=== PATIENT | female | born 1945 | race Caucasian/White ===

== ENCOUNTER → 2016-07-24 | Outpatient (CLI) | payer BC ==
[~2016-07-24] MED LIST: AMBR1TAB PO; AMIO200T4 PO; APIX1TAB3 PO; ASCA500 PO; ASPEC81 PO; B-CO1TAB29 PO; CALC600T9 PO; CETI10TA84 PO; CHOL1000 PO; DIPH-437 PO; GABA-113 PO; IRONCAP18 PEG; MULT-506 PO; OXGN; POTA20TA16 PO; PRLSR20 PO; SILDINJ PO; SIMV20TA2 PO; TORS20TA2 PO; TPRSR/25 PO; VALA500T60 PO; WARF2TAB PO
--- NOTE | 2016-07-24 12:23 | DIAGNOSTIC IMAGING REPORT ---
CT SCAN OF THE CHEST WITHOUT IV CONTRAST CLINICAL HISTORY: Pulmonary nodule and pleural effusion. COMPARISON STUDY: Chest CT scans dated 06/02/2016 and 07/27/2010. TECHNIQUE: Unenhanced CT scan of the chest was performed from the thoracic inlet to the upper abdomen. Images are reviewed in the axial, sagittal, and coronal planes. IV contrast was not administered as per the referring clinician. CT DOSE: 694.66 mGy.cm FINDINGS: Thyroid: Imaged portions of the thyroid gland are normal in size and attenuation. Thoracic aorta: There is atherosclerotic calcification of the thoracic aorta, which is normal in caliber and demonstrates standard 3-vessel arch anatomy. Heart: The heart is normal in size and configuration, and without pericardial effusion. The coronary arteries are densely calcified. The main pulmonary arteries are enlarged suggesting pulmonary artery hypertension. Lungs and pleural spaces: Emphysema and biapical scarring are noted. There are postoperative changes from right upper lobe resection. There is complete atelectasis of the right middle lobe. There is a small right pleural effusion. This has decreased in size from 06/02/2016. Loculated fluid is again noted at the right apex. No airspace consolidation is identified typical for pneumonia. A 2 mm left lower lobe nodule is seen on image #139. This is unchanged from 2011 and of doubtful significance. No new or concerning pulmonary nodules identified. Mediastinum: There is no mediastinal lymphadenopathy. Clare: Normal assessment IV contrast. Axillae: There is no axillary lymphadenopathy. Upper abdomen: The gallbladder is not identified and presumed surgically absent. Imaged portions of the kidneys demonstrate cortical atrophy. There is advanced atherosclerotic calcification of the visualized abdominal aorta. Diverticular disease is noted in the partially imaged colon. Skeletal structures: The skeletal structures are osteopenic. There is a compression deformity of T9 with evidence of previous vertebroplasty. A mild compression for is also noted in the body of T5. Degenerative change is noted throughout the thoracic spine. No lytic or blastic bony lesions are seen. There are healed right-sided rib fractures. IMPRESSION: 1. There is a small residual right pleural effusion. This has decreased in size from 06/02/2016. 2. Again seen are postoperative changes from right upper lobe resection with loculated fluid at the right apex. 3. There is complete atelectasis of the right middle lobe. 4. Emphysema. There is no airspace consolidation identified typical for pneumonia. 5. Additional changes as above. Electronically signed by: Trav Willard M.D. 07/24/2016 12:21 PM
== END | disposition home or self-care (01) ==
LOC: C.CTS 11:48
PROVIDERS: ATTEND Surgery
DX: I26.99 Other pulmonary embolism without acute cor pulmonale (principal); J43.9 Emphysema, unspecified

== ENCOUNTER → 2016-10-25 | Outpatient (CLI) | payer BC ==
[2016-10-25 14:38] LABS: BASO % 0.7 %; BASO ABS # 0.03 K/uL (0-0.2); COMPLETE YES; EOS % 6.1 %; HEMATOCRIT 33.9 % (37-47); IG% 0.2 %; LYMPH % 26.3 %; LYMPH ABS # 1.21 K/uL (1.2-3.4); MEAN CORPUSCULAR HEMOGLOBIN 31.4 pg (25-34); MEAN CORPUSCULAR HGB CONC 32.7 g/dl (32-36); MEAN PLATELET VOLUME 9.6 fL (7.4-10.4); MONO % 11.5 %; NEUT % 55.2 %; PLATELET COUNT 251 K/uL (130-400); RED BLOOD COUNT 3.53 M/uL (4.2-5.4)
--- NOTE | 2016-10-25 14:45 | DIAGNOSTIC IMAGING REPORT ---
CHEST 2 VIEWS ROUTINE CLINICAL HISTORY: Adenocarcinoma the lung COMPARISON STUDY: 07/12/2016 FINDINGS: There is elevation/tenting of the right hemidiaphragm. There is blunting of the right lateral costophrenic angle. Postsurgical changes are present within the right hemithorax. There is persistent right hilar prominence, likely postsurgical. There is a small right pleural effusion. There are postsurgical changes are prior vertebroplasty. There is underlying pulmonary emphysema. The left lung is clear.[ IMPRESSION: Postsurgical changes on the right with persistent volume loss, prominent right hilum, tenting of the right hemidiaphragm, and a small right pleural effusion. No acute findings are visualized. Electronically signed by: Alex Reyna M.D. 10/25/2016 2:44 PM Dictated Date/Time: 10/25/2016 2:42 PM
[2016-10-25 15:05] LABS: ALT/SGPT 21 U/L (12-78); BLOOD UREA NITROGEN 26 mg/dl (7-18); BUN/CREATININE RATIO 25.8 (10-20); CALCIUM 9.2 mg/dl (8.5-10.1); CARBON DIOXIDE 30 mmol/L (21-32); CHLORIDE 105 mmol/L (98-107); GLUCOSE 95 mg/dl (70-99); POTASSIUM 4.1 mmol/L (3.5-5.1); SODIUM 143 mmol/L (136-145)
[2016-10-25 15:08] LABS: ALB/GLOB RATIO 0.8 (0.9-2); ALKALINE PHOSPHATASE 91 U/L (45-117); AST/SGOT 19 U/L (15-37)
== END | disposition home or self-care (01) ==
LOC: C.RAD 14:04
PROVIDERS: ATTEND Internal Medicine Hematology & Oncology
DX: C34.11 Malignant neoplasm of upper lobe, right bronchus or lung (principal); J90 Pleural effusion, not elsewhere classified

== ENCOUNTER → 2016-11-17 | Outpatient (CLI) | payer BC ==
[2016-11-17 12:14] LABS: HEMATOCRIT 34.4 % (37-47); MEAN CORPUSCULAR HEMOGLOBIN 30.3 pg (25-34); MEAN CORPUSCULAR HGB CONC 32.6 g/dl (32-36); MEAN PLATELET VOLUME 9.5 fL (7.4-10.4); PLATELET COUNT 250 K/uL (130-400); WHITE BLOOD COUNT 3.61 K/uL (4.8-10.8)
--- NOTE | 2016-11-17 12:15 | DIAGNOSTIC IMAGING REPORT ---
CT OF THE CHEST WITHOUT IV CONTRAST CLINICAL HISTORY: LUNG CA SHORTNESS OF BREATH COMPARISON STUDY: 17 CT DOSE: 595.46 mGycm TECHNIQUE: CT of the thorax was performed from the thoracic inlet to the lung bases. Images are reviewed in the axial, sagittal, and coronal planes. IV contrast was not administered for this examination. FINDINGS: Thyroid: Imaged portions of the thyroid gland are normal in appearance. Thoracic aorta: The thoracic aorta is normal in course and caliber, noting standard 3 vessel arch anatomy. Heart: There are coronary artery calcifications present. Lungs and pleural spaces: There are postsurgical changes of a right upper lobectomy. There is right middle lobe atelectasis, improved when compared the prior study. There is a persistent small right pleural effusion. There is a small amount of loculated fluid the right apex similar to the prior study. There is right apical reticulation, unchanged the prior study. There is a stable 2 mm left lower lobe pulmonary nodule. There is a stable 2 mm right lower lobe pulmonary nodule. No new or enlarging pulmonary masses are visualized. Mediastinum: There is no mediastinal lymphadenopathy. Clare: There is no evidence of pathologic hilar adenopathy given the limitations of a noncontrast study Axilla: Clear. Upper abdomen: Partially visualized upper abdominal viscera is within normal limits. Skeletal structures: There is evidence of a T9 compression deformity status post vertebroplasty. There is stable minor superior endplate T5 compression deformity. IMPRESSION: 1. Postsurgical changes of a right upper lobectomy 2. Stable small right pleural effusion 3. Right middle lobe atelectasis with improving aeration when compared the prior study 4. No new or enlarging pulmonary nodules Electronically signed by: Alex Reyna M.D. 11/17/2016 12:14 PM Dictated Date/Time: 11/17/2016 12:06 PM
[2016-11-17 12:44] LABS: BLOOD UREA NITROGEN 18 mg/dl (7-18); BUN/CREATININE RATIO 19.7 (10-20); CARBON DIOXIDE 28 mmol/L (21-32); CHLORIDE 107 mmol/L (98-107); CREATININE 0.89 mg/dl (0.60-1.20); GLUCOSE 90 mg/dl (70-99); SODIUM 141 mmol/L (136-145)
[2016-11-17 12:52] LABS: TOTAL IRON BINDING CAPACITY 431 mcg/dl (250-450)
[2016-11-17 12:54] LABS: CALCIUM 10.3 mg/dl (8.5-10.1)
== END ==
LOC: C.CTS 11:38
PROVIDERS: ATTEND Surgery
DX: C34.92 Malignant neoplasm of unspecified part of left bronchus or lung (principal); I27.2 Other secondary pulmonary hypertension; E78.5 Hyperlipidemia, unspecified; I48.91 Unspecified atrial fibrillation; Z79.01 Long term (current) use of anticoagulants; I26.99 Other pulmonary embolism without acute cor pulmonale; D46.9 Myelodysplastic syndrome, unspecified

== ENCOUNTER → 2016-12-13 | Outpatient (CLI) | payer BC | END | disposition home or self-care (01) | LOC: C.RC 09:24 | PROVIDERS: ATTEND Specialist | DX: I27.2 Other secondary pulmonary hypertension (principal) ==

== ENCOUNTER → 2016-12-15 | Day surgery (SDC) | payer BC ==
[~2016-12-15] VITALS: Ht 160 cm; Wt 73.0 kg
[~2016-12-15] MED LIST changes: -AMIO200T4 PO; -B-CO1TAB29 PO; +FENTANYL CITRATE INJ 50 MCG/1 ML 2 ML VIAL ONE; +MIDAZOLAM HCL 1 MG/ML 2ML VIAL ONE; -WARF2TAB PO
[2016-12-15 08:29] VITALS: Ht 160 cm; Wt 73.0 kg
[2016-12-15 08:30] VITALS: BP 121/62; PULSE 85; TEMP 36.6; O2SAT 95
--- NOTE | 2016-12-15 10:35 | History & Physical Bridge Note ---
H&P Re-Evaluation Bridge Note: I have examined the patient, reviewed the History & Physical and in the interval since the performance of the History & Physical I have noted the following changes of clinical significance: No changes noted
--- NOTE | 2016-12-15 10:36 | Procedure Note ---
Pre-Mod Sedation Assessment General Date of Moderate Sedation: December 15, 2016. Vital Signs: Vital Signs Past 12 Hours Date Time Temp Pulse Resp B/P Pulse Ox O2 Delivery O2 Flow Rate FiO2 12/15/16 10:30 66 16 111/54 98 Room Air 12/15/16 10:27 65 16 132/76 98 Room Air 12/15/16 08:30 36.6 85 16 121/62 95 Room Air Review Cardiovascular: regular rate, rhythm, no edema Abdomen: normal bowel sounds, non tender Lungs: chest non-tender, lungs clear Airway Class: II Pre-Sedation Airway Assessment Oral Cavity: Dentures Able to Visualize Vocal Cords: No Short Thick Neck: No Hx of Sleep Apnea: Yes Smoking Status: Former Smoker Mallampati Classification: Class II ASA Classification: Class III Procedure Planning Contraindications-for Mod Sed: None Yes Notes The planned sedation has been discussed with the patient and consent obtained. I have identified the patient, determined the appropriateness of sedation and have assessed the patient immediately prior to the procedure. All medicine(s) and interventions are by my order.
--- NOTE | 2016-12-15 10:37 | Procedure Note ---
Post-Mod Sedation Assessment General Date of Moderate Sedation December 15, 2016. Vital Signs: Vital Signs Past 12 Hours Date Time Temp Pulse Resp B/P Pulse Ox O2 Delivery O2 Flow Rate FiO2 12/15/16 10:30 66 16 111/54 98 Room Air 12/15/16 10:27 65 16 132/76 98 Room Air 12/15/16 08:30 36.6 85 16 121/62 95 Room Air Review - Discharge Criteria Vital Signs Stable: Yes Alert/Oriented/Conversant: Yes Returned to Baseline Mental St: Yes Nausea Absent/Minimal: Yes Pain/Discomfort/Absent/Minimal: Yes Normal/Baseline Respirations: Yes Active Bleeding?: No Pt Received D/C Instructions: Yes Prescriptions Given: None Specific Proced. D/C Criteria Distal Pulses Present (Cardiac: Yes Groin site assessed-Card Cath: N/A Voided Prior To Discharge: N/A Discharged Patients Adult Escort/Transportation: Yes
--- NOTE | 2016-12-15 11:02 | [facility] Post Operative Brief Note ---
Preliminary Procedure Note Procedure Date December 15, 2016. Pre-Procedure Diagnosis Cardiothoracic Symptom AUC Score 7 Post-Procedure Diagnosis Normal Intracardiac Pressures, Cardiothoracic Finding Procedure(s) Performed Right Heart Cath Staff Accountant Dr. Zelaya Public Health Administrator(s) Slava Estimated Blood Loss 5 Medication(s) Fentanyl, Versed, Lidocaine 1% Preliminary Findings Right Heart Catheterization: RA 6 RV 55/9 PA 56/21/36 PCW 11 Pulse Ox Sat 90 Pa Sat 54 Thermo CO/CI 3.9/2.2 Kalina CO/CI 4.0/2.3 TPG 25; PVR 6 Wood Summary: 1. Normal left sided and borderline right-sided filling pressures 2. Mild to moderate pulmonary hypertension 3. Preserved cardiac output Recommendations: Findings to be discussed with patient's CHF/pulmonary hypertension specialist, Dr. Meyers. Recommendations Medical therapy and/or Counseling Specimens None Fluids (cc crystalloids) 12 Drains none Anesthesia moderate Procedural Complication(s) None Disposition Line Maintenance Technician Holding/Recovery
[2016-12-15 11:55] LABS: ISTAT ARTERIAL BLOOD GAS HCO3 27 meq/L (19-24); ISTAT ARTERIAL BLOOD GAS PCO2 43 mmHg (35-46); ISTAT ARTERIAL BLOOD GAS PO2 < 32 mmHg (80-95); ISTAT ARTERIAL BLOOD GAS pH 7.41 (7.35-7.45); ISTAT CARBON DIOXIDE 28 mEq/l (24-31)
--- NOTE | 2016-12-15 12:18 | Discharge Instructions ---
Discharge Instructions Procedure Procedure Date: December 15, 2016. Reason for Visit: Dyspnea On Exertion To Do. Discharge Discharge Date: December 15, 2016. Discharge Diagnosis: Pulmonary Hypertension Last Recorded Wt (Kilograms): 73 Anesthesia Post Anesthesia Instructions: If you have had IV Sedation: * Do not drive today. * Resume driving when surgeon permits. * Do not make important decisions or sign legal documents today. * Call surgeon for: 1. Temperature elevations greater than 101 degrees F. 2. Uncontrollable pain. 3. Excessive bleeding. 4. Persistent nausea and vomiting. 5. Medication intolerance (nausea, vomiting or rash). * For nausea and vomiting use only clear liquids such as: tea, soda, bouillon until nausea subsides, then gradually increase diet as tolerated. * If you have any concerns or questions, call your surgeon's office. If physician is unavailable and it is an emergency, call 911 or go to the nearest emergency room. Instructions Activity Recommendations: limitations as noted below Recommended Home Diet: resume previous diet Allergies: Coded Allergies: Ciprofloxacin (Unverified Allergy, Mild, RASH, 06/02/16) Cephalexin (Unverified Allergy, Unknown, UNKNOWN, 06/02/16) Doxycycline (Unverified Allergy, Unknown, RASH, 06/02/16) Eggs or Egg-derived Products (Unverified Allergy, Unknown, HIVES, 06/02/16 ) Influenza Vaccine Live (Verified Allergy, Unknown, ALLERGIES TO EGGS, 06/07) Nitrates, Organic (Verified Allergy, Unknown, UNABLE TO HAVE R/T PULMONARY HTN, 06/02/16) Penicillins (Unverified Allergy, Unknown, RASH, 06/02/16) Tetanus Toxoid (Unverified Allergy, Unknown, TETANUS-DIPTHERIA TOXOID-RASH , 06/02/16) Codeine (Verified Adverse Reaction, Unknown, GI SYMPTOMS, 06/02/16) NAUSEA/VOMITING Hydrocodone (Unverified Adverse Reaction, Unknown, N/V, 12/15/16) Uncoded Allergies: ANTI-HISTAMINES (Allergy, Unknown, UNABLE TO HAVE R/T PULMONARY HTN, 10/27/14 ) COLD MEDICATIONS (Allergy, Unknown, UNABLE TO HAVE R/T PULMONARY HTN, ) Follow Up Additional Instructions: ACTIVITY RECOMMENDATIONS: It is common to feel weak and fatigue for a few days. * Do not drive or operate any motorized equipment for the next 2 days. * Limit stair usage (2 or 3 trips a day only) for the next 2 days. * Do not lift anything heavier than 10 pounds for the next three days. * Do not engage in vigorous exercise or any sports for the next five days. * You may shower the day after your procedure, but do not immerse the area for three days. Cleanse the site gently with soap and water. SPECIAL CARE INSTRUCTIONS: * You may replace the pressure dressing or band-aid the morning after the procedure. * After your procedure, it is normal to have a small bruise or small lump at the site. Examine your site daily for any change in the bruise or lump, redness, swelling, drainage or numbness. Notify your doctor if any change. BLEEDING: * If there is a small amount of bleeding at the site, lie down and apply firm pressure with a clean cloth for ten minutes. When the bleeding stops, lie quietly keeping the procedure limb straight for six hours. Notify your doctor as soon as possible. * If the bleeding does not stop after ten minutes or if there is a large amount of bleeding or spurting, call 911 immediately. Continue to lie down and hold firm pressure until help arrives. SKIN IRRITATION: * You may experience some redness and/or swelling in the area where radiation was administered. If any skin irritation occurs, please contact your family physician. FOLLOW UP VISIT: Keep any scheduled doctor appointments. Follow-up with: Dr. Michelle for further pulmonary evaluation Yudelka Juarez Recommendations: Call your doctor if: * Temperature above 101 degrees * Pain not relieved by pain medicine ordered * There is increased drainage or redness from any incision * You have any unanswered questions or concerns. Your Doctors Instructions noted above were prepared by provider Farhan Zelaya. Patient Signature Section: Patient Instructions Signature Page Angela Parish Patient (or Guardian) Signature/Date: I have read and understand the instructions given to me by my caregivers. Caregiver/RN/Doctor Signature/Date: The above-named patient and/or guardian has received patient instructions on this date. + Original Patient Signature Page (only) stays with chart. Please make copy for patient.
[2016-12-15 12:55] VITALS: BP 112/68; PULSE 78; O2SAT 97
--- NOTE | 2016-12-21 13:51 | CARDIAC CATH REPORT ---
DATE OF PROCEDURE: 12/15/2016. INDICATION FOR STUDY: Pulmonary hypertension. PROCEDURE PERFORMED: Right heart catheterization. PROCEDURE: A 18 gauge IV was placed in the right antecubital vein prior to procedure. The patient was taken to the cardiac catheterization lab where she was prepped in normal standard fashion. IV was exchanged for a 6 German slender sheath. A 5 [place] was guided to the heart under fluoroscopy and thermo cardiac outputs were obtained. FINDINGS: RA 6. RV 55/9. PA 55/21 with mean of 36. Post capillary wedge pressure 11. Arterial pulse ox 90%, PA sat 54%. Thermo cardiac output/cardiac index was 2.9/2.2. Cardiac output was 4.0, index 2.3, calculated transpulmonary gradient was 25 and calculated pulmonary vascular resistance was 6 Wood units. SUMMARY: 1. Normal left sided and borderline right sided filling pressures. 2. Mild to moderate pulmonary hypertension. 3. Preserved cardiac output. RECOMMENDATIONS: Findings of right heart catheterization were discussed with the patient's pulmonary hypertension specialist, Dr. Meyers. It was his recommendation that the patient's Sildenafil dose be increased from 25 mg to 40 mg t.i.d. This was discussed with the patient and changes were made. MTDD
== END | disposition home or self-care (01) ==
LOC: C.CATH 08:13
PROVIDERS: ATTEND Internal Medicine Interventional Cardiology
DX: I27.2 Other secondary pulmonary hypertension (principal); E78.5 Hyperlipidemia, unspecified; I25.10 Atherosclerotic heart disease of native coronary artery without angina pectoris; I48.0 Paroxysmal atrial fibrillation; I48.92 Unspecified atrial flutter; M47.812 Spondylosis without myelopathy or radiculopathy, cervical region; G47.30 Sleep apnea, unspecified; M54.12 Radiculopathy, cervical region; J44.9 Chronic obstructive pulmonary disease, unspecified; K21.9 Gastro-esophageal reflux disease without esophagitis; Z86.711 Personal history of pulmonary embolism; Z79.01 Long term (current) use of anticoagulants; Z85.118 Personal history of other malignant neoplasm of bronchus and lung; Z82.49 Family history of ischemic heart disease and other diseases of the circulatory system; Z87.891 Personal history of nicotine dependence; Z79.82 Long term (current) use of aspirin; Z79.899 Other long term (current) drug therapy

== ENCOUNTER → 2017-01-30 | Outpatient (CLI) | payer BC ==
[~2017-01-30] MED LIST changes: -FENTANYL CITRATE INJ 50 MCG/1 ML 2 ML VIAL ONE; -MIDAZOLAM HCL 1 MG/ML 2ML VIAL ONE
--- NOTE | 2017-01-30 11:31 | DIAGNOSTIC IMAGING REPORT ---
CHEST 2 VIEWS ROUTINE CLINICAL HISTORY: LUNG ADENOCARCINOMA C34.11 lung carcinoma COMPARISON STUDY: 10/25/2016 FINDINGS: Stable postoperative changes right hemithorax and right hilar region. Chronic persistent prominence of the hilar regions bilaterally. Chronic elevation right hemidiaphragm. Lungs otherwise are considered clear. There are no new or interval findings. There is minimal low thoracic vertebral plasty. IMPRESSION: Stable chest. Stable postoperative changes right hemithorax. No new or acute process. Electronically signed by: Alessandro Urbina M.D. 01/30/2017 11:30 AM Dictated Date/Time: 01/30/2017 11:29 AM
[2017-01-30 12:20] LABS: BASO % 1.8 %; BASO ABS # 0.05 K/uL (0-0.2); COMPLETE YES; EOS % 4.2 %; HEMATOCRIT 32.6 % (37-47); LYMPH % 36.6 %; LYMPH ABS # 1.04 K/uL (1.2-3.4); MEAN CELL VOLUME 84.7 fL (80-100); MEAN CORPUSCULAR HEMOGLOBIN 26.5 pg (25-34); MEAN CORPUSCULAR HGB CONC 31.3 g/dl (32-36); MEAN PLATELET VOLUME 9.8 fL (7.4-10.4); MONO % 9.2 %; NEUT % 48.2 %; PLATELET COUNT 271 K/uL (130-400); RED BLOOD COUNT 3.85 M/uL (4.2-5.4); WHITE BLOOD COUNT 2.84 K/uL (4.8-10.8)
[2017-01-30 12:40] LABS: ALT/SGPT 23 U/L (12-78); BLOOD UREA NITROGEN 18 mg/dl (7-18); BUN/CREATININE RATIO 16.5 (10-20); CALCIUM 9.4 mg/dl (8.5-10.1); CARBON DIOXIDE 29 mmol/L (21-32); CHLORIDE 104 mmol/L (98-107); GLUCOSE 87 mg/dl (70-99); POTASSIUM 4.4 mmol/L (3.5-5.1); SODIUM 138 mmol/L (136-145)
[2017-01-30 12:43] LABS: ALB/GLOB RATIO 0.9 (0.9-2); ALKALINE PHOSPHATASE 83 U/L (45-117); AST/SGOT 19 U/L (15-37)
[2017-01-30 13:22] LABS: CHOLESTEROL/HDL RATIO 4.2; THYROID STIMULATING HORMONE 2.12 uIu/ml (0.300-4.500)
== END | disposition home or self-care (01) ==
LOC: C.RAD 10:28
PROVIDERS: ATTEND Internal Medicine Hematology & Oncology
DX: C34.11 Malignant neoplasm of upper lobe, right bronchus or lung (principal); E78.5 Hyperlipidemia, unspecified; I48.91 Unspecified atrial fibrillation; D64.9 Anemia, unspecified; Z79.01 Long term (current) use of anticoagulants; M85.80 Other specified disorders of bone density and structure, unspecified site; Z12.31 Encounter for screening mammogram for malignant neoplasm of breast

== ENCOUNTER → 2017-01-30 | Outpatient (CLI) | payer BC ==
--- NOTE | 2017-01-31 07:38 | MAMMOGRAPHY REPORT ---
BILATERAL DIGITAL SCREENING MAMMOGRAM WITH CAD: 01/30/2017 CLINICAL HISTORY: Routine screening. TECHNIQUE: Bilateral CC and MLO views were obtained. A left XCCL view was also performed. Current debra osuna was also evaluated with a Computer Aided Detection (CAD) system. COMPARISON: Comparison is made to exams dated: 11/23/2015 mammogram, 11/05/2014 mammogram, 11/04/2013 ma mmogram, 11/01/2012 mammogram, 11/01/2011 mammogram, and 10/18/2010 mammogram - [facility] nter. BREAST COMPOSITION: The tissue of both breasts is almost entirely fatty. FINDINGS: There is stable faint asymmetry in the lateral right breast. No suspicious mass, core microarchitect ural distortion or cluster of microcalcifications is seen. IMPRESSION: ACR BI-RADS CATEGORY 1: NEGATIVE There is no mammographic evidence of malignancy. A 1 year screening mammogram is recommended. The pa tient will receive written notification of the results. Approximately 10% of breast cancers are not detected with mammography. A negative mammographic report should not delay biopsy if a clinically suggestive mass is present. Sheeba Tapia M.D. ay/:01/30/2017 15:36:39 Sander Setter: Lulu SIMPSON(Tom)(M), [facility] letter sent: Normal 1/2 BI-RADS Code: ACR BI-RADS Category 1: Negative
== END | disposition home or self-care (01) ==
LOC: C.MAMM 09:37
PROVIDERS: ATTEND Obstetrics & Gynecology
DX: Z12.31 Encounter for screening mammogram for malignant neoplasm of breast (principal)

== ENCOUNTER → 2017-04-25 | Outpatient (CLI) | payer BC ==
--- NOTE | 2017-04-25 13:25 | DIAGNOSTIC IMAGING REPORT ---
CHEST 2 VIEWS ROUTINE CLINICAL HISTORY: 71 years-old Female presenting with LUNG CA. TECHNIQUE: PA and lateral views of the chest were obtained. COMPARISON: 01/30/2017. FINDINGS: Surgical clips project over the right hilum with multiple suture margins noted in the right lung centrally. Cardiac silhouette normal in size. Persistent elevation of the right hemidiaphragm. Prominence of the sergio unchanged. No new focal infiltrate. No large effusion or pneumothorax. Scoliotic curvature and degenerative change of the spine. Mid thoracic vertebroplasty noted. Upper abdomen normal. IMPRESSION: 1. Stable postsurgical changes of the right hemithorax. Electronically signed by: Wilmer Pritchard M.D. 04/25/2017 1:23 PM Dictated Date/Time: 04/25/2017 1:22 PM
[2017-04-25 14:17] LABS: FERRITIN 5.7 ng/ml (8.0-388.0)
== END | disposition home or self-care (01) ==
LOC: C.RAD 12:20
PROVIDERS: ATTEND Internal Medicine Hematology & Oncology
DX: C34.11 Malignant neoplasm of upper lobe, right bronchus or lung (principal); Z98.890 Other specified postprocedural states

== ENCOUNTER → 2017-05-15 | Outpatient (CLI) | payer BC ==
--- NOTE | 2017-05-15 10:46 | DIAGNOSTIC IMAGING REPORT ---
(CHEST) THORAX WITHOUT CT DOSE: 621.35 mGycm CLINICAL HISTORY: 71 years-old Female with LUNG CA. Six-month follow-up study in a patient with adenocarcinoma . History of prior right upper lobectomy. TECHNIQUE: Multiaxial CT images of the chest were performed without contrast. A dose lowering technique was utilized adhering to the principles of ALARA. COMPARISON: Chest radiographs 04/25/2017, chest CT 11/17/2016, 06/02/2016, 12/27/2015. FINDINGS: No dominant thyroid nodule identified. Evaluation for adenopathy is limited without use of IV contrast. Within the limitations of the study, no pathologic-appearing adenopathy of the chest identified. The heart is normal in size with three-vessel distribution coronary arterial disease. Moderate atherosclerotic plaquing of the thoracic aorta. Main pulmonary artery is mildly dilated at 3.0 cm, suggesting background pulmonary arterial hypertension. 6 x 5 mm groundglass nodule of the left upper lobe is seen on image 42 of series 4, indeterminate. In retrospect, this appears unchanged dating back to at least 05/05/2011 suggesting benign etiology. Mild subpleural bleb formation is seen within the upper lung zones. There are a few nonspecific ill-defined groundglass opacities of the left upper lobe may reflect atelectasis and/or air trapping. Ill-defined 10 x 9 mm opacity abutting the pleural surface with central air bronchograms seen within the right lower lobe which appears slightly more conspicuous than comparison study 11/17/2016 seen on image 43 of series 4.. Postsurgical changes of prior right upper lobectomy. Chronic consolidation and volume loss of the right middle lobe appears stable from comparison. 7 x 7 mm solid pulmonary nodule within the right lower lobe on image 114 of series 4 appears new from comparison. No additional new or suspicious pulmonary nodules or masses identified. Areas of pleural-parenchymal scarring are present within the lung apices, right and left. Central airways are patent. Unchanged small right pleural effusion. Partially imaged cholelithiasis. Patient obesity noted. No suspicious lytic or blastic bony lesions identified. Remote compression deformity with vertebroplasty changes noted at T9. Bones are mildly demineralized. IMPRESSION: 1. Postoperative changes compatible with prior right upper lobectomy. Chronic consolidative opacities and volume loss of the right middle lobe with small right pleural effusion are unchanged. 2. Interval development of a solid pulmonary nodule within the right lower lobe as above measuring 7 x 7 mm which is suspicious for possible metastatic disease. Additionally, there is an ill-defined 10 mm opacity within the right lower lobe near the apex as above which appears more conspicuous than prior study. Both of these findings warrant close attention at follow-up. 3. No pathologic adenopathy or evidence of bony metastasis. 4. Partially imaged cholelithiasis. Electronically signed by: Jaime Steele M.D. 05/15/2017 10:44 AM Dictated Date/Time: 05/15/2017 10:33 AM
== END | disposition home or self-care (01) ==
LOC: C.CTS 10:10
PROVIDERS: ATTEND Surgery
DX: C34.92 Malignant neoplasm of unspecified part of left bronchus or lung (principal); J44.9 Chronic obstructive pulmonary disease, unspecified; Z86.711 Personal history of pulmonary embolism; K80.20 Calculus of gallbladder without cholecystitis without obstruction; R93.8 Abnormal findings on diagnostic imaging of other specified body structures

== ENCOUNTER → 2017-07-18 | Outpatient (CLI) | payer BC ==
[~2017-07-18] MED LIST changes: +ACET-1256 PO; +AMIO200T4 PO; +BENZ1CAP90 PO; -CETI10TA84 PO; +CRD200 PO; -IRONCAP18 PEG; +METO25TA3 PO; +MOME100A INH; +POTA-639 PO; +POTA10CA28 PO; -POTA20TA16 PO; +SERT50TA PO; +SILD1TAB25 PO; +TORS10TA14 PO
[2017-07-18 10:59] LABS: ALBUMIN 3.7 gm/dl (3.4-5.0); ALT/SGPT 28 U/L (12-78); BLOOD UREA NITROGEN 23 mg/dl (7-18); CALCIUM 9.3 mg/dl (8.5-10.1); CARBON DIOXIDE 30 mmol/L (21-32); CREATININE 1.01 mg/dl (0.60-1.20); GLUCOSE 98 mg/dl (70-99); POTASSIUM 3.9 mmol/L (3.5-5.1); SODIUM 138 mmol/L (136-145)
[2017-07-18 11:02] LABS: ALKALINE PHOSPHATASE 93 U/L (45-117); AST/SGOT 21 U/L (15-37); TOTAL PROTEIN 8.1 gm/dl (6.4-8.2)
[2017-07-18 11:12] LABS: BASO % 1.1 %; BASO ABS # 0.04 K/uL (0-0.2); EOS % 6.4 %; EOS ABS # 0.24 K/uL (0-0.5); HEMATOCRIT 38.9 % (37-47); HEMOGLOBIN 13.6 g/dL (12.0-16.0); IG# 0.01 K/uL (0.00-0.02); LYMPH % 28.1 %; LYMPH ABS # 1.06 K/uL (1.2-3.4); MEAN CELL VOLUME 90.9 fL (80-100); MEAN CORPUSCULAR HEMOGLOBIN 31.8 pg (25-34); MEAN PLATELET VOLUME 9.8 fL (7.4-10.4); MONO % 13.5 %; MONO ABS # 0.51 K/uL (0.11-0.59); NEUT % 50.6 %; NEUT ABS # 1.91 K/uL (1.4-6.5); PLATELET COUNT 231 K/uL (130-400); RED CELL DISTRIBUTION WIDTH CV 22.3 % (11.5-14.5); RED CELL DISTRIBUTION WIDTH SD 68.9 fL (36.4-46.3); WHITE BLOOD COUNT 3.77 K/uL (4.8-10.8)
== END | disposition home or self-care (01) ==
LOC: C.LABBC 08:17
PROVIDERS: ATTEND Nurse Practitioner Family
DX: D64.9 Anemia, unspecified (principal); I48.0 Paroxysmal atrial fibrillation

== ENCOUNTER → 2017-07-30 | Outpatient (CLI) | payer BC ==
[~2017-07-30] MED LIST changes: -AMIO200T4 PO; -BENZ1CAP90 PO; -CRD200 PO; -DIPH-437 PO; -METO25TA3 PO; -POTA-639 PO; -POTA10CA28 PO; +POTA20TA16 PO; -SILD1TAB25 PO; -TORS10TA14 PO
--- NOTE | 2017-07-30 14:32 | DIAGNOSTIC IMAGING REPORT ---
CHEST 2 VIEWS ROUTINE HISTORY: Lung cancer. Follow-up. COMPARISON: PET CT 05/23/2017. Chest 04/25/2017. FINDINGS: Postoperative changes including volume loss within the right hemithorax are not significantly changed. Right hilar prominence remains stable. No pleural effusions. No pneumothorax. The heart is normal in size. Vertebroplasty within the lower thoracic spine is again noted. No new focal lung consolidations. No evidence for pulmonary edema. IMPRESSION: No significant change compared to the prior study. No acute process. Stable presumed postoperative changes within the right hemithorax. Electronically signed by: Jak Anthony M.D. 07/30/2017 2:31 PM Dictated Date/Time: 07/30/2017 2:29 PM
== END | disposition home or self-care (01) ==
LOC: C.LABBC 14:06
PROVIDERS: ATTEND Internal Medicine Hematology & Oncology
DX: C34.11 Malignant neoplasm of upper lobe, right bronchus or lung (principal)

== ENCOUNTER → 2017-10-16 | Outpatient (CLI) | payer BC ==
[2017-10-16 13:14] LABS: BASO % 0.8 %; BASO ABS # 0.04 K/uL (0-0.2); EOS % 4.9 %; EOS ABS # 0.24 K/uL (0-0.5); HEMATOCRIT 39.3 % (37-47); HEMOGLOBIN 13.5 g/dL (12.0-16.0); IG# 0.01 K/uL (0.00-0.02); LYMPH % 26.6 %; LYMPH ABS # 1.29 K/uL (1.2-3.4); MEAN CELL VOLUME 98.7 fL (80-100); MEAN CORPUSCULAR HEMOGLOBIN 33.9 pg (25-34); MEAN CORPUSCULAR HGB CONC 34.4 g/dl (32-36); MEAN PLATELET VOLUME 10.1 fL (7.4-10.4); MONO % 9.9 %; MONO ABS # 0.48 K/uL (0.11-0.59); NEUT % 57.6 %; NEUT ABS # 2.79 K/uL (1.4-6.5); PLATELET COUNT 263 K/uL (130-400); RED CELL DISTRIBUTION WIDTH CV 12.4 % (11.5-14.5); RED CELL DISTRIBUTION WIDTH SD 44.9 fL (36.4-46.3); WHITE BLOOD COUNT 4.85 K/uL (4.8-10.8)
[2017-10-16 14:10] LABS: ALBUMIN 3.6 gm/dl (3.4-5.0); ALT/SGPT 29 U/L (12-78); AST/SGOT 23 U/L (15-37); BLOOD UREA NITROGEN 22 mg/dl (7-18); CALCIUM 9.4 mg/dl (8.5-10.1); CARBON DIOXIDE 27 mmol/L (21-32); CREATININE 0.98 mg/dl (0.60-1.20); GLUCOSE 94 mg/dl (70-99); POTASSIUM 4.1 mmol/L (3.5-5.1); SODIUM 136 mmol/L (136-145)
[2017-10-16 14:16] LABS: ALKALINE PHOSPHATASE 98 U/L (45-117); TOTAL PROTEIN 8.3 gm/dl (6.4-8.2)
== END | disposition home or self-care (01) ==
LOC: C.LABBC 10:14
PROVIDERS: ATTEND Nurse Practitioner Family
DX: C34.11 Malignant neoplasm of upper lobe, right bronchus or lung (principal)

== ENCOUNTER → 2017-10-17 | Outpatient (CLI) | payer BC ==
--- NOTE | 2017-10-17 11:51 | DIAGNOSTIC IMAGING REPORT ---
(CHEST) THORAX WITHOUT CLINICAL HISTORY: 72 years-old Female presenting with ADENOCARCINOMA OF RT LUNG. TECHNIQUE: Multidetector CT imaging of the chest was performed without the use of intravenous contrast. IV contrast: None. A dose lowering technique was used consistent with the principles of ALARA (as low as reasonably achievable). COMPARISON: 05/15/2017 and chest x-ray from 07/30/2017. CT DOSE (mGy.cm): The estimated cumulative dose is 654.44 mGycm. FINDINGS: Environmental Compliance Technician topogram: Unremarkable. On soft tissue windows, normal thyroid and thoracic inlet. No axillary, supraclavicular, or mediastinal lymphadenopathy. Evaluation of the sergio limited without intravenous contrast. Atherosclerosis of the aorta. Normal heart size. Coronary artery and aortic valve calcification. Trace right pleural effusion. No pericardial or left pleural effusion. Prominence of the bile ducts may relate to a reservoir effect in the post cholecystectomy state, although the gallbladder fossa is not visualized to confirm cholecystectomy. On lung windows, postsurgical changes of right upper lobectomy. Chronic cicatrizing atelectasis of the right middle lobe, possibly postsurgical. Persistent reticulation at the superior segment of the right lower lobe at the apex. This is unchanged and suggestive of scarring. The previously measured site at the paramediastinal region may represent focal bronchiectasis. Interval development of a suspicious groundglass nodule measuring 19 mm in diameter in the periphery of the right lower lobe (series 4 image 161). Based on its location, this does not definitively matched up with a prior finding though this may correlate with the prior measured groundglass nodule in this general vicinity. Mosaic attenuation suggest small airways disease. The previously measured groundglass nodule at the left apex is minimally apparent (series 4 image 46). Central airways patent. On bone windows, degenerative changes of the spine. Post procedure changes of kyphoplasty. Osteopenia. IMPRESSION: 1. 19 mm groundglass nodule in the right lower lobe is suspicious for an adenomatous lesion or carcinoma, specifically adenocarcinoma or adenocarcinoma in situ. Recommend excision or biopsy given the rapidity its growth/development. 2. Postsurgical changes of right upper lobectomy. 3. Chronic cicatrizing atelectasis of the right middle lobe. 4. Scarring in the superior segment of the right lower lobe, unchanged. 5. Trace right pleural effusion. The report will be called/faxed according to standard departmental protocol. Electronically signed by: Wilmer Pritchard M.D. 10/17/2017 11:50 AM Dictated Date/Time: 10/17/2017 11:40 AM
== END | disposition home or self-care (01) ==
LOC: C.CTS 11:14
PROVIDERS: ATTEND Surgery
DX: C34.11 Malignant neoplasm of upper lobe, right bronchus or lung (principal)

== ENCOUNTER → 2017-11-30 | Outpatient (CLI) | payer BC ==
[~2017-11-30] MED LIST changes: +POTA-639 PO; -POTA20TA16 PO
[2017-11-30 09:30] LABS: BASO % 0.7 %; BASO ABS # 0.03 K/uL (0-0.2); EOS % 3.6 %; EOS ABS # 0.15 K/uL (0-0.5); HEMATOCRIT 38.2 % (37-47); HEMOGLOBIN 12.7 g/dL (12.0-16.0); IG# 0.02 K/uL (0.00-0.02); LYMPH % 24.7 %; LYMPH ABS # 1.02 K/uL (1.2-3.4); MEAN CELL VOLUME 97.7 fL (80-100); MEAN CORPUSCULAR HEMOGLOBIN 32.5 pg (25-34); MEAN CORPUSCULAR HGB CONC 33.2 g/dl (32-36); MEAN PLATELET VOLUME 9.6 fL (7.4-10.4); MONO % 12.1 %; NEUT % 58.4 %; NEUT ABS # 2.41 K/uL (1.4-6.5); PLATELET COUNT 238 K/uL (130-400); RED CELL DISTRIBUTION WIDTH CV 13.1 % (11.5-14.5); RED CELL DISTRIBUTION WIDTH SD 46.6 fL (36.4-46.3); WHITE BLOOD COUNT 4.13 K/uL (4.8-10.8)
[2017-11-30 10:27] LABS: ALBUMIN 3.6 gm/dl (3.4-5.0); ALT/SGPT 27 U/L (12-78); AST/SGOT 22 U/L (15-37); BLOOD UREA NITROGEN 18 mg/dl (7-18); CALCIUM 9.1 mg/dl (8.5-10.1); CARBON DIOXIDE 29 mmol/L (21-32); CREATININE 0.92 mg/dl (0.60-1.20); GLUCOSE 76 mg/dl (70-99); POTASSIUM 3.9 mmol/L (3.5-5.1); SODIUM 140 mmol/L (136-145)
[2017-11-30 10:30] LABS: ALKALINE PHOSPHATASE 86 U/L (45-117); TOTAL PROTEIN 7.5 gm/dl (6.4-8.2)
== END | disposition home or self-care (01) ==
LOC: C.LAB 07:59
PROVIDERS: ATTEND Nurse Practitioner Family
DX: C34.11 Malignant neoplasm of upper lobe, right bronchus or lung (principal)

== ENCOUNTER 2018-02-28 08:47 | Inpatient (IN) | payer BC, OTHER ==
[2018-02-28] VITALS (10 sets, daily range): BP systolic 78–118; BP diastolic 54–69; PULSE 85–150; TEMP 36.5–36.9; O2SAT 94–97; Ht 162.6 cm; Wt 75.5 kg
[~2018-02-28] VITALS: Ht 162.6 cm; Wt 75.5 kg
[~2018-02-28 08:47] MED LIST changes: -ACET-1256 PO; -ASPEC81 PO; +BENZ1CAP90 PO; +DIPH-437 PO; +SILD1TAB25 PO; -SILDINJ PO; +TORS10TA14 PO; -TORS20TA2 PO
[2018-02-28] MEDS ORDERED: ADENOSINE IV SOLN 3 MG/ML 2 ML VIAL ONE ×3 (09:02→09:03)
[2018-02-28] MEDS ORDERED: SODIUM CHLORIDE 0.9% 1000ML 1,000 ML IV STA ×2 (09:07→09:43)
[2018-02-28] MEDS ORDERED: METOPROLOL TARTRATE 1 MG/ML VIAL IV STA (09:07)
--- NOTE | 2018-02-28 09:10 | EMERGENCY ROOM VISIT NOTE ---
History Report prepared by Lele: Cameron Durbin Under the Supervision of: Dr. Shad Fajardo M.D. First contact with patient: 08:56 Chief Complaint: TACHYCARDIA Stated Complaint: RAPID HEART RATE History of Present Illness The patient is a 72 year old female who presents to the Emergency Room with complaints of her heart "racing" constantly that began at 0700 this morning, 1 hour and 56 minutes prior to arrival. She also complains of a discomfort in the center of her chest. The patient has a history of atrial fibrillation, atrial flutter, as well as supraventricular tachycardia. She notes that she has needed to be cardioverted in the past. She is on Eliquis as well as Viagra for pulmonary HTN, and denies missing any dosages of her daily medication. She denies any nausea, vomiting, or SOB. She had an echocardiogram. She is also complaining of low back pain for the last 2 weeks. No dysuria but she has had dark-colored urine Source of History: patient, spouse/significant other Onset: 1 hour and 56 minutes ago Position: chest Quality: other (rapid heart rate) Timing: constant Associated Symptoms: + chest pain, No SOB, No nausea, No vomiting Review of Systems See HPI for pertinent positives & negatives. A total of 10 systems reviewed and were otherwise negative. Past Medical & Surgical Medical Problems: (1) Atrial fibrillation with RVR (2) Mass of right lung (3) PAF (paroxysmal atrial fibrillation) (4) Supraventricular tachycardia Old medical records were reviewed. Nurse's notes were reviewed and I agree with. Atrial fib, SVT Family History Patient reports no known family medical history. Social History Smoking Status: Former Smoker Marital Status: Housing Status: lives with family Occupation Status: retired Current/Historical Medications Scheduled Ambrisentan (Letairis), 10 MG PO QAM Apixaban (Eliquis), 5 MG PO BID Ascorbic Acid (Vitamin C), 500 MG PO DAILY Calcium Carbonate-Vitamin D (Calcium + D), 1 TAB PO QAM Cholecalciferol (Vitamin D3), 1,000 UNITS PO QAM Gabapentin (Neurontin), 600 MG PO QPM Gabapentin (Neurontin), 300 MG PO QAM Home O2 Therapy (Oxygen), 2 LITERS NA HS Metoprolol Succinate (Metoprolol Succinate ER), 25 MG PO BID Mometasone Furoate-Formoterol (Dulera 100/5 Mcg), 2 PUFFS INH BID Multivitamin (Multivitamin), 1 TAB PO QAM Omeprazole (Prilosec), 20 MG PO BID Potassium Chloride (Micro-K Ext Rel), 10 MEQ PO DAILY Sertraline (Zoloft), 50 MG PO QAM Sildenafil Citrate (Revatio), 40 MG PO TID Simvastatin (Zocor), 20 MG PO HS Torsemide (Demadex), 10 MG PO DAILY Scheduled PRN Benzonatate (Tessalon Perles), 200 MG PO Q8H PRN for Cough Home O2 Therapy (Oxygen), 2 LITER NA for Shortness of Breath Valacyclovir (Valtrex), 2 TAB PO UD PRN for onset of symptoms cold sores. Allergies Coded Allergies: Ciprofloxacin (Unverified Allergy, Mild, RASH, 02/28/18) Cephalexin (Unverified Allergy, Unknown, UNKNOWN, 02/28/18) Doxycycline (Unverified Allergy, Unknown, RASH, 02/28/18) Eggs or Egg-derived Products (Unverified Allergy, Unknown, HIVES, 02/28/18) Influenza Vaccine Live (Verified Allergy, Unknown, ALLERGIES TO EGGS, ) Nitrates, Organic (Verified Allergy, Unknown, UNABLE TO HAVE R/T PULMONARY HTN, 02/28/18) Penicillins (Unverified Allergy, Unknown, RASH, 02/28/18) Tetanus Toxoid (Unverified Allergy, Unknown, TETANUS-DIPTHERIA TOXOID-RASH , 02/28/18) Antihistamines, Diphenhydramine-typ (Verified Adverse Reaction, Unknown, UNABLE TO HAVE R/T PULMONARY HTN, 02/28/18) Codeine (Verified Adverse Reaction, Unknown, GI SYMPTOMS, 02/28/18) NAUSEA/VOMITING Hydrocodone (Unverified Adverse Reaction, Unknown, N/V, 02/28/18) Pseudoephedrine (Verified Adverse Reaction, Unknown, UNABLE TO HAVE COLD MEDICATIONS R/T PULMONARY HTN, 02/28/18) Physical Exam Vital Signs Date Time Temp Pulse Resp B/P (MAP) Pulse Ox O2 Delivery O2 Flow Rate FiO2 02/28/18 11:01 112 19 90/65 98 Nasal Cannula 2.0 02/28/18 10:56 97 Nasal Cannula 2.0 02/28/18 10:38 110 21 97 Nasal Cannula 2.0 02/28/18 10:33 134 19 92 Nasal Cannula 2.0 02/28/18 10:32 94/63 02/28/18 09:58 85 17 85/59 98 Nasal Cannula 2.0 02/28/18 09:55 85/64 02/28/18 09:33 74/57 02/28/18 09:32 112 24 97 Nasal Cannula 2.0 02/28/18 09:27 106 17 97 Nasal Cannula 2.0 02/28/18 09:26 95/59 02/28/18 09:22 105 13 97 Nasal Cannula 2.0 02/28/18 09:21 99/62 02/28/18 09:17 112 19 86/57 97 Nasal Cannula 2.0 02/28/18 09:14 92/71 02/28/18 09:13 94/66 02/28/18 09:13 128 94/66 02/28/18 09:12 127 17 88/65 96 Nasal Cannula 2.0 02/28/18 09:08 148 02/28/18 09:08 93/66 02/28/18 09:07 130 20 84/63 96 Nasal Cannula 2.0 02/28/18 09:06 93/68 02/28/18 09:02 144 21 96 Nasal Cannula 2.0 02/28/18 08:56 96 Nasal Cannula 2.0 02/28/18 08:49 36.8 171 24 91/60 96 Nasal Cannula 2.0 Physical Exam General: uncomfortable appearing older female in no acute distress. HEENT: Normal cephalic atraumatic. Pupils are equal round and reactive to light. Extraocular movements are intact. Oropharynx is pink with moist mucous membranes. No swelling of the mouth lips or tongue. Neck: Supple with a midline trachea. No meningeal signs or stiffness, no JVD or bruits. No Stridor. Chest: Clear to auscultation bilaterally. No wheezes or rhonchi. No increased work of breathing. Heart: Tachycardic with a narrow complex pulse of about 160. Some irregularity. Abdomen: Soft nontender, nondistended without rebound guarding or rigidity. Extremities: No cyanosis clubbing or edema. No calf tenderness or assymetry Spine/Back. Non tender to palpation. No CVA tenderness Skin: Good turgor without rashes. Neurologic exam: Cranial nerves two through 12 are intact. Motor and sensation are intact and symmetrical throughout. Medical Decision & Procedures ER Provider Diagnostic Interpretation: Radiology results as stated below per my review and radiologist interpretation: ABDOMEN AND PELVIS CT WITH IV CONTRAST CT DOSE: HISTORY: Generalized abdominal pain. eval for aortic disease TECHNIQUE: Multiaxial CT images of the abdomen and pelvis were performed following the use of intravenous contrast. A dose lowering technique was utilized adhering to the principles of ALARA. COMPARISON STUDY: PET CT 05/23/2017. FINDINGS: Small right pleural effusion and right middle lobe consolidation persists. No pneumoperitoneum. No pneumatosis. T9 vertebroplasty. Mild supra endplate compression fractures at L2, L4, L5. These images show slight sclerosis and favor acute subacute compression fractures. No associated retropulsion. The liver, spleen, adrenal glands, and pancreas are unremarkable. The gallbladder surgically absent. A 9 mm hypodense lesion within the left kidney. This is too small to characterize. There is a 1.7 cm cyst within the lower pole the right kidney. No hydronephrosis. No retroperitoneal lymphadenopathy. Calcified plaque within the normal caliber abdominal aorta. No evidence for an aortic dissection. The mesenteric vessels appear patent. The iliac arteries are also normal in caliber. Normal bladder, uterus, and ovaries. Colonic diverticulosis. No bowel wall thickening or obstruction. IMPRESSION: 1. No bowel wall thickening or obstruction. 2. Mild superior endplate compression fractures at L2, L4, and L5. These favor acute to subacute fracture. 3. Normal caliber abdominal aorta with no evidence for dissection. 4. Small right pleural effusion and consolidation within the right middle lobe. This is better appreciated on the same day chest CT. Electronically signed by: Jak Anthony M.D. 02/28/2018 11:55 AM Dictated Date/Time: 02/28/2018 11:31 AM CHEST COMBO ANGIO DISSECTION CLINICAL HISTORY: Chest pain. COMPARISON STUDY: PET/CT May 23, [address] December 14, 2017. TECHNIQUE: Unenhanced and arterial phase imaging of the chest was performed. Intravenous injection of 118 cc Optiray 320 IV was uneventful. Sagittal and coronal reconstructed reviewed as well as maximal intensity projections on an independent 3-D workstation. FINDINGS: There is no evidence for thoracic aortic dissection or intramural hematoma. Heart is mildly enlarged. There is no pericardial effusion. Moderate coronary artery calcification is noted. A small right pleural effusion has slightly increased in size since CT of December 14, 2017. No enlarged axillary, mediastinal or hilar lymph nodes are identified following right upper lobectomy. Right middle lobe airspace opacity has mildly increased since exam of December 14, 2017. A 1 cm right apical nodular opacity which contains a lucent spaces shown on image [id number] of May 15, 2017. Biapical scarring is noted. Prior T9 vertebral augmentation is noted as well as old mild T5 compression fracture. No acute thoracic spine fracture is present. The abdomen and pelvis will be reported separately. IMPRESSION: 1. No thoracic aortic dissection. 2. Slight increase in size of a small right pleural effusion since chest CT of December 14, 2017. 3. Status post right upper lobectomy. No thoracic lymphadenopathy. 4. Right middle lobe airspace opacity with volume loss which has mildly increased since prior CT. This may reflect atelectasis, consolidation or less likely post radiation change. This can be assessed on subsequent exams. 5. Dilatation of the central pulmonary arteries which suggests pulmonary arterial hypertension. 6. No change in a 1 cm right apical opacity which contain cystic spaces. This is likely benign but should be assessed on subsequent studies to ensure resolution. Electronically signed by: Shayne Palm M.D. 02/28/2018 11:54 AM Dictated Date/Time: 02/28/2018 11:39 AM ADDENDUM After further review and comparison to PET/CT from 05/23/2017 and MR lumbar spine from 02/02/2016, reformatted images from the CT of the abdomen or pelvis examination from today better reveal the previous reported Schmorl's nodes at the superior endplates of L2 and L4 as compression deformities. Sclerosis is associated with these deformities. CORRECTED IMPRESSION: Interval development of compression deformities of the superior endplates of L2, L4, L5. MR of the lumbar spine may better demonstrate the presence of bony edema to assess for acuity. The report will be called/faxed according to standard departmental protocol. Electronically signed by: Wilmer Pritchard M.D. 02/28/2018 11:38 AM Dictated Date/Time: 02/28/2018 11:36 AM ORIGINAL REPORT LUMBAR SPINE WITHOUT CLINICAL HISTORY: 72 years-old Female presenting with low back pain. TECHNIQUE: Multidetector CT of the lumbar spine was performed without the use of intravenous contrast. IV contrast: None. A dose lowering technique was used consistent with the principles of ALARA (as low as reasonably achievable). COMPARISON: Plain radiographs from 2010. CT DOSE (mGy.cm): The estimated cumulative dose is 1265.50. FINDINGS: Seed Packer topogram: Elevation of the right hemidiaphragm and mediastinal shift to the right consistent with postsurgical change. Mild S-shaped scoliotic curvature of the lumbar spine. Otherwise normal lumbar lordosis. Mild vertebral body height loss of L5 with sclerosis subjacent to the superior endplate (series 110 image 34). Prominent Schmorl's nodes at the superior endplates of L2 and L4. Intervertebral disc height loss noted to varying degrees at several levels as well as vacuum disc phenomenon. Disc osteophyte complex at L1-2 with posterior bony spurring mildly narrowing the spinal canal. Facet arthropathy with mild bony spurring results in mild osseous neural foraminal narrowing on the left at L5-S1. No evidence of subluxation. Remaining visualized soft tissues remarkable for atherosclerosis of the abdominal aorta. IMPRESSION: 1. Sclerosis subjacent to the superior endplate of L5 with mild vertebral body height loss of L5. This could raise concern for a mild compression fracture. Correlate for point tenderness. If there is clinical concern, MRI of the lumbar spine without contrast would best demonstrate the presence of bony edema to suggest an acute or subacute injury. 2. Multilevel degenerative changes of the lumbar spine. Electronically signed by: Wilmer Pritchard M.D. 02/28/2018 11:33 AM Dictated Date/Time: 02/28/2018 11:30 AM CHEST ONE VIEW PORTABLE CLINICAL HISTORY: 72 years-old Female presenting with CHEST PAIN. TECHNIQUE: Portable upright AP view of the chest was obtained. COMPARISON: 07/30/[address] from 12/14/2017. FINDINGS: Atherosclerosis of the aortic arch. Cardiac silhouette mildly enlarged. Mild prominence of pulmonary vasculature. Stable mediastinal shift to the right consistent with postsurgical changes of right upper lobectomy and prior loss of the right middle lobe best seen on most recent chest CT. Chronic elevation of the right hemidiaphragm. Surgical clips and suture material projects over the right hilum. No focal opacity. No large effusion or pneumothorax. Evidence of prior kyphoplasty in the lower thoracic spine. Scoliotic curvature of the spine. IMPRESSION: 1. Mild apparent cardiomegaly with mild prominence of pulmonary vasculature. This could suggest volume overload. 2. Stable postsurgical changes. Electronically signed by: Wilmer Pritchard M.D. 02/28/2018 9:45 AM Dictated Date/Time: 02/28/2018 9:42 AM Laboratory Results 02/28/18 09:00 Red Blood Count 4.03, Mean Corpuscular Volume 99.8, Mean Corpuscular Hemoglobin 33.3, Mean Corpuscular Hemoglobin Concent 33.3, Mean Platelet Volume 9.8, Neutrophils (%) (Auto) 61.9, Lymphocytes (%) (Auto) 23.3, Monocytes (%) (Auto) 9.5, Eosinophils (%) (Auto) 4.2, Basophils (%) (Auto) 0.7, Neutrophils # (Auto) 3.40, Lymphocytes # (Auto) 1.28, Monocytes # (Auto) 0.52, Eosinophils # (Auto) 0.23, Basophils # (Auto) 0.04 02/28/18 09:00 Test 02/28/18 09:00 02/28/18 09:28 02/28/18 10:30 White Blood Count 5.49 K/uL (4.8-10.8) Red Blood Count 4.03 M/uL (4.2-5.4) Hemoglobin 13.4 g/dL (12.0-16.0) Hematocrit 40.2 % (37-47) Mean Corpuscular Volume 99.8 fL (80-100) Mean Corpuscular Hemoglobin 33.3 pg (25-34) Mean Corpuscular Hemoglobin Concent 33.3 g/dl (32-36) Platelet Count 239 K/uL (130-400) Mean Platelet Volume 9.8 fL (7.4-10.4) Neutrophils (%) (Auto) 61.9 % Lymphocytes (%) (Auto) 23.3 % Monocytes (%) (Auto) 9.5 % Eosinophils (%) (Auto) 4.2 % Basophils (%) (Auto) 0.7 % Neutrophils # (Auto) 3.40 K/uL (1.4-6.5) Lymphocytes # (Auto) 1.28 K/uL (1.2-3.4) Monocytes # (Auto) 0.52 K/uL (0.11-0.59) Eosinophils # (Auto) 0.23 K/uL (0-0.5) Basophils # (Auto) 0.04 K/uL (0-0.2) RDW Standard Deviation 47.4 fL (36.4-46.3) RDW Coefficient of Variation 13.2 % (11.5-14.5) Immature Granulocyte % (Auto) 0.4 % Immature Granulocyte # (Auto) 0.02 K/uL (0.00-0.02) Prothrombin Time 10.9 SECONDS (9.0-12.0) Prothromb Time International Ratio 1.0 (0.9-1.1) Activated Partial Thromboplast Time 29.1 SECONDS (21.0-31.0) Partial Thromboplastin Ratio 1.1 Anion Gap 7.0 mmol/L (3-11) Estimated GFR () 67.5 Estimated GFR (Non- 58.3 BUN/Creatinine Ratio 17.4 (10-20) Calcium Level 9.2 mg/dl (8.5-10.1) Total Bilirubin 0.4 mg/dl (0.2-1) Direct Bilirubin < 0.1 mg/dl (0-0.2) Aspartate Amino Transf (AST/SGOT) 22 U/L (15-37) Alanine Aminotransferase (ALT/SGPT) 27 U/L (12-78) Alkaline Phosphatase 100 U/L (45-117) Total Creatine Kinase 84 U/L (26-192) Creatine Kinase MB 1.0 ng/ml (0.5-3.6) Creatine Kinase MB Ratio 1.2 (0-3.0) Total Protein 7.6 gm/dl (6.4-8.2) Albumin 3.4 gm/dl (3.4-5.0) Lipase 212 U/L (73-393) Bedside Troponin I < 0.030 ng/ml (0-0.045) Urine Color YELLOW Urine Appearance CLEAR (CLEAR) Urine pH 6.0 (4.5-7.5) Urine Specific [place] 1.019 (1.000-1.030) Urine Protein NEG (NEG) Urine Glucose (UA) NEG (NEG) Urine Ketones NEG (NEG) Urine Occult Blood NEG (NEG) Urine Nitrite NEG (NEG) Urine Bilirubin NEG (NEG) Urine Urobilinogen NEG (NEG) Urine Leukocyte Esterase SMALL (NEG) Urine WBC (Auto) 1-5 /hpf (0-5) Urine RBC (Auto) 0-4 /hpf (0-4) Urine Hyaline Casts (Auto) 0 /lpf (0-5) Urine Epithelial Cells (Auto) 0-5 /lpf (0-5) Urine Bacteria (Auto) NEG (NEG) Laboratory studies as stated above per my review. Medications Administered Medications (Trade) Dose Ordered Sig/Chris Route Start Time Stop Time Status Last Admin Dose Admin Sodium Chloride 1,000 ml @ 999 mls/hr Q1H1M STAT IV 02/28/18 09:07 02/28/18 10:07 DC 02/28/18 09:11 999 MLS/HR Metoprolol Tartrate (Lopressor Iv) 5 mg NOW STAT IV 02/28/18 09:07 02/28/18 09:09 DC 02/28/18 09:13 2.5 MG Sodium Chloride 1,000 ml @ 999 mls/hr Q1H1M STAT IV 02/28/18 09:43 02/28/18 10:43 DC 02/28/18 09:57 999 MLS/HR Acetaminophen (Tylenol Tab) 650 mg Q4H PRN PO 02/28/18 10:30 03/30/18 10:29 02/28/18 13:26 650 MG ECG Per My Interpretation Rate (beats per minute): 158 Rhythm: SVT (narrow complex) Findings: nonspecific-ST abn Comparison ECG Date: Change: SVT is now #2: SVT present. There is some irregularities. low voltage at 141. No change from original. #3: A-fib 111, no ischemic change. Atrial fibrillation is now evident. #4: Sinus tachycardia at 108, atrial fibrillation. no ischemic change. ED Course 0856: Past medical records reviewed. The patient was evaluated in room B9, and a complete history and physical examination were performed. 0907: Ordered Lopressor 5 mg IV, Sodium Chloride 1000 mL @ 999 mL/hr IV. 0943: Ordered Sodium Chloride 1000 ml @ 999 mls/hr IV. 0949: I discussed the case with Dr. Roy - [facility] Hospitalist. He will evaluate for further treatment. Medical Decision Differential Diagnosis includes; SVT, a-fib, a-flutter, acute coronary syndrome , CHF, neurologist, sepsis, anemia. This patient comes in as described above. She was made a priority patient and I saw her very promptly. When I went in the room they were getting the EKG that was found to have a narrow complex tachycardia, it looks regular on EKG with initial thought being PSVT however there is some irregularity to it. I did have the patient attempt vagal maneuvers without any change. IV access established was hydrated with IV normal saline as her initial pressure was on the low side. Even with a little IV hydration her rate came down in the 130s and now she is definitely seems more irregular likely more than A. fib. She was given Lopressor just 2.5 mg IV and this slowed her rate significantly to about 100-110s averaging. She felt significantly better and had no further chest discomfort and is resting comfortably during entire stay. However her blood pressure was on the low side. Her her says it does tend to run low but at one point she did drop in the 70s and was given small fluid boluses which she seemed to tolerate well. She has been having back pain but this is been going on for 2 weeks and in light of this and the low blood pressure, I did do a CAT scan of the chest abdomen and pelvis to rule out aortic pathology- there are no acute findings to suggest aortic pathology or hemorrhage. She is not anemic. She has nothing to suggest sepsis. I did order urine as well. She is doing much better but I do think needs to be admitted for further inpatient treatment and evaluation the not any team saw her in the ER will admit her for these measures. Medication Reconcilliation Current Medication List: was personally reviewed by me Blood Pressure Screening Patient's blood pressure: Low blood pressure Consults Time Called: [phone] Consulting Physician: Dr. Kirill MARTINEZ Hospitalist. Returned Call: [phone] I discussed the case with Dr. Kirill MARTINEZ Hospitalist. He will evaluate for further treatment. Impression Primary Impression: Atrial fibrillation with RVR Additional Impressions: Chest pain Hypotension Lumbar compression fracture Critical Care I have personally spent greater than 30 minutes of critical care time in the direct management of this patient. This includes bedside care, interpretation of diagnostic studies, and testing, discussion with consultants, patient, and family members, and other required patient management activities. This 30 minutes is in excess of all separately billable procedures. Scribe Attestation The scribe's documentation has been prepared under my direction and personally reviewed by me in its entirety. I confirm that the note above accurately reflects all work, treatment, procedures, and medical decision making performed by me. Departure Information Dispostion Being Evaluated By Hospitalist Patient Instructions My [facility] Problem Qualifiers
[2018-02-28 09:16] LABS: BASO % 0.7 %; BASO ABS # 0.04 K/uL (0-0.2); EOS % 4.2 %; EOS ABS # 0.23 K/uL (0-0.5); HEMATOCRIT 40.2 % (37-47); HEMOGLOBIN 13.4 g/dL (12.0-16.0); IG# 0.02 K/uL (0.00-0.02); LYMPH % 23.3 %; LYMPH ABS # 1.28 K/uL (1.2-3.4); MEAN CELL VOLUME 99.8 fL (80-100); MEAN CORPUSCULAR HEMOGLOBIN 33.3 pg (25-34); MEAN CORPUSCULAR HGB CONC 33.3 g/dl (32-36); MEAN PLATELET VOLUME 9.8 fL (7.4-10.4); MONO % 9.5 %; MONO ABS # 0.52 K/uL (0.11-0.59); NEUT % 61.9 %; PLATELET COUNT 239 K/uL (130-400); RED CELL DISTRIBUTION WIDTH CV 13.2 % (11.5-14.5); RED CELL DISTRIBUTION WIDTH SD 47.4 fL (36.4-46.3); WHITE BLOOD COUNT 5.49 K/uL (4.8-10.8)
[2018-02-28 09:26] LABS: PTT PATIENT 29.1 SECONDS (21.0-31.0)
[2018-02-28 09:33] LABS: ALBUMIN 3.4 gm/dl (3.4-5.0); ALKALINE PHOSPHATASE 100 U/L (45-117); ALT/SGPT 27 U/L (12-78); AST/SGOT 22 U/L (15-37); BLOOD UREA NITROGEN 17 mg/dl (7-18); CALCIUM 9.2 mg/dl (8.5-10.1); CARBON DIOXIDE 24 mmol/L (21-32); CREATININE 0.96 mg/dl (0.60-1.20); GLUCOSE 115 mg/dl (70-99); LIPASE 212 U/L (73-393); SODIUM 139 mmol/L (136-145); TOTAL PROTEIN 7.6 gm/dl (6.4-8.2)
--- NOTE | 2018-02-28 09:46 | DIAGNOSTIC IMAGING REPORT ---
CHEST ONE VIEW PORTABLE CLINICAL HISTORY: 72 years-old Female presenting with CHEST PAIN. TECHNIQUE: Portable upright AP view of the chest was obtained. COMPARISON: 07/30/[address] from 12/14/2017. FINDINGS: Atherosclerosis of the aortic arch. Cardiac silhouette mildly enlarged. Mild prominence of pulmonary vasculature. Stable mediastinal shift to the right consistent with postsurgical changes of right upper lobectomy and prior loss of the right middle lobe best seen on most recent chest CT. Chronic elevation of the right hemidiaphragm. Surgical clips and suture material projects over the right hilum. No focal opacity. No large effusion or pneumothorax. Evidence of prior kyphoplasty in the lower thoracic spine. Scoliotic curvature of the spine. IMPRESSION: 1. Mild apparent cardiomegaly with mild prominence of pulmonary vasculature. This could suggest volume overload. 2. Stable postsurgical changes. Electronically signed by: Wilmer Pritchard M.D. 02/28/2018 9:45 AM Dictated Date/Time: 02/28/2018 9:42 AM
[2018-02-28] MEDS ORDERED: POTA10CA28 PO (10:00)
[2018-02-28] MEDS ORDERED: ONDANSETRON INJ 2 MG/ML 2 ML VIAL IV PRN (10:30)
[2018-02-28] MEDS ORDERED: ACETAMINOPHEN 325 MG TAB PO PRN (10:30)
[2018-02-28] MEDS ORDERED: MAGNESIUM HYDROXIDE SUSP 30 ML UDC PO PRN (10:30)
[2018-02-28] MEDS ORDERED: OPTIRAY 320 IV PRN (10:30)
[2018-02-28] MEDS ORDERED: POLYETHYLENE (MIRALAX) 17 GM PACK PO PRN (10:30)
[2018-02-28] MEDS ORDERED: BENZONATATE 100MG CAP PO PRN (10:30)
[2018-02-28] MEDS ORDERED: ALUMINUM/MAGNESIUM/SIMETH (MAALOX MAX) 30 ML UDC PO PRN (10:30)
--- NOTE | 2018-02-28 11:13 | History and Physical ---
History & Physical Date & Time of Service: Feb 28, 2018 at 11:12 Chief Complaint: Rapid Heart Rate Primary Care Physician: Ruiz Aparicio M.D. History of Present Illness Source: patient, spouse Ms. Parish is a 72 y/o female with PMHx of Paroxysmal Atrial Fibrillation/ Flutter/SVT S/P Cardioversion, Adenocarcinoma S/P RUL Lobectomy, Pulmonary HTN, COPD/Restrictive Lung Disease, HLD, and H/O PEs on Eliquis who presented to the ED c/o chest pain, palpitations, and low back pain. Patient was found to be in an atrial tachycardia with rates near the 160s and low blood pressure. She is largely asymptomatic but does report feelings of palpitations. BP is low in the 80-90s systolically and maintaining appropriate MAP. She is mentating appropriately. She states she normally has low pressures but they are more in the low 100s systolically. HR did improve with Lopressor 2.5 mg IV x 1 dose given in ED but did result in lower pressures but she was asymptomatic. HRs stayed in the low 100s. She reports she required cardioversion in the past for irregular rhythms and states she feels intermittent palpitations but nothing sustaining. She is chronically anticoagulated due to H/O PEs and is on Eliquis. She also presented with low back pain x 2 weeks. She denies trauma. She states she has a H/O sciatica but is not having the same pain. She denies radiation down the legs, leg weakness, saddle paresthesias, or loss of bowel/bladder. Imaging suggests lumbar compression fx. She states she did have a small compression fx in the past and had kyphoplasty by Dr. Fernandez. Upon arrival to floor her HR went into the 140s and she appears to be in an SVT vs A Flutter as her rhythm even on EKG is nonconsistent and is being read as an atrial tach. BP remains on the lower side limiting use of BB/diltiazem for rate control Past Medical/Surgical History Medical Problems: (1) Anemia (2) Atrial fibrillation with RVR (3) Hypoxia (4) Mass of right lung (5) PAF (paroxysmal atrial fibrillation) (6) Pulmonary embolism (7) Supraventricular tachycardia Family History Heart Disease Social History Smoking Status: Former Smoker Smokeless Tobacco Use: No Alcohol Use: none Drug Use: none Marital Status: Housing status: lives with family Occupational Status: retired Immunizations History of Influenza Vaccine: N/A History of Tetanus Vaccine?: Yes History of Pneumococcal: Yes History of Hepatitis B Vaccine: Yes Allergies Coded Allergies: Ciprofloxacin (Unverified Allergy, Mild, RASH, 02/28/18) Cephalexin (Unverified Allergy, Unknown, UNKNOWN, 02/28/18) Doxycycline (Unverified Allergy, Unknown, RASH, 02/28/18) Eggs or Egg-derived Products (Unverified Allergy, Unknown, HIVES, 02/28/18) Influenza Vaccine Live (Verified Allergy, Unknown, ALLERGIES TO EGGS, ) Nitrates, Organic (Verified Allergy, Unknown, UNABLE TO HAVE R/T PULMONARY HTN, 02/28/18) Penicillins (Unverified Allergy, Unknown, RASH, 02/28/18) Tetanus Toxoid (Unverified Allergy, Unknown, TETANUS-DIPTHERIA TOXOID-RASH , 02/28/18) Antihistamines, Diphenhydramine-typ (Verified Adverse Reaction, Unknown, UNABLE TO HAVE R/T PULMONARY HTN, 02/28/18) Codeine (Verified Adverse Reaction, Unknown, GI SYMPTOMS, 02/28/18) NAUSEA/VOMITING Hydrocodone (Unverified Adverse Reaction, Unknown, N/V, 02/28/18) Pseudoephedrine (Verified Adverse Reaction, Unknown, UNABLE TO HAVE COLD MEDICATIONS R/T PULMONARY HTN, 02/28/18) Home Medications Scheduled Ambrisentan (Letairis), 10 MG PO QAM Apixaban (Eliquis), 5 MG PO BID Ascorbic Acid (Vitamin C), 500 MG PO DAILY Calcium Carbonate-Vitamin D (Calcium + D), 1 TAB PO QAM Cholecalciferol (Vitamin D3), 1,000 UNITS PO QAM Gabapentin (Neurontin), 600 MG PO QPM Gabapentin (Neurontin), 300 MG PO QAM Home O2 Therapy (Oxygen), 2 LITERS NA HS Metoprolol Succinate (Metoprolol Succinate ER), 25 MG PO BID Mometasone Furoate-Formoterol (Dulera 100/5 Mcg), 2 PUFFS INH BID Multivitamin (Multivitamin), 1 TAB PO QAM Omeprazole (Prilosec), 20 MG PO BID Potassium Chloride (Micro-K Ext Rel), 10 MEQ PO DAILY Sertraline (Zoloft), 50 MG PO QAM Sildenafil Citrate (Revatio), 40 MG PO TID Simvastatin (Zocor), 20 MG PO HS Torsemide (Demadex), 10 MG PO DAILY Scheduled PRN Benzonatate (Tessalon Perles), 200 MG PO Q8H PRN for Cough Home O2 Therapy (Oxygen), 2 LITER NA for Shortness of Breath Valacyclovir (Valtrex), 2 TAB PO UD PRN for onset of symptoms cold sores. Review of Systems Constitutional: No fever, No chills ENT: No nasal symptoms, No sore throat Respiratory: No cough, No shortness of breath Cardiovascular: + chest pain (intermittent - resolved), + palpitations Abdomen: No pain, No nausea, No vomiting, No diarrhea, No constipation Musculoskeletal: + problem reported (low back pain without radiation), No swelling, No calf pain Genitourinary - Female: No dysuria Neurologic: No paralysis, No weakness, No numbness/tingling Hematologic / Lymphatic: No abnormal bleeding/bruising Integumentary: No rash Physical Exam Vital Signs Date Time Temp Pulse Resp B/P (MAP) Pulse Ox O2 Delivery O2 Flow Rate FiO2 02/28/18 11:01 112 19 90/65 98 Room Air 02/28/18 10:56 97 Nasal Cannula 2.0 02/28/18 10:38 110 21 97 Nasal Cannula 2.0 02/28/18 10:33 134 19 92 Nasal Cannula 2.0 02/28/18 10:32 94/63 02/28/18 09:58 85 17 85/59 98 Nasal Cannula 2.0 02/28/18 09:55 85/64 02/28/18 09:33 74/57 02/28/18 09:32 112 24 97 Nasal Cannula 2.0 02/28/18 09:27 106 17 97 Nasal Cannula 2.0 02/28/18 09:26 95/59 02/28/18 09:22 105 13 97 Nasal Cannula 2.0 02/28/18 09:21 99/62 02/28/18 09:17 112 19 86/57 97 Nasal Cannula 2.0 02/28/18 09:14 92/71 02/28/18 09:13 94/66 02/28/18 09:13 128 94/66 02/28/18 09:12 127 17 88/65 96 Nasal Cannula 2.0 02/28/18 09:08 148 02/28/18 09:08 93/66 02/28/18 09:07 130 20 84/63 96 Nasal Cannula 2.0 02/28/18 09:06 93/68 02/28/18 09:02 144 21 96 Nasal Cannula 2.0 02/28/18 08:56 96 Nasal Cannula 2.0 02/28/18 08:49 36.8 171 24 91/60 96 Nasal Cannula 2.0 General Appearance: WD/WN, no apparent distress Head: normocephalic, atraumatic Eyes: sclerae normal ENT: hearing grossly normal Neck: supple, no JVD, trachea midline Respiratory/Chest: lungs clear, normal breath sounds, no respiratory distress, no accessory muscle use Cardiovascular: + tachycardia, + pertinent finding (mildly irregular at times) Abdomen/GI: normal bowel sounds, non tender, soft Back: + pertinent finding (tenderness to palpation of low back/sacrum) Extremities/Musculoskelatal: no calf tenderness, normal capillary refill, no pedal edema Neurologic/Psych: no motor/sensory deficits, alert, oriented x 3 Skin: normal color, warm/dry Diagnostics Laboratory Results Results Past 24 Hours Test 02/28/18 09:00 02/28/18 09:28 02/28/18 10:30 Range/Units White Blood Count 5.49 4.8-10.8 K/uL Red Blood Count 4.03 4.2-5.4 M/uL Hemoglobin 13.4 12.0-16.0 g/dL Hematocrit 40.2 37-47 % Mean Corpuscular Volume 99.8 80-100 fL Mean Corpuscular Hemoglobin 33.3 25-34 pg Mean Corpuscular Hemoglobin Concent 33.3 32-36 g/dl Platelet Count 239 130-400 K/uL Mean Platelet Volume 9.8 7.4-10.4 fL Neutrophils (%) (Auto) 61.9 % Lymphocytes (%) (Auto) 23.3 % Monocytes (%) (Auto) 9.5 % Eosinophils (%) (Auto) 4.2 % Basophils (%) (Auto) 0.7 % Neutrophils # (Auto) 3.40 1.4-6.5 K/uL Lymphocytes # (Auto) 1.28 1.2-3.4 K/uL Monocytes # (Auto) 0.52 0.11-0.59 K/uL Eosinophils # (Auto) 0.23 0-0.5 K/uL Basophils # (Auto) 0.04 0-0.2 K/uL RDW Standard Deviation 47.4 36.4-46.3 fL RDW Coefficient of Variation 13.2 11.5-14.5 % Immature Granulocyte % (Auto) 0.4 % Immature Granulocyte # (Auto) 0.02 0.00-0.02 K/uL Prothrombin Time 10.9 9.0-12.0 SECONDS Prothromb Time International Ratio 1.0 0.9-1.1 Activated Partial Thromboplast Time 29.1 21.0-31.0 SECONDS Partial Thromboplastin Ratio 1.1 Sodium Level 139 136-145 mmol/L Potassium Level 4.0 3.5-5.1 mmol/L Chloride Level 108 98-107 mmol/L Carbon Dioxide Level 24 21-32 mmol/L Anion Gap 7.0 3-11 mmol/L Blood Urea Nitrogen 17 7-18 mg/dl Creatinine 0.96 0.60-1.20 mg/dl Estimated GFR () 67.5 Estimated GFR (Non- 58.3 BUN/Creatinine Ratio 17.4 10-20 Random Glucose 115 70-99 mg/dl Calcium Level 9.2 8.5-10.1 mg/dl Total Bilirubin 0.4 0.2-1 mg/dl Direct Bilirubin < 0.1 0-0.2 mg/dl Aspartate Amino Transf (AST/SGOT) 22 15-37 U/L Alanine Aminotransferase (ALT/SGPT) 27 12-78 U/L Alkaline Phosphatase 100 45-117 U/L Total Creatine Kinase 84 26-192 U/L Creatine Kinase MB 1.0 0.5-3.6 ng/ml Creatine Kinase MB Ratio 1.2 0-3.0 Total Protein 7.6 6.4-8.2 gm/dl Albumin 3.4 3.4-5.0 gm/dl Lipase 212 73-393 U/L Bedside Troponin I < 0.030 0-0.045 ng/ml Urine Color YELLOW Urine Appearance CLEAR CLEAR Urine pH 6.0 4.5-7.5 Urine Specific [place] 1.019 1.000-1.030 Urine Protein NEG NEG Urine Glucose (UA) NEG NEG Urine Ketones NEG NEG Urine Occult Blood NEG NEG Urine Nitrite NEG NEG Urine Bilirubin NEG NEG Urine Urobilinogen NEG NEG Urine Leukocyte Esterase SMALL NEG Urine WBC (Auto) 1-5 0-5 /hpf Urine RBC (Auto) 0-4 0-4 /hpf Urine Hyaline Casts (Auto) 0 0-5 /lpf Urine Epithelial Cells (Auto) 0-5 0-5 /lpf Urine Bacteria (Auto) NEG NEG Microbiology Results 02/28/18 Urine Culture, Received Pending Diagnostic Radiology ADDENDUM After further review and comparison to PET/CT from 05/23/2017 and MR lumbar spine from 02/02/2016, reformatted images from the CT of the abdomen or pelvis examination from today better reveal the previous reported Schmorl's nodes at the superior endplates of L2 and L4 as compression deformities. Sclerosis is associated with these deformities. CORRECTED IMPRESSION: Interval development of compression deformities of the superior endplates of L2, L4, L5. MR of the lumbar spine may better demonstrate the presence of bony edema to assess for acuity. The report will be called/faxed according to standard departmental protocol. Electronically signed by: Wilmer Pritchard M.D. 02/28/2018 11:38 AM Dictated Date/Time: 02/28/2018 11:36 AM ORIGINAL REPORT LUMBAR SPINE WITHOUT CLINICAL HISTORY: 72 years-old Female presenting with low back pain. TECHNIQUE: Multidetector CT of the lumbar spine was performed without the use of intravenous contrast. IV contrast: None. A dose lowering technique was used consistent with the principles of ALARA (as low as reasonably achievable). COMPARISON: Plain radiographs from 2010. CT DOSE (mGy.cm): The estimated cumulative dose is 1265.50. 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 Mild S-shaped scoliotic curvature of the lumbar spine. Otherwise normal lumbar lordosis. Mild vertebral body height loss of L5 with sclerosis subjacent to the superior endplate (series 110 image 34). Prominent Schmorl's nodes at the superior endplates of L2 and L4. Intervertebral disc height loss noted to varying degrees at several levels as well as vacuum disc phenomenon. Disc osteophyte complex at L1-2 with posterior bony spurring mildly narrowing the spinal canal. Facet arthropathy with mild bony spurring results in mild osseous neural foraminal narrowing on the left at L5-S1. No evidence of subluxation. Remaining visualized soft tissues remarkable for atherosclerosis of the abdominal aorta. IMPRESSION: 1. Sclerosis subjacent to the superior endplate of L5 with mild vertebral body height loss of L5. This could raise concern for a mild compression fracture. Correlate for point tenderness. If there is clinical concern, MRI of the lumbar spine without contrast would best demonstrate the presence of bony edema to suggest an acute or subacute injury. 2. Multilevel degenerative changes of the lumbar spine. Impression Assessment and Plan Ms. Parish is a 72 y/o female with PMHx of Paroxysmal Atrial Fibrillation/ Flutter/SVT S/P Cardioversion, Adenocarcinoma S/P RUL Lobectomy, Pulmonary HTN, COPD/Restrictive Lung Disease, HLD, and H/O PEs on Eliquis who presented to the ED c/o chest pain, palpitations, and low back pain. Atrial Tachycardia with Rapid Rates and H/O PAF/Flutter/SVT S/P Cardioversion: - EKG and monitor strips rather inconsistent - as there are irregularities - did review with cardiology - Will initiation amiodarone bolus and gtt due to low BP limiting the use of BB/ CBB therapy - May need cardioversion given her history - seems to be tolerating this however her low BPs are concerning - Eliquis 5 mg BID; Holding Toprol XL 25 mg BID until improvement with BP - Consult cardiology - discussed with Dr. Gilliland - appreciate assistance Hypotension: - Patient reports having low normal BP but normally in low 100s systolically. Currently ranging from 80-100 systolically but maintaining appropriate MAP and mentating appropriately - Even with improvement in HR her BP was rather low - appears to be perfusing adequately even with low pressures Lumbar Compression Fx: - States Tylenol has helped with the pain - may need to have MRI to better delineate acuity and findings - patient reports H/O compression fx and kyphoplasty by Dr. Fernandez Pulmonary HTN/COPD/Restrictive Lung Disease: - Hold Sildenafil 40 mg TID and Letairis 10 mg AM at this time due to low BP - Utilizes 2 L NC for prolonged ambulation and at night DVT Prophylaxis: Eliquis Code Status: FULL RESUSCITATION Disposition: From home Advanced Directives Existing Living Will: Yes Existing Power of Logging Equipment Operator: Yes Resuscitation Status VTE Prophylaxis Will order VTE Prophylaxis: Yes
--- NOTE | 2018-02-28 11:35 | DIAGNOSTIC IMAGING REPORT ---
ADDENDUM After further review and comparison to PET/CT from 05/23/2017 and MR lumbar spine from 02/02/2016, reformatted images from the CT of the abdomen or pelvis examination from today better reveal the previous reported Schmorl's nodes at the superior endplates of L2 and L4 as compression deformities. Sclerosis is associated with these deformities. CORRECTED IMPRESSION: Interval development of compression deformities of the superior endplates of L2, L4, L5. MR of the lumbar spine may better demonstrate the presence of bony edema to assess for acuity. The report will be called/faxed according to standard departmental protocol. Electronically signed by: Wilmer Pritchard M.D. 02/28/2018 11:38 AM Dictated Date/Time: 02/28/2018 11:36 AM ORIGINAL REPORT LUMBAR SPINE WITHOUT CLINICAL HISTORY: 72 years-old Female presenting with low back pain. TECHNIQUE: Multidetector CT of the lumbar spine was performed without the use of intravenous contrast. IV contrast: None. A dose lowering technique was used consistent with the principles of ALARA (as low as reasonably achievable). COMPARISON: Plain radiographs from 2010. CT DOSE (mGy.cm): The estimated cumulative dose is 1265.50. 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 Mild S-shaped scoliotic curvature of the lumbar spine. Otherwise normal lumbar lordosis. Mild vertebral body height loss of L5 with sclerosis subjacent to the superior endplate (series 110 image 34). Prominent Schmorl's nodes at the superior endplates of L2 and L4. Intervertebral disc height loss noted to varying degrees at several levels as well as vacuum disc phenomenon. Disc osteophyte complex at L1-2 with posterior bony spurring mildly narrowing the spinal canal. Facet arthropathy with mild bony spurring results in mild osseous neural foraminal narrowing on the left at L5-S1. No evidence of subluxation. Remaining visualized soft tissues remarkable for atherosclerosis of the abdominal aorta. IMPRESSION: 1. Sclerosis subjacent to the superior endplate of L5 with mild vertebral body height loss of L5. This could raise concern for a mild compression fracture. Correlate for point tenderness. If there is clinical concern, MRI of the lumbar spine without contrast would best demonstrate the presence of bony edema to suggest an acute or subacute injury. 2. Multilevel degenerative changes of the lumbar spine. Electronically signed by: Wilmer Pritchard M.D. 02/28/2018 11:33 AM Dictated Date/Time: 02/28/2018 11:30 AM
--- NOTE | 2018-02-28 11:56 | DIAGNOSTIC IMAGING REPORT ---
ABDOMEN AND PELVIS CT WITH IV CONTRAST CT DOSE: HISTORY: Generalized abdominal pain. eval for aortic disease TECHNIQUE: Multiaxial CT images of the abdomen and pelvis were performed following the use of intravenous contrast. A dose lowering technique was utilized adhering to the principles of ALARA. COMPARISON STUDY: PET CT 05/23/2017. FINDINGS: Small right pleural effusion and right middle lobe consolidation persists. No pneumoperitoneum. No pneumatosis. T9 vertebroplasty. Mild supra endplate compression fractures at L2, L4, L5. These images show slight sclerosis and favor acute subacute compression fractures. No associated retropulsion. The liver, spleen, adrenal glands, and pancreas are unremarkable. The gallbladder surgically absent. A 9 mm hypodense lesion within the left kidney. This is too small to characterize. There is a 1.7 cm cyst within the lower pole the right kidney. No hydronephrosis. No retroperitoneal lymphadenopathy. Calcified plaque within the normal caliber abdominal aorta. No evidence for an aortic dissection. The mesenteric vessels appear patent. The iliac arteries are also normal in caliber. Normal bladder, uterus, and ovaries. Colonic diverticulosis. No bowel wall thickening or obstruction. IMPRESSION: 1. No bowel wall thickening or obstruction. 2. Mild superior endplate compression fractures at L2, L4, and L5. These favor acute to subacute fracture. 3. Normal caliber abdominal aorta with no evidence for dissection. 4. Small right pleural effusion and consolidation within the right middle lobe. This is better appreciated on the same day chest CT. Electronically signed by: Jak Anthony M.D. 02/28/2018 11:55 AM Dictated Date/Time: 02/28/2018 11:31 AM
--- NOTE | 2018-02-28 11:56 | DIAGNOSTIC IMAGING REPORT ---
CHEST COMBO ANGIO DISSECTION CLINICAL HISTORY: Chest pain. COMPARISON STUDY: PET/CT May 23, [address] December 14, 2017. TECHNIQUE: Unenhanced and arterial phase imaging of the chest was performed. Intravenous injection of 118 cc Optiray 320 IV was uneventful. Sagittal and coronal reconstructed reviewed as well as maximal intensity projections on an independent 3-D workstation. FINDINGS: There is no evidence for thoracic aortic dissection or intramural hematoma. Heart is mildly enlarged. There is no pericardial effusion. Moderate coronary artery calcification is noted. A small right pleural effusion has slightly increased in size since CT of December 14, 2017. No enlarged axillary, mediastinal or hilar lymph nodes are identified following right upper lobectomy. Right middle lobe airspace opacity has mildly increased since exam of December 14, 2017. A 1 cm right apical nodular opacity which contains a lucent spaces shown on image [id number] of May 15, 2017. Biapical scarring is noted. Prior T9 vertebral augmentation is noted as well as old mild T5 compression fracture. No acute thoracic spine fracture is present. The abdomen and pelvis will be reported separately. IMPRESSION: 1. No thoracic aortic dissection. 2. Slight increase in size of a small right pleural effusion since chest CT of December 14, 2017. 3. Status post right upper lobectomy. No thoracic lymphadenopathy. 4. Right middle lobe airspace opacity with volume loss which has mildly increased since prior CT. This may reflect atelectasis, consolidation or less likely post radiation change. This can be assessed on subsequent exams. 5. Dilatation of the central pulmonary arteries which suggests pulmonary arterial hypertension. 6. No change in a 1 cm right apical opacity which contain cystic spaces. This is likely benign but should be assessed on subsequent studies to ensure resolution. Electronically signed by: Shayne Palm M.D. 02/28/2018 11:54 AM Dictated Date/Time: 02/28/2018 11:39 AM
[2018-02-28] MEDS ORDERED: KETOROLAC TROMETHAMINE 15 MG/ML VIAL IV. STA (12:21)
[2018-02-28] MEDS ORDERED: SILDENAFIL CITRATE 20 MG TAB PO SCH ×2 (14:00→21:00)
[2018-02-28] MEDS ORDERED: AMIODARONE IV BOLUS / DRIP IV STA (14:45)
[2018-02-28] MEDS ORDERED: AMIODARONE / D5W 100 ML IV SCH (15:00)
[2018-02-28] MEDS ORDERED: AMIODARONE / D5W 200 ML IV SCH (15:15)
[2018-02-28] MEDS ORDERED: ACETAMINOPHEN 500 MG TAB PO PRN (15:45)
--- NOTE | 2018-02-28 17:13 | Cardiology Consultation ---
Cardiology Consultation Date of Consultation: Feb 28, 2018. Requesting Physician: Dr. Garcia Attending Physician: Dr. Garcia Reason for Consultation: SVT Pt evaluation today including: conversation w/ patient, physical exam, chart review, lab review, review of studies, review of inpatient medication list, conversation w/ attending History of Present Illness Mrs. Parish is a very pleasant 72-year-old female with a history significant for pulmonary hypertension on Letairis and Revatio (followed by Dr. Meyers at [facility]), paroxysmal atrial fibrillation on anticoagulation therapy, bilateral pulmonary emboli, mild nonobstructive CAD, paroxysmal SVT, COPD/restrictive lung disease, non-small cell lung carcinoma status post right upper lobe resection, and dyslipidemia. She is followed by Dr. Zelaya for her cardiology care. Dr. Zelaya is unavailable this week. This morning at approximately 7:00 a.m. she felt palpitations as though her heart was racing. She checked her heart rate at home and found to be in the 160s. She came to the emergency department and reportedly underwent vagal maneuvers without any success in changing her heart rate. She was then given IV fluid with some improvement of her heart rate, followed by beta-cami. Her heart rate improved to the 110s. She felt better with a slower heart rate. She had been hypotensive throughout her entire hospital visit thus far with blood pressures as low as 72/56mmHg. She states that her blood pressure typically runs in the 100s systolic. She denies syncope, near-syncope, lightheadedness, edema, melena, hematochezia, hematuria, or other bleeding. She does have a heavy chest discomfort that is nonradiating. It has been present since 7:00 a.m. and has been constant since then, for approximately 9 hours so far. She also has dyspnea with exertion which is chronic. She uses supplemental oxygen q.h.s. and also with exertion, 2 L. She has had back pain for 2 weeks, which can be significant at times. She was found to have compression deformities involving lumbar spine on CT scanning in the ER. She reports having echocardiogram done at [facility] last week. Record of her echo is unavailable at this time but is being requested for review. She states that she has been compliant with Eliquis and beta-cami without missing doses. Review of systems: As above and review of systems otherwise negative/ unremarkable. Past Medical/Surgical History 1. Pulmonary hypertension 2. Paroxysmal atrial fibrillation 3. Bilateral pulmonary emboli 4. Mild nonobstructive CAD 5. SVT 6. COPD/restrictive lung disease 7. Dyslipidemia 8. Non-small cell lung carcinoma status post right upper lobe resection 9. Anemia 10. Aortic atherosclerosis 11. Depression 12. GERD 13. Occipital neuralgia 14. Scoliosis 15. Sleep apnea Family History Heart Disease Mother at the age of 72 with [facility]. Sister at 74 and had AVR in the past. Nephew at the age of 58 with cardiomyopathy. Social History Denies tobacco, alcohol, or drug abuse. Lives with her . Two sons. No family present at the bedside. Review of Systems Respiratory: + cough Allergies Coded Allergies: Ciprofloxacin (Unverified Allergy, Mild, RASH, 02/28/18) Cephalexin (Unverified Allergy, Unknown, UNKNOWN, 02/28/18) Doxycycline (Unverified Allergy, Unknown, RASH, 02/28/18) Eggs or Egg-derived Products (Unverified Allergy, Unknown, HIVES, 02/28/18) Influenza Vaccine Live (Verified Allergy, Unknown, ALLERGIES TO EGGS, ) Nitrates, Organic (Verified Allergy, Unknown, UNABLE TO HAVE R/T PULMONARY HTN, 02/28/18) Penicillins (Unverified Allergy, Unknown, RASH, 02/28/18) Tetanus Toxoid (Unverified Allergy, Unknown, TETANUS-DIPTHERIA TOXOID-RASH , 02/28/18) Antihistamines, Diphenhydramine-typ (Verified Adverse Reaction, Unknown, UNABLE TO HAVE R/T PULMONARY HTN, 02/28/18) Codeine (Verified Adverse Reaction, Unknown, GI SYMPTOMS, 02/28/18) NAUSEA/VOMITING Hydrocodone (Unverified Adverse Reaction, Unknown, N/V, 02/28/18) Pseudoephedrine (Verified Adverse Reaction, Unknown, UNABLE TO HAVE COLD MEDICATIONS R/T PULMONARY HTN, 02/28/18) Medications Current Inpatient Medications Medications (Trade) Dose Ordered Sig/Chris Route Start Time Stop Time Status Last Admin Dose Admin Ioversol (Optiray 320) 100 ml UD PRN IV 02/28/18 10:30 03/04/18 10:29 Al Hydrox/Mg Hydrox/Simethicone (Maalox Max Susp) 15 ml Q4H PRN PO 02/28/18 10:30 03/30/18 10:29 Magnesium Hydroxide (Milk Of Magnesia Susp) 30 ml Q12H PRN PO 02/28/18 10:30 03/30/18 10:29 Ondansetron HCl (Zofran Inj) 4 mg Q6H PRN IV 02/28/18 10:30 03/30/18 10:29 Polyethylene (Miralax Powder Packet) 17 gm DAILY PRN PO 02/28/18 10:30 03/30/18 10:29 Apixaban (Eliquis) 5 mg BID PO 02/28/18 21:00 03/30/18 20:59 Ascorbic Acid (Vitamin C Tab) 500 mg DAILY PO 03/01/18 09:00 03/31/18 08:59 Benzonatate (Tessalon Perles Cap) 200 mg Q8H PRN PO 02/28/18 10:30 03/30/18 10:29 Gabapentin (Neurontin Cap) 300 mg QAM PO 03/01/18 09:00 03/31/18 08:59 Gabapentin (Neurontin Tab) 600 mg QPM PO 02/28/18 21:00 03/30/18 20:59 Metoprolol Succinate (Toprol Xl Tab) 25 mg BID PO 02/28/18 21:00 03/30/18 20:59 Potassium Chloride (Klor-Con M10) 10 meq DAILY PO 03/01/18 09:00 03/31/18 08:59 Sertraline HCl (Zoloft Tab) 50 mg QAM PO 03/01/18 09:00 03/31/18 08:59 Sildenafil Citrate (Revatio Tab) 40 mg TID PO 02/28/18 14:00 03/30/18 13:59 Future Hold Simvastatin (Zocor Tab) 20 mg HS PO 02/28/18 21:00 03/30/18 20:59 Miscellaneous Information (Order Awaiting Action) 1 ea QS N/A 02/28/18 16:00 03/30/18 15:59 Pantoprazole Sodium (Protonix Tab) 40 mg QAM PO 03/01/18 09:00 03/31/18 08:59 Miscellaneous Information (Order Awaiting Action) 1 ea QS N/A 02/28/18 16:00 03/30/18 15:59 Amiodarone HCL/ Dextrose 200 ml @ 33.3 mls/hr Q6H1M IV 02/28/18 15:15 02/28/18 21:15 02/28/18 15:43 33.3 MLS/HR Amiodarone HCL/ Dextrose 200 ml @ 16.7 mls/hr [id number] IV 02/28/18 21:16 03/30/18 21:15 Acetaminophen (Tylenol Tab) 1,000 mg Q8 PRN PO 02/28/18 15:45 03/30/18 15:44 Physical Exam Vital Signs Past 12 Hours Date Time Temp Pulse Resp B/P (MAP) Pulse Ox O2 Delivery O2 Flow Rate FiO2 02/28/18 15:38 36.6 144 18 91/58 (69) 94 Nasal Cannula 2.0 02/28/18 13:15 142 90/63 (72) 02/28/18 13:12 36.9 150 99/65 (76) 94 Nasal Cannula 2.0 02/28/18 12:57 20 92/54 98 02/28/18 12:35 125 18 85/69 99 Nasal Cannula 2.0 02/28/18 12:32 126 18 79/64 98 02/28/18 12:30 110 17 77/61 97 02/28/18 12:05 121 02/28/18 12:00 117 20 91/65 98 Nasal Cannula 2.0 02/28/18 11:55 111 17 98 02/28/18 11:37 90/62 02/28/18 11:36 111 17 97 Nasal Cannula 2.0 02/28/18 11:31 72/56 02/28/18 11:28 121 20 97 Nasal Cannula 2.0 02/28/18 11:01 112 19 90/65 98 Nasal Cannula 2.0 02/28/18 10:56 97 Nasal Cannula 2.0 02/28/18 10:38 110 21 97 Nasal Cannula 2.0 02/28/18 10:33 134 19 92 Nasal Cannula 2.0 02/28/18 10:32 94/63 02/28/18 09:58 85 17 85/59 98 Nasal Cannula 2.0 02/28/18 09:55 85/64 02/28/18 09:33 74/57 02/28/18 09:32 112 24 97 Nasal Cannula 2.0 02/28/18 09:27 106 17 97 Nasal Cannula 2.0 02/28/18 09:26 95/59 02/28/18 09:22 105 13 97 Nasal Cannula 2.0 02/28/18 09:21 99/62 02/28/18 09:17 112 19 86/57 97 Nasal Cannula 2.0 02/28/18 09:14 92/71 02/28/18 09:13 94/66 02/28/18 09:13 128 94/66 02/28/18 09:12 127 17 88/65 96 Nasal Cannula 2.0 02/28/18 09:08 148 02/28/18 09:08 93/66 02/28/18 09:07 130 20 84/63 96 Nasal Cannula 2.0 02/28/18 09:06 93/68 02/28/18 09:02 144 21 96 Nasal Cannula 2.0 02/28/18 08:56 96 Nasal Cannula 2.0 02/28/18 08:49 36.8 171 24 91/60 96 Nasal Cannula 2.0 Gen.: No acute distress. Alert and oriented. HEENT: Anicteric sclera. Neck: No JVD. No bruits. Normal carotid upstrokes bilaterally. Cardiac: PMI was nondisplaced. No ventricular heave. Irregular. Normal S1-S2. No murmurs, rubs, or gallops. Pulmonary: Clear to auscultation bilaterally without wheezes, rales, or rhonchi. Abdomen: Soft, nontender, nondistended, with normoactive bowel sounds. No bruits noted. Extremities: 2+ radial pulses bilaterally. 2+ posterior tibialis pulses bilaterally. No edema or cyanosis. No palpable cords. Varicose veins noted. Psychiatric: Affect appears appropriate. Data Laboratory Results: Last 24 Hours Test 02/28/18 09:00 02/28/18 09:28 02/28/18 10:30 02/28/18 15:11 White Blood Count 5.49 K/uL Red Blood Count 4.03 M/uL Hemoglobin 13.4 g/dL Hematocrit 40.2 % Mean Corpuscular Volume 99.8 fL Mean Corpuscular Hemoglobin 33.3 pg Mean Corpuscular Hemoglobin Concent 33.3 g/dl Platelet Count 239 K/uL Mean Platelet Volume 9.8 fL Neutrophils (%) (Auto) 61.9 % Lymphocytes (%) (Auto) 23.3 % Monocytes (%) (Auto) 9.5 % Eosinophils (%) (Auto) 4.2 % Basophils (%) (Auto) 0.7 % Neutrophils # (Auto) 3.40 K/uL Lymphocytes # (Auto) 1.28 K/uL Monocytes # (Auto) 0.52 K/uL Eosinophils # (Auto) 0.23 K/uL Basophils # (Auto) 0.04 K/uL RDW Standard Deviation 47.4 fL RDW Coefficient of Variation 13.2 % Immature Granulocyte % (Auto) 0.4 % Immature Granulocyte # (Auto) 0.02 K/uL Prothrombin Time 10.9 SECONDS Prothromb Time International Ratio 1.0 Activated Partial Thromboplast Time 29.1 SECONDS Partial Thromboplastin Ratio 1.1 Sodium Level 139 mmol/L Potassium Level 4.0 mmol/L Chloride Level 108 mmol/L Carbon Dioxide Level 24 mmol/L Anion Gap 7.0 mmol/L Blood Urea Nitrogen 17 mg/dl Creatinine 0.96 mg/dl Estimated GFR () 67.5 Estimated GFR (Non- 58.3 BUN/Creatinine Ratio 17.4 Random Glucose 115 mg/dl Calcium Level 9.2 mg/dl Total Bilirubin 0.4 mg/dl Direct Bilirubin < 0.1 mg/dl Aspartate Amino Transf (AST/SGOT) 22 U/L Alanine Aminotransferase (ALT/SGPT) 27 U/L Alkaline Phosphatase 100 U/L Total Creatine Kinase 84 U/L Creatine Kinase MB 1.0 ng/ml Creatine Kinase MB Ratio 1.2 Total Protein 7.6 gm/dl Albumin 3.4 gm/dl Lipase 212 U/L Bedside Troponin I < 0.030 ng/ml Urine Color YELLOW Urine Appearance CLEAR Urine pH 6.0 Urine Specific [place] 1.019 Urine Protein NEG Urine Glucose (UA) NEG Urine Ketones NEG Urine Occult Blood NEG Urine Nitrite NEG Urine Bilirubin NEG Urine Urobilinogen NEG Urine Leukocyte Esterase SMALL Urine WBC (Auto) 1-5 /hpf Urine RBC (Auto) 0-4 /hpf Urine Hyaline Casts (Auto) 0 /lpf Urine Epithelial Cells (Auto) 0-5 /lpf Urine Bacteria (Auto) NEG Troponin I < 0.015 ng/ml ECGs personally reviewed: ECG 02/28/2018 at 8:56 a.m.: SVT 158 bpm ECG 02/28/2018 at 9:35 a.m.: Sinus tachycardia with Mobitz 1. Possible inferior infarct. ECG 02/28/2018 at 11:27 a.m.: Sinus tachycardia with Mobitz 1. CTA 02/28/2018: No thoracic aortic dissection. Small right pleural effusion. Right middle lobe airspace opacity with volume loss. CT abdomen pelvis 02/28/2018: Compression fractures involving L2, L4, L5 ( favor acute to subacute). No AAA. Small right pleural effusion and consolidation within the right middle lobe. Echocardiogram report requested from [facility]. Assessment & Plan ASSESSMENT/PLAN: 1. SVT: She has a history of paroxysmal SVT and appears to be in SVT intermittently here. Amiodarone has been initiated by the primary service. Amiodarone was chosen secondary to hypotension. Check TSH. If SVT is not well controlled, will discuss with electrophysiology other options such as ablation. Had recent echocardiogram done and results will be requested for review. 2. Paroxysmal atrial fibrillation: She has been in sinus and SVT here. On anticoagulation indefinitely. Continue beta-cami. 3. Mobitz 1: Continue to monitor for more advanced AV nerissa block. 4. Pulmonary hypertension: As per primary hospitalist service. Revatio levels could be more increased while on amiodarone. Monitor for worsening hypotension. 5. Mild nonobstructive CAD: No angina. Negative troponin. 6. Disposition: Cardiology will continue to follow. Patient care has been communicated with Dr. Garcia. Thank you for allowing me to participate in the care of your patient. Please call for any other questions or concerns. Sincerely, Michael Gilliland M.D.
[2018-02-28] MEDS: ACETAMINOPHEN 325 MG TAB PO PRN ×2 (18:04→22:22)
[2018-02-28] MEDS: SIMVASTATIN 20 MG TAB PO SCH (20:48)
[2018-02-28] MEDS: METOPROLOL SUCC 25MG EXT REL TAB PO SCH (20:48)
[2018-02-28] MEDS: APIXABAN 5 MG TAB PO SCH (20:49)
[2018-02-28] MEDS: GABAPENTIN 600 MG TAB PO SCH (20:49)
[2018-02-28] MEDS: AMIODARONE / D5W 200 ML IV SCH (21:28)
[2018-03-01] VITALS (7 sets, daily range): BP systolic 101–136; BP diastolic 53–73; PULSE 66–103; TEMP 36.5–36.9; O2SAT 92–96
[2018-03-01] MEDS: ACETAMINOPHEN 325 MG TAB PO PRN ×4 (03:18→21:01)
[2018-03-01 03:34] LABS: HEMATOCRIT 35.2 % (37-47); HEMOGLOBIN 11.6 g/dL (12.0-16.0); MEAN CELL VOLUME 100.6 fL (80-100); MEAN CORPUSCULAR HEMOGLOBIN 33.1 pg (25-34); MEAN PLATELET VOLUME 9.3 fL (7.4-10.4); PLATELET COUNT 192 K/uL (130-400); RED CELL DISTRIBUTION WIDTH CV 13.6 % (11.5-14.5); RED CELL DISTRIBUTION WIDTH SD 49.8 fL (36.4-46.3); WHITE BLOOD COUNT 5.22 K/uL (4.8-10.8)
[2018-03-01 03:56] LABS: CALCIUM 8.4 mg/dl (8.5-10.1); CREATININE 0.87 mg/dl (0.60-1.20)
[2018-03-01] MEDS: PANTOprazole SOD 40 MG TAB PO SCH (07:39)
[2018-03-01] MEDS: ASCORBIC ACID 500 MG TAB PO SCH (07:39)
[2018-03-01] MEDS: METOPROLOL SUCC 25MG EXT REL TAB PO SCH ×2 (07:39→20:15)
[2018-03-01] MEDS: GABAPENTIN 300 MG CAP PO SCH (07:39)
[2018-03-01] MEDS: SERTRALINE HCL 50 MG TAB PO SCH (07:39)
[2018-03-01] MEDS: POTASSIUM CHLORIDE 10 MEQ TABCR PO SCH (07:40)
[2018-03-01] MEDS: APIXABAN 5 MG TAB PO SCH ×2 (07:40→20:15)
[2018-03-01] MEDS ORDERED: AMBRISENTAN 10 MG PO SCH (09:00)
[2018-03-01] MEDS ORDERED: AMBRISENTAN 10 MG TAB PO SCH (09:00)
[2018-03-01] MEDS: AMIODARONE / D5W 200 ML IV SCH (09:17)
[2018-03-01] MEDS: LIDODERM (LIDOCAINE) PATCH 5% TD SCH (09:21)
--- NOTE | 2018-03-01 09:34 | DIAGNOSTIC IMAGING REPORT ---
LUMBAR SPINE W/O CONTRAST CLINICAL HISTORY: 72 years-old Female presenting with Compression Fx L2, L4, L5 further assessment for acuity. TECHNIQUE: Multisequence, multiplanar MR imaging of the lumbar spine was performed without the use of intravenous contrast. IV contrast: None. COMPARISON: CT from 02/28/2018 and MR from 02/02/2016. FINDINGS: Localizer images: Diverticulosis. S-shaped scoliotic curvature of the lumbar spine. Hyperdensity at the upper pole the left kidney likely cyst. Apart from scoliotic curvature, otherwise normal lumbar lordosis. Vertebral bodies demonstrate mild concave deformities of the superior endplates of L2 and L4 with associated bony edema consistent with acute or subacute compression deformities. The sclerotic line paralleling the superior endplate of L5 is not associated with significant bony edema suggesting a chronic mild compression deformity. These are new since 2016. Remaining vertebral bodies demonstrate normal height, alignment, and bone marrow signal intensity. Diffuse intervertebral disc desiccation with eccentric height loss related to scoliotic curvature. Additional multilevel degenerative changes further detailed below: L1-2: Disc bulge and ligamentum flavum thickening. Minimal effacement of the ventral thecal sac. More significant effacement of the right lateral recess. Mild right neural foraminal narrowing largely due to scoliosis. L2-3: Minimal disc bulge and ligamentum flavum thickening. No significant spinal canal narrowing. Mild bilateral neural foraminal narrowing. L3-4: Disc bulge, facet arthropathy and ligamentum flavum thickening result in circumferential effacement of the thecal sac though CSF signal intensity is maintained. Disc bulge results in abutment of the exiting left L3 nerve root and transiting left L4 nerve root. Mild to moderate bilateral neural foraminal narrowing. L4-5: Minimal disc bulge. More significant facet arthropathy. Effacement of the ventral thecal sac without significant spinal canal narrowing. Mass effect on the exiting right L4 nerve root and abutment of the bilateral transiting L5 nerve roots. Mild bilateral neural foraminal narrowing. L5-S1: Disc bulge results is eccentrically more severe along the left lateral aspect and with significant effacement of the left lateral recess, left neural foramen, and far lateral left neural foramen. Suspected mass effect on the exiting left L5 nerve root. Mild left neural foraminal narrowing. Spinal cord ends in good position at L1-2. Cauda equina normal morphology.. Spinal musculature demonstrates fatty atrophy. Mild paraspinal muscle edema noted at the level of L4. No gross evidence of an epidural collection. Remaining visualized soft tissues within normal limits. IMPRESSION: 1. Findings consistent with acute or subacute compression fractures of the superior endplates of L2 and L4. 2. Chronic compression deformity of the superior endplate of L5 though this is new since 2016. 3. Multilevel degenerative changes with multilevel mass effect and/or abutment of exiting and transiting nerve roots detailed above. Multilevel neural foraminal narrowing as above. Electronically signed by: Wilmer Pritchard M.D. 03/01/2018 9:33 AM Dictated Date/Time: 03/01/2018 9:19 AM
[2018-03-01] MEDS ORDERED: AMIODARONE 200 MG TAB PO ONE (12:30)
--- NOTE | 2018-03-01 16:32 | Hospitalist Progress Note ---
Hospitalist Progress Note Date of Service Mar 01, 2018. Subjective Pt evaluation today including: conversation w/ patient, physical exam, chart review, lab review, review of studies, review of inpatient medication list Patient seen and evaluated. Converted to NSR on Amiodarone. HR stable and BP improved to her baseline. She reports feeling well. MRI confirms compression fx. Using Tylenol and is hesitant to use anything more. She states she is established with pain management and would like to F/U with them for options. She has been using Tylenol and Lidocaine patch. Constitutional: No fever, No chills Respiratory: No cough, No shortness of breath Cardiovascular: No chest pain, No palpitations Abdomen: No pain, No nausea, No vomiting, No diarrhea, No constipation Musculoskeletal: + problem reported (low back pain), No swelling, No calf pain Neurologic: No numbness/tingling Heme: No abnormal bleeding/bruising Medications Current Inpatient Medications Medications (Trade) Dose Ordered Sig/Chris Route Start Time Stop Time Status Last Admin Dose Admin Ioversol (Optiray 320) 100 ml UD PRN IV 02/28/18 10:30 03/04/18 10:29 Al Hydrox/Mg Hydrox/Simethicone (Maalox Max Susp) 15 ml Q4H PRN PO 02/28/18 10:30 03/30/18 10:29 Magnesium Hydroxide (Milk Of Magnesia Susp) 30 ml Q12H PRN PO 02/28/18 10:30 03/30/18 10:29 Ondansetron HCl (Zofran Inj) 4 mg Q6H PRN IV 02/28/18 10:30 03/30/18 10:29 Polyethylene (Miralax Powder Packet) 17 gm DAILY PRN PO 02/28/18 10:30 03/30/18 10:29 Apixaban (Eliquis) 5 mg BID PO 02/28/18 21:00 03/30/18 20:59 03/01/18 07:40 5 MG Ascorbic Acid (Vitamin C Tab) 500 mg DAILY PO 03/01/18 09:00 03/31/18 08:59 03/01/18 07:39 500 MG Benzonatate (Tessalon Perles Cap) 200 mg Q8H PRN PO 02/28/18 10:30 03/30/18 10:29 Gabapentin (Neurontin Cap) 300 mg QAM PO 03/01/18 09:00 03/31/18 08:59 03/01/18 07:39 300 MG Gabapentin (Neurontin Tab) 600 mg QPM PO 02/28/18 21:00 03/30/18 20:59 02/28/18 20:49 600 MG Metoprolol Succinate (Toprol Xl Tab) 25 mg BID PO 02/28/18 21:00 03/30/18 20:59 03/01/18 07:39 25 MG Potassium Chloride (Klor-Con M10) 10 meq DAILY PO 03/01/18 09:00 03/31/18 08:59 03/01/18 07:40 10 MEQ Sertraline HCl (Zoloft Tab) 50 mg QAM PO 03/01/18 09:00 03/31/18 08:59 03/01/18 07:39 50 MG Simvastatin (Zocor Tab) 20 mg HS PO 02/28/18 21:00 03/30/18 20:59 02/28/18 20:48 20 MG Miscellaneous Information (Order Awaiting Action) 1 ea QS N/A 02/28/18 16:00 03/30/18 15:59 Pantoprazole Sodium (Protonix Tab) 40 mg QAM PO 03/01/18 09:00 03/31/18 08:59 03/01/18 07:39 40 MG Amiodarone HCL/ Dextrose 200 ml @ 16.7 mls/hr [id number] IV 02/28/18 21:16 03/30/18 21:15 03/01/18 09:17 16.7 MLS/HR Acetaminophen (Tylenol Tab) 650 mg Q4H PRN PO 02/28/18 17:45 03/30/18 17:44 03/01/18 12:56 650 MG Sildenafil Citrate (Revatio Tab) 40 mg TID PO 02/28/18 21:00 03/30/18 20:59 Future Hold Ambrisentan (Letairis) 10 mg DAILY PO 03/01/18 09:00 03/31/18 08:59 Future Hold Lidocaine (Lidoderm Patch 5%) 1 patch QAM TD 03/01/18 09:00 03/31/18 08:59 03/01/18 09:21 1 PATCH Miscellaneous (Remove Lidoderm Patch) 1 ea DAILY@21 N/A 03/01/18 21:00 03/31/18 20:59 Amiodarone HCl (Cordarone Tab) 200 mg BID PO 03/01/18 21:00 03/31/18 20:59 Objective Vital Signs Date Time Temp Pulse Resp B/P (MAP) Pulse Ox O2 Delivery O2 Flow Rate FiO2 03/01/18 15:38 36.8 69 18 121/73 (89) 93 Room Air 03/01/18 11:00 Nasal Cannula 2.0 03/01/18 10:43 36.7 73 20 101/53 (69) 92 Room Air 03/01/18 06:59 36.9 103 18 106/68 (81) 93 2.0 03/01/18 04:01 36.5 74 18 108/72 (84) 94 02/28/18 23:24 36.8 85 16 94/60 (71) 95 Nasal Cannula 2.0 02/28/18 20:00 Nasal Cannula 2.0 02/28/18 19:21 36.5 85 16 100/63 (75) 94 Nasal Cannula 2.0 02/28/18 17:43 133 92/61 (71) 02/28/18 17:12 105 78/54 (62) 02/28/18 17:04 122 106/68 (81) 02/28/18 16:49 122 118/69 (85) Physical Exam General Appearance: WD/WN, no apparent distress Eyes: sclerae normal ENT: hearing grossly normal Neck: supple, no JVD, trachea midline Respiratory/Chest: lungs clear, normal breath sounds, no respiratory distress, no accessory muscle use Cardiovascular: regular rate, rhythm, no gallop, no murmur Abdomen: normal bowel sounds, non tender, soft Neurologic/Psychiatric: no motor/sensory deficits, alert, oriented x 3 Skin: normal color, warm/dry Laboratory Results Last 24 Hours Test 02/28/18 21:14 03/01/18 03:19 Troponin I 0.028 ng/ml 0.021 ng/ml White Blood Count 5.22 K/uL Red Blood Count 3.50 M/uL Hemoglobin 11.6 g/dL Hematocrit 35.2 % Mean Corpuscular Volume 100.6 fL Mean Corpuscular Hemoglobin 33.1 pg Mean Corpuscular Hemoglobin Concent 33.0 g/dl RDW Standard Deviation 49.8 fL RDW Coefficient of Variation 13.6 % Platelet Count 192 K/uL Mean Platelet Volume 9.3 fL Sodium Level 140 mmol/L Potassium Level 4.0 mmol/L Chloride Level 111 mmol/L Carbon Dioxide Level 26 mmol/L Anion Gap 3.0 mmol/L Blood Urea Nitrogen 14 mg/dl Creatinine 0.87 mg/dl Est Creatinine Clear Calc Drug Dose 56.0 ml/min Estimated GFR () 76.1 Estimated GFR (Non- 65.6 BUN/Creatinine Ratio 15.6 Random Glucose 100 mg/dl Calcium Level 8.4 mg/dl Magnesium Level 2.1 mg/dl Assessment and Plan Ms. Parish is a 72 y/o female with PMHx of Paroxysmal Atrial Fibrillation/ Flutter/SVT S/P Cardioversion, Adenocarcinoma S/P RUL Lobectomy, Pulmonary HTN, COPD/Restrictive Lung Disease, HLD, and H/O PEs on Eliquis who presented to the ED c/o chest pain, palpitations, and low back pain. Atrial Tachycardia with Rapid Rates and H/O PAF/Flutter/SVT S/P Cardioversion: Converted to NSR - Initially placed on Amiodarone gtt with now initiation of oral coverage to wean off - Eliquis 5 mg BID; Holding Toprol XL 25 mg BID until improvement with BP - Cardiology following - appreciate assistance Hypotension: RESOLVED Lumbar Compression Fx: - Conservative measures at this time - pain management Pulmonary HTN/COPD/Restrictive Lung Disease: - Hold Sildenafil 40 mg TID and Letairis 10 mg AM and will discuss ability to restart given amiodarone - amiodarone could increase the effects of the Sildenafil - Utilizes 2 L NC for prolonged ambulation and at night DVT Prophylaxis: Eliquis Code Status: FULL RESUSCITATION Disposition: From home Continued [facility] stay due to: multiple IV medications needed Discharge planning: home
--- NOTE | 2018-03-01 18:29 | Cardiology Follow-Up ---
Subjective Date of Service: Mar 01, 2018. Pt evaluation today including: conversation w/ patient, physical exam, chart review, lab review, review of studies, review of inpatient medication list History of Present Illness Mrs. Parish is a very pleasant 72-year-old female with a history significant for pulmonary hypertension on Letairis and Revatio (followed by Dr. Meyers at [facility]), paroxysmal atrial fibrillation on anticoagulation therapy, bilateral pulmonary emboli, mild nonobstructive CAD, paroxysmal SVT, COPD/restrictive lung disease, non-small cell lung carcinoma status post right upper lobe resection, and dyslipidemia. She is followed by Dr. Zelaya for her cardiology care. Dr. Zelaya is unavailable this week. She feels much better today. She was able to ambulate in the hallway and denies chest pain, shortness of breath, syncope, near-syncope, palpitations, or edema. She is tolerating amiodarone well. She would like to go home tomorrow. Medications Current Inpatient Medications Medications (Trade) Dose Ordered Sig/Chris Route Start Time Stop Time Status Last Admin Dose Admin Ioversol (Optiray 320) 100 ml UD PRN IV 02/28/18 10:30 03/04/18 10:29 Al Hydrox/Mg Hydrox/Simethicone (Maalox Max Susp) 15 ml Q4H PRN PO 02/28/18 10:30 03/30/18 10:29 Magnesium Hydroxide (Milk Of Magnesia Susp) 30 ml Q12H PRN PO 02/28/18 10:30 03/30/18 10:29 Ondansetron HCl (Zofran Inj) 4 mg Q6H PRN IV 02/28/18 10:30 03/30/18 10:29 Polyethylene (Miralax Powder Packet) 17 gm DAILY PRN PO 02/28/18 10:30 03/30/18 10:29 Apixaban (Eliquis) 5 mg BID PO 02/28/18 21:00 03/30/18 20:59 03/01/18 07:40 5 MG Ascorbic Acid (Vitamin C Tab) 500 mg DAILY PO 03/01/18 09:00 03/31/18 08:59 03/01/18 07:39 500 MG Benzonatate (Tessalon Perles Cap) 200 mg Q8H PRN PO 02/28/18 10:30 03/30/18 10:29 Gabapentin (Neurontin Cap) 300 mg QAM PO 03/01/18 09:00 03/31/18 08:59 03/01/18 07:39 300 MG Gabapentin (Neurontin Tab) 600 mg QPM PO 02/28/18 21:00 03/30/18 20:59 02/28/18 20:49 600 MG Metoprolol Succinate (Toprol Xl Tab) 25 mg BID PO 02/28/18 21:00 03/30/18 20:59 03/01/18 07:39 25 MG Potassium Chloride (Klor-Con M10) 10 meq DAILY PO 03/01/18 09:00 03/31/18 08:59 03/01/18 07:40 10 MEQ Sertraline HCl (Zoloft Tab) 50 mg QAM PO 03/01/18 09:00 03/31/18 08:59 03/01/18 07:39 50 MG Simvastatin (Zocor Tab) 20 mg HS PO 02/28/18 21:00 03/30/18 20:59 02/28/18 20:48 20 MG Miscellaneous Information (Order Awaiting Action) 1 ea QS N/A 02/28/18 16:00 03/30/18 15:59 Pantoprazole Sodium (Protonix Tab) 40 mg QAM PO 03/01/18 09:00 03/31/18 08:59 03/01/18 07:39 40 MG Amiodarone HCL/ Dextrose 200 ml @ 16.7 mls/hr [id number] IV 02/28/18 21:16 03/01/18 20:00 03/01/18 09:17 16.7 MLS/HR Acetaminophen (Tylenol Tab) 650 mg Q4H PRN PO 02/28/18 17:45 03/30/18 17:44 03/01/18 17:02 650 MG Sildenafil Citrate (Revatio Tab) 40 mg TID PO 02/28/18 21:00 03/30/18 20:59 Future Hold Ambrisentan (Letairis) 10 mg DAILY PO 03/01/18 09:00 03/31/18 08:59 Future Hold Lidocaine (Lidoderm Patch 5%) 1 patch QAM TD 03/01/18 09:00 03/31/18 08:59 03/01/18 09:21 1 PATCH Miscellaneous (Remove Lidoderm Patch) 1 ea DAILY@21 N/A 03/01/18 21:00 03/31/18 20:59 Amiodarone HCl (Cordarone Tab) 200 mg BID PO 03/01/18 21:00 03/31/18 20:59 Objective Vital Signs Past 12 Hours Date Time Temp Pulse Resp B/P (MAP) Pulse Ox O2 Delivery O2 Flow Rate FiO2 03/01/18 15:38 36.8 69 18 121/73 (89) 93 Room Air 03/01/18 15:00 93 Room Air 03/01/18 11:00 Nasal Cannula 2.0 03/01/18 10:43 36.7 73 20 101/53 (69) 92 Room Air 03/01/18 06:59 36.9 103 18 106/68 (81) 93 2.0 Last Recorded Weight-Kilograms: 75.000 Intake & Output 8-Hour Column 03/01/18 03/02/18 03/02/18 16:00 00:00 08:00 Intake Total 625 ml Output Total 1000 ml Balance -375 ml 24-Hour Column 03/02/18 08:00 Intake Total 625 ml Output Total 1000 ml Balance -375 ml Physical Exam Gen.: No acute distress. Alert and oriented. HEENT: Anicteric sclera. Neck: No JVD. Cardiac: Regular. Normal S1-S2. No murmurs, rubs, or gallops. Pulmonary: Clear to auscultation bilaterally without wheezes, rales, or rhonchi. Abdomen: Soft, nontender, nondistended, with normoactive bowel sounds. No bruits noted. Extremities: No edema or cyanosis. Psychiatric: Affect appears appropriate. Data Laboratory Results: Last 24 Hours Test 02/28/18 21:14 03/01/18 03:19 Troponin I 0.028 ng/ml 0.021 ng/ml White Blood Count 5.22 K/uL Red Blood Count 3.50 M/uL Hemoglobin 11.6 g/dL Hematocrit 35.2 % Mean Corpuscular Volume 100.6 fL Mean Corpuscular Hemoglobin 33.1 pg Mean Corpuscular Hemoglobin Concent 33.0 g/dl RDW Standard Deviation 49.8 fL RDW Coefficient of Variation 13.6 % Platelet Count 192 K/uL Mean Platelet Volume 9.3 fL Sodium Level 140 mmol/L Potassium Level 4.0 mmol/L Chloride Level 111 mmol/L Carbon Dioxide Level 26 mmol/L Anion Gap 3.0 mmol/L Blood Urea Nitrogen 14 mg/dl Creatinine 0.87 mg/dl Est Creatinine Clear Calc Drug Dose 56.0 ml/min Estimated GFR () 76.1 Estimated GFR (Non- 65.6 BUN/Creatinine Ratio 15.6 Random Glucose 100 mg/dl Calcium Level 8.4 mg/dl Magnesium Level 2.1 mg/dl Echo at [facility] 02/21/2018: Normal LV size, wall motion, systolic function. EF 60 -65%. Mild biatrial dilation. RVSP 41. Mild TR. Telemetry personally reviewed: Sinus rhythm. ECG personally reviewed 03/01/2018 6:15 a.m.: Sinus rhythm 67 bpm. Cannot rule out inferior infarct. Assessment and Plan ASSESSMENT/PLAN: 1. SVT: She had tachyarrhythmia concerning for SVT verses atrial tachycardia with one-to-one conduction. She has maintained sinus rhythm on amiodarone. Amiodarone 200 mg twice daily was initiated earlier today. Can discontinue amiodarone drip tonight. Orders were placed. Monitor TSH and transaminase levels. Monitor PFTs over time. 2. Paroxysmal atrial fibrillation: She is in sinus rhythm. Can continue anticoagulation for stroke risk reduction. Also on beta-cami and now amiodarone therapy. 3. Mobitz 1: Continue to monitor for more advanced AV nerissa block. Currently in sinus rhythm without Mobitz 1. 4. Pulmonary hypertension: As per primary hospitalist service. Revatio levels could become increased while on amiodarone. Monitor for worsening hypotension. 5. Mild nonobstructive CAD: No angina. Negative troponin. 6. Chest pain: No further chest pain. Troponins were not elevated. No further ischemic evaluation recommended at this time. 7. Disposition: Follow-up in approximately [address] Zelaya office for cardiology evaluation. Can be discharged from for a cardiology perspective tomorrow.
[2018-03-01] MEDS: GABAPENTIN 600 MG TAB PO SCH (20:15)
[2018-03-01] MEDS: SIMVASTATIN 20 MG TAB PO SCH (20:15)
[2018-03-01] MEDS: AMIODARONE 200 MG TAB PO SCH (20:16)
[2018-03-02] MEDS: ACETAMINOPHEN 325 MG TAB PO PRN ×3 (03:38→12:48)
[2018-03-02 03:43] VITALS: BP 124/72; PULSE 74; TEMP 36.6; O2SAT 91
[2018-03-02 06:59] VITALS: BP 125/67; PULSE 72; TEMP 36.8; O2SAT 90
[2018-03-02] MEDS: PANTOprazole SOD 40 MG TAB PO SCH (07:22)
[2018-03-02] MEDS: METOPROLOL SUCC 25MG EXT REL TAB PO SCH (07:22)
[2018-03-02] MEDS: POTASSIUM CHLORIDE 10 MEQ TABCR PO SCH (07:22)
[2018-03-02] MEDS: GABAPENTIN 300 MG CAP PO SCH (07:22)
[2018-03-02] MEDS: APIXABAN 5 MG TAB PO SCH (07:22)
[2018-03-02] MEDS: SERTRALINE HCL 50 MG TAB PO SCH (07:23)
[2018-03-02] MEDS: AMIODARONE 200 MG TAB PO SCH (07:23)
[2018-03-02] MEDS: ASCORBIC ACID 500 MG TAB PO SCH (07:23)
[2018-03-02] MEDS: LIDODERM (LIDOCAINE) PATCH 5% TD SCH (07:23)
[2018-03-02 07:38] LABS: HEMATOCRIT 38.1 % (37-47); HEMOGLOBIN 12.8 g/dL (12.0-16.0); MEAN CELL VOLUME 99.7 fL (80-100); MEAN CORPUSCULAR HEMOGLOBIN 33.5 pg (25-34); MEAN CORPUSCULAR HGB CONC 33.6 g/dl (32-36); MEAN PLATELET VOLUME 9.7 fL (7.4-10.4); PLATELET COUNT 224 K/uL (130-400); RED CELL DISTRIBUTION WIDTH SD 47.2 fL (36.4-46.3); WHITE BLOOD COUNT 4.71 K/uL (4.8-10.8)
[2018-03-02 08:17] LABS: CALCIUM 9.2 mg/dl (8.5-10.1); CREATININE 0.76 mg/dl (0.60-1.20); POTASSIUM 4.1 mmol/L (3.5-5.1)
[2018-03-02] MEDS ORDERED: CRD200 PO (09:26)
--- NOTE | 2018-03-02 09:42 | Discharge Instructions ---
Discharge Instructions Date of Service Mar 02, 2018. Admission Reason for Admission: A Fib W/Rvr, Supraventricular Tachycardia Discharge Discharge Diagnosis / Problem: Atrial Tachycardia and Compression Fracture of Lumbar Spine Discharge Goals Goal(s): Decrease discomfort, Improve function, Increase independence Activity Recommendations Activity Limitations: resume your previous activity . Instructions / Follow-Up Instructions / Follow-Up Atrial Tachycardia: - This is a fast rhythm that is originating at the top of your heart and is like the rhythms you have had in the past. - You converted to a normal sinus rhythm on amiodarone. - Will continue Amiodarone 200 mg twice a day possibly for a couple weeks. We will get a follow-up with your heart doctor to determine length of treatment. - You were on this medication in the past with your pulmonary hypertension medications so you should tolerate this well but will need to watch for interactions -- The Letairis can increase the effects of Amiodarone and a handout was given to you about side effects to watch for -- The amiodarone can increase the effects of Sildenafil so I would recommend you keep track of your blood pressure and watch for any dizziness and if your blood pressure would be low to call you doctor, 911, or come to the hospital - You may continue your home medications as prescribed. We did not make adjustments to those medications Low Back Compression Fractures: - These will be managed conservatively. Recommend to continue your lidocaine patches and Tylenol as needed. - We have been using Tylenol 650 mg every 4 hours as needed. DO NOT EXCEED 3250 mg total in a 24 hour period. Follow-Up: "Please, follow up at [facility] with Dr. Lamar on SundayMarch 11 at 2:30 pm. *This clinic is located at [address] (Lower Entrance) in [place]. *If you need to change this appointment, call the office at [phone]. Please, follow up with Dr. Ruiz Aparicio in the [place] Office on SundayMarch 12 at 3:15 pm. *If you need to change this appointment, call the office at [phone]." We will call you with a follow-up with Dr. Zelaya likely Sunday or Sunday. If you do not receive a call please call his office. Current Hospital Diet Patient's current hospital diet: AHA Diet (Heart Healthy) Discharge Diet Recommended Diet: AHA Diet (Heart Healthy) Pending Studies Studies pending at discharge: no Medical Emergencies . Who to Call and When: Medical Emergencies: If at any time you feel your situation is an emergency, please call 911 immediately. . Non-Emergent Contact Non-Emergency issues call your: Primary Care Provider Call Non-Emergent contact if: you have a fever, your pain is concerning you, you have any medication questions . . "Provider Documentation" section prepared by Jaja Masters. .
[2018-03-02 10:38] VITALS: BP 125/67; PULSE 72; TEMP 36.8; O2SAT 90
[2018-03-02 11:45] VITALS: BP 149/82; PULSE 78; TEMP 37.1; O2SAT 90
--- NOTE | 2018-03-02 17:54 | Discharge Summary ---
Discharge Summary Date of Service Mar 02, 2018. Discharge Summary Admission Date: Feb 28, 2018 at 11:09 Discharge Date: Mar 02, 2018 Discharge Disposition: Home Principal Diagnosis: SVT/Atrial Tachycardia and Lumbar Compression Fx Problems/Secondary Diagnoses: 1. Paroxysmal Atrial Fibrillation/Flutter/SVT S/P Cardioversion (2016) 2. Adenocarcinoma S/P RUL Lobectomy 3. Idiopathic Pulmonary HTN 4. COPD/Restrictive Lung Disease 5. HLD 6. H/O PEs - Currently on Eliquis Immunizations: Have You Had Influenza Vaccine: N/A History of Tetanus Vaccine?: Yes History of Pneumococcal: Yes History of Hepatitis B Vaccine: Yes Procedures: LUMBAR SPINE W/O CONTRAST FINDINGS: Localizer images: Diverticulosis. S-shaped scoliotic curvature of the lumbar spine. Hyperdensity at the upper pole the left kidney likely cyst. Apart from scoliotic curvature, otherwise normal lumbar lordosis. Vertebral bodies demonstrate mild concave deformities of the superior endplates of L2 and L4 with associated bony edema consistent with acute or subacute compression deformities. The sclerotic line paralleling the superior endplate of L5 is not associated with significant bony edema suggesting a chronic mild compression deformity. These are new since 2016. Remaining vertebral bodies demonstrate normal height, alignment, and bone marrow signal intensity. Diffuse intervertebral disc desiccation with eccentric height loss related to scoliotic curvature. Additional multilevel degenerative changes further detailed below: L1-2: Disc bulge and ligamentum flavum thickening. Minimal effacement of the ventral thecal sac. More significant effacement of the right lateral recess. Mild right neural foraminal narrowing largely due to scoliosis. L2-3: Minimal disc bulge and ligamentum flavum thickening. No significant spinal canal narrowing. Mild bilateral neural foraminal narrowing. L3-4: Disc bulge, facet arthropathy and ligamentum flavum thickening result in circumferential effacement of the thecal sac though CSF signal intensity is maintained. Disc bulge results in abutment of the exiting left L3 nerve root and transiting left L4 nerve root. Mild to moderate bilateral neural foraminal narrowing. L4-5: Minimal disc bulge. More significant facet arthropathy. Effacement of the ventral thecal sac without significant spinal canal narrowing. Mass effect on the exiting right L4 nerve root and abutment of the bilateral transiting L5 nerve roots. Mild bilateral neural foraminal narrowing. L5-S1: Disc bulge results is eccentrically more severe along the left lateral aspect and with significant effacement of the left lateral recess, left neural foramen, and far lateral left neural foramen. Suspected mass effect on the exiting left L5 nerve root. Mild left neural foraminal narrowing. Spinal cord ends in good position at L1-2. Cauda equina normal morphology.. Spinal musculature demonstrates fatty atrophy. Mild paraspinal muscle edema noted at the level of L4. No gross evidence of an epidural collection. Remaining visualized soft tissues within normal limits. IMPRESSION: 1. Findings consistent with acute or subacute compression fractures of the superior endplates of L2 and L4. 2. Chronic compression deformity of the superior endplate of L5 though this is new since 2016. 3. Multilevel degenerative changes with multilevel mass effect and/or abutment of exiting and transiting nerve roots detailed above. Multilevel neural foraminal narrowing as above. Consultations: 1. Cardiology Medication Reconciliation New Medications: Amiodarone HCl (Amiodarone HCl) 200 Mg Tab 200 MG PO BID for 30 Days, #60 TAB Continued Medications: Ambrisentan (Letairis) 10 Mg Tab 10 MG PO QAM PATIENT BRINGS IN OWN FROM HOME. WILL BE BRINGING IT IN. Apixaban (Eliquis) 5 Mg Tab 5 MG PO BID, TAB Ascorbic Acid (Vitamin C) 500 Mg Tab 500 MG PO DAILY Benzonatate (Tessalon Perles) 200 Mg Cap 200 MG PO Q8H PRN for Cough, CAP Calcium Carbonate-Vitamin D (Calcium + D) 1 Tab Tab 1 TAB PO QAM Cholecalciferol (Vitamin D3) 1,000 Unit Tab 1000 UNITS PO QAM Gabapentin (Neurontin) 300 Mg Cap 600 MG PO QPM TWO 300 MG CAPSULES EVERY EVENING Gabapentin (Neurontin) 300 Mg Cap 300 MG PO QAM Home O2 Therapy (Oxygen) Gas 2 LITERS NA HS Home O2 Therapy (Oxygen) Gas 2 LITER NA PRN for Shortness of Breath Metoprolol Succinate (Metoprolol Succinate ER) 25 Mg Tabcr 25 MG PO BID Mometasone Furoate-Formoterol (Dulera 100/5 Mcg) 1 Aer Aer 2 PUFFS INH BID Multivitamin (Multivitamin) Tab 1 TAB PO QAM, 0 Refills Omeprazole (Prilosec) 20 Mg Capcr 20 MG PO BID, 0 Refills Potassium Chloride (Micro-K Ext Rel) 10 Meq Capcr 10 MEQ PO DAILY Sertraline (Zoloft) 50 Mg Tab 50 MG PO QAM Sildenafil Citrate (Revatio) 20 Mg Tab 40 MG PO TID TWO 20MG TABLETS 3 TIMES DAILY. PATIENT BRINGS IN OWN FROM HOME. WILL BE BRINGING IT IN. Simvastatin (Zocor) 20 Mg Tab 20 MG PO HS Torsemide (Demadex) 10 Mg Tab 10 MG PO DAILY Valacyclovir (Valtrex) 500 Mg Tab 2 TAB PO UD PRN for onset of symptoms cold sores. Discharge Exam REVIEW OF SYSTEMS: Constitutional: No fever, No chills Respiratory: No cough, No shortness of breath Cardiovascular: No chest pain, No palpitations Abdomen: No pain, No nausea, No vomiting, No diarrhea, No constipation Musculoskeletal: + problem reported (low back pain), No swelling, No calf pain Neurologic: No numbness/tingling Heme: No abnormal bleeding/bruising PHYSICAL EXAM: General Appearance: WD/WN, no apparent distress Eyes: sclerae normal ENT: hearing grossly normal Neck: supple, no JVD, trachea midline Respiratory/Chest: lungs clear, normal breath sounds, no respiratory distress, no accessory muscle use Cardiovascular: regular rate, rhythm, no gallop, no murmur Abdomen: normal bowel sounds, non tender, soft Back: + point tenderness along lumbar spine; 5/5 strength of lower extremities Neurologic/Psychiatric: no motor/sensory deficits, alert, oriented x 3 Skin: normal color, warm/dry Hospital Course ADMISSION: Ms. Parish is a 72 y/o female with PMHx of Paroxysmal Atrial Fibrillation/Flutter/SVT S/P Cardioversion, Adenocarcinoma S/P RUL Lobectomy, Pulmonary HTN, COPD/Restrictive Lung Disease, HLD, and H/O PEs on Eliquis who presented to the ED c/o chest pain, palpitations, and low back pain. Patient was found to be in an atrial tachycardia with rates near the 160s and low blood pressure. She is largely asymptomatic but does report feelings of palpitations. BP is low in the 80-90s systolically and maintaining appropriate MAP. She is mentating appropriately. She states she normally has low pressures but they are more in the low 100s systolically. HR did improve with Lopressor 2.5 mg IV x 1 dose given in ED but did result in lower pressures but she was asymptomatic. HRs stayed in the low 100s. She reports she required cardioversion in the past for irregular rhythms and states she feels intermittent palpitations but nothing sustaining. She is chronically anticoagulated due to H/O PEs and is on Eliquis. She also presented with low back pain x 2 weeks. She denies trauma. She states she has a H/O sciatica but is not having the same pain. She denies radiation down the legs, leg weakness, saddle paresthesias, or loss of bowel/ bladder. Imaging suggests lumbar compression fx. She states she did have a small compression fx in the past and had kyphoplasty by Dr. Fernandez. Upon arrival to floor her HR went into the 140s and she appears to be in an SVT vs A Flutter as her rhythm even on EKG is inconsistent and is being read as an atrial tach. BP remains on the lower side limiting use of BB/diltiazem for rate control HOSPITAL COURSE: Atrial Tachycardia with Rapid Rates and H/O PAF/Flutter/SVT S/P Cardioversion: Converted to NSR - Initial presentation with low BPs however mentation and perfusion was good. She was given Lopressor in ED which only gave limited HR control and further reduced BP. She quickly went back into an SVT however her rhythms on EKG had inconsistencies and after discussion with cardiology it was read as and SVT vs other atrial tachycardia. Some EKGs supported a Mobitz I but with a rapid rate and again her EKGs were rather inconsistent. However once she was adequately rate controlled she is in a NSR - Will utilize Amiodarone 200 mg BID likely for a couple weeks and can taper down to once a day or complete adjustment per cardiology. She was on this medication before while on her Letairis and Sildenafil. Provided information of symptoms to monitor for and to monitor her BP as these medications can increase the effects of the other Hypotension 2/2 Rapid Heart Rate: RESOLVED Lumbar Compression Fx: - Conservative measures at this time - pain management - Patient only wanted to utilize Tylenol and did not want anything more. She would like to follow-up with pain management to discuss options and an appt was established. Disposition: - Pain management F/U - Dr. Lamar - PCP F/U - Dr. Aparicio - Cardiology F/U - Dr. Zelaya - will have case management assist with appointment Total Time Spent: Greater than 30 minutes This includes examination of the patient, discharge planning, medication reconciliation, and communication with other providers. Discharge Instructions Please refer to the electronic Patient Visit Report (Discharge Instructions) for additional information. Additional Copies To Dolores Lamar DO; Ruiz Aparicio M.D.; Valerio Zelaya MD
== END 2018-03-02 14:45 | disposition home or self-care (01) | DRG 310 ==
LOC: C.EDB 08:49 → C.2T 11:09 → ENRESERV 11:44
PROVIDERS: ADMIT Internal Medicine; ATTEND Internal Medicine
DX: I47.1 Supraventricular tachycardia (principal); I48.0 Paroxysmal atrial fibrillation; Z85.118 Personal history of other malignant neoplasm of bronchus and lung; Z88.0 Allergy status to penicillin; Z88.1 Allergy status to other antibiotic agents; Z88.7 Allergy status to serum and vaccine; Z88.8 Allergy status to other drugs, medicaments and biological substances; I95.9 Hypotension, unspecified; M48.56XS Collapsed vertebra, not elsewhere classified, lumbar region, sequela of fracture; X58.XXXS Exposure to other specified factors, sequela; I27.29 Other secondary pulmonary hypertension; Z87.891 Personal history of nicotine dependence; J44.9 Chronic obstructive pulmonary disease, unspecified; E78.5 Hyperlipidemia, unspecified; Z86.711 Personal history of pulmonary embolism; Z79.01 Long term (current) use of anticoagulants; I25.10 Atherosclerotic heart disease of native coronary artery without angina pectoris; M41.9 Scoliosis, unspecified; G47.30 Sleep apnea, unspecified

== ENCOUNTER → 2018-03-04 | Outpatient (CLI) | payer BC ==
[~2018-03-04] MED LIST changes: +CRD200 PO; -DIPH-437 PO; -POTA-639 PO; +POTA10CA28 PO
[2018-03-04 17:14] LABS: BASO % 0.6 %; BASO ABS # 0.04 K/uL (0-0.2); EOS % 2.6 %; EOS ABS # 0.16 K/uL (0-0.5); HEMATOCRIT 39.3 % (37-47); HEMOGLOBIN 12.8 g/dL (12.0-16.0); IG# 0.02 K/uL (0.00-0.02); LYMPH % 17.8 %; MEAN CELL VOLUME 102.1 fL (80-100); MEAN CORPUSCULAR HEMOGLOBIN 33.2 pg (25-34); MEAN CORPUSCULAR HGB CONC 32.6 g/dl (32-36); MEAN PLATELET VOLUME 10.5 fL (7.4-10.4); MONO % 7.1 %; MONO ABS # 0.44 K/uL (0.11-0.59); NEUT % 71.6 %; NEUT ABS # 4.41 K/uL (1.4-6.5); PLATELET COUNT 271 K/uL (130-400); RED CELL DISTRIBUTION WIDTH CV 13.4 % (11.5-14.5); RED CELL DISTRIBUTION WIDTH SD 49.6 fL (36.4-46.3); WHITE BLOOD COUNT 6.17 K/uL (4.8-10.8)
[2018-03-04 17:37] LABS: ALBUMIN 3.7 gm/dl (3.4-5.0); ALKALINE PHOSPHATASE 100 U/L (45-117); ALT/SGPT 26 U/L (12-78); AST/SGOT 22 U/L (15-37); BLOOD UREA NITROGEN 17 mg/dl (7-18); CALCIUM 9.3 mg/dl (8.5-10.1); CARBON DIOXIDE 27 mmol/L (21-32); CREATININE 0.99 mg/dl (0.60-1.20); GLUCOSE 89 mg/dl (70-99); POTASSIUM 4.3 mmol/L (3.5-5.1); SODIUM 138 mmol/L (136-145); TOTAL PROTEIN 7.8 gm/dl (6.4-8.2)
== END | disposition home or self-care (01) ==
LOC: C.LABBC 12:32
PROVIDERS: ATTEND Internal Medicine Hematology & Oncology
DX: C34.11 Malignant neoplasm of upper lobe, right bronchus or lung (principal); D50.9 Iron deficiency anemia, unspecified

== ENCOUNTER 2020-12-10 11:10 | Inpatient (IN) ==
--- NOTE | 2020-12-10 11:41 | Emergency Department Note ---
Impression & Plan Acute GI bleeding, Symptomatic anemia ED Provider Note NAME: RASHAUN MCKAY AGE: 75 SEX: F : 1945 ARRIVES VIA: Walk-In INFORMANT: Patient, ED PROVIDER(S): Bartolo Mccray MD Chief Complaint: Dark stools HPI: Patient does present concern for dark stools that been ongoing for the last 3 days. The patient has had some increasing weakness and fatigue. The patient does have chronic shortness of breath does suffer from pulmonary hypertension and is chronically on nasal cannula at all times. The patient was recently treated for a bladder infection with Bactrim beginning Sunday. Patient denies any recent falls or trauma. The patient has required transfusion several times in the last 2 months. The patient is on anticoagulant medication due to her heart disease. Patient denies any fevers or chills. The patient denies any cough. The patient denies any abdominal pain nausea or vomiting. The patient denies any hematemesis. Patient's has noticed her to be slightly more pale. The patient did discuss that she had spoken with her qc analyst and they had talked about the possibility of a pill capsule study. Patient family member state that they have not discussed stopping the anticoagulation even in light of the patient's presumptive GI bleeding. Patient is vaccinated for Covid. Patient denies any acute shortness of breath. Patient does not have any chest pain. ROS: See HPI for pertinent positives and negatives. A total of 10 systems were reviewed and otherwise negative. Past medical history: See below Surgical history: See below Social history: See below Physical Exam: GENERAL: Slightly pale in appearance, wearing glasses and nasal cannula in place. EYE EXAM: Normal conjunctiva. PERRL, no anisocoria and EOM's grossly intact w/o pain. OROPHARYNX: Moist mucus membranes. Grossly normal dentition. NECK: Supple, no nuchal rigidity, no adenopathy, non-tender. No signs of meningismus. LUNGS: Clear to auscultation. Normal chest wall mechanics. HEART: NSR, no MRG. ABDOMEN: Abdomen soft, non-tender, normo-active bowel sounds, no masses, no rebound or guarding. BACK: No CVA TTP. SKIN: No rashes and no bruising. Rectal: No obvious anal fissures or hemorrhoids, no bright red blood per rectum or melenic stool noted. Heme-negative. UPPER EXTREMITIES: Upper extremities are grossly normal. LOWER EXTREMITIES: Grossly normal, no edema. NEURO EXAM: A&O x3, cranial nerves II-XII grossly intact, normal speech, moves all 4 extremities on command w/o issue. Differential diagnoses: Infection, dehydration, metabolic abnormality, hypo/hyperglycemia, electrolyte disturbance, anemia, hypoxia, cardiac sources, intracerebral event, toxicologic, neurologic, as well as other pathologies. Course: Patient was seen and evaluated the bedside. Full history physical exam was performed. Imaging Studies: None Cardiac monitoring: An order was placed for continuous cardiac monitoring. The monitor shows a rate of 88 with sinus rhythm. MDM: Patient did present with concern for possible GI bleeding. Rectal exam was performed there is no obvious stool placed on the Hemoccult card. This was heme-negative. However, given the patient's drop in hemoglobin with melenic stool at home we will treat presumptively for GI bleeding. The patient was consented for blood ordered 2 units PRBCs. PPI bolus and drip also ordered. Patient hemoglobin today 7.6. The patient's white count is normal. The patient had related that she does receive iron infusions but does not take by mouth iron. Platelet count is normal. Coags unremarkable. Patient's kidney function unremarkable. Covid negative. I did speak with the on-call hospitalist Dr. Juarez and the patient was admitted to the medicine service. Critical Care: I have personally spent 47 minutes of critical care time in direct management of this patient. This includes bedside care, interpretation of diagnostic studies, and testing, discussion with consultants, patient, and family members, and other require inpatient management activities. This 47 minutes is in excess of all separately billable procedures. Past Med/Surg History Medical History Atherosclerosis of aorta Atrial fibrillation with RVR follows with Dr. Zelaya Atrial flutter, paroxysmal Bilateral occipital neuralgia Cervical osteoarthritis Chronic anticoagulation Chronic back pain Chronic maxillary sinusitis Chronic obstructive pulmonary disease Chronic rhinitis Degenerative disc disease Depression Dyslipidemia GERD (gastroesophageal reflux disease) History of lung cancer 2017--right History of lung cancer History of pulmonary embolism Iron deficiency anemia Lumbar compression fracture L2, L3, L4 Lumbar spinal stenosis Lumbar spondylosis O2 dependent CARIN (obstructive sleep apnea) 2L N/C at HS or prn Osteoporosis Paroxysmal SVT (supraventricular tachycardia) Pulmonary hypertension Restrictive lung disease Thoracic compression fracture Tubular adenoma of colon Surgical History H/O tubal ligation History of appendectomy History of bilateral cataract extraction History of cardiac cath x3 with no stents History of cholecystectomy History of colonoscopy History of hemorrhoidectomy History of tooth extraction all upper, most of lower Previous back surgery S/P lobectomy of lung Right upper Family History Mother Heart disease Myocardial infarction Sister Valvular heart disease Sinusitis Other No family history of adverse response to anesthesia Denies family history of Ovarian cancer Prostate cancer Breast cancer Colorectal cancer Social History Smoking Status: Former smoker Tobacco Type: Cigarettes Second Hand Exposure: No; Do You Dip or Chew Tobacco: No; Tobacco Cessation Education Requested by Patient: No Hx Alcohol Use: No Hx Substance Use: No Preferred Language: Yi Communication Ability: Effective Visual Impairment: Limited Hearing Ability: Normal It Consultant Required: No Beliefs That Will Affect Care: None marital status: Current Living Situation: Spouse current occupational status: retired Other Information That Helps Us Care for You: No Feels Safe at Home: Yes Safety Concerns: Feels Safe At This Time Dental Care, Regularly: No Physical Activity Frequency: Daily Seatbelt Use: always Sunscreen Use: No Assistive Devices: Oxygen - Continuous Allergies Allergies Allergy/AdvReac Type Severity Reaction Status Date / Time Cipro Allergy Mild RASH Unverified 03/11/18 14:26 ciprofloxacin Allergy Mild RASH Verified 12/10/20 13:54 cephalexin Allergy Unknown UNKNOWN Verified 12/10/20 13:54 doxycycline Allergy Unknown RASH Verified 12/10/20 13:54 Egg Derived Allergy Unknown HIVES Verified 12/10/20 13:54 Influenza Virus Vaccines Allergy Unknown ALLERGIES Verified 12/10/20 13:54 TO EGGS Nitrate Analogues Allergy Unknown UNABLE TO Verified 12/10/20 13:54 HAVE R/T PULMONARY HTN Penicillins Allergy Unknown RASH Verified 12/10/20 13:54 tetanus toxoid, adsorbed Allergy Unknown TETANUS-DIPTHERIA Verified 12/10/20 13:54 TOXOID-RASH codeine AdvReac Unknown GI SYMPTOMS Verified 12/10/20 13:54 diphenhydramine AdvReac Unknown UNABLE TO Verified 12/10/20 13:54 HAVE R/T PULMONARY HTN hydrocodone AdvReac Unknown N/V Verified 12/10/20 13:54 pseudoephedrine AdvReac Unknown UNABLE TO Verified 12/10/20 13:54 HAVE COLD MEDICATIONS R/T PULMONARY HTN Home Meds Home Medications Medication Instructions Recorded Confirmed ascorbic acid (vitamin C) 500 mg 500 m PO QAM cap 04/03/18 12/10/20 capsule calcium carbonate 500 mg calcium 500 mg PO QAM tab 04/03/18 12/10/20 (1,250 mg) tablet cholecalciferol (vitamin D3) 1,000 unit PO QAM 08/30/18 12/10/20 [Vitamin D3] diphenhydramine-acetaminophen 1 tab PO HS 08/30/18 12/10/20 [Tylenol PM Extra Strength] triamcinolone acetonide 0.1 % 1 appln TOPICAL DAILY PRN #1 gm 03/14/19 12/10/20 topical cream benzonatate 200 mg capsule 200 mg PO TID PRN 07/01/20 12/10/20 ondansetron HCl 4 mg tablet 4 mg PO Q8H PRN 09/21/20 12/10/20 tadalafil 20 mg tablet 40 mg PO DAILY tab 11/25/20 12/10/20 multivitamin 1 tab PO DAILY 12/10/20 12/10/20 torsemide 10 mg PO [id number] 12/10/20 12/10/20 Previous Rx's Medication Instructions Recorded Oxygen Home #1 ea 04/07/19 mometasone-formoterol HFA 200 2 puffs INH Q12H #13 gm 08/05/19 mcg-5 mcg/actuation aerosol inhaler sertraline 50 mg tablet 50 mg PO QAM #90 tab 05/05/20 metoprolol succinate 50 mg 50 mg PO DAILY #180 tab 05/13/20 tablet,extended release 24 hr apixaban 5 mg tablet 5 mg PO BID #180 tab 05/19/20 simvastatin 20 mg tablet 20 mg PO DAILY #90 tab 06/23/20 flecainide 100 mg tablet 100 mg PO Q12H #180 tab 08/25/20 selexipag 1,200 mcg tablet 1,200 mcg PO BID #60 tab 09/21/20 valacyclovir 500 mg tablet 1,000 mg PO BID PRN #30 tab 09/21/20 gabapentin 300 mg capsule 300 mg PO TID #90 cap 11/01/20 pantoprazole 40 mg tablet,delayed 40 mg PO QAM #90 tab 11/17/20 release tramadol 50 mg tablet 50 mg PO TID PRN #90 tab 11/19/20 potassium chloride 10 mEq 10 meq PO QAM #90 cap 11/22/20 capsule,extended release Transport Wheelchair #1 ea 11/23/20 Results & Data (ED) Vital Signs Vital Signs - 24 hr 12/10/20 11:17 12/10/20 11:44 12/10/20 11:48 Temperature 36.8 C Temperature Source Temporal Artery Scan Pulse Rate 69 109 H Pulse Rate from SpO2 Sensor 96 H Pulse Rhythm Pulse Strength Respiratory Rate 18 24 Respiratory Effort / Characteristics Non-Labored Spontaneous Respiratory Depth Normal Respiratory Pattern Regular Blood Pressure 108/66 115/57 L Blood Pressure Mean 80 76 Blood Pressure Position Sitting Pulse Oximetry 98 94 96 Oxygen Delivery Method Room Air Nasal Cannula Oxygen Flow Rate 2 Sepsis Recent Fever Within 48 Hours No Sepsis New/Unexplained Change in Mental Status N/A Sepsis Action Taken by Nursing No Action Required 12/10/20 11:55 12/10/20 12:00 12/10/20 12:10 Temperature Temperature Source Pulse Rate 101 H 109 H 103 H Pulse Rate from SpO2 Sensor 100 H 109 H 100 H Pulse Rhythm Pulse Strength Respiratory Rate 15 20 Respiratory Effort / Characteristics Respiratory Depth Respiratory Pattern Blood Pressure Blood Pressure Mean Blood Pressure Position Pulse Oximetry 99 99 99 Oxygen Delivery Method Oxygen Flow Rate Sepsis Recent Fever Within 48 Hours Sepsis New/Unexplained Change in Mental Status Sepsis Action Taken by Nursing 12/10/20 12:20 12/10/20 12:30 12/10/20 12:40 Temperature Temperature Source Pulse Rate 94 H 80 89 Pulse Rate from SpO2 Sensor 103 H 81 88 Pulse Rhythm Pulse Strength Respiratory Rate 23 20 22 Respiratory Effort / Characteristics Respiratory Depth Respiratory Pattern Blood Pressure 89/66 L Blood Pressure Mean 73 Blood Pressure Position Pulse Oximetry 99 99 100 Oxygen Delivery Method Oxygen Flow Rate Sepsis Recent Fever Within 48 Hours Sepsis New/Unexplained Change in Mental Status Sepsis Action Taken by Nursing 12/10/20 12:50 12/10/20 13:00 12/10/20 13:01 Temperature Temperature Source Pulse Rate 81 81 95 H Pulse Rate from SpO2 Sensor 85 87 85 Pulse Rhythm Pulse Strength Respiratory Rate 30 H 19 21 Respiratory Effort / Characteristics Respiratory Depth Respiratory Pattern Blood Pressure 94/62 L Blood Pressure Mean 72 Blood Pressure Position Pulse Oximetry 98 95 99 Oxygen Delivery Method Oxygen Flow Rate Sepsis Recent Fever Within 48 Hours Sepsis New/Unexplained Change in Mental Status Sepsis Action Taken by Nursing 12/10/20 13:10 12/10/20 13:17 12/10/20 13:20 Temperature Temperature Source Pulse Rate 101 H 99 H 89 Pulse Rate from SpO2 Sensor 96 H 83 91 H Pulse Rhythm Pulse Strength Respiratory Rate 19 17 Respiratory Effort / Characteristics Respiratory Depth Respiratory Pattern Blood Pressure 100/77 Blood Pressure Mean 84 Blood Pressure Position Pulse Oximetry 99 99 99 Oxygen Delivery Method Oxygen Flow Rate 2 2 Sepsis Recent Fever Within 48 Hours Sepsis New/Unexplained Change in Mental Status Sepsis Action Taken by Nursing 12/10/20 13:22 12/10/20 13:30 12/10/20 13:31 Temperature 36.9 C Temperature Source Oral Pulse Rate 95 H 86 75 Pulse Rate from SpO2 Sensor 77 79 Pulse Rhythm Pulse Strength Respiratory Rate 20 20 19 Respiratory Effort / Characteristics Respiratory Depth Respiratory Pattern Blood Pressure 100/77 122/69 Blood Pressure Mean 84 86 Blood Pressure Position Pulse Oximetry 100 90 99 Oxygen Delivery Method Oxygen Flow Rate 2 2 Sepsis Recent Fever Within 48 Hours Sepsis New/Unexplained Change in Mental Status Sepsis Action Taken by Nursing 12/10/20 13:40 12/10/20 13:46 12/10/20 13:50 Temperature 36.9 C Temperature Source Oral Pulse Rate 75 87 76 Pulse Rate from SpO2 Sensor 81 80 81 Pulse Rhythm Regular Pulse Strength Normal Respiratory Rate 25 H 20 17 Respiratory Effort / Characteristics Respiratory Depth Respiratory Pattern Blood Pressure 79/44 L 79/44 L Blood Pressure Mean 55 55 Blood Pressure Position Sitting Pulse Oximetry 99 98 100 Oxygen Delivery Method Oxygen Flow Rate 2 Sepsis Recent Fever Within 48 Hours Sepsis New/Unexplained Change in Mental Status Sepsis Action Taken by Nursing 12/10/20 13:55 Temperature 36.9 C Temperature Source Oral Pulse Rate 75 Pulse Rate from SpO2 Sensor Pulse Rhythm Regular Pulse Strength Normal Respiratory Rate 17 Respiratory Effort / Characteristics Respiratory Depth Respiratory Pattern Blood Pressure 103/80 Blood Pressure Mean 87 Blood Pressure Position Lying Pulse Oximetry 99 Oxygen Delivery Method Oxygen Flow Rate 2 Sepsis Recent Fever Within 48 Hours Sepsis New/Unexplained Change in Mental Status Sepsis Action Taken by Nursing Laboratory Data Result diagrams: 12/10/20 11:44 12/10/20 11:44 Lab Results 12/10/20 12/10/20 12/10/20 Range/Units 11:42 11:44 11:44 WBC 5.55 (4.8-10.8) K/uL RBC 2.39 L (4.2-5.4) M/uL Hgb 7.6 L (12.0-16.0) g/dL Hct 25.1 L (37-47) % MCV 105.0 H (80-100) fL MCH 31.8 (25-34) pg MCHC 30.3 L (32-36) g/dL RDW Std Deviation 64.9 H (36.4-46.3) fL RDW Coeff of Tank 17.0 H (11.5-14.5) % Plt Count 294 (130-400) K/uL MPV 9.0 (7.4-10.4) fL Immature Gran % (Auto) 0.2 % Neut % (Auto) 79.0 % Lymph % (Auto) 12.6 % Tucker % (Auto) 6.7 % Eos % (Auto) 1.1 % Baso % (Auto) 0.4 % Neut # (Auto) 4.39 (1.4-6.5) K/uL Lymph # (Auto) 0.70 L (1.2-3.4) K/uL Tucker # (Auto) 0.37 (0.11-0.59) K/uL Eos # (Auto) 0.06 (0-0.5) K/uL Baso # (Auto) 0.02 (0-0.2) K/uL Immature Gran # (Auto) 0.01 (0.00-0.02) K/uL Hypochromasia Present PT (9.0-12.0) Seconds INR (0.9-1.1) APTT (21.0-31.0) Seconds PTT Ratio Sodium 140 (136-145) mmol/L Potassium 4.4 (3.5-5.1) mmol/L Chloride 106 (98-107) mmol/L Carbon Dioxide 30 (21-32) mmol/L Anion Gap 4.0 (3-11) BUN 25 H (7-18) mg/dl Creatinine 1.04 (0.6-1.2) mg/dl Est Cr Clr Drug Dosing 45.3 ml/min Est GFR ( Amer) 60.0 ml/min Est GFR (Non-Af Amer) 51.8 ml/min BUN/Creatinine Ratio 24.1 H (10-20) Glucose 81 (70-99) mg/dl Calcium 9.4 (8.5-10.1) mg/dl Total Bilirubin 0.2 (0.2-1) mg/dl AST 20 (15-37) U/L ALT 22 (12-78) U/L Alkaline Phosphatase 68 (45-117) U/L Total Protein 7.2 (6.4-8.2) gm/dl Albumin 3.4 (3.4-5.0) gm/dl Globulin 3.8 (2.5-4.0) gm/dl Albumin/Globulin Ratio 0.9 (0.9-2) POC Stool Occult Blood Negative (Negative) COVID-19 Eval Order SARS-CoV-2 (PCR) (Negative) Blood Type Antibody Screen Crossmatch 12/10/20 12/10/20 12/10/20 Range/Units 11:52 11:52 12:35 WBC (4.8-10.8) K/uL RBC (4.2-5.4) M/uL Hgb (12.0-16.0) g/dL Hct (37-47) % MCV (80-100) fL MCH (25-34) pg MCHC (32-36) g/dL RDW Std Deviation (36.4-46.3) fL RDW Coeff of Tank (11.5-14.5) % Plt Count (130-400) K/uL MPV (7.4-10.4) fL Immature Gran % (Auto) % Neut % (Auto) % Lymph % (Auto) % Tucker % (Auto) % Eos % (Auto) % Baso % (Auto) % Neut # (Auto) (1.4-6.5) K/uL Lymph # (Auto) (1.2-3.4) K/uL Tucker # (Auto) (0.11-0.59) K/uL Eos # (Auto) (0-0.5) K/uL Baso # (Auto) (0-0.2) K/uL Immature Gran # (Auto) (0.00-0.02) K/uL Hypochromasia PT 10.8 (9.0-12.0) Seconds INR 1.1 (0.9-1.1) APTT 24.2 (21.0-31.0) Seconds PTT Ratio 0.9 Sodium (136-145) mmol/L Potassium (3.5-5.1) mmol/L Chloride (98-107) mmol/L Carbon Dioxide (21-32) mmol/L Anion Gap (3-11) BUN (7-18) mg/dl Creatinine (0.6-1.2) mg/dl Est Cr Clr Drug Dosing ml/min Est GFR ( Amer) ml/min Est GFR (Non-Af Amer) ml/min BUN/Creatinine Ratio (10-20) Glucose (70-99) mg/dl Calcium (8.5-10.1) mg/dl Total Bilirubin (0.2-1) mg/dl AST (15-37) U/L ALT (12-78) U/L Alkaline Phosphatase (45-117) U/L Total Protein (6.4-8.2) gm/dl Albumin (3.4-5.0) gm/dl Globulin (2.5-4.0) gm/dl Albumin/Globulin Ratio (0.9-2) POC Stool Occult Blood (Negative) COVID-19 Eval Order Covid19 at [facility] SARS-CoV-2 (PCR) (Negative) Blood Type B Positive Antibody Screen NEGATIVE Crossmatch See Detail 12/10/20 Range/Units 12:35 WBC (4.8-10.8) K/uL RBC (4.2-5.4) M/uL Hgb (12.0-16.0) g/dL Hct (37-47) % MCV (80-100) fL MCH (25-34) pg MCHC (32-36) g/dL RDW Std Deviation (36.4-46.3) fL RDW Coeff of Tank (11.5-14.5) % Plt Count (130-400) K/uL MPV (7.4-10.4) fL Immature Gran % (Auto) % Neut % (Auto) % Lymph % (Auto) % Tucker % (Auto) % Eos % (Auto) % Baso % (Auto) % Neut # (Auto) (1.4-6.5) K/uL Lymph # (Auto) (1.2-3.4) K/uL Tucker # (Auto) (0.11-0.59) K/uL Eos # (Auto) (0-0.5) K/uL Baso # (Auto) (0-0.2) K/uL Immature Gran # (Auto) (0.00-0.02) K/uL Hypochromasia PT (9.0-12.0) Seconds INR (0.9-1.1) APTT (21.0-31.0) Seconds PTT Ratio Sodium (136-145) mmol/L Potassium (3.5-5.1) mmol/L Chloride (98-107) mmol/L Carbon Dioxide (21-32) mmol/L Anion Gap (3-11) BUN (7-18) mg/dl Creatinine (0.6-1.2) mg/dl Est Cr Clr Drug Dosing ml/min Est GFR ( Amer) ml/min Est GFR (Non-Af Amer) ml/min BUN/Creatinine Ratio (10-20) Glucose (70-99) mg/dl Calcium (8.5-10.1) mg/dl Total Bilirubin (0.2-1) mg/dl AST (15-37) U/L ALT (12-78) U/L Alkaline Phosphatase (45-117) U/L Total Protein (6.4-8.2) gm/dl Albumin (3.4-5.0) gm/dl Globulin (2.5-4.0) gm/dl Albumin/Globulin Ratio (0.9-2) POC Stool Occult Blood (Negative) COVID-19 Eval Order SARS-CoV-2 (PCR) NEGATIVE (Negative) Blood Type Antibody Screen Crossmatch Administered Medications Flecainide Acetate (Flecainide Acetate 100 Mg Tablet) 100 mg PO Q12H DANIS Stop: 01/09/21 16:59 Last Admin: 12/10/20 17:17 Dose: 100 mg Documented by: [id number] Gabapentin (Gabapentin 300 Mg Cap) 300 mg PO TID DANIS Stop: 01/09/21 16:29 Last Admin: 12/10/20 17:17 Dose: 300 mg Documented by: [id number] Torsemide (Torsemide 10 Mg Tab) 10 mg PO Q2D DANIS Stop: 01/09/21 16:29 Last Admin: 12/10/20 17:17 Dose: 10 mg Documented by: [id number] Discontinued Medications Pantoprazole Sodium (Protonix Bolus/Drip) 0 mls @ 1 mls/hr IV ONE STA Stop: 12/10/20 12:14 Last Admin: 12/10/20 16:35 Dose: Not Given Documented by: [id number] Pantoprazole Sodium 40 mg/ (Dextrose) 100 mls @ 20 mls/hr IV Q5H DANIS Stop: 01/09/21 12:27 Last Infusion: 12/10/20 17:04 Dose: 0 mg/hr, 0 mls/hr Documented by: [id number] Admin: 12/10/20 13:18 Dose: 8 mg/hr, 20 mls/hr Documented by: [id number] Pantoprazole Sodium 80 mg/ (Dextrose) 120 mls @ 400 mls/hr IV NOW ONE Stop: 12/10/20 12:30 Last Infusion: 12/10/20 13:25 Dose: 400 mls/hr Documented by: [id number] Admin: 12/10/20 12:58 Dose: 400 mls/hr Documented by: [id number] Tadalafil 20mg Tablet: Non- Formulary Patient's Own Med 2 ea PO NOW STA Stop: 12/10/20 14:57 Last Admin: 12/10/20 15:31 Dose: 2 ea Documented by: [id number] Non-Formulary Medication (Mometasone-Formoterol [Dulera]) 2 puffs INH Q12H DANIS Stop: 01/09/21 16:12 Last Admin: 12/10/20 16:20 Dose: Not Given Documented by: [id number] Selexipag (Selexipag 1200mg) 1 ea PO NOW STA Stop: 12/10/20 14:58 Last Admin: 12/10/20 15:32 Dose: 1 ea Documented by: [id number] Discharge Plan Visit Data Chief Complaint: GI Bleed Stated Complaint: BLOOD IN STOOL,WEAKNESS ED Provider: Bartolo Mccray Discharge Problem: Acute GI bleeding, Symptomatic anemia Patient Disposition: Admitted As Inpatient Discharge Instructions Interventions: ED Discharge Assessment Last Done: 12/10/20 15:54
[2020-12-10 11:56] LABS: Basophils # (auto) 0.02 K/uL (0-0.2); Basophils % (auto) 0.4 %; Eosinophils # (auto) 0.06 K/uL (0-0.5); Eosinophils % (auto) 1.1 %; Hematocrit (blood only) 25.1 % (37-47); Hemoglobin 7.6 g/dL (12.0-16.0); Immature Granulocytes # (auto) 0.01 K/uL (0.00-0.02); Immature Granulocytes % (auto) 0.2 %; Lymphocytes % (auto) 12.6 %; Mean Corpuscular Hemoglobin 31.8 pg (25-34); Mean Corpuscular Hgb Conc 30.3 g/dL (32-36); Monocytes # (auto) 0.37 K/uL (0.11-0.59); Monocytes % (auto) 6.7 %; Neutrophils # (auto) 4.39 K/uL (1.4-6.5); Platelet Count 294 K/uL (130-400); RDW Standard Deviation 64.9 fL (36.4-46.3); Red Blood Count 2.39 M/uL (4.2-5.4); White Blood Count 5.55 K/uL (4.8-10.8)
[2020-12-10 12:11] LABS: INR 1.1 (0.9-1.1); Partial Thromboplastin Ratio 0.9; Partial Thromboplastin Time 24.2 Seconds (21.0-31.0); Prothrombin Time 10.8 Seconds (9.0-12.0)
[2020-12-10 12:13] LABS: Albumin Level 3.4 gm/dl (3.4-5.0); BUN Creatinine Ratio 24.1 (10-20); Calcium 9.4 mg/dl (8.5-10.1); Creatinine Clr Calc Pharmacy 45.3 ml/min; Est GFR (Non-African American) 51.8 ml/min; Potassium 4.4 mmol/L (3.5-5.1)
[2020-12-10] MEDS ORDERED: PANTOprazole 80 MG in DEXTROSE 5% 100 ML IV ONE (12:13)
[2020-12-10] MEDS ORDERED: SODIUM CHLORIDE 0.9% 250 ML IV PRN (12:13)
[2020-12-10] MEDS ORDERED: PANTOPRAZOLE BOLUS/DRIP 1 EA IV STA (12:13)
[2020-12-10 12:16] LABS: Albumin Globulin Ratio 0.9 (0.9-2); Bilirubin,Total 0.2 mg/dl (0.2-1); Globulin 3.8 gm/dl (2.5-4.0); Total Protein 7.2 gm/dl (6.4-8.2)
[2020-12-10] MEDS ORDERED: PANTOprazole 40 MG in DEXTROSE 5% 100 ML IV SCH (12:28)
[2020-12-10 12:29] LABS: Hypochromasia Present
--- NOTE | 2020-12-10 13:43 | History & Physical Report ---
Date of Service December 10, 2020 Assessment & Plan (1) Macrocytic anemia: Patient had previous macrocytic anemia with the GI work-up seeming to be last in 2018 at which time she had some polyps present. Patient has been intermittently transfusion dependent throughout the last few years. 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 Patient's had previous iron B12 folic acid checked in September of this year when she represented with anemia again. Patient does have some description of melena at home. Patient will be transfused as ordered in the emergency department. She be placed on PPI twice daily. She will have GI consultation. reportedly she did discuss capsule enteroscopy as an outpt Because she does not seem to be currently hemodynamically significant will not keep her n.p.o. nor give her colonoscopy prep unless gastroenterology feels they will reevaluate her with possible endoscopy. We will check surveillance laboratories to assure that her anemia augments appropriately. Her B12 and folic acid were checked as mentioned in September we will recheck them just to be sure since she is persistently macrocytic add a retic count to admitting labs Patient has been on outpatient Protonix (2) Paroxysmal atrial fibrillation: Patient is on apixaban and flecainide, plus metoprolol succinate 50 daily, curretnly holding apixiban (3) Chronic anticoagulation: Patient is on chronic apixaban with her anemia there is risk for both sides whether continuing or discontinuing it. Cardiology has felt strongly the past and she would require it (4) Depression: Patient continues on sertraline 50 (5) Pulmonary hypertension: Patient on tadalafil for pulmonary hypertension along with torsemide and selexipag (6) Dyslipidemia: Remains on simvastatin (7) DVT prophylaxis: holding apixiban will use scds History of Present Illness Primary Care Provider: Iliana Goddard DO 75-year-old female who presents with 3 days of melena. Patient is on oral anticoagulant of apixaban for atrial fibrillation. Patient feels weak and with low energy patient has previously been worked up for macrocytic and normocytic anemia with transfusions of 2 units in September. Reportedly the patient also transfusions in October. patient previously has been followed by [facility] for iron deficiency anemia which was attributed to her [facility] treat non-small lung cancer which was diagnosed March 2016. previous iron level 11/29 was 81 which is normal, B12 September 29, 2020 is normal, folic acid September 30, 2020 was greater than 20 which is very normal, TSH checked also that timeframe was normal and peripheral smear been without abnormalities. Patient last had endoscopy and colonoscopy August 2018 at which time she had a polyps removed from her colon as well as mucosal nodule found in her esophagus, this was found to be negative for pathology, gastritis was also identified Today her hemoglobin went from 9.1 in November 29->7.6 today Patient also has an equivocal Lyme disease and because of an allergy to doxycycline was sent 14 days of amoxicillin after her last admission Allergies Allergy/AdvReac Type Severity Reaction Status Date / Time Cipro Allergy Mild RASH Unverified 03/11/18 14:26 ciprofloxacin Allergy Mild RASH Verified 12/10/20 13:54 cephalexin Allergy Unknown UNKNOWN Verified 12/10/20 13:54 doxycycline Allergy Unknown RASH Verified 12/10/20 13:54 Egg Derived Allergy Unknown HIVES Verified 12/10/20 13:54 Influenza Virus Vaccines Allergy Unknown ALLERGIES Verified 12/10/20 13:54 TO EGGS Nitrate Analogues Allergy Unknown UNABLE TO Verified 12/10/20 13:54 HAVE R/T PULMONARY HTN Penicillins Allergy Unknown RASH Verified 12/10/20 13:54 tetanus toxoid, adsorbed Allergy Unknown TETANUS-DIPTHERIA Verified 12/10/20 13:54 TOXOID-RASH codeine AdvReac Unknown GI SYMPTOMS Verified 12/10/20 13:54 diphenhydramine AdvReac Unknown UNABLE TO Verified 12/10/20 13:54 HAVE R/T PULMONARY HTN hydrocodone AdvReac Unknown N/V Verified 12/10/20 13:54 pseudoephedrine AdvReac Unknown UNABLE TO Verified 12/10/20 13:54 HAVE COLD MEDICATIONS R/T PULMONARY HTN Home Medications Medication Instructions Recorded Confirmed Type ascorbic acid (vitamin C) 500 mg 500 m PO QAM cap 04/03/18 12/10/20 History capsule calcium carbonate 500 mg calcium 500 mg PO QAM tab 04/03/18 12/10/20 History (1,250 mg) tablet cholecalciferol (vitamin D3) 1,000 unit PO QAM 08/30/18 12/10/20 History [Vitamin D3] diphenhydramine-acetaminophen 1 tab PO HS 08/30/18 12/10/20 History [Tylenol PM Extra Strength] triamcinolone acetonide 0.1 % 1 appln TOPICAL DAILY PRN #1 gm 03/14/19 12/10/20 History topical cream Oxygen Home #1 ea 04/07/19 12/10/20 Rx mometasone-formoterol HFA 200 2 puffs INH Q12H #13 gm 08/05/19 12/10/20 Rx mcg-5 mcg/actuation aerosol inhaler sertraline 50 mg tablet 50 mg PO QAM #90 tab 05/05/20 12/10/20 Rx metoprolol succinate 50 mg 50 mg PO DAILY #180 tab 05/13/20 12/10/20 Rx tablet,extended release 24 hr apixaban 5 mg tablet 5 mg PO BID #180 tab 05/19/20 12/10/20 Rx simvastatin 20 mg tablet 20 mg PO DAILY #90 tab 06/23/20 12/10/20 Rx benzonatate 200 mg capsule 200 mg PO TID PRN 07/01/20 12/10/20 History flecainide 100 mg tablet 100 mg PO Q12H #180 tab 08/25/20 12/10/20 Rx ondansetron HCl 4 mg tablet 4 mg PO Q8H PRN 09/21/20 12/10/20 History selexipag 1,200 mcg tablet 1,200 mcg PO BID #60 tab 09/21/20 12/10/20 Rx valacyclovir 500 mg tablet 1,000 mg PO BID PRN #30 tab 09/21/20 12/10/20 Rx gabapentin 300 mg capsule 300 mg PO TID #90 cap 11/01/20 12/10/20 Rx pantoprazole 40 mg tablet,delayed 40 mg PO QAM #90 tab 11/17/20 12/10/20 Rx release tramadol 50 mg tablet 50 mg PO TID PRN #90 tab 11/19/20 12/10/20 Rx potassium chloride 10 mEq 10 meq PO QAM #90 cap 11/22/20 12/10/20 Rx capsule,extended release Transport Wheelchair #1 ea 11/23/20 12/10/20 Rx tadalafil 20 mg tablet 40 mg PO DAILY tab 11/25/20 12/10/20 History multivitamin 1 tab PO DAILY 12/10/20 12/10/20 History torsemide 10 mg PO 3XWK 05/21/21 05/21/21 History Past Med/Surg History Medical History Atherosclerosis of aorta Atrial fibrillation with RVR follows with Dr. Zelaya Atrial flutter, paroxysmal Bilateral occipital neuralgia Cervical osteoarthritis Chronic anticoagulation Chronic back pain Chronic maxillary sinusitis Chronic obstructive pulmonary disease Chronic rhinitis Degenerative disc disease Depression Dyslipidemia GERD (gastroesophageal reflux disease) History of lung cancer 2017--right History of lung cancer History of pulmonary embolism Iron deficiency anemia Lumbar compression fracture L2, L3, L4 Lumbar spinal stenosis Lumbar spondylosis O2 dependent CARIN (obstructive sleep apnea) 2L N/C at HS or prn Osteoporosis Paroxysmal SVT (supraventricular tachycardia) Pulmonary hypertension Restrictive lung disease Thoracic compression fracture Tubular adenoma of colon Surgical History H/O tubal ligation History of appendectomy History of bilateral cataract extraction History of cardiac cath x3 with no stents History of cholecystectomy History of colonoscopy History of hemorrhoidectomy History of tooth extraction all upper, most of lower Previous back surgery S/P lobectomy of lung Right upper Family History Mother Heart disease Myocardial infarction Sister Valvular heart disease Sinusitis Other No family history of adverse response to anesthesia Denies family history of Ovarian cancer Prostate cancer Breast cancer Colorectal cancer Social History Smoking Status: Former smoker Tobacco Type: Cigarettes Second Hand Exposure: No; Do You Dip or Chew Tobacco: No; Tobacco Cessation Education Requested by Patient: No Hx Alcohol Use: No Hx Substance Use: No Preferred Language: Slovak Communication Ability: Effective Visual Impairment: Limited Hearing Ability: Normal Insulation Blanket Maker Required: No Beliefs That Will Affect Care: None marital status: Current Living Situation: Spouse current occupational status: retired Other Information That Helps Us Care for You: No Feels Safe at Home: Yes Safety Concerns: Feels Safe At This Time Dental Care, Regularly: No Physical Activity Frequency: Daily Seatbelt Use: always Sunscreen Use: No Assistive Devices: Oxygen - Continuous Review of Systems Review of Systems: Mild distress and fatigue no headache, blurry or double vision no speech or swallowing issues no chest pain, pressure or palpitations no shortness of breath, cough or wheezes no abdominal pain, nausea or vomiting, has had melena no dysuria, hematuria or frequency no focal joint pain or swelling no back pain, CVA tenderness or radicular pain no bruising, bleeding or rashes no focal signs of weakness or numbness or altered sensation no complaints of anxiety or depression.. Physical Exam Physical Exam: The patient appeared well nourished and normally developed. Vital signs as documented. Head exam is normocephalic atraumatic Neck is without JVD, thyromegaly, or carotid bruits. Lungs are clear to auscultation, no focal loss of breath sounds Cardiac exam, Rhythm is regular.. No murmurs, rubs or gallops. Abdominal exam reveals normal bowel sounds, soft non tender, no masses, does have some melena Extremities are nonedematous and both pedal pulses are present Neurologic exam is alert and oriented, no focal loss of strength or sensation Skin is without bruises or rashes Psychologically is without concerns for anxiety or depression Results & Data Results & Data ([facility]) Vital Signs (Past 12 Hours) Vital Signs Temp Pulse Resp BP Pulse Ox 12/10/20 13:22 98.4 F 95 H 20 100/77 100 12/10/20 13:01 95 H 21 99 12/10/20 13:00 81 19 94/62 L 95 12/10/20 12:50 81 30 H 98 12/10/20 12:40 89 22 100 12/10/20 12:30 80 20 89/66 L 99 12/10/20 12:20 94 H 23 99 12/10/20 12:10 103 H 20 99 12/10/20 12:00 109 H 15 99 12/10/20 11:55 101 H 99 12/10/20 11:48 96 12/10/20 11:44 109 H 24 115/57 L 94 12/10/20 11:17 98.2 F 69 18 108/66 98 PG Care Time/CCT Total # of Minutes Spent Total Time Spent with Patient: Total time spent is greater than 50% in coordination of care (as documented) at patient's floor/unit and/or counseling patient: Coding Level of Care Code 64959 Initial Inpt Care Lvl 3 Diagnoses Macrocytic anemia D53.9 Paroxysmal atrial fibrillation I48.0 Chronic anticoagulation Z79.01 Depression F32.9 Pulmonary hypertension I27.20 Dyslipidemia E78.5 DVT prophylaxis Z29.9
[2020-12-10] MEDS ORDERED: TADALAFIL 20 MG PO STA (14:56)
[2020-12-10] MEDS ORDERED: SELEXIPAG PO STA (14:57)
[2020-12-10] MEDS ORDERED: NON-FORMULARY MEDICATION (Mometasone-Formoterol [Dulera] 200-5 mcg/actuation HFA aerosol i INH SCH (16:13)
[2020-12-10] MEDS ORDERED: ONDANSETRON INJ 2 MG/ML 2 ML VIAL IV PRN ×2 (16:13)
[2020-12-10] MEDS: TORSEMIDE 10 MG TAB PO SCH (17:17)
[2020-12-10] MEDS: GABAPENTIN 300 MG CAP PO SCH ×2 (17:17→20:22)
[2020-12-10] MEDS: FLECAINIDE ACETATE 100 MG TABLET PO SCH (17:17)
[2020-12-10 19:14] LABS: Reticulocyte % 3.7 % (0.5-2.0); Reticulocytes # 0.11 10^6/uL (0.02-0.10)
[2020-12-10] MEDS: PANTOprazole 40 MG in SYRINGE 0 ML IV SCH (20:25)
[2020-12-10] MEDS: SELEXIPAG PO SCH (22:57)
[2020-12-10] MEDS: traMADol HCL 50 MG TABLET PO PRN (22:57)
[2020-12-11] MEDS: FLECAINIDE ACETATE 100 MG TABLET PO SCH ×2 (05:39→17:01)
[2020-12-11 06:36] LABS: Hematocrit (blood only) 31.2 % (37-47); Hemoglobin 10.1 g/dL (12.0-16.0); Mean Corpuscular Hemoglobin 32.1 pg (25-34); Mean Corpuscular Hgb Conc 32.4 g/dL (32-36); Mean Platelet Volume 9.5 fL (7.4-10.4); Platelet Count 264 K/uL (130-400); RDW Standard Deviation 68.3 fL (36.4-46.3); Red Blood Count 3.15 M/uL (4.2-5.4); White Blood Count 4.81 K/uL (4.8-10.8)
[2020-12-11 07:05] LABS: BUN Creatinine Ratio 19.4 (10-20); Calcium 8.6 mg/dl (8.5-10.1); Creatinine Clr Calc Pharmacy 49.1 ml/min; Est GFR (African American) 66.1 ml/min
[2020-12-11] MEDS: ASCORBIC ACID 500 MG TAB PO SCH (08:00)
[2020-12-11] MEDS: GABAPENTIN 300 MG CAP PO SCH ×3 (08:01→21:11)
[2020-12-11] MEDS: METOPROLOL SUCC 50MG EXT REL TAB PO SCH (08:01)
[2020-12-11] MEDS: SERTRALINE HCL 50 MG TABLET PO SCH (08:01)
[2020-12-11] MEDS: PANTOprazole 40 MG in SYRINGE 0 ML IV SCH ×2 (08:01→21:10)
[2020-12-11] MEDS: MULTIVITAMIN TAB PO SCH (08:01)
[2020-12-11] MEDS: CHOLECALCIFEROL 1,000 UNITS 25 MCG TAB PO SCH (08:01)
[2020-12-11] MEDS: CALCIUM CARBONATE 1250MG TAB PO SCH (08:01)
[2020-12-11] MEDS: SIMVASTATIN 20 MG TAB PO SCH (08:01)
[2020-12-11] MEDS: SELEXIPAG PO SCH ×2 (08:02→21:10)
[2020-12-11] MEDS ORDERED: TADALAFIL 20 MG PO SCH (09:00)
[2020-12-11] MEDS: TADALAFIL 20 MG PO SCH (09:36)
[2020-12-11] MEDS: ACETAMINOPHEN 500 MG TAB PO PRN ×2 (09:41→19:54)
[2020-12-11] MEDS: FLUTICASONE/VILANTEROL 100/25MCG 14 PUFFS/INHALER INH SCH (10:09)
--- NOTE | 2020-12-11 15:21 | Hospitalist Progress Note ---
Date of Service December 11, 2020 Assessment & Plan (1) Acute GI bleeding: Presented with melena x 1-2 days after having increased heartburn over the last 1-2 weeks and also took Bactrim for a UTI. Is on Eliquis for her PAF, but does not take NSAIDs or ASA With a h/o macrocytic anemia with the GI work-up seeming to be last in 2019 at which time she had some polyps present. Patient has been intermittently transfusion dependent throughout the last few years. 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 -previous iron B12 folic acid checked in September of this year when she represented with anemia again was normal Patient has been on outpatient Protonix but has been taking extra Mylanta frequently for worsening heart burn hgb 7 on admission and now s/p 2 units PRBCs--> hgb up to 10 and BPs improved from 70s systolic to 90-100 No melena since admission -GI consult pending, will need EGD at minimum -holding ELiquis -clears diet for today as not emergent for scope since stable -follow CBC in AM -continue IV PPI bid (2) Acute blood loss anemia: as above (3) Macrocytic anemia: as above B12 normal here, folate normal in 09/2020 (4) Paroxysmal atrial fibrillation: Patient is on apixaban and flecainide, plus metoprolol succinate 50 daily, currently holding apixiban Was in Afib on ECG on admission but now in sinus on tele continue tele monitoring -continue Toprol (5) Chronic anticoagulation: Patient is on chronic apixaban with her anemia there is risk for both sides whether continuing or discontinuing it. Cardiology has felt strongly the past and she would require it holding for now (6) Pulmonary hypertension: Patient on tadalafil for pulmonary hypertension along with torsemide and selexipag follows with [facility] (7) Dyslipidemia: Remains on simvastatin (8) O2 dependent: 2LNC continuous for Pulm HTN (9) Lumbar spinal stenosis: continue home meds with gabapentin, tramadol, tylenol prn (10) Chronic obstructive pulmonary disease: continue O2 , home inhalers (11) History of pulmonary embolism: on apixiban (12) History of lung cancer: s/p lobectomy (13) GERD (gastroesophageal reflux disease): continue IV PPI (14) CARIN (obstructive sleep apnea): continue 2LNC (15) Depression: Patient continues on sertraline 50 (16) DVT prophylaxis: holding apixiban will use scds Dispo-continued stay Admission and Anticipated Discharge Date Admission Date: December 10, 2020 Subjective Pt reports feeling better, no longer lightheaded. No further black stools since admission. Has had an increase in heartburn daily for the last 2 weeks, taking Mylanta quite frequently as per . No SOB, no abd pain, no BRBPR Tele with NSR, 1st degree AVB rates 70-100 Review of Systems Review of Systems: All systems reviewed & are unremarkable except as noted in HPI & below Physical Exam Constitutional: WD/WN, vitals as above Eyes: + anicteric sclerae Neck: trachea midline, no thyromegaly Respiratory: normal respiratory effort, lungs clear to auscultation Cardiovascular: RRR, no murmur, no edema Chest (Breasts): Chest: normal inspection of chest Gastrointestinal (Abdomen): normal bowel sounds, soft, nontender, no hepatosplenomegaly Musculoskeletal: Extremities: extremities normal to inspection; no cyanosis and no clubbing Skin: no rashes, warm and dry Neurologic: moves all extremities and awake; no focal motor deficits Psychiatric: A+Ox3, euthymic affect Lymphatic: no lymphedema Results & Data Results & Data ([facility]) Vital Signs (Past 12 Hours) Vital Signs Temp Pulse Pulse Pulse Resp BP Pulse Ox 12/11/20 13:01 37.1 C 78 18 90/50 L 96 12/11/20 07:34 73 12/11/20 07:07 36.7 C 80 20 131/64 93 12/11/20 05:39 81 120/74 12/11/20 04:00 36.7 C 78 20 90/55 L 95 Laboratory Results 12/11/20 12/11/20 12/11/20 Range/Units 06:11 06:11 06:11 WBC 4.81 (4.8-10.8) K/uL RBC 3.15 L (4.2-5.4) M/uL Hgb 10.1 L (12.0-16.0) g/dL Hct 31.2 L (37-47) % MCV 99.0 D (80-100) fL MCH 32.1 (25-34) pg MCHC 32.4 (32-36) g/dL RDW Std Deviation 68.3 H (36.4-46.3) fL RDW Coeff of Tank 19.0 H (11.5-14.5) % Plt Count 264 (130-400) K/uL MPV 9.5 (7.4-10.4) fL Reticulocyte % (Auto) Reticulocyte # Sodium 142 (136-145) mmol/L Potassium 4.0 (3.5-5.1) mmol/L Chloride 108 H (98-107) mmol/L Carbon Dioxide 32 (21-32) mmol/L Anion Gap 2.0 L (3-11) BUN 19 H (7-18) mg/dl Creatinine 0.96 (0.6-1.2) mg/dl Est Cr Clr Drug Dosing 49.1 ml/min Est GFR ( Amer) 66.1 ml/min Est GFR (Non-Af Amer) 57.0 ml/min BUN/Creatinine Ratio 19.4 (10-20) Glucose 84 (70-99) mg/dl Calcium 8.6 (8.5-10.1) mg/dl Vitamin B12 766 (193-986) pg/ml Blood Type Antibody Screen Crossmatch 12/10/20 12/10/20 12/10/20 Range/Units 19:06 11:52 11:44 WBC (4.8-10.8) K/uL RBC (4.2-5.4) M/uL Hgb (12.0-16.0) g/dL Hct (37-47) % MCV (80-100) fL MCH (25-34) pg MCHC (32-36) g/dL RDW Std Deviation (36.4-46.3) fL RDW Coeff of Tank (11.5-14.5) % Plt Count (130-400) K/uL MPV (7.4-10.4) fL Reticulocyte % (Auto) 3.7 H Cancelled Reticulocyte # 0.11 H Cancelled Sodium (136-145) mmol/L Potassium (3.5-5.1) mmol/L Chloride (98-107) mmol/L Carbon Dioxide (21-32) mmol/L Anion Gap (3-11) BUN (7-18) mg/dl Creatinine (0.6-1.2) mg/dl Est Cr Clr Drug Dosing ml/min Est GFR ( Amer) ml/min Est GFR (Non-Af Amer) ml/min BUN/Creatinine Ratio (10-20) Glucose (70-99) mg/dl Calcium (8.5-10.1) mg/dl Vitamin B12 (193-986) pg/ml Blood Type B Positive Antibody Screen NEGATIVE Crossmatch See Detail PG Care Time/CCT Total # of Minutes Spent Total Time Spent with Patient: Total time spent is greater than 50% in coordination of care (as documented) at patient's floor/unit and/or counseling patient: Coding Level of Care Code 96584 Subseq Hosp Care Lvl 3 Diagnoses Acute GI bleeding K92.2 Acute blood loss anemia D62 Macrocytic anemia D53.9 Paroxysmal atrial fibrillation I48.0 Chronic anticoagulation Z79.01 Pulmonary hypertension I27.20 Dyslipidemia E78.5 O2 dependent Z99.81 Lumbar spinal stenosis M48.062 Neurogenic claudication status: with neurogenic claudication Chronic obstructive pulmonary disease J44.9 COPD type: unspecified COPD History of pulmonary embolism Z86.711 History of lung cancer Z85.118 GERD (gastroesophageal reflux disease) K21.9 CARIN (obstructive sleep apnea) G47.33 Depression F32.9 DVT prophylaxis Z29.9 (1) Lumbar spinal stenosis Neurogenic claudication status: with neurogenic claudication Qualified Code(s): M48.062 - Spinal stenosis, lumbar region with neurogenic claudication (2) Chronic obstructive pulmonary disease COPD type: unspecified COPD Qualified Code(s): J44.9 - Chronic obstructive pulmonary disease, unspecified
--- NOTE | 2020-12-11 16:21 | Gastrointestinal Consultation ---
Date of Consultation December 11, 2020 Assessment & Plan (1) Acute GI bleeding: (2) Symptomatic anemia: suspect possible ulcer vs. AVM or other cause for her anemia. Recs: --protonix 40 mg IV BID --diet as tolerated today and tomorrow --NPO post midnight sunday night, EGD wednesday 12/13 to further evaluate --trend H/H, transfuse prn hgb <7 Thank you for allowing me to participate in the care of this patient History of Present Illness Attending Physician: Angelique Salamanca MD 75 yo female here with melena and symptomatic anemia. She is on eliquis for afib and has had decreased energy and weakness. Last EGD and colonoscopy with polyps removed in 2019, done for AME at the time. She was on UPTRAVI for NSCLC and thought to be cause of her anemia in the past. Received transfusion this admission with improvement of hgb from 7.6 to above 10 now. labs reviewed, VSS. Allergies Allergy/AdvReac Type Severity Reaction Status Date / Time Cipro Allergy Mild RASH Unverified 03/11/18 14:26 ciprofloxacin Allergy Mild RASH Verified 12/10/20 13:54 cephalexin Allergy Unknown UNKNOWN Verified 12/10/20 13:54 doxycycline Allergy Unknown RASH Verified 12/10/20 13:54 Egg Derived Allergy Unknown HIVES Verified 12/10/20 13:54 Influenza Virus Vaccines Allergy Unknown ALLERGIES Verified 12/10/20 13:54 TO EGGS Nitrate Analogues Allergy Unknown UNABLE TO Verified 12/10/20 13:54 HAVE R/T PULMONARY HTN Penicillins Allergy Unknown RASH Verified 12/10/20 13:54 tetanus toxoid, adsorbed Allergy Unknown TETANUS-DIPTHERIA Verified 12/10/20 13:54 TOXOID-RASH codeine AdvReac Unknown GI SYMPTOMS Verified 12/10/20 13:54 diphenhydramine AdvReac Unknown UNABLE TO Verified 12/10/20 13:54 HAVE R/T PULMONARY HTN hydrocodone AdvReac Unknown N/V Verified 12/10/20 13:54 pseudoephedrine AdvReac Unknown UNABLE TO Verified 12/10/20 13:54 HAVE COLD MEDICATIONS R/T PULMONARY HTN Home Medications Medication Instructions Recorded Confirmed Type ascorbic acid (vitamin C) 500 mg 500 m PO QAM cap 04/03/18 12/10/20 History capsule calcium carbonate 500 mg calcium 500 mg PO QAM tab 04/03/18 12/10/20 History (1,250 mg) tablet cholecalciferol (vitamin D3) 1,000 unit PO QAM 08/30/18 12/10/20 History [Vitamin D3] diphenhydramine-acetaminophen 1 tab PO HS 08/30/18 12/10/20 History [Tylenol PM Extra Strength] triamcinolone acetonide 0.1 % 1 appln TOPICAL DAILY PRN #1 gm 03/14/19 12/10/20 History topical cream Oxygen Home #1 ea 04/07/19 12/10/20 Rx mometasone-formoterol HFA 200 2 puffs INH Q12H #13 gm 08/05/19 12/10/20 Rx mcg-5 mcg/actuation aerosol inhaler sertraline 50 mg tablet 50 mg PO QAM #90 tab 05/05/20 12/10/20 Rx metoprolol succinate 50 mg 50 mg PO DAILY #180 tab 05/13/20 12/10/20 Rx tablet,extended release 24 hr apixaban 5 mg tablet 5 mg PO BID #180 tab 05/19/20 12/10/20 Rx simvastatin 20 mg tablet 20 mg PO DAILY #90 tab 06/23/20 12/10/20 Rx benzonatate 200 mg capsule 200 mg PO TID PRN 07/01/20 12/10/20 History flecainide 100 mg tablet 100 mg PO Q12H #180 tab 08/25/20 12/10/20 Rx ondansetron HCl 4 mg tablet 4 mg PO Q8H PRN 09/21/20 12/10/20 History selexipag 1,200 mcg tablet 1,200 mcg PO BID #60 tab 09/21/20 12/10/20 Rx valacyclovir 500 mg tablet 1,000 mg PO BID PRN #30 tab 09/21/20 12/10/20 Rx gabapentin 300 mg capsule 300 mg PO TID #90 cap 11/01/20 12/10/20 Rx pantoprazole 40 mg tablet,delayed 40 mg PO QAM #90 tab 11/17/20 12/10/20 Rx release tramadol 50 mg tablet 50 mg PO TID PRN #90 tab 11/19/20 12/10/20 Rx potassium chloride 10 mEq 10 meq PO QAM #90 cap 11/22/20 12/10/20 Rx capsule,extended release Transport Wheelchair #1 ea 11/23/20 12/10/20 Rx tadalafil 20 mg tablet 40 mg PO DAILY tab 11/25/20 12/10/20 History multivitamin 1 tab PO DAILY 12/10/20 12/10/20 History torsemide 10 mg PO 3XWK 12/10/20 12/10/20 History Patient History Medical History Atherosclerosis of aorta Atrial fibrillation with RVR follows with Dr. Zelaya Atrial flutter, paroxysmal Bilateral occipital neuralgia Cervical osteoarthritis Chronic anticoagulation Chronic back pain Chronic maxillary sinusitis Chronic obstructive pulmonary disease Chronic rhinitis Degenerative disc disease Depression Dyslipidemia GERD (gastroesophageal reflux disease) History of lung cancer 2017--right History of lung cancer History of pulmonary embolism Iron deficiency anemia Lumbar compression fracture L2, L3, L4 Lumbar spinal stenosis Lumbar spondylosis O2 dependent CARIN (obstructive sleep apnea) 2L N/C at HS or prn Osteoporosis Paroxysmal SVT (supraventricular tachycardia) Pulmonary hypertension Restrictive lung disease Thoracic compression fracture Tubular adenoma of colon Surgical History H/O tubal ligation History of appendectomy History of bilateral cataract extraction History of cardiac cath x3 with no stents History of cholecystectomy History of colonoscopy History of hemorrhoidectomy History of tooth extraction all upper, most of lower Previous back surgery S/P lobectomy of lung Right upper Family History Mother Heart disease Myocardial infarction Sister Valvular heart disease Sinusitis Other No family history of adverse response to anesthesia Denies family history of Ovarian cancer Prostate cancer Breast cancer Colorectal cancer Social History Smoking Status: Former smoker Tobacco Type: Cigarettes Second Hand Exposure: No; Do You Dip or Chew Tobacco: No; Tobacco Cessation Education Requested by Patient: No Hx Alcohol Use: No Hx Substance Use: No Preferred Language: Bahraini Communication Ability: Effective Visual Impairment: Limited Hearing Ability: Normal Furniture Stainer Required: No Beliefs That Will Affect Care: None marital status: Current Living Situation: Spouse current occupational status: retired Other Information That Helps Us Care for You: No Feels Safe at Home: Yes Safety Concerns: Feels Safe At This Time Dental Care, Regularly: No Physical Activity Frequency: Daily Seatbelt Use: always Sunscreen Use: No Assistive Devices: Oxygen - Continuous and Walker Review of Systems Constitutional: no fever, no chills and no weight loss Eyes: as per Subjective / HPI Ear, Nose, Mouth, Throat: as per Subjective / HPI Respiratory: no dyspnea and no dyspnea on exertion Cardiovascular: no chest pain and no palpitations Gastrointestinal: as per Subjective / HPI Musculoskeletal: no joint pain and no swelling Integumentary: no rash and no lesions Neurologic: no numbness and no paresthesia Psychiatric: no depression and no anxiety Endocrine: no fatigue Hematologic / Lymphatic: no easy bleeding and no easy bruising Physical Exam Constitutional: WD/WN, vitals as above Eyes: EOM intact bilaterally Neck: normal visual inspection Respiratory: normal respiratory effort, lungs clear to auscultation Cardiovascular: RRR, no murmur, no edema Gastrointestinal (Abdomen): Inspection/Auscultation: abdomen normal to inspection; abdomen not distended Percussion/Palpation: abdomen soft; abdomen nontender and no hepatosplenomegaly Musculoskeletal: Extremities: no cyanosis Gait: normal gait Skin: no rashes, warm and dry Neurologic: moves all extremities Psychiatric: A+Ox3, euthymic affect Results & Data ([facility]) Vital Signs (Past 12 Hours) Vital Signs Temp Pulse Pulse Pulse Resp BP Pulse Ox 12/11/20 15:44 36.3 C L 70 18 122/66 97 12/11/20 15:35 74 12/11/20 13:01 37.1 C 78 18 90/50 L 96 12/11/20 07:34 73 12/11/20 07:07 36.7 C 80 20 131/64 93 12/11/20 05:39 81 120/74 PG Care Time/CCT Total # of Minutes Spent Total Time Spent with Patient: Total time spent is greater than 50% in coordination of care (as documented) at patient's floor/unit and/or counseling patient: Coding Level of Care Code 21022 Initial Inpt Care Lvl 3 Diagnoses Acute GI bleeding K92.2 Symptomatic anemia D64.9
[2020-12-11] MEDS: traMADol HCL 50 MG TABLET PO PRN (21:10)
--- NOTE | 2020-12-11 23:53 | Electrocardiogram Report ---
Test Reason : Blood Pressure : / mmHG Vent. Rate : 099 BPM Atrial Rate : 111 BPM P-R Int : 000 ms QRS Dur : 108 ms QT Int : 406 ms P-R-T Axes : 000 -07 026 degrees QTc Int : 521 ms Poor data quality, interpretation may be adversely affected Sinus rhythm with 1st degree A-V block Low voltage QRS Abnormal ECG When compared with ECG of 28-SEP-2020 13:46, QT has lengthened Confirmed by Néstor Gilliland ([id number]) on 12/11/2020 11:52:44 PM Referred By: REFERRED SELF Confirmed By:Néstor Gilliland
[2020-12-12] MEDS ORDERED: MELATONIN 3 MG TAB PO PRN (02:02)
[2020-12-12] MEDS: FLECAINIDE ACETATE 100 MG TABLET PO SCH ×2 (06:22→17:15)
[2020-12-12] MEDS: ACETAMINOPHEN 500 MG TAB PO PRN ×2 (08:16→19:48)
[2020-12-12] MEDS: CHOLECALCIFEROL 1,000 UNITS 25 MCG TAB PO SCH (08:17)
[2020-12-12] MEDS: CALCIUM CARBONATE 1250MG TAB PO SCH (08:17)
[2020-12-12] MEDS: ASCORBIC ACID 500 MG TAB PO SCH (08:17)
[2020-12-12] MEDS: GABAPENTIN 300 MG CAP PO SCH ×3 (08:17→20:27)
[2020-12-12] MEDS: METOPROLOL SUCC 50MG EXT REL TAB PO SCH (08:17)
[2020-12-12] MEDS: SERTRALINE HCL 50 MG TABLET PO SCH (08:18)
[2020-12-12] MEDS: PANTOprazole 40 MG in SYRINGE 0 ML IV SCH ×2 (08:18→20:27)
[2020-12-12] MEDS: MULTIVITAMIN TAB PO SCH (08:18)
[2020-12-12] MEDS: SIMVASTATIN 20 MG TAB PO SCH (08:18)
[2020-12-12] MEDS: TADALAFIL 20 MG PO SCH (08:20)
[2020-12-12] MEDS: SELEXIPAG PO SCH ×2 (08:21→20:27)
[2020-12-12 08:44] LABS: Hematocrit (blood only) 34.7 % (37-47); Hemoglobin 11.1 g/dL (12.0-16.0); Mean Corpuscular Hemoglobin 32.8 pg (25-34); Mean Corpuscular Volume 102.7 fL (80-100); Mean Platelet Volume 9.5 fL (7.4-10.4); Platelet Count 296 K/uL (130-400); RDW Coefficient of Variation 17.7 % (11.5-14.5); RDW Standard Deviation 67.2 fL (36.4-46.3); Red Blood Count 3.38 M/uL (4.2-5.4); White Blood Count 4.87 K/uL (4.8-10.8)
[2020-12-12 09:24] LABS: BUN Creatinine Ratio 18.4 (10-20); Calcium 8.8 mg/dl (8.5-10.1); Creatinine Clr Calc Pharmacy 46.6 ml/min; Est GFR (African American) 62.2 ml/min; Est GFR (Non-African American) 53.7 ml/min; Potassium 4.2 mmol/L (3.5-5.1)
[2020-12-12] MEDS: FLUTICASONE/VILANTEROL 100/25MCG 14 PUFFS/INHALER INH SCH (10:25)
--- NOTE | 2020-12-12 14:15 | Hospitalist Progress Note ---
Date of Service December 12, 2020 Assessment & Plan (1) Acute GI bleeding: Presented with melena x 1-2 days after having increased heartburn over the last 1-2 weeks and also took Bactrim for a UTI. Is on Eliquis for her PAF, but does not take NSAIDs or ASA With a h/o macrocytic anemia with the GI work-up seeming to be last in 2019 at which time she had some polyps present. Patient has been intermittently transfusion dependent throughout the last few years. 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 -previous iron B12 folic acid checked in September of this year when she presented with anemia again was normal Patient has been on outpatient Protonix but has been taking extra Mylanta frequently for worsening heart burn hgb 7 on admission and now s/p 2 units PRBCs--> hgb up to 11 and BPs improved from 70s systolic to 90-100 No melena since admission but had some residual dark, formed stool on 12/12 -GI consult appreciated-plan for EGD on Sunday -continue holding ELiquis -reg diet today and NPO after midnight -follow CBC in AM or sooner prn increase in melena or if hemodynamically unstable -continue IV PPI bid (2) Acute blood loss anemia: as above (3) Macrocytic anemia: as above B12 normal here, folate normal in 09/2020 (4) Paroxysmal atrial fibrillation: Patient is on apixaban and flecainide, plus metoprolol succinate 50 daily, currently holding apixiban Was in Afib on ECG on admission but now in sinus on tele Had a few bursts of atrial tach on AM of 12/12 continue tele monitoring -continue Toprol -keep lytes replete (5) Chronic anticoagulation: Patient is on chronic apixaban with her anemia there is risk for both sides whether continuing or discontinuing it. Cardiology has felt strongly the past and she would require it holding for now (6) Pulmonary hypertension: Patient on tadalafil for pulmonary hypertension along with torsemide and selexipag follows with PULM HTN Rn [facility] in [facility] (7) Dyslipidemia: Remains on simvastatin (8) O2 dependent: 2LNC continuous for Pulm HTN (9) Lumbar spinal stenosis: continue home meds with gabapentin, tramadol, tylenol prn (10) Chronic obstructive pulmonary disease: continue O2 , home inhalers (11) History of pulmonary embolism: on apixiban (12) History of lung cancer: s/p lobectomy (13) GERD (gastroesophageal reflux disease): continue IV PPI (14) CARIN (obstructive sleep apnea): continue 2LNC (15) Depression: Patient continues on sertraline 50 (16) DVT prophylaxis: holding apixiban, has scds Dispo-continued stay, plan for EGD Sunday Admission and Anticipated Discharge Date Admission Date: December 10, 2020 Subjective Pt feels very well today, but is anxious to know if anything is going on in her stomach. had one formed BM today that was dark in color as per nursing, but no loose stools. has some mild abd distension but no pain. is eating and drinking, making urine. Denies any SOB over her usual, no CP. Has some reflux symptoms but not as much as previous. Not lightheaded. Tele with NSR, 1st degree AVB, PACs, a few brief bursts of AT, rates 70-80s Review of Systems Review of Systems: All systems reviewed & are unremarkable except as noted in HPI & below Physical Exam Constitutional: WD/WN, vitals as above Eyes: + anicteric sclerae Neck: trachea midline, no thyromegaly Respiratory: normal respiratory effort, lungs clear to auscultation Cardiovascular: RRR, no murmur, no edema Chest (Breasts): Chest: normal inspection of chest Gastrointestinal (Abdomen): normal bowel sounds, soft, nontender, no hepatosplenomegaly Musculoskeletal: Extremities: extremities normal to inspection; no cyanosis and no clubbing Skin: no rashes, warm and dry Neurologic: moves all extremities and awake; no focal motor deficits Psychiatric: A+Ox3, euthymic affect Lymphatic: no lymphedema Results & Data Results & Data ([facility]) Vital Signs (Past 12 Hours) Vital Signs Temp Pulse Pulse Resp BP Pulse Ox 12/12/20 11:54 36.4 C L 67 18 95/57 L 94 12/12/20 07:12 36.7 C 77 16 103/67 97 12/12/20 07:08 72 Laboratory Results 12/12/20 12/12/20 12/10/20 Range/Units 08:29 08:29 11:52 WBC 4.87 (4.8-10.8) K/uL RBC 3.38 L (4.2-5.4) M/uL Hgb 11.1 L (12.0-16.0) g/dL Hct 34.7 L (37-47) % MCV 102.7 H (80-100) fL MCH 32.8 (25-34) pg MCHC 32.0 (32-36) g/dL RDW Std Deviation 67.2 H (36.4-46.3) fL RDW Coeff of Tank 17.7 H (11.5-14.5) % Plt Count 296 (130-400) K/uL MPV 9.5 (7.4-10.4) fL Sodium 141 (136-145) mmol/L Potassium 4.2 (3.5-5.1) mmol/L Chloride 106 (98-107) mmol/L Carbon Dioxide 32 (21-32) mmol/L Anion Gap 3.0 (3-11) BUN 19 H (7-18) mg/dl Creatinine 1.01 (0.6-1.2) mg/dl Est Cr Clr Drug Dosing 46.6 ml/min Est GFR ( Amer) 62.2 ml/min Est GFR (Non-Af Amer) 53.7 ml/min BUN/Creatinine Ratio 18.4 (10-20) Glucose 115 H (70-99) mg/dl Calcium 8.8 (8.5-10.1) mg/dl Crossmatch See Detail PG Care Time/CCT Total # of Minutes Spent Total Time Spent with Patient: Total time spent is greater than 50% in coordination of care (as documented) at patient's floor/unit and/or counseling patient: Coding Level of Care Code 21051 Subseq Hosp Care Lvl 2 Diagnoses Acute GI bleeding K92.2 Acute blood loss anemia D62 Macrocytic anemia D53.9 Paroxysmal atrial fibrillation I48.0 Chronic anticoagulation Z79.01 Pulmonary hypertension I27.20 Dyslipidemia E78.5 O2 dependent Z99.81 Lumbar spinal stenosis M48.062 Neurogenic claudication status: with neurogenic claudication Chronic obstructive pulmonary disease J44.9 COPD type: unspecified COPD History of pulmonary embolism Z86.711 History of lung cancer Z85.118 GERD (gastroesophageal reflux disease) K21.9 CARIN (obstructive sleep apnea) G47.33 Depression F32.9 DVT prophylaxis Z29.9 (1) Lumbar spinal stenosis Neurogenic claudication status: with neurogenic claudication Qualified Code(s): M48.062 - Spinal stenosis, lumbar region with neurogenic claudication (2) Chronic obstructive pulmonary disease COPD type: unspecified COPD Qualified Code(s): J44.9 - Chronic obstructive pulmonary disease, unspecified
[2020-12-12] MEDS: TORSEMIDE 10 MG TAB PO SCH (17:15)
[2020-12-12] MEDS: traMADol HCL 50 MG TABLET PO PRN (20:27)
[2020-12-13] MEDS: FLECAINIDE ACETATE 100 MG TABLET PO SCH ×2 (05:20→17:47)
--- NOTE | 2020-12-13 08:23 | Anesthesiology Consultation ---
Date of Service December 13, 2020 Assessment & Plan Chart Review Chart Review: Acceptable Risk for Surgery Consults Requested none ASA ASA4 Proposed Anesthesia Anesthesia Type: MAC Risk / Benefits Reviewed With: PT / POA / Parent / Guardian, Accepts Plan and Informed Consent Obtained History Surgery Operation Date: 12/13/20 16:30 Proposed Procedures p Esophagogastroduodenoscopy Dr. Powell - Pancho Powell MD Height/Weight Height: 5 ft 5 in Weight: 72.7 kg Allergies Allergy/AdvReac Type Severity Reaction Status Date / Time Cipro Allergy Mild RASH Unverified 03/11/18 14:26 ciprofloxacin Allergy Mild RASH Verified 12/13/20 08:37 cephalexin Allergy Unknown UNKNOWN Verified 12/13/20 08:37 doxycycline Allergy Unknown RASH Verified 12/13/20 08:37 Egg Derived Allergy Unknown HIVES Verified 12/13/20 08:37 Influenza Virus Vaccines Allergy Unknown ALLERGIES Verified 12/13/20 08:37 TO EGGS Nitrate Analogues Allergy Unknown UNABLE TO Verified 12/13/20 08:37 HAVE R/T PULMONARY HTN Penicillins Allergy Unknown RASH Verified 12/13/20 08:37 tetanus toxoid, adsorbed Allergy Unknown TETANUS-DIPTHERIA Verified 12/13/20 08:37 TOXOID-RASH codeine AdvReac Unknown GI SYMPTOMS Verified 12/13/20 08:37 diphenhydramine AdvReac Unknown UNABLE TO Verified 12/13/20 08:37 HAVE R/T PULMONARY HTN hydrocodone AdvReac Unknown N/V Verified 12/13/20 08:37 pseudoephedrine AdvReac Unknown UNABLE TO Verified 12/13/20 08:37 HAVE COLD MEDICATIONS R/T PULMONARY HTN Medications Home Medications Medication Instructions Recorded Confirmed Last Taken ascorbic acid (vitamin C) 500 mg 500 m PO QAM cap 04/03/18 12/10/20 12/09/20 capsule calcium carbonate 500 mg calcium 500 mg PO QAM tab 04/03/18 12/10/20 12/09/20 (1,250 mg) tablet cholecalciferol (vitamin D3) 1,000 unit PO QAM 08/30/18 12/10/20 12/09/20 [Vitamin D3] diphenhydramine-acetaminophen 1 tab PO HS 08/30/18 12/10/20 12/09/20 [Tylenol PM Extra Strength] triamcinolone acetonide 0.1 % 1 appln TOPICAL DAILY PRN #1 gm 03/14/19 12/10/20 Unknown topical cream Oxygen Home #1 ea 04/07/19 12/10/20 09/10/19 mometasone-formoterol HFA 200 2 puffs INH Q12H #13 gm 08/05/19 12/10/20 12/09/20 mcg-5 mcg/actuation aerosol inhaler sertraline 50 mg tablet 50 mg PO QAM #90 tab 05/05/20 12/10/20 12/09/20 metoprolol succinate 50 mg 50 mg PO DAILY #180 tab 05/13/20 12/10/20 12/09/20 tablet,extended release 24 hr apixaban 5 mg tablet 5 mg PO BID #180 tab 05/19/20 12/10/20 12/09/20 simvastatin 20 mg tablet 20 mg PO DAILY #90 tab 06/23/20 12/10/20 12/09/20 benzonatate 200 mg capsule 200 mg PO TID PRN 07/01/20 12/10/20 Unknown flecainide 100 mg tablet 100 mg PO Q12H #180 tab 08/25/20 12/10/20 12/09/20 ondansetron HCl 4 mg tablet 4 mg PO Q8H PRN 09/21/20 12/10/20 Unknown selexipag 1,200 mcg tablet 1,200 mcg PO BID #60 tab 09/21/20 12/10/20 12/09/20 valacyclovir 500 mg tablet 1,000 mg PO BID PRN #30 tab 09/21/20 12/10/20 Unknown gabapentin 300 mg capsule 300 mg PO TID #90 cap 11/01/20 12/10/20 12/09/20 pantoprazole 40 mg tablet,delayed 40 mg PO QAM #90 tab 11/17/20 12/10/20 12/09/20 release tramadol 50 mg tablet 50 mg PO TID PRN #90 tab 11/19/20 12/10/20 Unknown potassium chloride 10 mEq 10 meq PO QAM #90 cap 11/22/20 12/10/20 12/09/20 capsule,extended release Transport Wheelchair #1 ea 11/23/20 12/10/20 Unknown tadalafil 20 mg tablet 40 mg PO DAILY tab 11/25/20 12/10/2012/09/21 multivitamin 1 tab PO DAILY 12/10/20 12/10/20 12/09/20 torsemide 10 mg PO 3XWK 12/10/20 12/10/20 12/08/20 Active Medications Generic Name Dose Route Start Last Admin Trade Name Freq PRN Reason Stop Dose Admin Acetaminophen 1,000 mg 12/10/20 22:34 12/12/20 19:48 Acetaminophen 500 Mg Tab PO 01/09/21 22:33 1,000 mg Q8H PRN Administration Mild Pain Ascorbic Acid 500 mg 12/11/20 09:00 12/12/20 08:17 Ascorbic Acid 500 Mg Tab PO 01/10/21 08:59 500 mg QAM DANIS Administration Calcium Carbonate 1,250 mg 12/11/20 09:00 12/12/20 08:17 Calcium Carbonate 1250mg Tab PO 01/10/21 08:59 1,250 mg QAM DANIS Administration Flecainide Acetate 100 mg 12/10/20 17:00 12/13/20 05:20 Flecainide Acetate 100 Mg Tablet PO 01/09/21 16:59 100 mg Q12H DANIS Administration Fluticasone/Vilanterol 1 puffs 12/11/20 09:00 12/12/20 10:25 Fluticasone/Vilanterol 100/25mcg 14 Puffs/Inhaler INH 01/10/21 08:59 Not Given DAILY DANIS Gabapentin 300 mg 12/10/20 16:30 12/12/20 20:27 Gabapentin 300 Mg Cap PO 01/09/21 16:29 300 mg TID DANIS Administration Pantoprazole Sodium 40 mg/ 10 mls @ 5 mls/min 12/10/20 21:00 12/12/20 20:27 Syringe IV 01/09/21 20:59 5 mls/min BID DANIS Administration Metoprolol Succinate 50 mg 12/11/20 09:00 12/12/20 08:17 Metoprolol Succ 50mg Ext Rel Tab PO 01/10/21 08:59 50 mg DAILY DANIS Administration Multivitamins 1 tab 12/11/20 09:00 12/12/20 08:18 Multivitamin Tab PO 01/10/21 08:59 1 tab QAM DANIS Administration Tadalafil 20mg 2 ea 12/11/20 09:00 12/12/20 08:20 Tablet: Non- PO 01/10/21 08:59 2 tabs Formulary Patient's QAM DANIS Administration Own Med Selexipag 1 ea 12/10/20 23:00 12/12/20 20:27 Selexipag 1200mg PO 01/09/21 22:59 1 ea BID DANIS Administration Sertraline HCl 50 mg 12/11/20 09:00 12/12/20 08:18 Sertraline Hcl 50 Mg Tablet PO 01/10/21 08:59 50 mg QAM DANIS Administration Simvastatin 20 mg 12/11/20 09:00 12/12/20 08:18 Simvastatin 20 Mg Tab PO 01/10/21 08:59 20 mg DAILY DANIS Administration Torsemide 10 mg 12/10/20 16:30 12/12/20 17:15 Torsemide 10 Mg Tab PO 01/09/21 16:29 10 mg Q2D DANIS Administration Tramadol HCl 50 mg 12/10/20 16:13 12/12/20 20:27 Tramadol Hcl 50 Mg Tablet PO 01/09/21 16:12 50 mg TID PRN Administration pain Vitamin D 1,000 units 12/11/20 09:00 12/12/20 08:17 Cholecalciferol 1,000 Units 25 Mcg Tab PO 01/10/21 08:59 1,000 units QAM DANIS Administration NPO Date Last Intake of Fluids: 12/12/20 Time Last Intake of Fluids: 23:59 Date Last Intake of Solids: 12/12/20 Time Last Intake of Solids: 23:59 Past Medical History Medical History Atherosclerosis of aorta Atrial fibrillation with RVR follows with Dr. Zelaya Atrial flutter, paroxysmal Bilateral occipital neuralgia Cervical osteoarthritis Chronic anticoagulation Chronic back pain Chronic maxillary sinusitis Chronic obstructive pulmonary disease Chronic rhinitis Degenerative disc disease Depression Dyslipidemia GERD (gastroesophageal reflux disease) History of lung cancer 2017--right History of lung cancer History of pulmonary embolism Iron deficiency anemia Lumbar compression fracture L2, L3, L4 Lumbar spinal stenosis Lumbar spondylosis O2 dependent CARIN (obstructive sleep apnea) 2L N/C at HS or prn Osteoporosis Paroxysmal SVT (supraventricular tachycardia) Pulmonary hypertension Restrictive lung disease Thoracic compression fracture Tubular adenoma of colon Exercise / Class Metabolic Activity III < 4 Walking/Shop/Light housework Past Family History Family History Mother Heart disease Myocardial infarction Sister Valvular heart disease Sinusitis Other No family history of adverse response to anesthesia Denies family history of Ovarian cancer Prostate cancer Breast cancer Colorectal cancer Past Surgical History Surgical History H/O tubal ligation History of appendectomy History of bilateral cataract extraction History of cardiac cath x3 with no stents History of cholecystectomy History of colonoscopy History of hemorrhoidectomy History of tooth extraction all upper, most of lower Previous back surgery S/P lobectomy of lung Right upper Past Anesthesia History No Hx of Anesthesia Complications and No Family Hx of Anesthesia Complications History of PONV No Hx of PONV and No Hx of Motion Sickness Social History Smoking Status: Former smoker tobacco type: cigarettes Do You Dip or Chew Tobacco: No Hx Alcohol Use: No Alcohol type: wine alcohol intake frequency: a few times a month Hx Substance Use: No substance use type: does not use Physical Exam Vital Signs Last Vital Signs Temp 36.4 C L 12/13/20 08:29 Pulse 76 12/13/20 08:29 Resp 18 12/13/20 08:29 BP 121/76 12/13/20 08:29 Pulse Ox 97 12/13/20 08:29 ENMT Mouth: + dentures (upper, few missing lower in back); no TMJ abnormality Thyromental Distance: > or= 3.5 Finger Breadths Mallampati Class: II Neck normal visual inspection and trachea midline; neck extension not limited Respiratory normal respiratory effort Auscultation: lungs clear to auscultation bilaterally Cardiovascular Rate/Rhythm: regular rate and regular rhythm Heart Sounds: no murmur Musculoskeletal Spine: normal cervical ROM Extremities: full ROM of extremities Neurologic moves all extremities Psychiatric Orientation: alert and oriented x 3 Testing Laboratory Results 12/13/20 08:13 PT 10.8 Seconds (9.0-12.0) 12/10/20 11:52 INR 1.1 (0.9-1.1) 12/10/20 11:52 APTT 24.2 Seconds (21.0-31.0) 12/10/20 11:52 Blood Type B Positive 12/10/20 11:52 Antibody Screen NEGATIVE 12/10/20 11:52 12/10/20 COVID neg Electrocardiogram Date: 12/10/20 Findings: + NSR @ (99 bpm w/1st degree AVB) Chest X-Ray Date: 09/28/20 FINDINGS: No pneumothorax. No pleural effusions. Postoperative changes within the right hemithorax remain unchanged. No new focal lung consolidations to suggest pneumonia. No evidence for pulmonary edema. Thoracic vertebroplasty is again noted. The heart remains mildly enlarged. IMPRESSION: No significant change compared to the prior study. No acute process. Echocardiogram Date: 07/01/20 EF: 55-60 Valvular Disease: + MR (mild) PASP 35-40mmHg mild concen LVH Cardiac Catheterization Date: 12/11/19 LM -large caliber, no significant disease LAD -large caliber vessel, calcified proximally, 50-60% focal stenosis at takeoff of large second diagonal. Latemid and distal LAD tortuous with luminal irregularities and wraps around apex. Large second diagonal with 30% ostial stenosis Circumflex -small caliber vessel without significant disease. Very small first OM without disease. RCA -large caliber, dominant, calcified, 30 to 40% proximal to mid disease, 40- 50% latemid disease. Luminal irregularities in distal vessel extending into posterior AV branch. Right heart catheterization: RA 14 RV 71/21 PA 68/35 (46) LVEDP 19 Hemoglobin 8.5 PaSat 47% AoSat 83% Thermo CO/CI 3.2/1.8 --FFR of mid LAD-- Left main cannulated with EBU 3.5 guide BMW wire placed into distal LAD ACIST FFR catheter placed across mid LAD stenosis Pd/Pa 0.89 FFR 0.80 Catheter/wire removed and no apparent coronary complications Arterial Closure: TR band Summary: 1. Severe pulmonary hypertension 2. Moderate nonobstructive coronary artery disease -50-60% earlymid LAD (FFR 0.80) 40-50% mid RCA disease
--- NOTE | 2020-12-13 08:26 | History & Physical Bridge Note ---
Date of Service December 13, 2020 History & Physical Bridge Note I have examined the patient, reviewed the History & Physical and in the interval since the performance of the History & Physical I have noted the following changes of clinical significance: no changes noted Proceed with EGD. risks/benefits and procedure discussed with patient, who agrees to proceed
[2020-12-13 08:27] LABS: Hematocrit (blood only) 37.3 % (37-47); Hemoglobin 11.7 g/dL (12.0-16.0); Mean Corpuscular Hemoglobin 32.2 pg (25-34); Mean Corpuscular Hgb Conc 31.4 g/dL (32-36); Mean Corpuscular Volume 102.8 fL (80-100); Mean Platelet Volume 9.2 fL (7.4-10.4); Platelet Count 327 K/uL (130-400); RDW Coefficient of Variation 17.1 % (11.5-14.5); RDW Standard Deviation 64.4 fL (36.4-46.3); Red Blood Count 3.63 M/uL (4.2-5.4); White Blood Count 5.34 K/uL (4.8-10.8)
[2020-12-13] MEDS ORDERED: PROPOFOL IV EMULSION 10 MG/ML 20 ML VIAL IV ONE (08:38)
[2020-12-13] MEDS ORDERED: LIDOCAINE 2% 2 ML VIAL/AMP(20MG/ML) INFIL ONE (08:38)
[2020-12-13 08:47] LABS: BUN Creatinine Ratio 16.6 (10-20); Calcium 9.2 mg/dl (8.5-10.1); Creatinine Clr Calc Pharmacy 41.7 ml/min; Est GFR (African American) 54.3 ml/min; Est GFR (Non-African American) 46.8 ml/min
[2020-12-13] MEDS ORDERED: BENZOCAIN/TETRACA/BUTAM SPRAY 200 APPLN/20 GM SPRY EXT ONE (08:57)
--- NOTE | 2020-12-13 09:18 | GI REPORT ---
Patient Name: Angela Parish Procedure Date: 12/13/2020 8:40 AM Date of : 1945 Admit Type: Inpatient Age: 75 Gender: Female Attending MD: Pancho Powell MD Procedure: Upper GI endoscopy Providers: Pancho Powell MD Referring MD: Jeremy Wilkinson Md Indications: Unexplained iron deficiency anemia, Dysphagia Medicines: Monitored Anesthesia Care Complications: No immediate complications. Estimated blood loss: None. Estimated Blood Loss: Estimated blood loss: none. Procedure: Pre-Anesthesia Assessment: - Prior Anticoagulants: The patient has taken no previous anticoagulant or antiplatelet agents. - ASA Grade Assessment: III - A patient with severe systemic disease. After obtaining informed consent, the endoscope was passed under direct vision. Throughout the procedure, the patient's blood pressure, pulse, and oxygen saturations were monitored continuously. The Endoscope was introduced through the mouth, and advanced to the second part of duodenum. The upper GI endoscopy was accomplished without difficulty. The patient tolerated the procedure well. Findings: The examined esophagus was normal. A guidewire was placed and the scope was withdrawn. Dilation was performed with a Savary dilator with no resistance at 45 Fr. The dilation site was examined following endoscope reinsertion and showed no change. Estimated blood loss: none. Moderate gastric antral vascular ectasia was present in the gastric antrum. Coagulation for hemostasis using argon plasma at 1.4 liters/minute and 35 mabry was successful. Estimated blood loss: none. The duodenal bulb and second portion of the duodenum were normal. Impression: - Normal esophagus. Dilated. - Gastric antral vascular ectasia. Treated with argon plasma coagulation (APC). - Normal duodenal bulb and second portion of the duodenum. - No specimens collected. Recommendation: - Return patient to [facility] for [facility] care. - Resume previous diet today. -obtain abdominal US to further evaluate for causes of her GAVE -repeat EGD in 3 months for surveillance/retreatment -protonix 40 mg daily Pancho Powell MD 12/13/2020 9:17:39 AM This report has been signed electronically. Note Initiated On: 12/13/2020 8:40 AM Number of Addenda: 0 I attest to the content of the Intraoperative Record and orders documented therein, exceptions below {[id number]}
--- NOTE | 2020-12-13 09:45 | Anesthesiology Progress Note ---
Date of Service December 13, 2020 Anesthesia Post Procedure Vital Signs Vital Signs: Temp Pulse Pulse Resp BP BP Pulse Ox 12/13/20 09:32 79 20 114/55 L 96 12/13/20 09:17 86 20 102/50 L 93 12/13/20 08:29 36.4 C L 76 18 121/76 121/76 97 12/13/20 07:42 96 H 12/13/20 03:40 36.7 C 69 20 113/56 L 95 12/13/20 00:15 69 12/12/20 23:00 36.5 C 73 20 95/57 L 95 12/12/20 19:35 36.5 C 67 20 124/75 96 12/12/20 15:54 36.4 C L 86 18 119/78 92 12/12/20 14:59 76 12/12/20 11:54 36.4 C L 67 18 95/57 L 94 Pain Intensity Back: Pain Intensity: 8 Transfer of Care Handoff Completed per policy Notes Mental Status: alert / awake / arousable Patient Amnestic to Procedure: Yes Nausea / Vomiting: adequately controlled Pain: adequately controlled Airway Patency, RR, SpO2: stable & adequate BP & HR: stable & adequate Hydration State: stable & adequate Anesthetic Complications: no major complications apparent and Pt Satisfied with anesthetic care
[2020-12-13] MEDS: ASCORBIC ACID 500 MG TAB PO SCH (11:51)
[2020-12-13] MEDS: CALCIUM CARBONATE 1250MG TAB PO SCH (11:51)
[2020-12-13] MEDS: GABAPENTIN 300 MG CAP PO SCH ×3 (11:51→21:13)
[2020-12-13] MEDS: CHOLECALCIFEROL 1,000 UNITS 25 MCG TAB PO SCH (11:51)
[2020-12-13] MEDS: METOPROLOL SUCC 50MG EXT REL TAB PO SCH (11:52)
[2020-12-13] MEDS: MULTIVITAMIN TAB PO SCH (11:52)
[2020-12-13] MEDS: SELEXIPAG PO SCH ×2 (11:53→21:13)
[2020-12-13] MEDS: TADALAFIL 20 MG PO SCH (11:53)
[2020-12-13] MEDS: SERTRALINE HCL 50 MG TABLET PO SCH (11:54)
[2020-12-13] MEDS: SIMVASTATIN 20 MG TAB PO SCH (11:56)
[2020-12-13] MEDS: ACETAMINOPHEN 500 MG TAB PO PRN ×2 (11:57→20:17)
[2020-12-13] MEDS: PANTOprazole 40 MG in SYRINGE 0 ML IV SCH (12:51)
--- NOTE | 2020-12-13 12:57 | Hospitalist Progress Note ---
Date of Service December 13, 2020 Assessment & Plan (1) Acute GI bleeding: Secondary to GAVE per EGD Presented with melena x 1-2 days after having increased heartburn over the last 1-2 weeks and also took Bactrim for a UTI. Is on Eliquis for her PAF, but does not take NSAIDs or ASA With a h/o macrocytic anemia with the GI work-up seeming to be last in 2019 at which time she had some polyps present. Patient has been intermittently transfusion dependent throughout the last few years. 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 -previous iron B12 folic acid checked in September of this year when she presented with anemia again was normal Patient has been on outpatient Protonix but has been taking extra Mylanta frequently for worsening heart burn hgb 7 on admission and now s/p 2 units PRBCs--> hgb up to 11 and BPs improved from 70s systolic to 90-100 No melena since admission but had some residual dark, formed stool on 12/12 -s/p EGD today - GAVE -Switch to pantoprazole 40mg PO daily per GI recommendations. Repeat EGD planned for 3 months (2) Acute blood loss anemia: as above (3) Macrocytic anemia: as above B12 normal here, folate normal in 09/2020 (4) Paroxysmal atrial fibrillation: Patient is on apixaban and flecainide, plus metoprolol succinate 50 daily, currently holding apixaban Was in Afib on ECG on admission but now in sinus on tele Had a few bursts of atrial tach on AM of 12/12 continue tele monitoring -continue Toprol -keep lytes replete (5) Chronic anticoagulation: Patient is on chronic apixaban with her anemia there is risk for both sides whether continuing or discontinuing it. Cardiology has felt strongly the past and she would require it holding for now (6) Pulmonary hypertension: Patient on tadalafil for pulmonary hypertension along with torsemide and selexipag follows with [facility] in [facility] (7) Dyslipidemia: Remains on simvastatin (8) O2 dependent: 2LNC continuous for Pulm HTN (9) Lumbar spinal stenosis: continue home meds with gabapentin, tramadol, tylenol prn (10) Chronic obstructive pulmonary disease: continue O2 , home inhalers (11) History of pulmonary embolism: on apixiban (currently on hold) (12) History of lung cancer: s/p lobectomy (13) GERD (gastroesophageal reflux disease): Switching to PO pantoprazole as above (14) CARIN (obstructive sleep apnea): continue 2LNC (15) Depression: Patient continues on sertraline 50mg PO daily (16) DVT prophylaxis: holding apixiban, has scds Admission and Anticipated Discharge Date Admission Date: December 10, 2020 Anticipated date of discharge: 12/14/20 Subjective S/p EGD. Doing well. Tolerating normal diet. No nausea, vomiting, abdominal pain, constipation, diarrhea. No further melenic stools. Review of Systems Review of Systems: All systems reviewed & are unremarkable except as noted in HPI & below Physical Exam Constitutional: WD/WN, vitals as above Eyes: + anicteric sclerae Neck: trachea midline, no thyromegaly Respiratory: normal respiratory effort, lungs clear to auscultation Cardiovascular: RRR, no murmur, no edema Gastrointestinal (Abdomen): normal bowel sounds, soft, nontender, no hepatosplenomegaly Skin: no rashes, warm and dry Neurologic: moves all extremities and awake Psychiatric: A+Ox3, euthymic affect Lymphatic: no lymphedema Results & Data Results & [facility] ([facility]) Vital Signs (Past 12 Hours) Vital Signs Temp Pulse Pulse Resp BP BP Pulse Ox 12/13/20 11:20 36.8 C 69 19 113/70 94 12/13/20 09:47 76 20 127/64 98 12/13/20 09:32 79 20 114/55 L 96 12/13/20 09:17 86 20 102/50 L 93 12/13/20 08:29 36.4 C L 76 18 121/76 121/76 97 12/13/20 07:42 96 H 12/13/20 03:40 36.7 C 69 20 113/56 L 95 PG Care Time/CCT Total # of Minutes Spent Total Time Spent with Patient: Total time spent is greater than 50% in coordination of care (as documented) at patient's floor/unit and/or counseling patient: Coding Level of Care Code 50388 Subseq Hosp Care Lvl 2 Diagnoses Acute GI bleeding K92.2 Acute blood loss anemia D62 Macrocytic anemia D53.9 Paroxysmal atrial fibrillation I48.0 Chronic anticoagulation Z79.01 Pulmonary hypertension I27.20 Dyslipidemia E78.5 O2 dependent Z99.81 Lumbar spinal stenosis M48.062 Neurogenic claudication status: with neurogenic claudication Chronic obstructive pulmonary disease J44.9 COPD type: unspecified COPD History of pulmonary embolism Z86.711 History of lung cancer Z85.118 GERD (gastroesophageal reflux disease) K21.9 CARIN (obstructive sleep apnea) G47.33 Depression F32.9 DVT prophylaxis Z29.9 (1) Lumbar spinal stenosis Neurogenic claudication status: with neurogenic claudication Qualified Code(s): M48.062 - Spinal stenosis, lumbar region with neurogenic claudication (2) Chronic obstructive pulmonary disease COPD type: unspecified COPD Qualified Code(s): J44.9 - Chronic obstructive pulmonary disease, unspecified
[2020-12-13] MEDS: FLUTICASONE/VILANTEROL 100/25MCG 14 PUFFS/INHALER INH SCH (15:49)
[2020-12-14] MEDS: traMADol HCL 50 MG TABLET PO PRN (01:17)
[2020-12-14] MEDS: FLECAINIDE ACETATE 100 MG TABLET PO SCH (05:50)
[2020-12-14 07:46] LABS: Hematocrit (blood only) 32.9 % (37-47); Hemoglobin 10.6 g/dL (12.0-16.0); Mean Corpuscular Hemoglobin 32.4 pg (25-34); Mean Corpuscular Hgb Conc 32.2 g/dL (32-36); Mean Corpuscular Volume 100.6 fL (80-100); Mean Platelet Volume 9.2 fL (7.4-10.4); Platelet Count 275 K/uL (130-400); RDW Coefficient of Variation 16.5 % (11.5-14.5); RDW Standard Deviation 60.5 fL (36.4-46.3); Red Blood Count 3.27 M/uL (4.2-5.4); White Blood Count 6.07 K/uL (4.8-10.8)
[2020-12-14] MEDS: ACETAMINOPHEN 500 MG TAB PO PRN (07:59)
[2020-12-14 08:11] LABS: BUN Creatinine Ratio 20.2 (10-20); Calcium 8.9 mg/dl (8.5-10.1); Creatinine Clr Calc Pharmacy 57.8 ml/min; Est GFR (African American) 81.2 ml/min; Est GFR (Non-African American) 70.1 ml/min; Potassium 4.3 mmol/L (3.5-5.1)
[2020-12-14] MEDS ORDERED: PANTOprazole 40 MG TAB PO SCH (09:00)
[2020-12-14] MEDS: ASCORBIC ACID 500 MG TAB PO SCH (09:36)
[2020-12-14] MEDS: CALCIUM CARBONATE 1250MG TAB PO SCH (09:36)
[2020-12-14] MEDS: CHOLECALCIFEROL 1,000 UNITS 25 MCG TAB PO SCH (09:37)
[2020-12-14] MEDS: FLUTICASONE/VILANTEROL 100/25MCG 14 PUFFS/INHALER INH SCH (09:37)
[2020-12-14] MEDS: GABAPENTIN 300 MG CAP PO SCH ×2 (09:37→15:06)
[2020-12-14] MEDS: METOPROLOL SUCC 50MG EXT REL TAB PO SCH (09:37)
[2020-12-14] MEDS: TADALAFIL 20 MG PO SCH (09:38)
[2020-12-14] MEDS: MULTIVITAMIN TAB PO SCH (09:38)
[2020-12-14] MEDS: SELEXIPAG PO SCH (09:39)
[2020-12-14] MEDS: SERTRALINE HCL 50 MG TABLET PO SCH (09:39)
[2020-12-14] MEDS: SIMVASTATIN 20 MG TAB PO SCH (09:39)
--- NOTE | 2020-12-14 10:30 | Gastroenterology Progress Note ---
Date of Service December 14, 2020 Assessment & Plan (1) Acute GI bleeding: (2) GAVE (gastric antral vascular ectasia): 1. Continue Pantoprazole 40 mg daily. 2. Abdominal ultrasound today as recommended by Dr. Powell. 3. EGD in 3 months. 4. Continue supportive care. Admission and Anticipated Discharge Date Admission Date: December 10, 2020 Subjective Patient is doing well status post EGD with APC for GAVE. No abdominal pain or black stools. Remains on PPI. Review of Systems Constitutional: no problem reported Gastrointestinal: as per Subjective / HPI Physical Exam Constitutional: WD/WN, vitals as above well developed and well nourished Neck: normal visual inspection Respiratory: normal respiratory effort, lungs clear to auscultation Cardiovascular: Rate/Rhythm: regular rate and regular rhythm Gastrointestinal (Abdomen): Inspection/Auscultation: normal bowel sounds Percussion/Palpation: abdomen soft; abdomen nontender Results & Data Results & Data ([facility]) Vital Signs (Past 12 Hours) Vital Signs Temp Pulse Pulse Resp BP Pulse Ox 12/14/20 07:52 69 12/14/20 03:27 36.7 C 69 14 96/57 L 98 12/14/20 00:37 70 12/13/20 23:16 36.4 C L 68 16 94/48 L 97 Laboratory Results Abnormal lab results 12/14/20 12/14/20 Range/Units 07:19 07:19 RBC 3.27 L (4.2-5.4) M/uL Hgb 10.6 L (12.0-16.0) g/dL Hct 32.9 L (37-47) % MCV 100.6 H (80-100) fL RDW Std Deviation 60.5 H (36.4-46.3) fL RDW Coeff of Tank 16.5 H (11.5-14.5) % BUN/Creatinine Ratio 20.2 H (10-20) PG Care Time/CCT Total # of Minutes Spent Total Time Spent with Patient: Total time spent is greater than 50% in coordination of care (as documented) at patient's floor/unit and/or counseling patient: Coding Level of Care Code 36070 Subseq Hosp Care Lvl 3 Diagnoses Acute GI bleeding K92.2 GAVE (gastric antral vascular ectasia) K31.819
--- NOTE | 2020-12-14 14:25 | Ultrasound Report ---
ABDOMINAL ULTRASOUND, RIGHT UPPER QUADRANT HISTORY: gastric antral vascular ectasia. COMPARISON: Abdominal CT 12/09/2018. FINDINGS: Pancreas: The pancreas demonstrates a normal echotexture. Liver: No hepatic masses or intrahepatic bile duct dilatation. Normal echotexture. 15 cm in length. Gallbladder: The gallbladder is surgically absent. CBD: 0.4 cm Right kidney: No hydronephrosis. A 2.4 x 2.0 cm partially visualized lower pole exophytic cyst. This is not significantly changed. IMPRESSION: 1. Normal liver. 2. Cholecystectomy. 3. A 2.4 x 2.0 cm partially visualized lower pole exophytic right renal cyst. This is similar to the prior CT examination. ACT 112: Negative or not required by law. Electronically signed by: Jak Anthony M.D. 12/14/2020 2:24 PM
--- NOTE | 2020-12-14 15:55 | Discharge Summary ---
Date of Service December 14, 2020 Admission HPI Per Admitting Provider 75-year-old female who presents with 3 days of melena. Patient is on oral anticoagulant of apixaban for atrial fibrillation. Patient feels weak and with low energy patient has previously been worked up for macrocytic and normocytic anemia with transfusions of 2 units in September. Reportedly the patient also transfusions in October. patient previously has been followed by cancer care [facility] for iron deficiency anemia which was attributed to her [facility]TRAV[facility] treat non-small lung cancer which was diagnosed March 2016. previous iron level 11/29 was 81 which is normal, B12 September 29, 2020 is normal, folic acid September 30, 2020 was greater than 20 which is very normal, TSH checked also that timeframe was normal and peripheral smear been without abnormalities. Patient last had endoscopy and colonoscopy August 2018 at which time she had a polyps removed from her colon as well as mucosal nodule found in her esophagus, this was found to be negative for pathology, gastritis was also identified Today her hemoglobin went from 9.1 in November 29->7.6 today Patient also has an equivocal Lyme disease and because of an allergy to doxycycline was sent 14 days of amoxicillin after her last admission Admission Exam Per Admitting Provider The patient appeared well nourished and normally developed. Vital signs as documented. Head exam is normocephalic atraumatic Neck is without JVD, thyromegaly, or carotid bruits. Lungs are clear to auscultation, no focal loss of breath sounds Cardiac exam, Rhythm is regular.. No murmurs, rubs or gallops. Abdominal exam reveals normal bowel sounds, soft non tender, no masses, does have some melena Extremities are nonedematous and both pedal pulses are present Neurologic exam is alert and oriented, no focal loss of strength or sensation Skin is without bruises or rashes Psychologically is without concerns for anxiety or depression Principal Diagnosis Gastric antral vascular ectasia Acute blood loss anemia Discharge Exam Constitutional WD/WN, vitals as above Eyes + anicteric sclerae Neck trachea midline, no thyromegaly Respiratory normal respiratory effort, lungs clear to auscultation Cardiovascular RRR, no murmur, no edema Gastrointestinal (Abdomen) normal bowel sounds, soft, nontender, no hepatosplenomegaly Skin no rashes, warm and dry Neurologic moves all extremities and awake Psychiatric A+Ox3, euthymic affect Lymphatic no lymphedema Discharge Data Allergies Allergy/AdvReac Type Severity Reaction Status Date / Time Cipro Allergy Mild RASH Unverified 03/11/18 14:26 ciprofloxacin Allergy Mild RASH Verified 12/13/20 08:37 cephalexin Allergy Unknown UNKNOWN Verified 12/13/20 08:37 doxycycline Allergy Unknown RASH Verified 12/13/20 08:37 Egg Derived Allergy Unknown HIVES Verified 12/13/20 08:37 Influenza Virus Vaccines Allergy Unknown ALLERGIES Verified 12/13/20 08:37 TO EGGS Nitrate Analogues Allergy Unknown UNABLE TO Verified 12/13/20 08:37 HAVE R/T PULMONARY HTN Penicillins Allergy Unknown RASH Verified 12/13/20 08:37 tetanus toxoid, adsorbed Allergy Unknown TETANUS-DIPTHERIA Verified 12/13/20 08:37 TOXOID-RASH codeine AdvReac Unknown GI SYMPTOMS Verified 12/13/20 08:37 diphenhydramine AdvReac Unknown UNABLE TO Verified 12/13/20 08:37 HAVE R/T PULMONARY HTN hydrocodone AdvReac Unknown N/V Verified 12/13/20 08:37 pseudoephedrine AdvReac Unknown UNABLE TO Verified 12/13/20 08:37 HAVE COLD MEDICATIONS R/T PULMONARY HTN Consultations 12/10/20 13:25 ED Decision to Admit Stat 12/10/20 16:13 Consult Gastroenterology Routine Procedures Performed Operation Date: 12/13/20 16:30 Actual Procedures p EGD Hemostasis - Pancho Powell MD Ordered Studies 12/14/20 14:00 US liver Urgent IMPRESSION: 1. Normal liver. 2. Cholecystectomy. 3. A 2.4 x 2.0 cm partially visualized lower pole exophytic right renal cyst. This is similar to the prior CT examination. Hospital Course (1) Acute GI bleeding: Angela Parish is a 75 year old female admitted at [facility] from December 10-2020 due to generalized weakness and low energy. Hemoglobin 7.6 on admission. She underwent EGD on 12/13 and was diagnosed with gastric antral vascular ectasia treated with argon plasma coagulation. Due to this condition being more common in patients with liver cirrhosis and ultrasound liver was taken which was negative for cirrhosis. Hemoglobin has been stable after 2 units of blood transfusion. Recommend following up with CBC in 1 week. She will follow up with gastroenterology as per appointment below. Apixaban was held during her admission by restart on discharge. No changes to medications on discharge. (2) Acute blood loss anemia: (3) Macrocytic anemia: (4) Paroxysmal atrial fibrillation: (5) Chronic anticoagulation: (6) Pulmonary hypertension: (7) Dyslipidemia: (8) O2 dependent: (9) Lumbar spinal stenosis: (10) Chronic obstructive pulmonary disease: (11) History of pulmonary embolism: (12) History of lung cancer: (13) GERD (gastroesophageal reflux disease): (14) CARIN (obstructive sleep apnea): (15) Depression: (16) DVT prophylaxis: Total Time Total Time Spent Total Time Spent (In Minutes): 35 Total Time Includes: Examination of the Patient, Discharge Planning, Medication Reconciliation and Communication With Other Providers Discharge Plan Discharge Items Patient Disposition: Home - Self-Care Reason For Visit: MACROCYTIC ANEMIA, SYMPTOMATIC ANEMIA Discharge Diagnosis: Gastric antral vascular ectasia Acute blood loss anemia Activity: Resume your previous activity Non-emergency contact: Primary Care Provider Call non-emergency contact if: you have any medication questions and your symptoms worsen Follow-up/Referrals: Leo Berg DO [Physician] - 12/24/20 11:00 am Iliana Goddard DO [Primary Care Provider] - 12/21/20 1:40 pm Diet: Heart Healthy Ambulatory Orders: Complete Blood Count no Diff (Routine) Timeframe: 1 Week Location: Determined by Patient Ordered By: Jeremy Martinez Attending Provider Instructions: You were admitted at [facility] from December 10-2020 due to generalized weakness and low energy. On upper endoscopy was diagnosed with gastric antral vascular ectasia treated with argon plasma coagulation. Due to this condition being more common in patients with liver cirrhosis and ultrasound liver was taken which was negative for cirrhosis. Hemoglobin has been stable after 2 units of blood transfusion. Recommend following up with repeat blood test in 1 week. Please follow-up with gastroenterology per appointment above. No changes to medications on discharge. Pending Studies at Discharge: No Stand-Alone Forms: My [facility] Medications and DC Order Prescriptions: Continued calcium carbonate [Calcium 500] 500 mg calcium (1,250 mg) tablet 500 mg PO QAM RF: 0 ascorbic acid (vitamin C) 500 mg capsule 500 m PO QAM RF: 0 sertraline [Zoloft] 50 mg tablet 50 mg PO QAM Qty: 90 RF: 1 metoprolol succinate 50 mg tablet extended release 24 hr 50 mg PO DAILY Qty: 180 RF: 0 Eliquis 5 mg tablet 5 mg PO BID Qty: 180 RF: 3 flecainide 100 mg tablet 100 mg PO Q12H Qty: 180 RF: 3 gabapentin 300 mg capsule 300 mg PO TID Qty: 90 RF: 5 pantoprazole 40 mg tablet,delayed release (DR/EC) 40 mg PO QAM Qty: 90 RF: 1 tramadol 50 mg tablet 50 mg PO TID PRN (Reason: pain) Qty: 90 RF: 0 potassium chloride 10 mEq capsule, extended release 10 meq PO QAM Qty: 90 RF: 1 (DME) Transport Wheelchair See Rx Instructions .Route .MEDSUPPLY Qty: 1 RF: 0 benzonatate 200 mg capsule 200 mg PO TID PRN (Reason: Cough) RF: 0 selexipag 1,200 mcg tablet 1,200 mcg PO BID Qty: 60 RF: 0 ondansetron HCl [Zofran] 4 mg tablet 4 mg PO Q8H PRN (Reason: nausea and vomiting) RF: 0 valacyclovir [Valtrex] 500 mg tablet 1,000 mg PO BID PRN (Reason: Cold Sores) Qty: 30 RF: 1 tadalafil 20 mg tablet 40 mg PO DAILY RF: 0 Dulera 200-5 mcg/actuation HFA aerosol inhaler 2 puffs INH Q12H Qty: 13 RF: 11 triamcinolone acetonide 0.1 % cream 1 appln topical DAILY PRN (Reason: Itching) Qty: 1 RF: 0 (DME) Oxygen Home Liters Per Minute See Dose Instructions .ROUTE .MEDSUPPLY Qty: 1 RF: 0 diphenhydramine-acetaminophen [Tylenol PM Extra Strength] 25-500 mg Tablet 1 tab PO HS RF: 0 cholecalciferol (vitamin D3) [Vitamin D3] 1,000 unit Capsule 1,000 unit PO QAM RF: 0 multivitamin Tablet 1 tab PO DAILY RF: 0 torsemide 10 mg tablet 10 mg PO 3XWK RF: 0 No Action simvastatin 20 mg tablet 20 mg PO DAILY Qty: 90 RF: 1 Discharge Orders: Discharge Order (Routine); Ordered 12/14/20 Ordered By: Jeremy Wilkinson Admission Data Admit Date/Time: 12/10/20 14:02 Attending Provider: Jeremy Wilkinson Admit Provider: Jose Juarez Primary Care Provider: Iliana Goddard Other Providers: Leo Berg Other Interventions: Discharge Summary Assessment (RN) Last Done: 12/14/20 16:45 Coding Level of Care Code D/C Day Management >30 mins Diagnoses Acute GI bleeding K92.2 Acute blood loss anemia D62 Macrocytic anemia D53.9 Paroxysmal atrial fibrillation I48.0 Chronic anticoagulation Z79.01 Pulmonary hypertension I27.20 Dyslipidemia E78.5 O2 dependent Z99.81 Lumbar spinal stenosis M48.062 Neurogenic claudication status: with neurogenic claudication Chronic obstructive pulmonary disease J44.9 COPD type: unspecified COPD History of pulmonary embolism Z86.711 History of lung cancer Z85.118 GERD (gastroesophageal reflux disease) K21.9 CARIN (obstructive sleep apnea) G47.33 Depression F32.9 DVT prophylaxis Z29.9
== END 2020-12-14 17:30 | disposition home or self-care (01) | DRG 378 ==
LOC: ED 11:10 → 2W 14:02 → OBSVTOIN 14:02 → SUATTDRO 14:02 → INTOOBSV 14:02 → 2W 15:54

== ENCOUNTER 2020-12-27 16:21 | Inpatient (IN) ==
[2020-12-27] MEDS ORDERED: PANTOprazole 80 MG in DEXTROSE 5% 100 ML IV ONE (16:37)
[2020-12-27 17:10] LABS: Basophils # (auto) 0.03 K/uL (0-0.2); Basophils % (auto) 0.6 %; Eosinophils # (auto) 0.18 K/uL (0-0.5); Eosinophils % (auto) 3.4 %; Hematocrit (blood only) 25.4 % (37-47); Hemoglobin 7.9 g/dL (12.0-16.0); Immature Granulocytes # (auto) 0.01 K/uL (0.00-0.02); Immature Granulocytes % (auto) 0.2 %; Lymphocytes # (auto) 0.95 K/uL (1.2-3.4); Lymphocytes % (auto) 18.1 %; Mean Corpuscular Hemoglobin 31.9 pg (25-34); Mean Corpuscular Hgb Conc 31.1 g/dL (32-36); Mean Corpuscular Volume 102.4 fL (80-100); Mean Platelet Volume 8.8 fL (7.4-10.4); Monocytes # (auto) 0.42 K/uL (0.11-0.59); Neutrophils # (auto) 3.66 K/uL (1.4-6.5); Neutrophils % (auto) 69.7 %; Platelet Count 279 K/uL (130-400); RDW Coefficient of Variation 15.5 % (11.5-14.5); RDW Standard Deviation 57.5 fL (36.4-46.3); Red Blood Count 2.48 M/uL (4.2-5.4); White Blood Count 5.25 K/uL (4.8-10.8)
[2020-12-27 17:24] LABS: INR 1.1 (0.9-1.1); Partial Thromboplastin Time 26.6 Seconds (21.0-31.0)
[2020-12-27 17:26] LABS: Alanine Aminotransferase 24 U/L (12-78); Albumin Level 3.3 gm/dl (3.4-5.0); Aspartate Aminotransferase 24 U/L (15-37); BUN Creatinine Ratio 29.1 (10-20); Blood Urea Nitrogen 34 mg/dl (7-18); Calcium 9.1 mg/dl (8.5-10.1); Carbon Dioxide 29 mmol/L (21-32); Chloride 105 mmol/L (98-107); Est GFR (African American) 52.1 ml/min; Est GFR (Non-African American) 44.9 ml/min; Glucose 112 mg/dl (70-99); Potassium 4.4 mmol/L (3.5-5.1); Sodium 140 mmol/L (136-145)
[2020-12-27 17:29] LABS: Albumin Globulin Ratio 0.9 (0.9-2); Alkaline Phosphatase 66 U/L (45-117); Bilirubin,Total 0.2 mg/dl (0.2-1); Globulin 3.5 gm/dl (2.5-4.0); Total Protein 6.8 gm/dl (6.4-8.2)
[2020-12-27 17:32] LABS: Giant Platelets 1+
[2020-12-27] MEDS ORDERED: SODIUM CHLORIDE 0.9% 250 ML IV PRN (18:08)
--- NOTE | 2020-12-27 18:29 | History & Physical Report ---
Date of Service December 27, 2020 Assessment & Plan (1) Iron deficiency anemia: 75 y/o F w/ hx of pulm HTN, PAF, PE on anticoag, TIA, AME, nonobstructive CAD, prior lung cancer s/p RU lobectomy, recent hosp admission 12/10-12/14 for mild symptomatic anemia and gastric antral vascular ectasia s/p argon plasma coagulation who presents w/ recurrence of melena and fatigue. Vitals stable. - macrocytic anemia 7.8 Hb today vs 10.6 on 12/14. MCV 104.1. Iron is low at 25. Hx of requiring multiple IV iron infusions in past. Coags wnl. Liver panel wnl. Liver US last admission was normal and did not suggest cirrhosis. - Patient has mild fatigue which may be from AME vs acute UGIB, especially in context of GAVE last admission and restart of Eliquis 5 BID. Lower suspicion for pulmonary hemorrhage as she does not have new respiratory symptoms and CXR during 09/2020 admission for anemia was normal. Lack of BRPPR, lower suspicion for LGIB. Presentation not consistent w/ infectious etiology, no fever or leukocytosis. - s/p EGD/colonoscopy 08/2018 showing small hiatal hernia, gastritis, gastric and colonic polyps. plan: complete 2u prbc transfusion started by ED. GI consult. Continue PPI. Check orthostatics. 2 large bore pIVs. q12h cbc. f/u fecal occult. FEN/GI: NPO and maintenance IVF LR 100/hr after midnight. PPX: PPI Protonix 40 IV BID. Hold anticoag. code: DNI/DNI dispo: med/surg w/ tele (2) Melena: - as per above (3) GAVE (gastric antral vascular ectasia): - GAVE was moderate per 12/13/20 EGD - s/p argon coagulation on 12/13/20 (4) CAD (coronary artery disease): - cath from 02/23/20: Severe pulmonary hypertension. Moderate nonobstructive coronary artery disease. 50-60% earlymid LAD (FFR 0.80). 40-50% mid RCA disease - continue home statin (5) Paroxysmal atrial fibrillation: PAF and PSVT - ecg reviewed. no acute ischemic changes - continue home flecainide and metoprolol (6) Pulmonary hypertension: - 07/01/20 echo: LVEF 55%, mild LVH, mildly dilated RV, normal RV function, mild MR, estimated PASP 35-40, normal IVC - continue home regimen (7) Chronic anticoagulation: - hold in context of possible UGIB (8) Chronic obstructive pulmonary disease: - continue home meds and supp O2 (9) Depression: - continue home sertraline (10) Chronic back pain: - continue home regimen of gabapentin, tramadol. tylenol PRN - avoid NSAIDs History of Present Illness Primary Care Provider: DO Angela Roberson is a 75 y/o F w/ hx of AME, pulm HTN, pAF, PE on Eliquis w/ recent hosp admission for gastric antral vascular ectasia s/p argon plasma coagulation who presents w/ fatigue x 3 days and melena noticed today. Upon hospital discharge home on 12/14 (restarted Eliquis), patient's stool was dark brown, but not black and the fatigue had improved. She felt better until 2-3 days ago. There have been no other changes in her health. Patient functions independently at home. Back pain: Patient takes tramadol, ~4000mg Tylenol daily, and gabapentin. Denies NSAID use. She is on 2L home O2. Allergies Allergy/AdvReac Type Severity Reaction Status Date / Time ciprofloxacin Allergy Mild RASH Verified 12/27/20 17:58 cephalexin Allergy Unknown UNKNOWN Verified 12/27/20 17:58 doxycycline Allergy Unknown RASH Verified 12/27/20 17:58 Egg Derived Allergy Unknown HIVES Verified 12/27/20 17:58 Influenza Virus Vaccines Allergy Unknown ALLERGIES Verified 12/27/20 17:58 TO EGGS Nitrate Analogues Allergy Unknown UNABLE TO Verified 12/27/20 17:58 HAVE R/T PULMONARY HTN Penicillins Allergy Unknown RASH Verified 12/27/20 17:58 tetanus toxoid, adsorbed Allergy Unknown TETANUS-DIPTHERIA Verified 12/27/20 17:58 TOXOID-RASH codeine AdvReac Unknown GI SYMPTOMS Verified 12/27/20 17:58 diphenhydramine AdvReac Unknown UNABLE TO Verified 12/27/20 17:58 HAVE R/T PULMONARY HTN hydrocodone AdvReac Unknown N/V Verified 12/27/20 17:58 pseudoephedrine AdvReac Unknown UNABLE TO Verified 12/27/20 17:58 HAVE COLD MEDICATIONS R/T PULMONARY HTN Home Medications Medication Instructions Recorded Confirmed Type ascorbic acid (vitamin C) 500 mg 500 m PO QAM cap 04/03/18 12/27/20 History capsule calcium carbonate 500 mg calcium 500 mg PO QAM tab 04/03/18 12/27/20 History (1,250 mg) tablet cholecalciferol (vitamin D3) 1,000 unit PO QAM 08/30/18 12/27/20 History [Vitamin D3] diphenhydramine-acetaminophen 1 tab PO HS 08/30/18 12/27/20 History [Tylenol PM Extra Strength] triamcinolone acetonide 0.1 % 1 appln TOPICAL DAILY PRN #1 gm 03/14/19 12/27/20 History topical cream Oxygen Home #1 ea 04/07/19 12/24/20 Rx mometasone-formoterol HFA 200 2 puffs INH Q12H #13 gm 08/05/19 12/27/20 Rx mcg-5 mcg/actuation aerosol inhaler sertraline 50 mg tablet 50 mg PO QAM #90 tab 05/05/20 12/27/20 Rx metoprolol succinate 50 mg 50 mg PO DAILY #180 tab 05/13/20 12/27/20 Rx tablet,extended release 24 hr apixaban 5 mg tablet 5 mg PO BID #180 tab 05/19/20 12/27/20 Rx benzonatate 200 mg capsule 200 mg PO TID PRN 07/01/20 12/27/20 History flecainide 100 mg tablet 100 mg PO Q12H #180 tab 08/25/20 12/27/20 Rx ondansetron HCl 4 mg tablet 4 mg PO Q8H PRN 09/21/20 12/27/20 History selexipag 1,200 mcg tablet 1,200 mcg PO BID #60 tab 09/21/20 12/27/20 Rx valacyclovir 500 mg tablet 1,000 mg PO BID PRN #30 tab 09/21/20 12/27/20 Rx gabapentin 300 mg capsule 300 mg PO TID #90 cap 11/01/20 12/27/20 Rx tramadol 50 mg tablet 50 mg PO TID PRN #90 tab 11/19/20 12/27/20 Rx potassium chloride 10 mEq 10 meq PO QAM #90 cap 11/22/20 12/27/20 Rx capsule,extended release Transport Wheelchair #1 ea 05/04/21 06/04/21 Rx tadalafil 20 mg tablet 40 mg PO DAILY tab 11/25/20 12/27/20 History multivitamin 1 tab PO DAILY 12/10/20 12/27/20 History torsemide 10 mg PO 3XWK 12/10/20 12/27/20 History simvastatin 20 mg tablet 20 mg PO DAILY #90 tab 12/15/20 12/27/20 Rx pantoprazole 40 mg tablet,delayed 40 mg PO BID #60 tab 12/24/20 12/27/20 Rx release Past Med/Surg History Medical History (Updated 12/27/20 @ 20:57 by Peyman Guallpa MD) Atherosclerosis of aorta Atrial fibrillation with RVR follows with Dr. Zelaya Atrial flutter, paroxysmal Bilateral occipital neuralgia Cervical osteoarthritis Chronic anticoagulation Chronic back pain Chronic maxillary sinusitis Chronic obstructive pulmonary disease Chronic rhinitis Degenerative disc disease Depression Dyslipidemia GERD (gastroesophageal reflux disease) History of lung cancer 2017--right History of lung cancer History of pulmonary embolism Iron deficiency anemia Lumbar compression fracture L2, L3, L4 Lumbar spinal stenosis Lumbar spondylosis O2 dependent CARIN (obstructive sleep apnea) 2L N/C at HS or prn Osteoporosis Paroxysmal SVT (supraventricular tachycardia) Pulmonary hypertension Restrictive lung disease Thoracic compression fracture Tubular adenoma of colon Surgical History H/O tubal ligation History of appendectomy History of bilateral cataract extraction History of cardiac cath x3 with no stents History of cholecystectomy History of colonoscopy History of esophagogastroduodenoscopy (EGD) 12/13/20 Dr. Pancho Powell History of hemorrhoidectomy History of tooth extraction all upper, most of lower Previous back surgery S/P lobectomy of lung Right upper Family History Mother Heart disease Myocardial infarction Sister Valvular heart disease Sinusitis Other No family history of adverse response to anesthesia Denies family history of Ovarian cancer Prostate cancer Breast cancer Colorectal cancer Social History (Updated 12/27/20 @ 18:37 by Peyman Guallpa MD) Smoking Status: Former smoker Tobacco Type: Cigarettes packs per day: 1; Years Smoked: 40; Number of Years Since Quit: 40; Second Hand Exposure: No; Hx Alcohol Use: No Hx Substance Use: No Preferred Language: Nigerien Communication Ability: Effective Visual Impairment: Limited Hearing Ability: Normal Pillar Man Required: No Beliefs That Will Affect Care: None marital status: Current Living Situation: Spouse current occupational status: retired Feels Safe at Home: Yes Dental Care, Regularly: No Physical Activity Frequency: Daily Seatbelt Use: always Sunscreen Use: No Assistive Devices: Denture - Upper, Denture - Lower, Glasses, Oxygen - Continuous and Walker Review of Systems Review of Systems: Constitutional: Denies fever, chills, weight change. + fatigue. Eyes: Denies blurry vision, vision changes ENT: Denies sore throat, sinus pain Cardiovascular: Denies chest pain, chest pressure, palpitations, extremity swelling Respiratory: Denies shortness of breath, cough, sputum production, difficulty breathing Gastrointestinal: Denies abdominal pain, nausea, vomiting, constipation, diarrhea. + melena Genitourinary: Denies urinary symptoms including dysuria Musculoskeletal: Denies weakness, muscle aches/pain, joint aches/pain Integumentary: Denies rash, bruises Neurological: Chronic paresthesias lateral R leg. Chronic headache, not new. Physical Exam Physical Exam: General: A&Ox4. NAD. Cooperative. HEENT: Atraumatic, normocephalic. EOMI. PERRL. No mucosal pallor. No LAD. Neck supple. MMM. Pulm: CTAB. -wheezes, -rales, -rhonchi. Symmetrical chest rise. No respiratory distress. Cardiac: RRR, -mrg. Radial pulses intact and symmetrical. Trace LE edema on left. Normal cap refill. Abdominal: Very slight diffuse discomfort on palpation, nondistended, soft. +BS. Results & Data Results & Data ([facility]) Vital Signs (Past 12 Hours) Vital Signs Temp Pulse Resp BP Pulse Ox 12/27/20 16:25 36.8 C 79 20 93/57 L 93 Code Status & VTE Plan Code Status DNR/DNI VTE Prophylaxis Plan VTE Prophylaxis will be ordered: Yes Reason for no VTE drug order: Contraindicated Supervising Physician Co-Signing Physician Notes Patient seen and examined, chart reviewed, case discussed with Dr. Guallpa and I agree with his assessment and plan as documented above. Briefly, patient is a 75yo C female with history of PAF and prior PE on Eliquis anticoagulation, prior UGIB secondary to GAVE s/p argon plasma coagulation presenting with recurrent fatigue and melena. Patient was instructed to resume her Eliquis and did so. Has had dark/melenic stools today. No NSAID use. No ASA or EtOH use. On exam she is afebrile, HD stable, NAD Skin - mild conjunctival pallor, no rash HEENT -NC/AT, PERRL, EOMI, Neck supple, no JVD Heart - +S1/S2, regular Lungs - CTA Abd - soft, NT/ND Ext - No edema Labs and images reviewed. Hgb=7.9, Hct=25.4, SUY=857.4 Elevated BUN=26 FOBT + Assessment/Plan - suspect recurrent bleed from GAVE in setting of Eliquis anticoagulation. Patient hemodynamically stable. -Admit to PCU -Maintain two large bore PIVs -Transfuse 2u PRBCs -Trend CBC -Protonix 40mg IV BID -GI consultation appreciated -Remainder of plan per Dr. Guallpa's note above Resident Activity Tracking Resident Involvement: Resident Care Provided Care Provided: Adult Hospital Medicine (1) Iron deficiency anemia Iron deficiency anemia type: other iron deficiency Qualified Code(s): D50.8 - Other iron deficiency anemias (2) Chronic obstructive pulmonary disease COPD type: unspecified COPD Qualified Code(s): J44.9 - Chronic obstructive pulmonary disease, unspecified
[2020-12-27] MEDS ORDERED: ONDANSETRON 4 MG OD TAB PO PRN (23:36)
[2020-12-28] MEDS: ACETAMINOPHEN 325 MG TAB PO PRN ×3 (00:16→20:12)
[2020-12-28] MEDS: GABAPENTIN 300 MG CAP PO SCH ×4 (00:16→20:14)
[2020-12-28] MEDS: FLECAINIDE ACETATE 100 MG TABLET PO SCH ×2 (00:17→12:10)
--- NOTE | 2020-12-28 01:27 | Emergency Department Note ---
History of Present Illness General Chief complaint: Abnormal Labs/Diagnostic Testing Stated complaint: DOC REF- NEEDS BLOOD TRANSFUSION Time Seen by Provider: 12/27/20 16:37 Source: patient and RN notes reviewed Mode of arrival: ambulatory Limitations: no limitations History of Present Illness Provider complaint: Needs blood transfusion Maximum Pain Intensity: 9 This patient is a 75-year-old female who presents emergency department stating she was sent by her physician for blood transfusion. The patient has a history of GI bleed and had laboratory work with low blood count results. She states she had a hemoglobin of 7.6. Patient states she is on Eliquis secondary to atrial fibrillation but also has a history of pulmonary hypertension. She was told by her senior web developer, Dr. Zelaya, not to stop her Eliquis. Patient does wear home oxygen. She states she has seen only flecks of blood in her stool. She denies any grossly bloody bowel movements. She denies any chest pain, abdominal pain, nausea. She states she had an endoscopy done during her previous hospitalization and the source of bleeding was cauterized. Home Medications Medication Instructions Recorded Confirmed Type ascorbic acid (vitamin C) 500 mg 500 m PO QAM cap 04/03/18 12/31/20 History capsule calcium carbonate 500 mg calcium 500 mg PO QAM tab 04/03/18 12/31/20 History (1,250 mg) tablet cholecalciferol (vitamin D3) 1,000 unit PO QAM 08/30/18 12/31/20 History [Vitamin D3] diphenhydramine-acetaminophen 1 tab PO HS 08/30/18 12/31/20 History [Tylenol PM Extra Strength] triamcinolone acetonide 0.1 % 1 appln TOPICAL DAILY PRN #1 gm 03/14/19 12/31/20 History topical cream Oxygen Home #1 ea 04/07/19 12/31/20 Rx mometasone-formoterol HFA 200 2 puffs INH Q12H #13 gm 08/05/19 12/31/20 Rx mcg-5 mcg/actuation aerosol inhaler sertraline 50 mg tablet 50 mg PO QAM #90 tab 05/05/20 12/31/20 Rx metoprolol succinate 50 mg 50 mg PO DAILY #180 tab 05/13/20 12/31/20 Rx tablet,extended release 24 hr benzonatate 200 mg capsule 200 mg PO TID PRN 07/01/20 12/31/20 History flecainide 100 mg tablet 100 mg PO Q12H #180 tab 08/25/20 12/31/20 Rx ondansetron HCl 4 mg tablet 4 mg PO Q8H PRN 09/21/20 12/31/20 History selexipag 1,200 mcg tablet 1,200 mcg PO BID #60 tab 09/21/20 12/31/20 Rx valacyclovir 500 mg tablet 1,000 mg PO BID PRN #30 tab 09/21/20 12/31/20 Rx gabapentin 300 mg capsule 300 mg PO TID #90 cap 11/01/20 12/31/20 Rx tramadol 50 mg tablet 50 mg PO TID PRN #90 tab 11/19/20 12/31/20 Rx potassium chloride 10 mEq 10 meq PO QAM #90 cap 11/22/20 12/31/20 Rx capsule,extended release tadalafil 20 mg tablet 40 mg PO DAILY tab 11/25/20 12/31/20 History multivitamin 1 tab PO DAILY 12/10/20 12/31/20 History torsemide 10 mg PO 3XWK 12/10/20 12/31/20 History simvastatin 20 mg tablet 20 mg PO DAILY #90 tab 12/15/20 12/31/20 Rx pantoprazole 40 mg tablet,delayed 40 mg PO BID #60 tab 12/24/20 12/31/20 Rx release apixaban 5 mg tablet 5 mg PO BID #60 tab 12/30/20 12/31/20 Rx Wheelchair (Manual or Powered) See Rx Instructions .ROUTE 12/31/20 12/31/20 Rx .COMPLEX #1 ea Allergies Allergy/AdvReac Type Severity Reaction Status Date / Time ciprofloxacin Allergy Mild RASH Verified 12/31/20 14:56 cephalexin Allergy Unknown UNKNOWN Verified 12/31/20 14:56 doxycycline Allergy Unknown RASH Verified 12/31/20 14:56 Egg Derived Allergy Unknown HIVES Verified 12/31/20 14:56 Influenza Virus Vaccines Allergy Unknown ALLERGIES Verified 12/31/20 14:56 TO EGGS Nitrate Analogues Allergy Unknown UNABLE TO Verified 12/31/20 14:56 HAVE R/T PULMONARY HTN Penicillins Allergy Unknown RASH Verified 12/31/20 14:56 tetanus toxoid, adsorbed Allergy Unknown TETANUS-DIPTHERIA Verified 12/31/20 14:56 TOXOID-RASH codeine AdvReac Unknown GI SYMPTOMS Verified 12/31/20 14:56 diphenhydramine AdvReac Unknown UNABLE TO Verified 12/31/20 14:56 HAVE R/T PULMONARY HTN hydrocodone AdvReac Unknown N/V Verified 12/31/20 14:56 pseudoephedrine AdvReac Unknown UNABLE TO Verified 12/31/20 14:56 HAVE COLD MEDICATIONS R/T PULMONARY HTN Past Med/Surg History Medical History Atherosclerosis of aorta Atrial fibrillation with RVR follows with Dr. Zelaya Atrial flutter, paroxysmal Bilateral occipital neuralgia Cervical osteoarthritis Chronic anticoagulation Chronic back pain Chronic maxillary sinusitis Chronic obstructive pulmonary disease Chronic rhinitis Degenerative disc disease Depression Dyslipidemia GERD (gastroesophageal reflux disease) History of lung cancer 2017--right History of lung cancer History of pulmonary embolism Iron deficiency anemia Lumbar compression fracture L2, L3, L4 Lumbar spinal stenosis Lumbar spondylosis O2 dependent CARIN (obstructive sleep apnea) 2L N/C at HS or prn Osteoporosis Paroxysmal SVT (supraventricular tachycardia) Pulmonary hypertension Restrictive lung disease Thoracic compression fracture Tubular adenoma of colon Surgical History H/O tubal ligation History of appendectomy History of bilateral cataract extraction History of cardiac cath x3 with no stents History of cholecystectomy History of colonoscopy History of esophagogastroduodenoscopy (EGD) 12/13/20 Dr. Pancho Powell History of hemorrhoidectomy History of tooth extraction all upper, most of lower Previous back surgery S/P lobectomy of lung Right upper Family History Mother Heart disease Myocardial infarction Sister Valvular heart disease Sinusitis Other No family history of adverse response to anesthesia Denies family history of Ovarian cancer Prostate cancer Breast cancer Colorectal cancer Social History Smoking Status: Former smoker Tobacco Type: Cigarettes packs per day: 1; Years Smoked: 40; Number of Years Since Quit: 40; Second Hand Exposure: No; Hx Alcohol Use: No Hx Substance Use: No Preferred Language: Slovak Communication Ability: Effective Visual Impairment: Limited Hearing Ability: Normal Senior Sas Developer Required: No Beliefs That Will Affect Care: None marital status: Current Living Situation: Spouse current occupational status: retired Feels Safe at Home: Yes Dental Care, Regularly: No Physical Activity Frequency: Daily Seatbelt Use: always Sunscreen Use: No Assistive Devices: Oxygen - Continuous Review of Systems See HPI for pertinent positives & negatives. and A total of 10 systems reviewed and were otherwise negative Physical Exam Vital Signs Vital Signs - 24 hr 12/27/20 16:25 12/27/20 18:17 12/27/20 19:49 Temperature 36.8 C Temperature Source Temporal Artery Scan Pulse Rate 79 68 69 Pulse Rate from SpO2 Sensor 70 69 Pulse Rhythm Regular Pulse Strength Normal Respiratory Rate 20 14 18 Respiratory Effort / Characteristics Non-Labored Spontaneous Respiratory Depth Normal Respiratory Pattern Regular Blood Pressure 93/57 L 114/63 108/59 L Blood Pressure Mean 69 80 75 Blood Pressure Position Pulse Oximetry 93 98 97 Oxygen Delivery Method Room Air Sepsis Recent Fever Within 48 Hours No Sepsis New/Unexplained Change in Mental Status No Sepsis Action Taken by Nursing No Action Required 12/27/20 19:53 12/27/20 20:00 12/27/20 20:20 Temperature 36.8 C 37.2 C 36.1 C L Temperature Source Oral Oral Oral Pulse Rate 68 Pulse Rate from SpO2 Sensor 68 Pulse Rhythm Regular Pulse Strength Normal Respiratory Rate 20 Respiratory Effort / Characteristics Respiratory Depth Respiratory Pattern Blood Pressure 108/61 Blood Pressure Mean 76 Blood Pressure Position Lying Pulse Oximetry 99 Oxygen Delivery Method Sepsis Recent Fever Within 48 Hours Sepsis New/Unexplained Change in Mental Status Sepsis Action Taken by Nursing 12/27/20 20:30 Temperature Temperature Source Pulse Rate 68 Pulse Rate from SpO2 Sensor 66 Pulse Rhythm Pulse Strength Respiratory Rate 16 Respiratory Effort / Characteristics Respiratory Depth Respiratory Pattern Blood Pressure 106/64 Blood Pressure Mean 78 Blood Pressure Position Pulse Oximetry 98 Oxygen Delivery Method Sepsis Recent Fever Within 48 Hours Sepsis New/Unexplained Change in Mental Status Sepsis Action Taken by Nursing Vital signs reviewed. General: Chronically ill-appearing 75-year-old female, in no significant distress. HEENT: Pale conjunctiva, PERRLA, neck supple. Atraumatic. Cardiovascular: Regular rate and rhythm, no extra sounds. Pulmonary: Clear to auscultation bilaterally, normal work of breathing. Nasal cannula oxygen in place Abdomen: Soft, nontender, nondistended, positive bowel sounds. Musculoskeletal: Atraumatic, no peripheral edema. Rectal: Heme positive, dark stool, normal mucosa Neurologic: Patient awake alert and oriented x 3 Skin: Warm, dry, no rash, pale in appearance Course Administered Medications Discontinued Medications Acetaminophen (Acetaminophen 325 Mg Tab) 650 mg PO Q4H PRN PRN Reason: Pain or Fever Stop: 01/26/21 23:23 Last Admin: 12/29/20 02:19 Dose: 650 mg Documented by: [id number] Admin: 12/28/20 20:12 Dose: 650 mg Documented by: [id number] Admin: 12/28/20 09:01 Dose: 650 mg Documented by: [id number] Admin: 12/28/20 00:16 Dose: 650 mg Documented by: [id number] Flecainide Acetate (Flecainide Acetate 100 Mg Tablet) 100 mg PO Q12H DANIS Stop: 01/27/21 00:00 Last Admin: 12/29/20 00:33 Dose: 100 mg Documented by: [id number] Admin: 12/28/20 12:10 Dose: 100 mg Documented by: [id number] Admin: 12/28/20 00:17 Dose: 100 mg Documented by: [id number] Fluticasone/Vilanterol (Fluticasone/Vilanterol 100/25mcg 14 Puffs/Inhaler) 1 puffs INH DAILY DANIS; Protocol Stop: 01/27/21 08:59 Last Admin: 12/29/20 08:16 Dose: 1 puffs Documented by: [id number] Admin: 12/28/20 08:56 Dose: 1 puffs Documented by: [id number] Gabapentin (Gabapentin 300 Mg Cap) 300 mg PO TID DANIS Stop: 01/27/21 00:00 Last Admin: 12/29/20 08:17 Dose: 300 mg Documented by: [id number] Admin: 12/28/20 20:14 Dose: 300 mg Documented by: [id number] Admin: 12/28/20 13:27 Dose: 300 mg Documented by: [id number] Admin: 12/28/20 08:55 Dose: 300 mg Documented by: [id number] Admin: 12/28/20 00:16 Dose: 300 mg Documented by: [id number] Pantoprazole Sodium 80 mg/ (Dextrose) 100 mls @ 400 mls/hr IV NOW ONE Stop: 12/27/20 16:51 Last Infusion: 12/27/20 21:58 Dose: 0 mls/hr Documented by: [id number] Admin: 12/27/20 20:54 Dose: 400 mls/hr Documented by: [id number] Pantoprazole Sodium 40 mg/ (Syringe) 10 mls @ 5 mls/min IV BID [facility] Stop: 01/27/21 08:59 Last Admin: 12/29/20 08:16 Dose: 5 mls/min Documented by: [id number] Admin: 12/28/20 20:13 Dose: 5 mls/min Documented by: [id number] Admin: 12/28/20 08:55 Dose: 5 mls/min Documented by: [id number] Lactated Ringer's (Lr) 1,000 mls @ 100 mls/hr IV .Q10H DANIS Stop: 12/28/20 19:59 Last Infusion: 12/28/20 18:08 Dose: 0 mls/hr Documented by: [id number] Infusion: 12/28/20 15:00 Dose: 0 mls/hr Documented by: [id number] Admin: 12/28/20 12:10 Dose: 100 mls/hr Documented by: [id number] Infusion: 12/28/20 12:10 Dose: 100 mls/hr Documented by: [id number] Admin: 12/28/20 02:37 Dose: 100 mls/hr Documented by: [id number] Lidocaine HCl (Lidocaine Hcl 2% 2 Ml Vial/Amp(20mg/Ml)) Confirm Administered Dose 4 ml INFIL .STK-MED ONE Stop: 12/28/20 16:16 Last Admin: 12/28/20 17:37 Dose: Not Given Documented by: [id number] Metoprolol Succinate (Metoprolol Succ 50mg Ext Rel Tab) 50 mg PO DAILY [facility] Stop: 01/27/21 08:59 Last Admin: 12/29/20 08:17 Dose: 50 mg Documented by: [id number] Admin: 12/28/20 08:55 Dose: 50 mg Documented by: [id number] Miscellaneous (*Tadalafil*Order Awaiting Action) 1 ea N/A QS [facility] Stop: 01/27/21 00:00 Last Admin: 12/28/20 08:30 Dose: Not Given Documented by: [id number] Admin: 12/28/20 00:58 Dose: Not Given Documented by: [id number] Miscellaneous (*Selexipag*Order Awaiting Action) 1 ea N/A QS [facility] Stop: 01/27/21 00:00 Last Admin: 12/28/20 08:30 Dose: Not Given Documented by: [id number] Admin: 12/28/20 00:58 Dose: Not Given Documented by: [id number] Potassium Chloride (Potassium Chloride 10 Meq Tabcr) 10 meq PO QAM [facility] Stop: 01/27/21 08:59 Last Admin: 12/29/20 08:16 Dose: 10 meq Documented by: [id number] Admin: 12/28/20 08:56 Dose: 10 meq Documented by: [id number] Propofol (Propofol Iv Emulsion 10 Mg/Ml 20 Ml Vial) Confirm Administered Dose 200 mg IV .STK-MED ONE Stop: 12/28/20 16:16 Last Admin: 12/28/20 17:37 Dose: Not Given Documented by: [id number] Selexipag (Selexipag 1200 Mcg Tablet) 1 ea PO BID [facility] Stop: 01/27/21 12:29 Last Admin: 12/29/20 08:17 Dose: 1 ea Documented by: [id number] Admin: 12/28/20 20:17 Dose: 1 ea Documented by: [id number] Admin: 12/28/20 12:09 Dose: 1 ea Documented by: [id number] Sertraline HCl (Sertraline Hcl 50 Mg Tablet) 50 mg PO [facility] Stop: 01/27/21 08:59 Last Admin: 12/29/20 08:16 Dose: 50 mg Documented by: [id number] Admin: 12/28/20 08:56 Dose: 50 mg Documented by: [id number] Simvastatin (Simvastatin 20 Mg Tab) 20 mg PO DAILY [facility] Stop: 01/27/21 08:59 Last Admin: 12/29/20 08:16 Dose: 20 mg Documented by: [id number] Admin: 12/28/20 08:56 Dose: 20 mg Documented by: [id number] Torsemide (Torsemide 10 Mg Tab) 10 mg PO MoWeFr@0900 [facility] Stop: 01/28/21 08:59 Last Admin: 12/29/20 08:16 Dose: 10 mg Documented by: [id number] Tramadol HCl (Tramadol Hcl 50 Mg Tablet) 50 mg PO TID PRN PRN Reason: pain Stop: 01/26/21 23:23 Last Admin: 12/29/20 02:19 Dose: 50 mg Documented by: [id number] Admin: 12/28/20 20:12 Dose: 50 mg Documented by: [id number] Admin: 12/28/20 09:01 Dose: 50 mg Documented by: [id number] Critical Care Time Critical Care Time: Yes I have personally spent greater than 35 minutes of critical care time in the direct management of this patient. This includes bedside care, interpretation of diagnostic studies, and testing, discussion with consultants, patient, and family members, and other required patient management activities. This 35 minutes is in excess of all separately billable procedures. Medical Decision Making Differential Diagnosis Diverticulosis, AVM, coagulopathy, colitis, inflammatory bowel disease, malignancy, Jaja-Aquino tear, esophagitis, peptic ulcer disease, variceal bleed, gastritis, epistaxis, fissure, hemorrhoids, as well as other pathologies. Medical Records Attestation: I reviewed the patient's medical records. Home Medications Current Medication List: was personally reviewed by me Laboratory Data Attestation: I reviewed the patient's lab results. Result diagrams: 12/29/20 07:32 12/29/20 07:32 Lab Results 12/27/20 12/27/20 12/27/20 Range/Units 16:58 16:58 16:58 WBC 5.25 (4.8-10.8) K/uL RBC 2.48 L (4.2-5.4) M/uL Hgb 7.9 L (12.0-16.0) g/dL Hct 25.4 L (37-47) % MCV 102.4 H (80-100) fL MCH 31.9 (25-34) pg MCHC 31.1 L (32-36) g/dL RDW Std Deviation 57.5 H (36.4-46.3) fL RDW Coeff of Tank 15.5 H (11.5-14.5) % Plt Count 279 (130-400) K/uL MPV 8.8 (7.4-10.4) fL Immature Gran % (Auto) 0.2 % Neut % (Auto) 69.7 % Lymph % (Auto) 18.1 % [place] % (Auto) 8.0 % Eos % (Auto) 3.4 % Baso % (Auto) 0.6 % Neut # (Auto) 3.66 (1.4-6.5) K/uL Lymph # (Auto) 0.95 L (1.2-3.4) K/uL [place] # (Auto) 0.42 (0.11-0.59) K/uL Eos # (Auto) 0.18 (0-0.5) K/uL Baso # (Auto) 0.03 (0-0.2) K/uL Immature Gran # (Auto) 0.01 (0.00-0.02) K/uL Giant Platelets 1+ PT 11.0 (9.0-12.0) Seconds INR 1.1 (0.9-1.1) APTT 26.6 (21.0-31.0) Seconds PTT Ratio 1.0 Sodium (136-145) mmol/L Potassium (3.5-5.1) mmol/L Chloride (98-107) mmol/L Carbon Dioxide (21-32) mmol/L Anion Gap (3-11) BUN (7-18) mg/dl Creatinine (0.6-1.2) mg/dl Est Cr Clr Drug Dosing Est GFR ( Amer) ml/min Est GFR (Non-Af Amer) ml/min BUN/Creatinine Ratio (10-20) Glucose (70-99) mg/dl Calcium (8.5-10.1) mg/dl Total Bilirubin (0.2-1) mg/dl AST (15-37) U/L ALT (12-78) U/L Alkaline Phosphatase (45-117) U/L Total Protein (6.4-8.2) gm/dl Albumin (3.4-5.0) gm/dl Globulin (2.5-4.0) gm/dl Albumin/Globulin Ratio (0.9-2) COVID-19 Eval Order SARS-CoV-2 (PCR) (Negative) Blood Type B Positive Antibody Screen NEGATIVE Crossmatch See Detail 12/27/20 12/27/20 12/27/20 Range/Units 16:58 19:15 19:15 WBC (4.8-10.8) K/uL RBC (4.2-5.4) M/uL Hgb (12.0-16.0) g/dL Hct (37-47) % MCV (80-100) fL MCH (25-34) pg MCHC (32-36) g/dL RDW Std Deviation (36.4-46.3) fL RDW Coeff of Tank (11.5-14.5) % Plt Count (130-400) K/uL MPV (7.4-10.4) fL Immature Gran % (Auto) % Neut % (Auto) % Lymph % (Auto) % [place] % (Auto) % Eos % (Auto) % Baso % (Auto) % Neut # (Auto) (1.4-6.5) K/uL Lymph # (Auto) (1.2-3.4) K/uL [place] # (Auto) (0.11-0.59) K/uL Eos # (Auto) (0-0.5) K/uL Baso # (Auto) (0-0.2) K/uL Immature Gran # (Auto) (0.00-0.02) K/uL [place] Platelets PT (9.0-12.0) Seconds INR (0.9-1.1) APTT (21.0-31.0) Seconds PTT Ratio Sodium 140 (136-145) mmol/L Potassium 4.4 (3.5-5.1) mmol/L Chloride 105 (98-107) mmol/L Carbon Dioxide 29 (21-32) mmol/L Anion Gap 6.0 (3-11) BUN 34 H (7-18) mg/dl Creatinine 1.17 (0.6-1.2) mg/dl Est Cr Clr Drug Dosing Not Reportable Est GFR ( Amer) 52.1 ml/min Est GFR (Non-Af Amer) 44.9 ml/min BUN/Creatinine Ratio 29.1 H (10-20) Glucose 112 H (70-99) mg/dl Calcium 9.1 (8.5-10.1) mg/dl Total Bilirubin 0.2 (0.2-1) mg/dl AST 24 (15-37) U/L ALT 24 (12-78) U/L Alkaline Phosphatase 66 (45-117) U/L Total Protein 6.8 (6.4-8.2) gm/dl Albumin 3.3 L (3.4-5.0) gm/dl Globulin 3.5 (2.5-4.0) gm/dl Albumin/Globulin Ratio 0.9 (0.9-2) COVID-19 Eval Order Covid19 at [facility] SARS-CoV-2 (PCR) NEGATIVE (Negative) Blood Type Antibody Screen Crossmatch ECG Data Attestation: I personally reviewed and interpreted this ECG as follows: Indication: + other (GIB) Rate (beats per minute): 72 Rhythm: + sinus rhythm ECG Intervals/blocks: + First degree AV block and + Prolonged QT (464) ECG Findings: + Q waves (Inferior, anterior) and + Other (Left atrial enlargement) Blood Pressure Blood Pressure Findings: Low blood pressure Blood Pressure Disposition: further management by hospitalist NI Narrative This patient was evaluated and appeared to be in no significant distress. IV access was obtained and laboratory work was drawn. An order for cardiac monitoring was placed and patient is noted to be in a sinus rhythm with a first- degree AV block at 68 bpm. Blood pressure was periodically low. Laboratory work was reviewed. Patient was confirmed to have a hemoglobin of 7.9. IV Protonix bolus was ordered. Patient was consented and a blood transfusion was ordered. Patient was typed and crossed for 1 unit. Impression & Plan Acute GI bleeding, Pulmonary hypertension, Paroxysmal A-fib, ABLA (acute blood loss anemia) Discharge Plan Visit Data Chief Complaint: Abnormal Labs/Diagnostic Testing Stated Complaint: DOC REF- NEEDS BLOOD TRANSFUSION ED Provider: Soraida Osorio Discharge Problem: Acute GI bleeding, Pulmonary hypertension, Paroxysmal A-fib, ABLA (acute blood loss anemia) Patient Disposition: Admitted As Inpatient Condition: Good Discharge Instructions Interventions: ED Discharge Assessment Last Done: 12/27/20 22:14
[2020-12-28] MEDS: LACTATED RINGER'S 1,000 ML IV SCH ×2 (02:37→12:10)
[2020-12-28 06:06] LABS: Basophils # (auto) 0.03 K/uL (0-0.2); Basophils % (auto) 0.7 %; Eosinophils # (auto) 0.23 K/uL (0-0.5); Eosinophils % (auto) 5.5 %; Hematocrit (blood only) 29.7 % (37-47); Hemoglobin 9.6 g/dL (12.0-16.0); Immature Granulocytes # (auto) 0.01 K/uL (0.00-0.02); Immature Granulocytes % (auto) 0.2 %; Lymphocytes % (auto) 23.8 %; Mean Corpuscular Hemoglobin 32.4 pg (25-34); Mean Corpuscular Hgb Conc 32.3 g/dL (32-36); Mean Corpuscular Volume 100.3 fL (80-100); Mean Platelet Volume 9.6 fL (7.4-10.4); Monocytes # (auto) 0.45 K/uL (0.11-0.59); Monocytes % (auto) 10.7 %; Neutrophils # (auto) 2.49 K/uL (1.4-6.5); Neutrophils % (auto) 59.1 %; Platelet Count 254 K/uL (130-400); RDW Coefficient of Variation 17.6 % (11.5-14.5); RDW Standard Deviation 62.7 fL (36.4-46.3); Red Blood Count 2.96 M/uL (4.2-5.4); White Blood Count 4.21 K/uL (4.8-10.8)
[2020-12-28 06:19] LABS: BUN Creatinine Ratio 28.3 (10-20); Calcium 8.4 mg/dl (8.5-10.1); Creatinine Clr Calc Pharmacy 47.9 ml/min; Est GFR (African American) 67.8 ml/min; Est GFR (Non-African American) 58.5 ml/min; Potassium 4.2 mmol/L (3.5-5.1)
--- NOTE | 2020-12-28 06:36 | Billing Data ---
Date of Service December 27, 2020 Coding Level of Care Code 17025 Initial Inpt Care Lvl 3
[2020-12-28] MEDS: PANTOprazole 40 MG in SYRINGE 0 ML IV SCH ×2 (08:55→20:13)
[2020-12-28] MEDS: METOPROLOL SUCC 50MG EXT REL TAB PO SCH (08:55)
[2020-12-28] MEDS: FLUTICASONE/VILANTEROL 100/25MCG 14 PUFFS/INHALER INH SCH (08:56)
[2020-12-28] MEDS: SERTRALINE HCL 50 MG TABLET PO SCH (08:56)
[2020-12-28] MEDS: POTASSIUM CHLORIDE 10 MEQ TABCR PO SCH (08:56)
[2020-12-28] MEDS: SIMVASTATIN 20 MG TAB PO SCH (08:56)
[2020-12-28] MEDS: traMADol HCL 50 MG TABLET PO PRN ×2 (09:01→20:12)
--- NOTE | 2020-12-28 10:15 | Gastrointestinal Consultation ---
Date of Consultation December 28, 2020 Assessment & Plan (1) Acute blood loss anemia: (2) GAVE (gastric antral vascular ectasia): Patient is a 75 y.o. female with a history of GAVE and recent GIB admitted with symptomatic, acute blood loss anemia. 1. NPO for now. 2. EGD with likely APC by Dr. Powell today. 3. Continue Pantoprazole 40 mg IV BID. 4. Additional recommendations will be made pending results of testing. Thank you for allowing us to participate in the care of this very pleasant p atient. If you have any questions or concerns, please do not hesitate to contact us. Supervising Physician Co-Signing Physician Notes I personally evaluated the patient and agree with the findings as documented by KAUSHIK Hickey Exam: abd: soft, nt, nd Proceed with EGD. risks/benefits and procedure discussed with patient, who agrees to proceed History of Present Illness Reason for Consultation: UGIB Requesting Physician: Dr. Guallpa Attending Physician: Forrest Garcia DO History of Present Illness Patient is a very pleasant 75 y.o. female with a history of GAVE recently admitted to the hospital and had undergone a therapeutic EGD with APC by Dr. Powell. Upon hospital discharge, she was evaluated by me in the office. At that time, she was reporting no further melanotic stools but was reporting persistent fatigue symptoms. She had resumed Eliquis as advised. She states, however, that over the past few days she began to have very dark stools again despite continuing twice daily PPI therapy. In addition, she reports associated progressively worsened fatigue, mild abdominal discomfort and dizziness upon standing. Hgb was checked yesterday by her PCP and was noted to be 7.8. After review, she was instructed to return to the hospital for ongoing medical management. Upon admission, she did receive 2 units of PRBCs. H&H this morning is noted to be 9.6/29.7. She is currently NPO and has been switched to Pantoprazole 40 mg IV BID. Allergies Allergy/AdvReac Type Severity Reaction Status Date / Time ciprofloxacin Allergy Mild RASH Verified 12/27/20 17:58 cephalexin Allergy Unknown UNKNOWN Verified 12/27/20 17:58 doxycycline Allergy Unknown RASH Verified 12/27/20 17:58 Egg Derived Allergy Unknown HIVES Verified 12/27/20 17:58 Influenza Virus Vaccines Allergy Unknown ALLERGIES Verified 12/27/20 17:58 TO EGGS Nitrate Analogues Allergy Unknown UNABLE TO Verified 12/27/20 17:58 HAVE R/T PULMONARY HTN Penicillins Allergy Unknown RASH Verified 12/27/20 17:58 tetanus toxoid, adsorbed Allergy Unknown TETANUS-DIPTHERIA Verified 12/27/20 17:58 TOXOID-RASH codeine AdvReac Unknown GI SYMPTOMS Verified 12/27/20 17:58 diphenhydramine AdvReac Unknown UNABLE TO Verified 12/27/20 17:58 HAVE R/T PULMONARY HTN hydrocodone AdvReac Unknown N/V Verified 12/27/20 17:58 pseudoephedrine AdvReac Unknown UNABLE TO Verified 12/27/20 17:58 HAVE COLD MEDICATIONS R/T PULMONARY HTN Home Medications Medication Instructions Recorded Confirmed Type ascorbic acid (vitamin C) 500 mg 500 m PO QAM cap 04/03/18 12/27/20 History capsule calcium carbonate 500 mg calcium 500 mg PO QAM tab 04/03/18 12/27/20 History (1,250 mg) tablet cholecalciferol (vitamin D3) 1,000 unit PO QAM 08/30/18 12/27/20 History [Vitamin D3] diphenhydramine-acetaminophen 1 tab PO HS 08/30/18 12/27/20 History [Tylenol PM Extra Strength] triamcinolone acetonide 0.1 % 1 appln TOPICAL DAILY PRN #1 gm 03/14/19 12/27/20 History topical cream Oxygen Home #1 ea 04/07/19 12/24/20 Rx mometasone-formoterol HFA 200 2 puffs INH Q12H #13 gm 08/05/19 12/27/20 Rx mcg-5 mcg/actuation aerosol inhaler sertraline 50 mg tablet 50 mg PO QAM #90 tab 05/05/20 12/27/20 Rx metoprolol succinate 50 mg 50 mg PO DAILY #180 tab 05/13/20 12/27/20 Rx tablet,extended release 24 hr apixaban 5 mg tablet 5 mg PO BID #180 tab 05/19/20 12/27/20 Rx benzonatate 200 mg capsule 200 mg PO TID PRN 07/01/20 12/27/20 History flecainide 100 mg tablet 100 mg PO Q12H #180 tab 08/25/20 12/27/20 Rx ondansetron HCl 4 mg tablet 4 mg PO Q8H PRN 09/21/20 12/27/20 History selexipag 1,200 mcg tablet 1,200 mcg PO BID #60 tab 09/21/20 12/27/20 Rx valacyclovir 500 mg tablet 1,000 mg PO BID PRN #30 tab 09/21/20 12/27/20 Rx gabapentin 300 mg capsule 300 mg PO TID #90 cap 11/01/20 12/27/20 Rx tramadol 50 mg tablet 50 mg PO TID PRN #90 tab 11/19/20 12/27/20 Rx potassium chloride 10 mEq 10 meq PO QAM #90 cap 11/22/20 12/27/20 Rx capsule,extended release Transport Wheelchair #1 ea 11/23/20 12/24/20 Rx tadalafil 20 mg tablet 40 mg PO DAILY tab 11/25/20 12/27/20 History multivitamin 1 tab PO DAILY 12/10/20 12/27/20 History torsemide 10 mg PO 3XWK 12/10/20 12/27/20 History simvastatin 20 mg tablet 20 mg PO DAILY #90 tab 12/15/20 12/27/20 Rx pantoprazole 40 mg tablet,delayed 40 mg PO BID #60 tab 12/24/20 12/27/20 Rx release Patient History Medical History Atherosclerosis of aorta Atrial fibrillation with RVR follows with Dr. Zelaya Atrial flutter, paroxysmal Bilateral occipital neuralgia Cervical osteoarthritis Chronic anticoagulation Chronic back pain Chronic maxillary sinusitis Chronic obstructive pulmonary disease Chronic rhinitis Degenerative disc disease Depression Dyslipidemia GERD (gastroesophageal reflux disease) History of lung cancer 2017--right History of lung cancer History of pulmonary embolism Iron deficiency anemia Lumbar compression fracture L2, L3, L4 Lumbar spinal stenosis Lumbar spondylosis O2 dependent CARIN (obstructive sleep apnea) 2L N/C at HS or prn Osteoporosis Paroxysmal SVT (supraventricular tachycardia) Pulmonary hypertension Restrictive lung disease Thoracic compression fracture Tubular adenoma of colon Surgical History H/O tubal ligation History of appendectomy History of bilateral cataract extraction History of cardiac cath x3 with no stents History of cholecystectomy History of colonoscopy History of esophagogastroduodenoscopy (EGD) 12/13/20 Dr. Pancho Powell History of hemorrhoidectomy History of tooth extraction all upper, most of lower Previous back surgery S/P lobectomy of lung Right upper Family History Mother Heart disease Myocardial infarction Sister Valvular heart disease Sinusitis Other No family history of adverse response to anesthesia Denies family history of Ovarian cancer Prostate cancer Breast cancer Colorectal cancer Social History Smoking Status: Former smoker Tobacco Type: Cigarettes packs per day: 1; Years Smoked: 40; Number of Years Since Quit: 40; Second Hand Exposure: No; Hx Alcohol Use: No Hx Substance Use: No Preferred Language: Dutch Communication Ability: Effective Visual Impairment: Limited Hearing Ability: Normal Tyre Retreader Required: No Beliefs That Will Affect Care: None marital status: Current Living Situation: Spouse current occupational status: retired Feels Safe at Home: Yes Dental Care, Regularly: No Physical Activity Frequency: Daily Seatbelt Use: always Sunscreen Use: No Assistive Devices: Denture - Upper, Denture - Lower, Glasses, Oxygen - Continuous and Walker Review of Systems Review of Systems: All systems reviewed & are unremarkable except as noted in HPI & below Physical Exam Constitutional: WD/WN, vitals as above well developed; no acute distress Eyes: EOM intact bilaterally Neck: normal visual inspection Respiratory: normal respiratory effort, lungs clear to auscultation Cardiovascular: Rate/Rhythm: regular rate and regular rhythm Gastrointestinal (Abdomen): Inspection/Auscultation: normal bowel sounds Percussion/Palpation: abdomen soft; abdomen nontender Musculoskeletal: Extremities: extremities normal to inspection Psychiatric: A+Ox3, euthymic affect Results & Data ([facility]) Vital Signs (Past 12 Hours) Vital Signs Temp Pulse Pulse Resp BP BP BP 12/28/20 08:14 36.3 C L 60 19 106/63 12/28/20 08:00 81 12/28/20 06:48 36.4 C L 63 18 109/71 12/28/20 02:26 36.4 C L 63 18 109/71 12/28/20 01:26 36.5 C 64 18 90/45 L 12/28/20 00:56 36.4 C L 65 18 89/45 L 12/28/20 00:41 36.6 C 67 20 96/58 L 12/28/20 00:25 36.5 C 68 24 117/73 12/28/20 00:12 36.5 C 91 H 24 117/73 12/27/20 23:45 36.4 C L 68 18 141/84 H 12/27/20 23:00 36.6 C 68 20 85/46 L Pulse Ox 12/28/20 08:14 97 12/28/20 08:00 12/28/20 06:48 99 12/28/20 02:26 99 12/28/20 01:26 99 12/28/20 00:56 98 12/28/20 00:41 99 12/28/20 00:25 12/28/20 00:12 91 12/27/20 23:45 96 12/27/20 23:00 99 Laboratory Results Abnormal lab results 12/27/20 12/27/20 12/27/20 Range/Units 16:58 16:58 16:58 WBC (4.8-10.8) K/uL RBC 2.48 L (4.2-5.4) M/uL Hgb 7.9 L (12.0-16.0) g/dL Hct 25.4 L (37-47) % MCV 102.4 H (80-100) fL MCHC 31.1 L (32-36) g/dL RDW Std Deviation 57.5 H (36.4-46.3) fL RDW Coeff of Tank 15.5 H (11.5-14.5) % Lymph # (Auto) 0.95 L (1.2-3.4) K/uL BUN 34 H (7-18) mg/dl BUN/Creatinine Ratio 29.1 H (10-20) Glucose 112 H (70-99) mg/dl Calcium (8.5-10.1) mg/dl Albumin 3.3 L (3.4-5.0) gm/dl Stool Occult Bld Scrn (Negative) Crossmatch See Detail 12/28/20 12/28/20 12/28/20 Range/Units 01:00 05:22 05:22 WBC 4.21 L (4.8-10.8) K/uL RBC 2.96 L (4.2-5.4) M/uL Hgb 9.6 L (12.0-16.0) g/dL Hct 29.7 L (37-47) % MCV 100.3 H (80-100) fL MCHC (32-36) g/dL RDW Std Deviation 62.7 H (36.4-46.3) fL RDW Coeff of Tank 17.6 H (11.5-14.5) % Lymph # (Auto) 1.00 L (1.2-3.4) K/uL BUN 26 H (7-18) mg/dl BUN/Creatinine Ratio 28.3 H (10-20) Glucose (70-99) mg/dl Calcium 8.4 L (8.5-10.1) mg/dl Albumin (3.4-5.0) gm/dl Stool Occult Bld Scrn Positive A (Negative) Crossmatch PG Care Time/CCT Total # of Minutes Spent Total Time Spent with Patient: Total time spent is greater than 50% in cooler service supervisor rdination of care (as documented) at patient's floor/unit and/or counseling patient: Coding Level of Care Code 36111 Initial Inpt Care Lvl 3 Diagnoses Acute blood loss anemia D62 GAVE (gastric antral vascular ectasia) K31.819
[2020-12-28] MEDS: SELEXIPAG PO SCH ×3 (12:09→20:17)
--- NOTE | 2020-12-28 16:03 | Anesthesiology Consultation ---
Date of Service December 28, 2020 Assessment & Plan (1) Encounter for pre-operative examination: Chart Review Chart Review: Acceptable Risk for Surgery and Patient NOT seen in Pre Admission Testing Consults Requested none History Surgery Operation Date: 12/28/20 16:45 Proposed Procedures p Esophagogastroduodenoscopy Dr. Powell - Pancho Powell MD Height/Weight Height: 5 ft 3 in Weight: 72.7 kg Allergies Allergy/AdvReac Type Severity Reaction Status Date / Time ciprofloxacin Allergy Mild RASH Verified 12/28/20 15:27 cephalexin Allergy Unknown UNKNOWN Verified 12/28/20 15:27 doxycycline Allergy Unknown RASH Verified 12/28/20 15:27 Egg Derived Allergy Unknown HIVES Verified 12/28/20 15:27 Influenza Virus Vaccines Allergy Unknown ALLERGIES Verified 12/28/20 15:27 TO EGGS Nitrate Analogues Allergy Unknown UNABLE TO Verified 12/28/20 15:27 HAVE R/T PULMONARY HTN Penicillins Allergy Unknown RASH Verified 12/28/20 15:27 tetanus toxoid, adsorbed Allergy Unknown TETANUS-DIPTHERIA Verified 12/28/20 15:27 TOXOID-RASH codeine AdvReac Unknown GI SYMPTOMS Verified 12/28/20 15:27 diphenhydramine AdvReac Unknown UNABLE TO Verified 12/28/20 15:27 HAVE R/T PULMONARY HTN hydrocodone AdvReac Unknown N/V Verified 12/28/20 15:27 pseudoephedrine AdvReac Unknown UNABLE TO Verified 12/28/20 15:27 HAVE COLD MEDICATIONS R/T PULMONARY HTN Medications Home Medications Medication Instructions Recorded Confirmed Last Taken ascorbic acid (vitamin C) 500 mg 500 m PO QAM cap 04/03/18 12/27/20 12/27/20 capsule calcium carbonate 500 mg calcium 500 mg PO QAM tab 04/03/18 12/27/20 12/27/20 (1,250 mg) tablet cholecalciferol (vitamin D3) 1,000 unit PO QAM 08/30/18 12/27/20 12/27/20 [Vitamin D3] diphenhydramine-acetaminophen 1 tab PO HS 08/30/18 12/27/20 12/26/20 [Tylenol PM Extra Strength] triamcinolone acetonide 0.1 % 1 appln TOPICAL DAILY PRN #1 gm 03/14/19 12/27/20 Unknown topical cream Oxygen Home #1 ea 04/07/19 12/24/20 09/10/19 mometasone-formoterol HFA 200 2 puffs INH Q12H #13 gm 08/05/19 12/27/20 12/27/20 08:00 mcg-5 mcg/actuation aerosol inhaler sertraline 50 mg tablet 50 mg PO QAM #90 tab 05/05/20 12/27/20 12/27/20 metoprolol succinate 50 mg 50 mg PO DAILY #180 tab 05/13/20 12/27/20 12/27/20 tablet,extended release 24 hr apixaban 5 mg tablet 5 mg PO BID #180 tab 05/19/20 12/27/20 12/27/20 08:00 benzonatate 200 mg capsule 200 mg PO TID PRN 07/01/20 12/27/20 Unknown flecainide 100 mg tablet 100 mg PO Q12H #180 tab 08/25/20 12/27/20 12/27/20 08:00 ondansetron HCl 4 mg tablet 4 mg PO Q8H PRN 09/21/20 12/27/20 Unknown selexipag 1,200 mcg tablet 1,200 mcg PO BID #60 tab 09/21/20 12/27/20 12/27/20 08:00 valacyclovir 500 mg tablet 1,000 mg PO BID PRN #30 tab 09/21/20 12/27/20 Unknown gabapentin 300 mg capsule 300 mg PO TID #90 cap 11/01/20 12/27/20 12/27/20 08:00 tramadol 50 mg tablet 50 mg PO TID PRN #90 tab 11/19/20 12/27/20 Unknown potassium chloride 10 mEq 10 meq PO QAM #90 cap 11/22/20 12/27/20 12/27/20 capsule,extended release Transport Wheelchair #1 ea 11/23/20 12/24/20 Unknown tadalafil 20 mg tablet 40 mg PO DAILY tab 11/25/20 12/27/20 12/27/20 multivitamin 1 tab PO DAILY 12/10/20 12/27/20 12/27/20 torsemide 10 mg PO 3XWK 12/10/20 12/27/20 12/27/20 simvastatin 20 mg tablet 20 mg PO DAILY #90 tab 12/15/20 12/27/20 12/27/20 pantoprazole 40 mg tablet,delayed 40 mg PO BID #60 tab 12/24/20 12/27/20 12/27/20 08:00 release Active Medications Generic Name Dose Route Start Last Admin Trade Name Amrit PRN Reason Stop Dose Admin Acetaminophen 650 mg 12/27/20 23:24 12/28/20 09:01 Acetaminophen 325 Mg Tab PO 01/26/21 23:23 650 mg Q4H PRN Administration Pain or Fever Flecainide Acetate 100 mg 12/28/20 00:00 12/28/20 12:10 Flecainide Acetate 100 Mg Tablet PO 01/27/21 00:00 100 mg Q12H DANIS Administration Fluticasone/Vilanterol 1 puffs 12/28/20 09:00 12/28/20 08:56 Fluticasone/Vilanterol 100/25mcg 14 Puffs/Inhaler INH 01/27/21 08:59 1 puffs DAILY DANIS Administration Protocol Gabapentin 300 mg 12/28/20 00:00 12/28/20 13:27 Gabapentin 300 Mg Cap PO 01/27/21 00:00 300 mg TID DANIS Administration Pantoprazole Sodium 40 mg/ 10 mls @ 5 mls/min 12/28/20 09:00 12/28/20 08:55 Syringe IV 01/27/21 08:59 5 mls/min BID DANIS Administration Lactated Ringer's 1,000 mls @ 100 mls/hr 12/28/20 00:00 12/28/20 12:10 Lr IV 12/28/20 19:59 100 mls/hr .Q10H DANIS Administration Metoprolol Succinate 50 mg 12/28/20 09:00 12/28/20 08:55 Metoprolol Succ 50mg Ext Rel Tab PO 01/27/21 08:59 50 mg DAILY DANIS Administration Potassium Chloride 10 meq 12/28/20 09:00 12/28/20 08:56 Potassium Chloride 10 Meq Tabcr PO 01/27/21 08:59 10 meq QAM DANIS Administration Selexipag 1 ea 12/28/20 12:30 12/28/20 12:09 Selexipag 1200 Mcg Tablet PO 01/27/21 12:29 1 ea BID DANIS Administration Sertraline HCl 50 mg 12/28/20 09:00 12/28/20 08:56 Sertraline Hcl 50 Mg Tablet PO 01/27/21 08:59 50 mg QAM DANIS Administration Simvastatin 20 mg 12/28/20 09:00 12/28/20 08:56 Simvastatin 20 Mg Tab PO 01/27/21 08:59 20 mg DAILY DANIS Administration Tramadol HCl 50 mg 12/27/20 23:24 12/28/20 09:01 Tramadol Hcl 50 Mg Tablet PO 01/26/21 23:23 50 mg TID PRN Administration pain NPO Date Last Intake of Fluids: 12/27/20 Time Last Intake of Fluids: 23:50 Date Last Intake of Solids: 12/27/20 Time Last Intake of Solids: 23:50 Past Medical History Medical History Atherosclerosis of aorta Atrial fibrillation with RVR follows with Dr. Zelaya Atrial flutter, paroxysmal Bilateral occipital neuralgia Cervical osteoarthritis Chronic anticoagulation Chronic back pain Chronic maxillary sinusitis Chronic obstructive pulmonary disease Chronic rhinitis Degenerative disc disease Depression Dyslipidemia GERD (gastroesophageal reflux disease) History of lung cancer 2017--right History of lung cancer History of pulmonary embolism Iron deficiency anemia Lumbar compression fracture L2, L3, L4 Lumbar spinal stenosis Lumbar spondylosis O2 dependent CARIN (obstructive sleep apnea) 2L N/C at HS or prn Osteoporosis Paroxysmal SVT (supraventricular tachycardia) Pulmonary hypertension Restrictive lung disease Thoracic compression fracture Tubular adenoma of colon Past Family History Family History Mother Heart disease Myocardial infarction Sister Valvular heart disease Sinusitis Other No family history of adverse response to anesthesia Denies family history of Ovarian cancer Prostate cancer Breast cancer Colorectal cancer Past Surgical History Surgical History H/O tubal ligation History of appendectomy History of bilateral cataract extraction History of cardiac cath x3 with no stents History of cholecystectomy History of colonoscopy History of esophagogastroduodenoscopy (EGD) 12/13/20 Dr. Pancho Powell History of hemorrhoidectomy History of tooth extraction all upper, most of lower Previous back surgery S/P lobectomy of lung Right upper Social History Smoking Status: Former smoker tobacco type: cigarettes Hx Alcohol Use: No Alcohol type: wine alcohol intake frequency: a few times a month Hx Substance Use: No substance use type: does not use Physical Exam Vital Signs Last Vital Signs Temp 36.6 C 12/28/20 15:28 Pulse 68 12/28/20 15:28 Resp 16 12/28/20 15:28 BP 119/56 L 12/28/20 15:28 Pulse Ox 92 12/28/20 15:28 Testing Laboratory Results 12/28/20 05:22 12/28/20 05:22 PT 11.0 Seconds (9.0-12.0) 12/27/20 16:58 INR 1.1 (0.9-1.1) 12/27/20 16:58 APTT 26.6 Seconds (21.0-31.0) 12/27/20 16:58 Blood Type B Positive 12/27/20 16:58 Antibody Screen NEGATIVE 12/27/20 16:58 Electrocardiogram Date: 12/10/20 Findings: + NSR @ (99 bpm w/1st degree AVB)
[2020-12-28] MEDS ORDERED: LIDOCAINE 2% 2 ML VIAL/AMP(20MG/ML) INFIL ONE (16:15)
[2020-12-28] MEDS ORDERED: PROPOFOL IV EMULSION 10 MG/ML 20 ML VIAL IV ONE (16:15)
--- NOTE | 2020-12-28 16:16 | Hospitalist Progress Note ---
Date of Service December 28, 2020 Assessment & Plan (1) Iron deficiency anemia: also, acute blood loss anemia from GI bleeding, GAVE Hb up to 9.6 after two units transfused check h/h in AM (2) Melena: no further bleeding melena due to GAVE, see below (3) GAVE (gastric antral vascular ectasia): seen again on EGD on 12/28, treated with APC continue Protonix 40mg BID need to hold Eliquis x 1 week (4) CAD (coronary artery disease): no chest pain, vitals stable continue to hold Eliquis continue Toprol and Zocor (5) Paroxysmal atrial fibrillation: continue Flecainide holding Eliquis (6) Pulmonary hypertension: (7) Chronic anticoagulation: (8) Chronic obstructive pulmonary disease: lungs clear, no distress continue inhalers (9) Depression: (10) Chronic back pain: Admission and Anticipated Discharge Date Admission Date: December 27, 2020 Subjective patient seen in holding area prior to EGD very calm and comfortable, no further melena today Hb up to 9.6 from 7.9 after two units given on admission no hematemesis vitals stable, no abdominal pain, no chest pain, no dyspnea, no cough d/w Dr. Powell, appreciate his management on EGD he found GAVE, treated with APC, will need repeat EGD in 4 weeks, recommends holding Eliquis x 1 week I updated her after the EGD Review of Systems Review of Systems: All systems reviewed & are unremarkable except as noted in Subjective Constitutional: no fever, no fatigue and no weakness Respiratory: no cough and no dyspnea Cardiovascular: no chest pain and no edema Gastrointestinal: no abdominal pain, no nausea, no vomiting, no constipation and no diarrhea/loose stools Physical Exam Constitutional: WD/WN, vitals as above Neck: trachea midline, no thyromegaly Respiratory: normal respiratory effort, lungs clear to auscultation Cardiovascular: RRR, no murmur, no edema Gastrointestinal (Abdomen): normal bowel sounds, soft, nontender, no hepatosplenomegaly Musculoskeletal: no cyanosis or clubbing, extremities motor strength 5/5 Skin: no rashes, warm and dry Neurologic: patellar DTR's 2+ bilat, sensation intact and PERRL, EOMI, accommodation nl, no face palsy, no dysarthria Psychiatric: A+Ox3, euthymic affect Lymphatic: no cervical or axillary lymphadenopathy Results & Data Results & Data ([facility]) Vital Signs (Past 12 Hours) Vital Signs Temp Pulse Pulse Resp BP BP Pulse Ox 12/28/20 15:28 36.6 C 68 16 119/56 L 92 12/28/20 11:49 36.8 C 64 18 113/66 97 12/28/20 08:14 36.3 C L 60 19 106/63 97 12/28/20 08:00 81 12/28/20 06:48 36.4 C L 63 18 109/71 99 Laboratory Results Laboratory Results - last 24 hr 12/27/20 12/27/20 12/27/20 16:58 16:58 16:58 WBC 5.25 RBC 2.48 L Hgb 7.9 L Hct 25.4 L MCV 102.4 H MCH 31.9 MCHC 31.1 L RDW Std Deviation 57.5 H RDW Coeff of Tank 15.5 H Plt Count 279 MPV 8.8 Immature Gran % (Auto) 0.2 Neut % (Auto) 69.7 Lymph % (Auto) 18.1 Cooper % (Auto) 8.0 Eos % (Auto) 3.4 Baso % (Auto) 0.6 Neut # (Auto) 3.66 Lymph # (Auto) 0.95 L Cooper # (Auto) 0.42 Eos # (Auto) 0.18 Baso # (Auto) 0.03 Immature Gran # (Auto) 0.01 Giant Platelets 1+ PT 11.0 INR 1.1 APTT 26.6 PTT Ratio 1.0 Sodium Potassium Chloride Carbon Dioxide Anion Gap BUN Creatinine Est Cr Clr Drug Dosing Est GFR ( Amer) Est GFR (Non-Af Amer) BUN/Creatinine Ratio Glucose Calcium Total Bilirubin AST ALT Alkaline Phosphatase Total Protein Albumin Globulin Albumin/Globulin Ratio Stool Occult Bld Scrn COVID-19 Eval Order SARS-CoV-2 (PCR) Blood Type B Positive Antibody Screen NEGATIVE Crossmatch See Detail 12/27/20 12/27/20 12/27/20 16:58 19:15 19:15 WBC RBC Hgb Hct MCV MCH MCHC RDW Std Deviation RDW Coeff of Tank Plt Count MPV Immature Gran % (Auto) Neut % (Auto) Lymph % (Auto) Cooper % (Auto) Eos % (Auto) Baso % (Auto) Neut # (Auto) Lymph # (Auto) Cooper # (Auto) Eos # (Auto) Baso # (Auto) Immature Gran # (Auto) Giant Platelets PT INR APTT PTT Ratio Sodium 140 Potassium 4.4 Chloride 105 Carbon Dioxide 29 Anion Gap 6.0 BUN 34 H Creatinine 1.17 Est Cr Clr Drug Dosing Not Reportable Est GFR ( Amer) 52.1 Est GFR (Non-Af Amer) 44.9 BUN/Creatinine Ratio 29.1 H Glucose 112 H Calcium 9.1 Total Bilirubin 0.2 AST 24 ALT 24 Alkaline Phosphatase 66 Total Protein 6.8 Albumin 3.3 L Globulin 3.5 Albumin/Globulin Ratio 0.9 Stool Occult Bld Scrn COVID-19 Eval Order Covid19 at [facility] SARS-CoV-2 (PCR) NEGATIVE Blood Type Antibody Screen Crossmatch 12/28/20 12/28/20 12/28/20 01:00 05:22 05:22 WBC 4.21 L RBC 2.96 L Hgb 9.6 L Hct 29.7 L MCV 100.3 H MCH 32.4 MCHC 32.3 RDW Std Deviation 62.7 H RDW Coeff of Tank 17.6 H Plt Count 254 MPV 9.6 Immature Gran % (Auto) 0.2 Neut % (Auto) 59.1 Lymph % (Auto) 23.8 Cooper % (Auto) 10.7 Eos % (Auto) 5.5 Baso % (Auto) 0.7 Neut # (Auto) 2.49 Lymph # (Auto) 1.00 L Cooper # (Auto) 0.45 Eos # (Auto) 0.23 Baso # (Auto) 0.03 Immature Gran # (Auto) 0.01 Giant Platelets PT INR APTT PTT Ratio Sodium 141 Potassium 4.2 Chloride 106 Carbon Dioxide 32 Anion Gap 3.0 BUN 26 H Creatinine 0.94 Est Cr Clr Drug Dosing 47.9 Est GFR ( Amer) 67.8 Est GFR (Non-Af Amer) 58.5 BUN/Creatinine Ratio 28.3 H Glucose 77 Calcium 8.4 L Total Bilirubin AST ALT Alkaline Phosphatase Total Protein Albumin Globulin Albumin/Globulin Ratio Stool Occult Bld Scrn Positive A COVID-19 Eval Order SARS-CoV-2 (PCR) Blood Type Antibody Screen Crossmatch Medications Administered Current Inpatient Medications Acetaminophen (Acetaminophen 325 Mg Tab) 650 mg PO Q4H PRN PRN Reason: Pain or Fever Stop: 01/26/21 23:23 Last Admin: 12/28/20 09:01 Dose: 650 mg Documented by: Flecainide Acetate (Flecainide Acetate 100 Mg Tablet) 100 mg PO Q12H [facility] Stop: 01/27/21 00:00 Last Admin: 12/28/20 12:10 Dose: 100 mg Documented by: Fluticasone/Vilanterol (Fluticasone/Vilanterol 100/25mcg 14 Puffs/Inhaler) 1 puffs INH DAILY [facility]; Protocol Stop: 01/27/21 08:59 Last Admin: 12/28/20 08:56 Dose: 1 puffs Documented by: Gabapentin (Gabapentin 300 Mg Cap) 300 mg PO TID [facility] Stop: 01/27/21 00:00 Last Admin: 12/28/20 13:27 Dose: 300 mg Documented by: Pantoprazole Sodium 40 mg/ (Syringe) 10 mls @ 5 mls/min IV BID [facility] Stop: 01/27/21 08:59 Last Admin: 12/28/20 08:55 Dose: 5 mls/min Documented by: Lactated Ringer's (Lr) 1,000 mls @ 100 mls/hr IV .Q10H [facility] Stop: 12/28/20 19:59 Last Admin: 12/28/20 12:10 Dose: 100 mls/hr Documented by: Metoprolol Succinate (Metoprolol Succ 50mg Ext Rel Tab) 50 mg PO DAILY [facility] Stop: 01/27/21 08:59 Last Admin: 12/28/20 08:55 Dose: 50 mg Documented by: Ondansetron HCl (Ondansetron 4 Mg Od Tab) 4 mg PO Q8H PRN PRN Reason: Nausea And Vomiting Stop: 01/26/21 23:35 Potassium Chloride (Potassium Chloride 10 Meq Tabcr) 10 meq PO QAM [facility] Stop: 01/27/21 08:59 Last Admin: 12/28/20 08:56 Dose: 10 meq Documented by: Selexipag (Selexipag 1200 Mcg Tablet) 1 ea PO BID [facility] Stop: 01/27/21 12:29 Last Admin: 12/28/20 12:09 Dose: 1 ea Documented by: Sertraline HCl (Sertraline Hcl 50 Mg Tablet) 50 mg PO QAM [facility] Stop: 01/27/21 08:59 Last Admin: 12/28/20 08:56 Dose: 50 mg Documented by: Simvastatin (Simvastatin 20 Mg Tab) 20 mg PO DAILY [facility] Stop: 01/27/21 08:59 Last Admin: 12/28/20 08:56 Dose: 20 mg Documented by: Torsemide (Torsemide 10 Mg Tab) 10 mg PO MoWeFr@0900 [facility] Stop: 01/28/21 08:59 Tramadol HCl (Tramadol Hcl 50 Mg Tablet) 50 mg PO TID PRN PRN Reason: pain Stop: 01/26/21 23:23 Last Admin: 12/28/20 09:01 Dose: 50 mg Documented by: PG Care Time/CCT Total # of Minutes Spent Total Time Spent with Patient: Total time spent is greater than 50% in coordination of care (as documented) at patient's floor/unit and/or counseling patient: Coding Level of Care Code 05466 Subseq Hosp Care Lvl 3 Diagnoses Iron deficiency anemia D50.8 Iron deficiency anemia type: other iron deficiency Melena K92.1 GAVE (gastric antral vascular ectasia) K31.819 CAD (coronary artery disease) I25.10 Paroxysmal atrial fibrillation I48.0 Pulmonary hypertension I27.20 Chronic anticoagulation Z79.01 Chronic obstructive pulmonary disease J44.9 COPD type: unspecified COPD Depression F32.9 Chronic back pain M54.9; G89.29 (1) Iron deficiency anemia Iron deficiency anemia type: other iron deficiency Qualified Code(s): D50.8 - Other iron deficiency anemias (2) Chronic obstructive pulmonary disease COPD type: unspecified COPD Qualified Code(s): J44.9 - Chronic obstructive pulmonary disease, unspecified
--- NOTE | 2020-12-28 16:44 | GI REPORT ---
Patient Name: Angela Parish Procedure Date: 12/28/2020 4:20 PM Date of : 1945 Admit Type: Inpatient Age: 75 Gender: Female Attending MD: Pancho Powell MD Procedure: Upper GI endoscopy Providers: Pancho Powell MD Referring MD: Iliana Goddard Indications: Unexplained iron deficiency anemia Medicines: Monitored Anesthesia Care Complications: No immediate complications. Estimated blood loss: None. Estimated Blood Loss: Estimated blood loss: none. Procedure: Pre-Anesthesia Assessment: - Prior Anticoagulants: The patient has taken Eliquis (apixaban). - ASA Grade Assessment: II - A patient with mild systemic disease. After obtaining informed consent, the endoscope was passed under direct vision. Throughout the procedure, the patient's blood pressure, pulse, and oxygen saturations were monitored continuously. The Endoscope was introduced through the mouth, and advanced to the second part of duodenum. The upper GI endoscopy was accomplished without difficulty. The patient tolerated the procedure well. Findings: The examined esophagus was normal. Severe gastric antral vascular ectasia was present in the gastric antrum. Coagulation for hemostasis using argon plasma at 1.2 liters/minute and 35 mabry was successful. Estimated blood loss: none. The duodenal bulb and second portion of the duodenum were normal. Impression: - Normal esophagus. - Gastric antral vascular ectasia. Treated with argon plasma coagulation (APC). - Normal duodenal bulb and second portion of the duodenum. - No specimens collected. Recommendation: - Return patient to [facility] for ongoing care. - Advance diet as tolerated today. -hold eliquis/anticoagulants fo 7 days - Repeat upper endoscopy in 4 weeks for retreatment. Pancho Powell MD 12/28/2020 4:44:25 PM This report has been signed electronically. Note Initiated On: 12/28/2020 4:20 PM Number of Addenda: 0 I attest to the content of the Intraoperative Record and orders documented therein, exceptions below {[id number]}
--- NOTE | 2020-12-28 17:04 | Anesthesiology Progress Note ---
Date of Service December 28, 2020 Anesthesia Post Procedure Vital Signs Vital Signs: Temp Pulse Pulse Resp BP BP BP 12/28/20 16:57 69 16 124/66 12/28/20 16:42 68 16 100/57 L 12/28/20 15:28 36.6 C 68 16 119/56 L 12/28/20 11:49 36.8 C 64 18 113/66 12/28/20 08:14 36.3 C L 60 19 106/63 12/28/20 08:00 81 12/28/20 06:48 36.4 C L 63 18 109/71 12/28/20 02:26 36.4 C L 63 18 109/71 12/28/20 01:26 36.5 C 64 18 90/45 L 12/28/20 00:56 36.4 C L 65 18 89/45 L 12/28/20 00:41 36.6 C 67 20 96/58 L 12/28/20 00:25 36.5 C 68 24 117/73 12/28/20 00:12 36.5 C 91 H 24 117/73 12/27/20 23:45 36.4 C L 68 18 141/84 H 12/27/20 23:00 36.6 C 68 20 85/46 L 12/27/20 21:46 36.2 C L 68 16 117/77 12/27/20 20:55 66 19 106/64 12/27/20 20:30 68 16 106/64 12/27/20 20:20 36.1 C L 12/27/20 20:00 37.2 C 68 20 108/61 12/27/20 19:53 36.8 C 12/27/20 19:49 69 18 108/59 L 12/27/20 18:17 68 14 114/63 Pulse Ox 12/28/20 16:57 95 12/28/20 16:42 94 12/28/20 15:28 92 12/28/20 11:49 97 12/28/20 08:14 97 12/28/20 08:00 12/28/20 06:48 99 12/28/20 02:26 99 12/28/20 01:26 99 12/28/20 00:56 98 12/28/20 00:41 99 12/28/20 00:25 12/28/20 00:12 91 12/27/20 23:45 96 12/27/20 23:00 99 12/27/20 21:46 97 12/27/20 20:55 98 12/27/20 20:30 98 12/27/20 20:20 12/27/20 20:00 99 12/27/20 19:53 12/27/20 19:49 97 12/27/20 18:17 98 Pain Intensity Back: Pain Intensity: 8 Transfer of Care Handoff Completed per policy Notes Mental Status: alert / awake / arousable Patient Amnestic to Procedure: Yes Nausea / Vomiting: adequately controlled Pain: adequately controlled Airway Patency, RR, SpO2: stable & adequate BP & HR: stable & adequate Hydration State: stable & adequate Anesthetic Complications: no major complications apparent
[2020-12-28 17:58] LABS: Basophils # (auto) 0.02 K/uL (0-0.2); Basophils % (auto) 0.4 %; Eosinophils # (auto) 0.18 K/uL (0-0.5); Hematocrit (blood only) 32.7 % (37-47); Hemoglobin 10.2 g/dL (12.0-16.0); Immature Granulocytes # (auto) 0.01 K/uL (0.00-0.02); Immature Granulocytes % (auto) 0.2 %; Lymphocytes # (auto) 0.76 K/uL (1.2-3.4); Mean Corpuscular Hemoglobin 30.9 pg (25-34); Mean Corpuscular Hgb Conc 31.2 g/dL (32-36); Mean Corpuscular Volume 99.1 fL (80-100); Mean Platelet Volume 9.2 fL (7.4-10.4); Monocytes # (auto) 0.34 K/uL (0.11-0.59); Monocytes % (auto) 7.6 %; Neutrophils # (auto) 3.17 K/uL (1.4-6.5); Neutrophils % (auto) 70.8 %; Platelet Count 243 K/uL (130-400); RDW Coefficient of Variation 17.2 % (11.5-14.5); RDW Standard Deviation 62.3 fL (36.4-46.3); White Blood Count 4.48 K/uL (4.8-10.8)
[2020-12-29] MEDS: FLECAINIDE ACETATE 100 MG TABLET PO SCH (00:33)
[2020-12-29] MEDS: traMADol HCL 50 MG TABLET PO PRN (02:19)
[2020-12-29] MEDS: ACETAMINOPHEN 325 MG TAB PO PRN (02:19)
--- NOTE | 2020-12-29 05:32 | Electrocardiogram Report ---
Test Reason : Blood Pressure : / mmHG Vent. Rate : 072 BPM Atrial Rate : 072 BPM P-R Int : 244 ms QRS Dur : 090 ms QT Int : 424 ms P-R-T Axes : 041 -16 015 degrees QTc Int : 464 ms Sinus rhythm with 1st degree A-V block Possible Left atrial enlargement Inferior infarct (cited on or before 27-DEC-2020) Anterior infarct , age undetermined Abnormal ECG When compared with ECG of 10-DEC-2020 11:58, Anterior infarct is now Present Nonspecific T wave abnormality, worse in Anterior leads QT has shortened Confirmed by Néstor Gilliland ([id number]) on 12/29/2020 5:32:14 AM Referred By: Iliana Goddard Confirmed By:Néstor Gilliland
[2020-12-29] MEDS: PANTOprazole 40 MG in SYRINGE 0 ML IV SCH (08:16)
[2020-12-29] MEDS: SIMVASTATIN 20 MG TAB PO SCH (08:16)
[2020-12-29] MEDS: POTASSIUM CHLORIDE 10 MEQ TABCR PO SCH (08:16)
[2020-12-29] MEDS: FLUTICASONE/VILANTEROL 100/25MCG 14 PUFFS/INHALER INH SCH (08:16)
[2020-12-29] MEDS: SERTRALINE HCL 50 MG TABLET PO SCH (08:16)
[2020-12-29] MEDS: METOPROLOL SUCC 50MG EXT REL TAB PO SCH (08:17)
[2020-12-29] MEDS: SELEXIPAG PO SCH (08:17)
[2020-12-29] MEDS: GABAPENTIN 300 MG CAP PO SCH (08:17)
[2020-12-29 08:36] LABS: Basophils # (auto) 0.01 K/uL (0-0.2); Basophils % (auto) 0.2 %; Eosinophils # (auto) 0.18 K/uL (0-0.5); Eosinophils % (auto) 4.5 %; Hematocrit (blood only) 32.7 % (37-47); Hemoglobin 10.2 g/dL (12.0-16.0); Immature Granulocytes # (auto) 0.01 K/uL (0.00-0.02); Immature Granulocytes % (auto) 0.2 %; Lymphocytes # (auto) 0.82 K/uL (1.2-3.4); Lymphocytes % (auto) 20.3 %; Mean Corpuscular Hemoglobin 30.7 pg (25-34); Mean Corpuscular Hgb Conc 31.2 g/dL (32-36); Mean Corpuscular Volume 98.5 fL (80-100); Monocytes # (auto) 0.34 K/uL (0.11-0.59); Monocytes % (auto) 8.4 %; Neutrophils # (auto) 2.67 K/uL (1.4-6.5); Neutrophils % (auto) 66.4 %; Platelet Count 241 K/uL (130-400); RDW Coefficient of Variation 16.9 % (11.5-14.5); RDW Standard Deviation 61.3 fL (36.4-46.3); Red Blood Count 3.32 M/uL (4.2-5.4); White Blood Count 4.03 K/uL (4.8-10.8)
[2020-12-29] MEDS ORDERED: TORSEMIDE 10 MG TAB PO SCH (09:00)
[2020-12-29 09:07] LABS: BUN Creatinine Ratio 24.2 (10-20); Calcium 8.5 mg/dl (8.5-10.1); Est GFR (African American) 92.1 ml/min; Est GFR (Non-African American) 79.4 ml/min; Potassium 3.9 mmol/L (3.5-5.1)
--- NOTE | 2020-12-29 09:15 | Discharge Summary ---
Date of Service December 29, 2020 Admission HPI Per Admitting Provider Angela Parish is a 75 y/o F w/ hx of AME, pulm HTN, pAF, PE on Eliquis w/ recent hosp admission for gastric antral vascular ectasia s/p argon plasma coagulation who presents w/ fatigue x 3 days and melena noticed today. Upon hospital discharge home on 12/14 (restarted Eliquis), patient's stool was dark brown, but not black and the fatigue had improved. She felt better until 2-3 days ago. There have been no other changes in her health. Patient functions independently at home. Back pain: Patient takes tramadol, ~4000mg Tylenol daily, and gabapentin. Denies NSAID use. She is on 2L home O2. Principal Diagnosis GI bleeding due to GAVE Discharge Exam Constitutional WD/WN, vitals as above Neck trachea midline, no thyromegaly Respiratory normal respiratory effort, lungs clear to auscultation Cardiovascular RRR, no murmur, no edema Gastrointestinal (Abdomen) normal bowel sounds, soft, nontender, no hepatosplenomegaly Musculoskeletal no cyanosis or clubbing, extremities motor strength 5/5 Skin no rashes, warm and dry Neurologic patellar DTR's 2+ bilat, sensation intact and PERRL, EOMI, accommodation nl, no face palsy, no dysarthria Psychiatric A+Ox3, euthymic affect Lymphatic no cervical or axillary lymphadenopathy Discharge Data Allergies Allergy/AdvReac Type Severity Reaction Status Date / Time ciprofloxacin Allergy Mild RASH Verified 12/28/20 15:27 cephalexin Allergy Unknown UNKNOWN Verified 12/28/20 15:27 doxycycline Allergy Unknown RASH Verified 12/28/20 15:27 Egg Derived Allergy Unknown HIVES Verified 12/28/20 15:27 Influenza Virus Vaccines Allergy Unknown ALLERGIES Verified 12/28/20 15:27 TO EGGS Nitrate Analogues Allergy Unknown UNABLE TO Verified 12/28/20 15:27 HAVE R/T PULMONARY HTN Penicillins Allergy Unknown RASH Verified 12/28/20 15:27 tetanus toxoid, adsorbed Allergy Unknown TETANUS-DIPTHERIA Verified 12/28/20 15:27 TOXOID-RASH codeine AdvReac Unknown GI SYMPTOMS Verified 12/28/20 15:27 diphenhydramine AdvReac Unknown UNABLE TO Verified 12/28/20 15:27 HAVE R/T PULMONARY HTN hydrocodone AdvReac Unknown N/V Verified 12/28/20 15:27 pseudoephedrine AdvReac Unknown UNABLE TO Verified 12/28/20 15:27 HAVE COLD MEDICATIONS R/T PULMONARY HTN Consultations 12/27/20 18:09 ED Decision to Admit Stat 12/27/20 23:24 Consult Gastroenterology Routine Procedures Performed Operation Date: 12/28/20 16:45 Actual Procedures p EGD Hemostasis - Pancho Powell MD Hospital Course (1) Iron deficiency anemia: also, acute blood loss anemia from GI bleeding, GAVE Hb up to 10.2 after two units transfused at time of admission blood pressure stable no further melena, stools are brown discharge to home (2) Melena: no further bleeding, brown stool this morning melena due to GAVE, see below (3) GAVE (gastric antral vascular ectasia): seen again on EGD on 12/28, treated with APC continue Protonix 40mg BID need to hold Eliquis x 1 week, this is okay with cardiology plan for repeat EGD in 4 weeks (4) CAD (coronary artery disease): no chest pain, vitals stable continue to hold Eliquis x 1 week continue Toprol and Zocor (5) Paroxysmal atrial fibrillation: continue Flecainide, in sinus rhythm on monitor holding Eliquis (6) Pulmonary hypertension: (7) Chronic anticoagulation: (8) Chronic obstructive pulmonary disease: lungs clear, no distress continue inhalers stable on 2L nasal canula which she wears at home (9) Depression: (10) Chronic back pain: Total Time Total Time Spent Total Time Spent (In Minutes): 32 Total Time Includes: Examination of the Patient, Discharge Planning, Medication Reconciliation and Communication With Other Providers (Dr. Powell, Dr. Zelaya) Discharge Plan Discharge Items Patient Disposition: Home - Self-Care Reason For Visit: R/O UGIB Discharge Diagnosis: GI bleeding due to GAVE Acute blood loss anemia Atrial fibrillation Condition on Discharge: Good Goals: hold Eliquis for 7 days follow up for repeat EGD in 4 weeks Activity: Resume your previous activity Non-emergency contact: Primary Care Provider and Systems Eng Call non-emergency contact if: you have any medication questions and your symptoms worsen Follow-up/Referrals: Iliana Goddard DO [Primary Care Provider] - (one week) Pancho Powell MD [Physician] - (4 weeks for repeat EGD and treatment for GAVE) Diet: Heart Healthy Addtl Attending Provider Instructions: Medications: - ELIQUIS: hold for 7 days, this was held on admission so you can resume on 01/04 in the morning GI bleeding from GAVE, this is resolved, treated with EGD and APC hemoglobin is stable at 10 and you had a brown stool this morning Dr. Powell would like to repeat EGD and treatment in 4 weeks please hold Eliquis until 01/04, I confirmed that this is okay with Dr. Zelaya, he is aware of the plan please continue on Protonix 40mg twice a day to reduce acid in stomach you can advance diet as tolerated at home, no restrictions please contact Dr. Powell's office if you have further melena (dark stools) prior to your scheduled follow up in 4 weeks Pending Studies at Discharge: No Stand-Alone Forms: My [facility] [employer], Smoking Cessation Medications and DC Order Prescriptions: Continued calcium carbonate [Calcium 500] 500 mg calcium (1,250 mg) tablet 500 mg PO QAM RF: 0 ascorbic acid (vitamin C) 500 mg capsule 500 m PO QAM RF: 0 sertraline [Zoloft] 50 mg tablet 50 mg PO QAM Qty: 90 RF: 1 metoprolol succinate 50 mg tablet extended release 24 hr 50 mg PO DAILY Qty: 180 RF: 0 flecainide 100 mg tablet 100 mg PO Q12H Qty: 180 RF: 3 gabapentin 300 mg capsule 300 mg PO TID Qty: 90 RF: 5 tramadol 50 mg tablet 50 mg PO TID PRN (Reason: pain) Qty: 90 RF: 0 potassium chloride 10 mEq capsule, extended release 10 meq PO QAM Qty: 90 RF: 1 (DME) Transport Wheelchair See Rx Instructions .Route .MEDSUPPLY Qty: 1 RF: 0 simvastatin 20 mg tablet 20 mg PO DAILY Qty: 90 RF: 1 benzonatate 200 mg capsule 200 mg PO TID PRN (Reason: Cough) RF: 0 selexipag 1,200 mcg tablet 1,200 mcg PO BID Qty: 60 RF: 0 ondansetron HCl [Zofran] 4 mg tablet 4 mg PO Q8H PRN (Reason: nausea and vomiting) RF: 0 valacyclovir [Valtrex] 500 mg tablet 1,000 mg PO BID PRN (Reason: Cold Sores) Qty: 30 RF: 1 tadalafil 20 mg tablet 40 mg PO DAILY RF: 0 pantoprazole 40 mg tablet,delayed release (DR/EC) 40 mg PO BID Qty: 60 RF: 2 Dulera 200-5 mcg/actuation HFA aerosol inhaler 2 puffs INH Q12H Qty: 13 RF: 11 triamcinolone acetonide 0.1 % cream 1 appln topical DAILY PRN (Reason: Itching) Qty: 1 RF: 0 (DME) Oxygen Home Liters Per Minute See Dose Instructions .ROUTE .MEDSUPPLY Qty: 1 RF: 0 diphenhydramine-acetaminophen [Tylenol PM Extra Strength] 25-500 mg Tablet 1 tab PO HS RF: 0 cholecalciferol (vitamin D3) [Vitamin D3] 1,000 unit Capsule 1,000 unit PO QAM RF: 0 multivitamin Tablet 1 tab PO DAILY RF: 0 torsemide 10 mg tablet 10 mg PO [id number] RF: 0 Discontinued Eliquis 5 mg tablet 5 mg PO BID Qty: 180 RF: 3 Discharge Orders: Discharge Order (Routine); Ordered 12/29/20 Ordered By: Forrest Garcia Admission Data Admit Date/Time: 12/27/20 20:47 Attending Provider: Forrest Garcia Admit Provider: Peyman Guallpa Primary Care Provider: Iliana Goddard Other Providers: Emery Joseph ; Pancho Powell Coding Level of Care Code D/C Day Management >30 mins Diagnoses Iron deficiency anemia D50.8 Iron deficiency anemia type: other iron deficiency Melena K92.1 GAVE (gastric antral vascular ectasia) K31.819 CAD (coronary artery disease) I25.10 Paroxysmal atrial fibrillation I48.0 Pulmonary hypertension I27.20 Chronic anticoagulation Z79.01 Chronic obstructive pulmonary disease J44.9 COPD type: unspecified COPD Depression F32.9 Chronic back pain M54.9; G89.29
== END 2020-12-29 10:19 | disposition home or self-care (01) | DRG 378 ==
LOC: ED 16:21 → 2S 20:47 → SUATTDRO 20:47 → 2S 22:14

== ENCOUNTER 2021-01-11 14:29 | Inpatient (IN) ==
[2021-01-11] MEDS ORDERED: SODIUM CHLORIDE 0.9% 500 ML IV ONE (15:47)
[2021-01-11 16:16] LABS: Basophils # (auto) 0.02 K/uL (0-0.2); Basophils % (auto) 0.4 %; Eosinophils # (auto) 0.17 K/uL (0-0.5); Eosinophils % (auto) 3.5 %; Hematocrit (blood only) 27.7 % (37-47); Hemoglobin 8.7 g/dL (12.0-16.0); Immature Granulocytes # (auto) 0.02 K/uL (0.00-0.02); Immature Granulocytes % (auto) 0.4 %; Lymphocytes # (auto) 0.97 K/uL (1.2-3.4); Lymphocytes % (auto) 20.3 %; Mean Corpuscular Hemoglobin 31.4 pg (25-34); Mean Corpuscular Hgb Conc 31.4 g/dL (32-36); Mean Platelet Volume 9.3 fL (7.4-10.4); Monocytes # (auto) 0.34 K/uL (0.11-0.59); Monocytes % (auto) 7.1 %; Neutrophils # (auto) 3.27 K/uL (1.4-6.5); Neutrophils % (auto) 68.3 %; Platelet Count 221 K/uL (130-400); RDW Coefficient of Variation 15.3 % (11.5-14.5); RDW Standard Deviation 55.5 fL (36.4-46.3); Red Blood Count 2.77 M/uL (4.2-5.4); Reticulocyte % 3.2 % (0.5-2.0); Reticulocytes # 0.09 10^6/uL (0.02-0.10); White Blood Count 4.79 K/uL (4.8-10.8)
--- NOTE | 2021-01-11 16:19 | XRay Report ---
SINGLE VIEW CHEST CLINICAL HISTORY: Atypical chest pain. FINDINGS: An AP, portable, upright chest radiograph is compared to study dated 09/28/2020 and correlate d with chest CT dated 03/24/2020. The examination is degraded by portable technique and patient rotatio n. The heart is top normal for projection noting atherosclerotic calcification of the thoracic aorta. Enlargement of the central pulmonary arteries is unchanged and suggests pulmonary artery hypertensio n. There is postoperative change and volume loss in the right lung with elevation of the right hemidi aphragm. Suture material projects over the right lung base. No airspace consolidation or large pleura l effusion is identified. Mild scarring/atelectasis is noted at the lung bases. No pneumothorax is se en. The skeletal structures are osteopenic. There is a compression deformity vertebroplasty change in the lower thoracic region. IMPRESSION: Chronic and postoperative changes as above with no acute cardiopulmonary abnormality. ACT 112: Negative or not required by law. Electronically signed by: Trav Willard M.D. 01/11/2021 4:18 PM
[2021-01-11 16:27] LABS: INR 1.1 (0.9-1.1); Partial Thromboplastin Ratio 1.1; Partial Thromboplastin Time 28.5 Seconds (21.0-31.0); Prothrombin Time 10.8 Seconds (9.0-12.0)
[2021-01-11] MEDS ORDERED: PANTOprazole 40 MG in SYRINGE 0 ML IV ONE (16:28)
[2021-01-11 16:32] LABS: Alanine Aminotransferase 20 U/L (12-78); Albumin Level 3.1 gm/dl (3.4-5.0); Aspartate Aminotransferase 21 U/L (15-37); BUN Creatinine Ratio 32.1 (10-20); Bilirubin Direct < 0.1 mg/dl (0-0.2); Blood Urea Nitrogen 31 mg/dl (7-18); Calcium 8.6 mg/dl (8.5-10.1); Carbon Dioxide 33 mmol/L (21-32); Chloride 107 mmol/L (98-107); Est GFR (African American) 65.3 ml/min; Est GFR (Non-African American) 56.3 ml/min; Glucose 87 mg/dl (70-99); Iron 41 mcg/dl (35-150); Lipase 147 U/L (73-393); Magnesium 2.2 mg/dl (1.8-2.4); Phosphorus 3.3 mg/dl (2.5-4.9); Potassium 4.6 mmol/L (3.5-5.1); Sodium 140 mmol/L (136-145)
[2021-01-11 16:37] LABS: Albumin Globulin Ratio 0.8 (0.9-2); Alkaline Phosphatase 76 U/L (45-117); Bilirubin,Total 0.2 mg/dl (0.2-1); Ferritin 225.6 ng/ml (8-388); Total Iron Binding Capacity 326 mcg/dl (250-450); Total Protein 7.1 gm/dl (6.4-8.2); Transferrin 255 mg/dl (200-360); Troponin I < 0.015 ng/ml (0-0.045)
--- NOTE | 2021-01-11 16:53 | Emergency Department Note ---
Impression & Plan Melena, UGI bleed, Anemia, Dizziness, On apixaban therapy ED Provider Note NAME: RASHAUN MCKAY AGE: 75 SEX: F ARRIVES VIA: Walk-In INFORMANT: Patient, ED PROVIDER(S): Gaudencio Cuellar MD CHIEF COMPLAINT: Black stool, weakness. Referred. PLAN: Disposition: Admit MEDICAL DECISION MAKING: The patient is a pleasant 75-year-old woman with a past medical history of atrial fibrillation on Eliquis, history of upper GI bleed, CAD, hypertension, hyperlipidemia, restrictive lung disease, CARIN who presents to the department accompanied by her with concern for recurrence of black/melanotic stools where they describe black diarrhea on Sunday initially and Sunday and then took Imodium with improvement in frequency since yesterday but however outpatient blood work that showed hemoglobin that declined from 10.7 on 01/03 down to 8.8 yesterday. Of note, the patient's MCV was 102. They report they were for the emergency department by their PCP and GI specialist. Patient does report feeling weak and lightheaded at times. She denies any syncopal episodes. She continues to take her Eliquis. She reports she is receiving IV iron infusions outpatient. She is not taking oral iron. Otherwise patient denies fevers, cough, congestion, vomiting, urinary symptoms. On arrival patient is fatigued appearing but no acute distress, afebrile with stable vital signs. She appears mildly pale. Abdomen is benign. Rectal exam demonstrates scant amount of black stool/melena that was Hemoccult positive. There is no large volume melena or gross hemorrhage. WBC 4.7 approximate recent range of values. Platelets within normal limits. H/H 8.7/27.7 essentially unchanged from yesterday. MCV is 100. Chemistry without metabolic acidosis. BUN 31 consistent with history of upper GI bleed. Electrolytes and LFTs unremarkable. Troponin negative/undetectable. COVID-19 PCR negative. Patient given IV protonix. Given anemia with recurrence of melena reasonable to admit for further management. Patient consented for blood transfusion if need however given hemodynamically stable and stable H/H, no indication for transfusion at this t barb. Patient and at bedside agree with plan for admission. Case was discussed with Dr. Mclain, [facility] hospitalist, who will evaluate the patient for admission. Triage Nursing notes reviewed and agree them. Prior medical records reviewed Vital Signs: reviewed and remarkable for no significant abnormalities Differential diagnosis: Diverticulosis, AVM, coagulopathy, colitis, inflammatory bowel disease, malignancy, Jaja-Aquino tear, esophagitis, peptic ulcer disease, variceal bleed, gastritis, epistaxis, fissure, hemorrhoids, as well as other pathologies. ER treatment provided: See below. Diagnostics interpreted by me: ECG: Sinus rhythm, 68 bpm, no ectopy, no overt ST elevation or depression. Cardiac Monitoring: An order for continuous cardiac monitoring was placed and demonstrated Sinus rhythm, 68 bpm, no ectopy. Laboratory studies: See below Imaging studies: See below Consultation(s): Case was discussed with Dr. Mclain, [facility] hospitalist, who will evaluate the patient for admission. HPI: The patient is a pleasant 75-year-old woman with a past medical history of atrial fibrillation on Eliquis, history of upper GI bleed, CAD, hypertension, hyperlipidemia, restrictive lung disease, CARIN who presents to the department accompanied by her with concern for recurrence of black/melanotic stools where they describe black diarrhea on Sunday initially and Sunday and then took Imodium with improvement in frequency since yesterday but however outpatient blood work that showed hemoglobin that declined from 10.7 on 01/03 down to 8.8 yesterday. Of note, the patient's MCV was 102. They report they were for the emergency department by their PCP and GI specialist. Patient does report feeling weak and lightheaded at times. She denies any syncopal episodes. She continues to take her Eliquis. She reports she is receiving IV iron infusions outpatient. She is not taking oral iron. Otherwise patient denies fevers, cough, congestion, vomiting, urinary symptoms. ROS: See above HPI for pertinent positives & negatives. A total of 10 systems reviewed and were otherwise negative. PAST MEDICAL HISTORY:See Below PAST SURGICAL HISTORY:See Below FAMILY HISTORY:See Below SOCIAL HISTORY:See Below HOME MEDICATIONS:See Below ALLERGIES:See Below VITALS:See Below PHYSICAL EXAMINATION: GENERAL: Awake, alert, fatigued-appearing, in no distress HENT: Normocephalic, atraumatic. Oropharynx with dry mucous membranes and otherwise unremarkable. EYES: Normal conjunctiva. Sclera non-icteric. NECK: Supple. No nuchal rigidity. FROM. No JVD. RESPIRATORY: Clear to auscultation. CARDIAC: Regular rate, irregular rhythm. Extremities warm and well perfused. Pulses equal. ABDOMEN: Soft, non-distended. No tenderness to palpation. No rebound or guarding. No masses. RECTAL: Scant black stool/melena. No large volume melena or hemorrhage. Hemoccult positive. MUSCULOSKELETAL: Chest examination reveals no tenderness. The back is symmetrical on inspection without obvious abnormality. There is no CVA tenderness to palpation. No joint edema. LOWER EXTREMITIES: Calves are equal size bilaterally and non-tender. No edema. No discoloration. NEURO: Normal sensorium. No sensory or motor deficits noted. SKIN: No rash or jaundice noted. ED COURSE: Critical Care: I have personally spent greater than 35 minutes of critical care time in the direct management of this patient. This includes bedside care, interpretation of diagnostic studies, and testing, discussion with consultants, patient, and family members, and other required patient management activities. This 35 minutes is in excess of all separately billable procedures. Gaudencio Cuellar MD Past Med/Surg History Medical History Atherosclerosis of aorta Atrial fibrillation with RVR follows with Dr. Zelaya Atrial flutter, paroxysmal Bilateral occipital neuralgia Cervical osteoarthritis Chronic anticoagulation Chronic back pain Chronic maxillary sinusitis Chronic obstructive pulmonary disease Chronic rhinitis Degenerative disc disease Depression Dyslipidemia GERD (gastroesophageal reflux disease) History of lung cancer 2017--right History of lung cancer History of pulmonary embolism Iron deficiency anemia Lumbar compression fracture L2, L3, L4 Lumbar spinal stenosis Lumbar spondylosis O2 dependent CARIN (obstructive sleep apnea) 2L N/C at HS or prn Osteoporosis Paroxysmal SVT (supraventricular tachycardia) Pulmonary hypertension Restrictive lung disease Thoracic compression fracture Tubular adenoma of colon Surgical History H/O tubal ligation History of appendectomy History of bilateral cataract extraction History of cardiac cath x3 with no stents History of cholecystectomy History of colonoscopy History of esophagogastroduodenoscopy (EGD) 12/13/20. 12/28/20 Dr. Pancho Powell History of hemorrhoidectomy History of tooth extraction all upper, most of lower Previous back surgery S/P lobectomy of lung Right upper Family History Mother Heart disease Myocardial infarction Sister Valvular heart disease Sinusitis Other No family history of adverse response to anesthesia Denies family history of Ovarian cancer Prostate cancer Breast cancer Colorectal cancer Social History Smoking Status: Former smoker Tobacco Type: Cigarettes packs per day: 1; Years Smoked: 40; Number of Years Since Quit: 20; Second Hand Exposure: No; Hx Alcohol Use: No Hx Substance Use: No Preferred Language: Slovenian Communication Ability: Effective Visual Impairment: Limited Hearing Ability: Normal Doorkeeper Required: No Beliefs That Will Affect Care: None marital status: Current Living Situation: Spouse current occupational status: retired Feels Safe at Home: Yes Dental Care, Regularly: No Physical Activity Frequency: Daily Seatbelt Use: always Sunscreen Use: No Assistive Devices: Denture - Upper, Denture - Lower, Glasses, Oxygen - Continuous and Walker Allergies Allergies Allergy/AdvReac Type Severity Reaction Status Date / Time ciprofloxacin Allergy Mild RASH Verified 01/11/21 09:47 cephalexin Allergy Unknown UNKNOWN Verified 01/11/21 09:47 doxycycline Allergy Unknown RASH Verified 01/11/21 09:47 Egg Derived Allergy Unknown HIVES Verified 01/11/21 09:47 Influenza Virus Vaccines Allergy Unknown ALLERGIES Verified 01/11/21 09:47 TO EGGS Nitrate Analogues Allergy Unknown UNABLE TO Verified 01/11/21 09:47 HAVE R/T PULMONARY HTN Penicillins Allergy Unknown RASH Verified 01/11/21 09:47 tetanus toxoid, adsorbed Allergy Unknown TETANUS-DIPTHERIA Verified 01/11/21 09:47 TOXOID-RASH codeine AdvReac Unknown GI SYMPTOMS Verified 01/11/21 09:47 diphenhydramine AdvReac Unknown UNABLE TO Verified 01/11/21 09:47 HAVE R/T PULMONARY HTN hydrocodone AdvReac Unknown N/V Verified 01/11/21 09:47 pseudoephedrine AdvReac Unknown UNABLE TO Verified 01/11/21 09:47 HAVE COLD MEDICATIONS R/T PULMONARY HTN Home Meds Home Medications Medication Instructions Recorded Confirmed ascorbic acid (vitamin C) 500 mg 500 m PO QAM cap 04/03/18 01/11/21 capsule calcium carbonate 500 mg calcium 500 mg PO QAM tab 04/03/18 01/11/21 (1,250 mg) tablet cholecalciferol (vitamin D3) 1,000 unit PO QAM 08/30/18 01/11/21 [Vitamin D3] diphenhydramine-acetaminophen 1 tab PO HS 08/30/18 01/11/21 [Tylenol PM Extra Strength] triamcinolone acetonide 0.1 % 1 appln TOPICAL DAILY PRN #1 gm 03/14/19 01/11/21 topical cream ondansetron HCl 4 mg tablet 4 mg PO Q8H PRN 09/21/20 01/11/21 tadalafil 20 mg tablet 40 mg PO DAILY tab 11/25/20 01/11/21 multivitamin 1 tab PO DAILY 12/10/20 01/11/21 torsemide 10 mg PO 3XWK 12/10/20 01/11/21 calcitonin (salmon) 1 spray INTRANASAL (ALT) DAILY 01/11/21 01/11/21 Previous Rx's Medication Instructions Recorded Oxygen Home #1 ea 04/07/19 mometasone-formoterol HFA 200 2 puffs INH Q12H #13 gm 08/05/19 mcg-5 mcg/actuation aerosol inhaler metoprolol succinate 50 mg 50 mg PO DAILY #180 tab 05/13/20 tablet,extended release 24 hr flecainide 100 mg tablet 100 mg PO Q12H #180 tab 08/25/20 selexipag 1,200 mcg tablet 1,200 mcg PO BID #60 tab 09/21/20 valacyclovir 500 mg tablet 1,000 mg PO BID PRN #30 tab 09/21/20 gabapentin 300 mg capsule 300 mg PO TID #90 cap 11/01/20 potassium chloride 10 mEq 10 meq PO QAM #90 cap 11/22/20 capsule,extended release simvastatin 20 mg tablet 20 mg PO DAILY #90 tab 12/15/20 pantoprazole 40 mg tablet,delayed 40 mg PO BID #60 tab 12/24/20 release apixaban 5 mg tablet 5 mg PO BID #60 tab 12/30/20 sertraline 50 mg tablet 50 mg PO QAM #90 tab 01/04/21 tramadol 50 mg tablet 50 mg PO TID PRN #90 tab 01/06/21 Results & Data (ED) Vital Signs Vital Signs - 24 hr 01/11/21 14:39 01/11/21 16:26 01/11/21 16:28 Temperature 37.2 C Temperature Source Oral Pulse Rate 75 85 Pulse Rate from SpO2 Sensor 85 Respiratory Rate 20 26 H Respiratory Effort / Characteristics Non-Labored Spontaneous Respiratory Depth Normal Respiratory Pattern Regular Blood Pressure 111/65 125/68 Blood Pressure Mean 80 87 Pulse Oximetry 95 98 98 Oxygen Delivery Method Nasal Cannula Nasal Cannula Oxygen Flow Rate 2 3 Sepsis Recent Fever Within 48 Hours No Sepsis New/Unexplained Change in Mental Status No Sepsis Action Taken by Nursing No Action Required 01/11/21 16:31 01/11/21 17:00 01/11/21 17:30 Temperature Temperature Source Pulse Rate 72 70 71 Pulse Rate from SpO2 Sensor 72 70 70 Respiratory Rate 21 19 18 Respiratory Effort / Characteristics Respiratory Depth Respiratory Pattern Blood Pressure 104/53 L 105/52 L 108/47 L Blood Pressure Mean 70 69 67 Pulse Oximetry 99 99 100 Oxygen Delivery Method Oxygen Flow Rate Sepsis Recent Fever Within 48 Hours Sepsis New/Unexplained Change in Mental Status Sepsis Action Taken by Nursing Laboratory Data Attestation: I reviewed the patient's lab results. Result diagrams: 01/11/21 16:01 01/11/21 16:01 Lab Results 01/11/21 01/11/21 01/11/21 Range/Units 15:32 15:32 16:01 WBC (4.8-10.8) K/uL RBC (4.2-5.4) M/uL Hgb (12.0-16.0) g/dL Hct (37-47) % MCV (80-100) fL MCH (25-34) pg MCHC (32-36) g/dL RDW Std Deviation (36.4-46.3) fL RDW Coeff of Tank (11.5-14.5) % Plt Count (130-400) K/uL MPV (7.4-10.4) fL Immature Gran % (Auto) % Neut % (Auto) % Lymph % (Auto) % [place] % (Auto) % Eos % (Auto) % Baso % (Auto) % Reticulocyte % (Auto) (0.5-2.0) % Neut # (Auto) (1.4-6.5) K/uL Lymph # (Auto) (1.2-3.4) K/uL [place] # (Auto) (0.11-0.59) K/uL Eos # (Auto) (0-0.5) K/uL Baso # (Auto) (0-0.2) K/uL Reticulocyte # (0.02-0.10) 10^6/uL Immature Gran # (Auto) (0.00-0.02) K/uL PT 10.8 (9.0-12.0) Seconds INR 1.1 (0.9-1.1) APTT 28.5 (21.0-31.0) Seconds PTT Ratio 1.1 Sodium (136-145) mmol/L Potassium (3.5-5.1) mmol/L Chloride (98-107) mmol/L Carbon Dioxide (21-32) mmol/L Anion Gap (3-11) BUN (7-18) mg/dl Creatinine (0.6-1.2) mg/dl Est Cr Clr Drug Dosing ml/min Est GFR ( Amer) ml/min Est GFR (Non-Af Amer) ml/min BUN/Creatinine Ratio (10-20) Glucose (70-99) mg/dl Calcium (8.5-10.1) mg/dl Phosphorus (2.5-4.9) mg/dl Magnesium (1.8-2.4) mg/dl Iron (35-150) mcg/dl TIBC (250-450) mcg/dl Transferrin (200-360) mg/dl Ferritin (8-388) ng/ml Total Bilirubin (0.2-1) mg/dl Direct Bilirubin (0-0.2) mg/dl AST (15-37) U/L ALT (12-78) U/L Alkaline Phosphatase (45-117) U/L Troponin I (0-0.045) ng/ml Total Protein (6.4-8.2) gm/dl Albumin (3.4-5.0) gm/dl Globulin (2.5-4.0) gm/dl Albumin/Globulin Ratio (0.9-2) Lipase (73-393) U/L Urine Color Urine Appearance (Clear) Urine pH (4.5-7.5) Ur Specific [place] (1.000-1.030) Urine Protein (Negative) Urine Glucose (UA) (Negative) Urine Ketones (Negative) Urine Blood (Negative) Urine Nitrite (Negative) Urine Bilirubin (Negative) Urine Urobilinogen (Negative) Ur Leukocyte Esterase (Negative) Urine RBC (0-4) /hpf Urine WBC (0-5) /hpf Ur Epithelial Cells (0-5) /lpf Urine Bacteria (Negative) COVID-19 Eval Order Cancelled SARS-CoV-2 (PCR) Cancelled Blood Type Antibody Screen Crossmatch 01/11/21 01/11/21 01/11/21 Range/Units 16:01 16:01 16:01 WBC 4.79 L (4.8-10.8) K/uL RBC 2.77 L (4.2-5.4) M/uL Hgb 8.7 L (12.0-16.0) g/dL Hct 27.7 L (37-47) % MCV 100.0 (80-100) fL MCH 31.4 (25-34) pg MCHC 31.4 L (32-36) g/dL RDW Std Deviation 55.5 H (36.4-46.3) fL RDW Coeff of Tank 15.3 H (11.5-14.5) % Plt Count 221 (130-400) K/uL MPV 9.3 (7.4-10.4) fL Immature Gran % (Auto) 0.4 % Neut % (Auto) 68.3 % Lymph % (Auto) 20.3 % [place] % (Auto) 7.1 % Eos % (Auto) 3.5 % Baso % (Auto) 0.4 % Reticulocyte % (Auto) 3.2 H Cancelled (0.5-2.0) % Neut # (Auto) 3.27 (1.4-6.5) K/uL Lymph # (Auto) 0.97 L (1.2-3.4) K/uL [place] # (Auto) 0.34 (0.11-0.59) K/uL Eos # (Auto) 0.17 (0-0.5) K/uL Baso # (Auto) 0.02 (0-0.2) K/uL Reticulocyte # 0.09 Cancelled (0.02-0.10) 10^6/uL Immature Gran # (Auto) 0.02 (0.00-0.02) K/uL PT (9.0-12.0) Seconds INR (0.9-1.1) APTT (21.0-31.0) Seconds PTT Ratio Sodium 140 (136-145) mmol/L Potassium 4.6 (3.5-5.1) mmol/L Chloride 107 (98-107) mmol/L Carbon Dioxide 33 H (21-32) mmol/L Anion Gap 1.0 L (3-11) BUN 31 H (7-18) mg/dl Creatinine 0.97 (0.6-1.2) mg/dl Est Cr Clr Drug Dosing 48.0 ml/min Est GFR ( Amer) 65.3 ml/min Est GFR (Non-Af Amer) 56.3 ml/min BUN/Creatinine Ratio 32.1 H (10-20) Glucose 87 (70-99) mg/dl Calcium 8.6 (8.5-10.1) mg/dl Phosphorus 3.3 (2.5-4.9) mg/dl Magnesium 2.2 (1.8-2.4) mg/dl Iron 41 (35-150) mcg/dl TIBC 326 (250-450) mcg/dl Transferrin 255 (200-360) mg/dl Ferritin 225.6 (8-388) ng/ml Total Bilirubin 0.2 (0.2-1) mg/dl Direct Bilirubin < 0.1 (0-0.2) mg/dl AST 21 (15-37) U/L ALT 20 (12-78) U/L Alkaline Phosphatase 76 (45-117) U/L Troponin I < 0.015 (0-0.045) ng/ml Total Protein 7.1 (6.4-8.2) gm/dl Albumin 3.1 L (3.4-5.0) gm/dl Globulin 4.0 (2.5-4.0) gm/dl Albumin/Globulin Ratio 0.8 L (0.9-2) Lipase 147 (73-393) U/L Urine Color Urine Appearance (Clear) Urine pH (4.5-7.5) Ur Specific [place] (1.000-1.030) Urine Protein (Negative) Urine Glucose (UA) (Negative) Urine Ketones (Negative) Urine Blood (Negative) Urine Nitrite (Negative) Urine Bilirubin (Negative) Urine Urobilinogen (Negative) Ur Leukocyte Esterase (Negative) Urine RBC (0-4) /hpf Urine WBC (0-5) /hpf Ur Epithelial Cells (0-5) /lpf Urine Bacteria (Negative) COVID-19 Eval Order SARS-CoV-2 (PCR) Blood Type Antibody Screen Crossmatch 01/11/21 01/11/21 01/11/21 Range/Units 16:09 16:26 18:10 WBC (4.8-10.8) K/uL RBC (4.2-5.4) M/uL Hgb (12.0-16.0) g/dL Hct (37-47) % MCV (80-100) fL MCH (25-34) pg MCHC (32-36) g/dL RDW Std Deviation (36.4-46.3) fL RDW Coeff of Tank (11.5-14.5) % Plt Count (130-400) K/uL MPV (7.4-10.4) fL Immature Gran % (Auto) % Neut % (Auto) % Lymph % (Auto) % [place] % (Auto) % Eos % (Auto) % Baso % (Auto) % Reticulocyte % (Auto) (0.5-2.0) % Neut # (Auto) (1.4-6.5) K/uL Lymph # (Auto) (1.2-3.4) K/uL [place] # (Auto) (0.11-0.59) K/uL Eos # (Auto) (0-0.5) K/uL Baso # (Auto) (0-0.2) K/uL Reticulocyte # (0.02-0.10) 10^6/uL Immature Gran # (Auto) (0.00-0.02) K/uL PT (9.0-12.0) Seconds INR (0.9-1.1) APTT (21.0-31.0) Seconds PTT Ratio Sodium (136-145) mmol/L Potassium (3.5-5.1) mmol/L Chloride (98-107) mmol/L Carbon Dioxide (21-32) mmol/L Anion Gap (3-11) BUN (7-18) mg/dl Creatinine (0.6-1.2) mg/dl Est Cr Clr Drug Dosing ml/min Est GFR ( Amer) ml/min Est GFR (Non-Af Amer) ml/min BUN/Creatinine Ratio (10-20) Glucose (70-99) mg/dl Calcium (8.5-10.1) mg/dl Phosphorus (2.5-4.9) mg/dl Magnesium (1.8-2.4) mg/dl Iron (35-150) mcg/dl TIBC (250-450) mcg/dl Transferrin (200-360) mg/dl Ferritin (8-388) ng/ml Total Bilirubin (0.2-1) mg/dl Direct Bilirubin (0-0.2) mg/dl AST (15-37) U/L ALT (12-78) U/L Alkaline Phosphatase (45-117) U/L Troponin I (0-0.045) ng/ml Total Protein (6.4-8.2) gm/dl Albumin (3.4-5.0) gm/dl Globulin (2.5-4.0) gm/dl Albumin/Globulin Ratio (0.9-2) Lipase (73-393) U/L Urine Color Yellow Urine Appearance Clear (Clear) Urine pH 6.5 (4.5-7.5) Ur Specific [place] 1.020 (1.000-1.030) Urine Protein Negative (Negative) Urine Glucose (UA) Negative (Negative) Urine Ketones Negative (Negative) Urine Blood Trace-intact H (Negative) Urine Nitrite Negative (Negative) Urine Bilirubin Negative (Negative) Urine Urobilinogen Negative (Negative) Ur Leukocyte Esterase 2+ H (Negative) Urine RBC 0-4 (0-4) /hpf Urine WBC >30 H (0-5) /hpf Ur Epithelial Cells 5-10 H (0-5) /lpf Urine Bacteria 1+ H (Negative) COVID-19 Eval Order SARS-CoV-2 (PCR) NEGATIVE Blood Type B Positive Antibody Screen NEGATIVE Crossmatch See Detail Administered Medications Flecainide Acetate (Flecainide Acetate 100 Mg Tablet) 100 mg PO Q12 DANIS Stop: 02/10/21 20:04 Last Admin: 01/11/21 21:34 Dose: 100 mg Documented by: [id number] Gabapentin (Gabapentin 300 Mg Cap) 300 mg PO TID DANIS Stop: 02/10/21 20:59 Last Admin: 01/11/21 21:34 Dose: 300 mg Documented by: [id number] Pantoprazole Sodium 40 mg/ (Syringe) 10 mls @ 5 mls/min IV BID DANIS Stop: 02/10/21 20:59 Last Admin: 06/22/21 21:34 Dose: 5 mls/min Documented by: [id number] Selexipag (Selexipag 1200 Mcg) 1 ea PO BID DANIS Stop: 02/10/21 21:59 Last Admin: 01/11/21 21:35 Dose: 1 ea Documented by: [id number] Discontinued Medications Acetaminophen (Acetaminophen 325 Mg Tab) 650 mg PO PRE-TREAT ONE Stop: 01/11/21 20:06 Last Admin: 01/11/21 20:29 Dose: 650 mg Documented by: [id number] Sodium Chloride (Nss) 500 mls @ 999 mls/hr IV .Q31M ONE Stop: 01/11/21 16:17 Last Infusion: 01/11/21 19:05 Dose: 0 mls/hr Documented by: [id number] Admin: 01/11/21 18:07 Dose: 999 mls/hr Documented by: [id number] Pantoprazole Sodium 40 mg/ (Syringe) 10 mls @ 5 mls/min IV NOW ONE Stop: 01/11/21 16:29 Last Admin: 01/11/21 18:06 Dose: 5 mls/min Documented by: [id number] Miscellaneous (Selexipag 1,200 Mcg - Order Awaiting Action) 1 ea N/A QS DANIS Stop: 02/10/21 20:59 Last Admin: 01/11/21 22:31 Dose: Not Given Documented by: [id number] Imaging Data Radiologist's Impression: Chest X-Ray 01/11/21 15:48 SINGLE VIEW CHEST CLINICAL HISTORY: Atypical chest pain. FINDINGS: An AP, portable, upright chest radiograph is compared to study dated 09/28/2020 and correlated with chest CT dated 03/24/2020. The examination is degraded by portable technique and patient rotation. The heart is top normal for projection noting atherosclerotic calcification of the thoracic aorta. Enlargement of the central pulmonary arteries is unchanged and suggests p ulmonary artery hypertension. There is postoperative change and volume loss in the right lung with elevation of the right hemidiaphragm. Suture material projects over the right lung base. No airspace consolidation or large pleural effusion is identified. Mild scarring/atelectasis is noted at the lung bases. No pneumothorax is seen. The skeletal structures are osteopenic. There is a compression deformity vertebroplasty change in the lower thoracic region. IMPRESSION: Chronic and postoperative changes as above with no acute cardiopulmonary abnormality. ACT 112: Negative or not required by law. Electronically signed by: Trav Willard M.D. 01/11/2021 4:18 PM Discharge Plan Visit Data Chief Complaint: Abnormal Labs/Diagnostic Testing Stated Complaint: BLEEDING IN STOMACH, ABNORMAL LABS ED Provider: Gaudencio Cuellar Discharge Problem: Melena, UGI bleed, Anemia, Dizziness, On apixaban therapy Patient Disposition: Admitted As Inpatient Discharge Instructions Interventions: ED Discharge Assessment Last Done: 01/11/21 19:57 Discharge Problem: Anemia Qualifiers: Anemia type: unspecified type Qualified Code(s): D64.9 - Anemia, unspecified
[2021-01-11 18:24] LABS: Appearance Urine Clear (Clear); Bilirubin Urine Negative (Negative); Blood Urine Trace-intact (Negative); Color Urine Yellow; Glucose Urine UA Negative (Negative); Ketones Urine Negative (Negative); Leukocyte Esterase Urine 2+ (Negative); Nitrite Urine Negative (Negative); Protein Urine Negative (Negative); Urobilinogen Urine Negative (Negative); pH Urine 6.5 (4.5-7.5)
--- NOTE | 2021-01-11 18:43 | History & Physical Report ---
Date of Service January 11, 2021 Assessment & Plan (1) ABLA (acute blood loss anemia): * Recurrent problem for patient. Secondary to gastric antral vascular ectasia in the setting of chronic anticoagulation therapy. Patient has had multiple EGDs with argon plasma coagulation. Suspect will need repeat EGD with follow-up treatment * Will hold Eliquis. At this time, her has bled score is 4.9 and her [id number]- VASc 2 score is 5. Given recurrent bleed, benefit does not outweigh the risk. Would at least withhold this medication for 14 days. Will consult cardiology. I appreciate the recommendations. Patient has been in a sinus rhythm. She does have a history of PE in the past; however,can argue that this was provoked following surgical intervention. Given her underlying malignancy history, she is at increased risk of coagulopathy; however, her bleeding risk for the time being outweighs risk of clot/stroke. * Patient will be made n.p.o. not only due to active bleeding but for hopeful anticipated EGD * Will provide 1 unit of packed RBCs. Hemoglobin not terribly low at 8.7; however, given her marginal hypotension upfront, her dyspnea on exertion, and her underlying cardiac historyI do believe she will benefit from the oxygen carrying capacity and blood. In addition, I anticipate she will likely go to the OR for EGD. * SCDs to be used for DVT prophylaxis. Avoid Lovenox/heparin given active bleeding. * EKG to be ordered as needed. Continuous cardiac monitoring ordered given her underlying history of atrial fibrillation and active anemia. * Will trend labs closely including her CBC * IV pantoprazole every 12 hours ordered. Considered addition of Pepcid/Carafate. This was discussed with Dr. Joseph who recommended with holding for now. Present on Admission?: Yes (2) CHRISTOPHER (dyspnea on exertion): * Patient with O2 dependent COPD. Her dyspnea on exertion is more pronounced compared to baseline. Likely related to acute on chronic anemia. Continue supplemental oxygen. Will monitor Present on Admission?: Yes (3) Fatigue: * Again, likely secondary to #1 Present on Admission?: Yes (4) Melena: * Suspect secondary to GAVE. All anticoagulation therapy on hold. No antiplatelet agents on board. GI consulted for anticipated EGD. Present on Admission?: Yes (5) Paroxysmal A-fib: * Currently in a normal sinus rhythm with controlled ventricular rate. Continue flecainide and metoprolol as prior to hospitalization (6) CAD (coronary artery disease): * Nonobstructive. Continue beta-blockade. No antiplatelet therapy on board. (7) GAVE (gastric antral vascular ectasia): * See plan as outlined above (8) Chronic anticoagulation: * See plan as outlined above. Again, has bled score currently 4.9 with a Puneet vas 2 score 5. Currently with active bleeding, benefit of anticoagulation therapy does not outweigh the risk. 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 Appreciate recommendations. (9) History of pulmonary embolism: * Suspected to be provoked. See above (10) Pulmonary hypertension: * continue selexipag as prior to hospitalization. Will withhold Cialis for now given marginal hypotension noted upon presentation. History of Present Illness Chief Complaint: Melena X 5 days Primary Care Provider: Iliana Goddard DO Mrs. 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 Patient has been hospitalized in September, October, November, and December for anemia requiring transfusion. Initial issue with this anemia started in September- hospitalized with a Hemoglobin was 7.1 at that time requiring transfusion. Similar hospitalizations have taken place in October, November, and December. She underwent EGD by Dr. Powell in November showing GAVE treated with argon plasma anticoagulation. Last hospitalization was 12/27 through 12/29. Discharge hemoglobin was 10.2. At that time, her melanotic stools had resolved. She was discharged on pantoprazole 40 mg twice daily and told to hold Eliquis X 7 days. She was scheduled for a follow-up EGD with Dr. Powell in January; however, approximately 5 days ago her melanotic stools returned. In addition, she has been excessively fatigued and having increased dyspnea on exertion. In addition, she does admit to epigastric discomfort, excessive eructation and mild nausea. Denies dizziness/lightheadedness, CP, SOB at rest, palpitations. She was prompted to come to the emergency department where she was found to be mildly hypotensive (96/60). Was given a bolus of NSS and her subsequent blood pressure improved (111/65). Otherwise, her heart rate has been sinus and controlled. She typically uses 2 L of oxygen and is currently 98% on 3 L. Her H/H is 8.7/27.7 respectively. Her iron level is acceptable at 41. She admits to having a recent iron infusion last week. CXR was unremarkable. EKG showed a normal sinus rhythm with controlled rate. Left axis deviation with poor R wave progression. T wave inversion in the anteroseptal leads with a first-degree AV block. This is unchanged from her previous EKG. Given her recurrent and symptomatic anemia with melanotic stools. Patient subsequently hospitalized for further evaluation and care. Allergies Allergy/AdvReac Type Severity Reaction Status Date / Time ciprofloxacin Allergy Mild RASH Verified 01/11/21 09:47 cephalexin Allergy Unknown UNKNOWN Verified 01/11/21 09:47 doxycycline Allergy Unknown RASH Verified 01/11/21 09:47 Egg Derived Allergy Unknown HIVES Verified 01/11/21 09:47 Influenza Virus Vaccines Allergy Unknown ALLERGIES Verified 01/11/21 09:47 TO EGGS Nitrate Analogues Allergy Unknown UNABLE TO Verified 01/11/21 09:47 HAVE R/T PULMONARY HTN Penicillins Allergy Unknown RASH Verified 01/11/21 09:47 tetanus toxoid, adsorbed Allergy Unknown TETANUS-DIPTHERIA Verified 01/11/21 09:47 TOXOID-RASH codeine AdvReac Unknown GI SYMPTOMS Verified 01/11/21 09:47 diphenhydramine AdvReac Unknown UNABLE TO Verified 01/11/21 09:47 HAVE R/T PULMONARY HTN hydrocodone AdvReac Unknown N/V Verified 01/11/21 09:47 pseudoephedrine AdvReac Unknown UNABLE TO Verified 01/11/21 09:47 HAVE COLD MEDICATIONS R/T PULMONARY HTN Home Medications Medication Instructions Recorded Confirmed Type ascorbic acid (vitamin C) 500 mg 500 m PO QAM cap 04/03/18 01/11/21 History capsule calcium carbonate 500 mg calcium 500 mg PO QAM tab 04/03/18 01/11/21 History (1,250 mg) tablet cholecalciferol (vitamin D3) 1,000 unit PO QAM 08/30/18 01/11/21 History [Vitamin D3] diphenhydramine-acetaminophen 1 tab PO HS 08/30/18 01/11/21 History [Tylenol PM Extra Strength] triamcinolone acetonide 0.1 % 1 appln TOPICAL DAILY PRN #1 gm 03/14/19 01/11/21 History topical cream Oxygen Home #1 ea 04/07/19 01/11/21 Rx mometasone-formoterol HFA 200 2 puffs INH Q12H #13 gm 08/05/19 01/11/21 Rx mcg-5 mcg/actuation aerosol inhaler metoprolol succinate 50 mg 50 mg PO DAILY #180 tab 05/13/20 01/11/21 Rx tablet,extended release 24 hr flecainide 100 mg tablet 100 mg PO Q12H #180 tab 08/25/20 01/11/21 Rx ondansetron HCl 4 mg tablet 4 mg PO Q8H PRN 09/21/20 01/11/21 History selexipag 1,200 mcg tablet 1,200 mcg PO BID #60 tab 09/21/20 01/11/21 Rx valacyclovir 500 mg tablet 1,000 mg PO BID PRN #30 tab 09/21/20 01/11/21 Rx gabapentin 300 mg capsule 300 mg PO TID #90 cap 11/01/20 01/11/21 Rx potassium chloride 10 mEq 10 meq PO QAM #90 cap 11/22/20 01/11/21 Rx capsule,extended release tadalafil 20 mg tablet 40 mg PO DAILY tab 11/25/20 01/11/21 History multivitamin 1 tab PO DAILY 12/10/20 01/11/21 History torsemide 10 mg PO 3XWK 12/10/20 01/11/21 History simvastatin 20 mg tablet 20 mg PO DAILY #90 tab 12/15/20 01/11/21 Rx pantoprazole 40 mg tablet,delayed 40 mg PO BID #60 tab 12/24/20 01/11/21 Rx release apixaban 5 mg tablet 5 mg PO BID #60 tab 12/30/20 01/11/21 Rx sertraline 50 mg tablet 50 mg PO QAM #90 tab 01/04/21 01/11/21 Rx tramadol 50 mg tablet 50 mg PO TID PRN #90 tab 01/06/21 01/11/21 Rx calcitonin (salmon) 1 spray INTRANASAL (ALT) DAILY 01/11/21 01/11/21 History Past Med/Surg History Medical History (Updated 01/11/21 @ 19:12 by Dolores Nina PA-C) Atherosclerosis of aorta Atrial fibrillation with RVR follows with Dr. Zelaya Atrial flutter, paroxysmal Bilateral occipital neuralgia Cervical osteoarthritis Chronic anticoagulation Chronic back pain Chronic maxillary sinusitis Chronic obstructive pulmonary disease Chronic rhinitis Degenerative disc disease Depression Dyslipidemia GERD (gastroesophageal reflux disease) History of lung cancer 2017--right History of lung cancer History of pulmonary embolism Iron deficiency anemia Lumbar compression fracture L2, L3, L4 Lumbar spinal stenosis Lumbar spondylosis O2 dependent CARIN (obstructive sleep apnea) 2L N/C at HS or prn Osteoporosis Paroxysmal SVT (supraventricular tachycardia) Pulmonary hypertension Restrictive lung disease Thoracic compression fracture Tubular adenoma of colon Surgical History (Updated 01/11/21 @ 18:59 by Dolores Nina PA-C) H/O tubal ligation History of appendectomy History of bilateral cataract extraction History of cardiac cath x3 with no stents History of cholecystectomy History of colonoscopy History of esophagogastroduodenoscopy (EGD) 12/13/20. 12/28/20 Dr. Pancho Powell History of hemorrhoidectomy History of tooth extraction all upper, most of lower Previous back surgery S/P lobectomy of lung Right upper Family History Mother Heart disease Myocardial infarction Sister Valvular heart disease Sinusitis Other No family history of adverse response to anesthesia Denies family history of Ovarian cancer Prostate cancer Breast cancer Colorectal cancer Social History (Updated 01/11/21 @ 19:00 by Dolores Nina PA-C) Smoking Status: Former smoker Tobacco Type: Cigarettes packs per day: 1; Years Smoked: 40; Number of Years Since Quit: 20; Second Hand Exposure: No; Hx Alcohol Use: No Hx Substance Use: No Preferred Language: French Communication Ability: Effective Visual Impairment: Limited Hearing Ability: Normal Medical Equipment Sales Required: No Beliefs That Will Affect Care: None marital status: Current Living Situation: Spouse current occupational status: retired Feels Safe at Home: Yes Dental Care, Regularly: No Physical Activity Frequency: Daily Seatbelt Use: always Sunscreen Use: No Assistive Devices: Denture - Upper, Denture - Lower, Glasses and Oxygen - Continuous Review of Systems Constitutional: + fatigue and + malaise; no fever and no anorexia Eyes: no loss of peripheral vision Ear, Nose, Mouth, Throat: no nasal discharge and no sore throat Respiratory: + dyspnea on exertion; no cough, no dyspnea and no wheezing Cardiovascular: + dyspnea on exertion; no chest pain, no dyspnea at rest, no palpitations and no edema Gastrointestinal: + abdominal pain (epigastric), + belching, + bloating, + heartburn, + nausea, + blood in stools (Black/tarry) and + melena; no coffee ground emesis, no dysphagia, no change in bowel habits and no diarrhea/loose s tools Genitourinary: no dysuria, no urinary frequency and no hematuria Musculoskeletal: no back pain and no joint pain Integumentary: no rash and no lesions Neurologic: no unsteadiness, no syncope and no confusion Psychiatric: no depression (controlled with med) Endocrine: + fatigue; no polydipsia, no polyphagia, no cold intolerance and no heat intolerance Hematologic / Lymphatic: + easy bleeding (on eliquis) and + easy bruising (On Eliquis) Physical Exam Constitutional: well developed and well nourished; no acute distress and not ill appearing Eyes: PERRL, conjunctivae normal, anicteric sclerae ENMT: external ear and nose normal, oropharynx normal Neck: trachea midline, no thyromegaly Respiratory: Auscultation: lungs clear to auscultation bilaterally; no rales, no rhonchi and no wheezes Cardiovascular: Currently in normal sinus rhythm with controlled ventricular rate. 2/6 to 3/6 ZAINA heard best at the right sternal border at the base Gastrointestinal (Abdomen): Inspection/Auscultation: abdomen normal to inspection and normal bowel sounds; abdomen not distended Percussion/Palpation: + abdomen tender (Epigastric region) repeat rectal deferred. Done by ED doc and positive Musculoskeletal: no cyanosis or clubbing, extremities motor strength 5/5 Skin: no rashes and no lesions Neurologic: CN 2-12 intact. No focal neuro deficits Results & Data Results & Data ([facility]) Vital Signs (Past 12 Hours) Vital Signs Temp Pulse Resp BP Pulse Ox 01/11/21 17:30 71 18 108/47 L 100 01/11/21 17:00 70 19 105/52 L 99 01/11/21 16:31 72 21 104/53 L 99 01/11/21 16:28 98 01/11/21 16:26 85 26 H 125/68 98 01/11/21 14:39 37.2 C 75 20 111/65 95 Laboratory Results - last 24 hr 01/11/21 01/11/21 01/11/21 15:32 15:32 16:01 WBC RBC Hgb Hct MCV MCH MCHC RDW Std Deviation RDW Coeff of Tank Plt Count MPV Immature Gran % (Auto) Neut % (Auto) Lymph % (Auto) [place] % (Auto) Eos % (Auto) Baso % (Auto) Reticulocyte % (Auto) Neut # (Auto) Lymph # (Auto) [place] # (Auto) Eos # (Auto) Baso # (Auto) Reticulocyte # Immature Gran # (Auto) PT 10.8 INR 1.1 APTT 28.5 PTT Ratio 1.1 Sodium Potassium Chloride Carbon Dioxide Anion Gap BUN Creatinine Est Cr Clr Drug Dosing Est GFR ( Amer) Est GFR (Non-Af Amer) BUN/Creatinine Ratio Glucose Calcium Phosphorus Magnesium Iron TIBC Transferrin Ferritin Total Bilirubin Direct Bilirubin AST ALT Alkaline Phosphatase Troponin I Total Protein Albumin Globulin Albumin/Globulin Ratio Lipase Urine Color Urine Appearance Urine pH Ur Specific [place] Urine Protein Urine Glucose (UA) Urine Ketones Urine Blood Urine Nitrite Urine Bilirubin Urine Urobilinogen Ur Leukocyte Esterase Urine RBC Urine WBC Ur Epithelial Cells Urine Bacteria COVID-19 Eval Order Cancelled SARS-CoV-2 (PCR) Cancelled Blood Type Antibody Screen 01/11/21 01/11/21 01/11/21 16:01 16:01 16:01 WBC 4.79 L RBC 2.77 L Hgb 8.7 L Hct 27.7 L MCV 100.0 MCH 31.4 MCHC 31.4 L RDW Std Deviation 55.5 H RDW Coeff of Tank 15.3 H Plt Count 221 MPV 9.3 Immature Gran % (Auto) 0.4 Neut % (Auto) 68.3 Lymph % (Auto) 20.3 [place] % (Auto) 7.1 Eos % (Auto) 3.5 Baso % (Auto) 0.4 Reticulocyte % (Auto) 3.2 H Cancelled Neut # (Auto) 3.27 Lymph # (Auto) 0.97 L [place]duff[place] # (Auto) 0.34 Eos # (Auto) 0.17 Baso # (Auto) 0.02 Reticulocyte # 0.09 Cancelled Immature Gran # (Auto) 0.02 PT INR APTT PTT Ratio Sodium 140 Potassium 4.6 Chloride 107 Carbon Dioxide 33 H Anion Gap 1.0 L BUN 31 H Creatinine 0.97 Est Cr Clr Drug Dosing 48.0 Est GFR ( Amer) 65.3 Est GFR (Non-Af Amer) 56.3 BUN/Creatinine Ratio 32.1 H Glucose 87 Calcium 8.6 Phosphorus 3.3 Magnesium 2.2 Iron 41 TIBC 326 Transferrin 255 Ferritin 225.6 Total Bilirubin 0.2 Direct Bilirubin < 0.1 AST 21 ALT 20 Alkaline Phosphatase 76 Troponin I < 0.015 Total Protein 7.1 Albumin 3.1 L Globulin 4.0 Albumin/Globulin Ratio 0.8 L Lipase 147 Urine Color Urine Appearance Urine pH Ur Specific [place] Urine Protein Urine Glucose (UA) Urine Ketones Urine Blood Urine Nitrite Urine Bilirubin Urine Urobilinogen Ur Leukocyte Esterase Urine RBC Urine WBC Ur Epithelial Cells Urine Bacteria COVID-19 Eval Order SARS-CoV-2 (PCR) Blood Type Antibody Screen 01/11/21 01/11/21 01/11/21 16:09 16:26 18:10 WBC RBC Hgb Hct MCV MCH MCHC RDW Std Deviation RDW Coeff of Tank Plt Count MPV Immature Gran % (Auto) Neut % (Auto) Lymph % (Auto) [place] % (Auto) Eos % (Auto) Baso % (Auto) Reticulocyte % (Auto) Neut # (Auto) Lymph # (Auto) [place] # (Auto) Eos # (Auto) Baso # (Auto) Reticulocyte # Immature Gran # (Auto) PT INR APTT PTT Ratio Sodium Potassium Chloride Carbon Dioxide Anion Gap BUN Creatinine Est Cr Clr Drug Dosing Est GFR ( Amer) Est GFR (Non-Af Amer) BUN/Creatinine Ratio Glucose Calcium Phosphorus Magnesium Iron TIBC Transferrin Ferritin Total Bilirubin Direct Bilirubin AST ALT Alkaline Phosphatase Troponin I Total Protein Albumin Globulin Albumin/Globulin Ratio Lipase Urine Color Yellow Urine Appearance Clear Urine pH 6.5 Ur Specific [place] 1.020 Urine Protein Negative Urine Glucose (UA) Negative Urine Ketones Negative Urine Blood Trace-intact H Urine Nitrite Negative Urine Bilirubin Negative Urine Urobilinogen Negative Ur Leukocyte Esterase 2+ H Urine RBC 0-4 Urine WBC >30 H Ur Epithelial Cells 5-10 H Urine Bacteria 1+ H COVID-19 Eval Order SARS-CoV-2 (PCR) NEGATIVE Blood Type B Positive Antibody Screen NEGATIVE CXR done 01/11/2021: IMPRESSION: Chronic and postoperative changes as above with no acute cardiopulmonary abnormality. EKG done 01/11/2021: read by me: NSR. Rate 70 bpm. Left axis deviation. First degree AV block. Poor R wave progression. T wave inversion in the anteroseptal leads unchanged from previous EKG Code Status & VTE Plan Code Status Full Code I VTE Prophylaxis Plan VTE Prophylaxis will be ordered: Yes Critical Care Time Critical Care Time: No Prolonged Care Time Prolonged Care Time: No Supervising Physician Co-Signing Physician Notes Discussed with KEV, reviewed her documentation. Agree with plan as noted. This is a patient with multiple hospitalizations for melena. Previous finding of gastric antral vascular ectasia, patient has had plasma coagulation in the past. Was recently discharged on Eliquis as she has high risk of CVA with her atrial fibrillation. Plan to stop anticoagulation for now, give 1 unit packed red blood cells. We will ask GI to reevaluate further recommendations, may require repeat EGD. Keep n.p.o. for now. Will ask cardiology to evaluate to consider discontinuing anticoagulation. PG Care Time/CCT Total # of Minutes Spent Total Time Spent with Patient: Total time spent is greater than 50% in coordination of care (as documented) at patient's floor/unit and/or counseling patient: 60 min Prolonged Care Time Prolonged Care Time: No Critical Care Time: [place] [address] Initial Inpt Care Lvl 3 Patient Type New Medical Decision Making High Complexity Diagnoses ABLA (acute blood loss anemia) D62 CHRISTOPHER (dyspnea on exertion) R06.00 Fatigue R53.83 Fatigue type: other Melena K92.1 Paroxysmal A-fib I48.0 CAD (coronary artery disease) I25.10 Coronary Disease-Associated Artery/Lesion type: [place] artery [place] vs. transplanted heart: [place] heart GAVE (gastric antral vascular ectasia) K31.819 Chronic anticoagulation Z79.01 History of pulmonary embolism Z86.711 Pulmonary hypertension I27.20 (1) Fatigue Fatigue type: other Qualified Code(s): R53.83 - Other fatigue (2) CAD (coronary artery disease) Coronary Disease-Associated Artery/Lesion type: [place] artery [place] vs. transplanted heart: [place] heart
[2021-01-11 18:45] LABS: Bacteria Urine 1+ (Negative); RBC Urine 0-4 /hpf (0-4); WBC Urine >30 /hpf (0-5)
[2021-01-11] MEDS ORDERED: ACETAMINOPHEN 325 MG TAB PO ONE (20:05)
[2021-01-11] MEDS ORDERED: NON-FORMULARY MEDICATION (Oxygen Home Liters per Minute) SCH (20:05)
[2021-01-11] MEDS ORDERED: ONDANSETRON INJ 2 MG/ML 2 ML VIAL IV PRN (20:05)
[2021-01-11] MEDS ORDERED: ALUMINUM/MAGNESIUM SUSP 30 ML UDC PO PRN (20:05)
[2021-01-11] MEDS ORDERED: SODIUM CHLORIDE 0.9% 250 ML IV PRN (20:05)
[2021-01-11] MEDS: PANTOprazole 40 MG in SYRINGE 0 ML IV SCH (21:34)
[2021-01-11] MEDS: GABAPENTIN 300 MG CAP PO SCH (21:34)
[2021-01-11] MEDS: FLECAINIDE ACETATE 100 MG TABLET PO SCH (21:34)
[2021-01-11] MEDS: SELEXIPAG PO SCH (21:35)
[2021-01-12] MEDS: ACETAMINOPHEN 325 MG TAB PO PRN ×3 (04:10→17:57)
[2021-01-12 06:58] LABS: Basophils # (auto) 0.03 K/uL (0-0.2); Basophils % (auto) 0.6 %; Eosinophils # (auto) 0.21 K/uL (0-0.5); Eosinophils % (auto) 4.4 %; Hematocrit (blood only) 28.6 % (37-47); Immature Granulocytes # (auto) 0.02 K/uL (0.00-0.02); Immature Granulocytes % (auto) 0.4 %; Lymphocytes # (auto) 0.76 K/uL (1.2-3.4); Mean Corpuscular Hemoglobin 31.3 pg (25-34); Mean Corpuscular Hgb Conc 31.5 g/dL (32-36); Mean Corpuscular Volume 99.3 fL (80-100); Mean Platelet Volume 9.7 fL (7.4-10.4); Monocytes # (auto) 0.46 K/uL (0.11-0.59); Monocytes % (auto) 9.7 %; Neutrophils # (auto) 3.27 K/uL (1.4-6.5); Neutrophils % (auto) 68.9 %; Platelet Count 213 K/uL (130-400); RDW Coefficient of Variation 16.8 % (11.5-14.5); RDW Standard Deviation 60.6 fL (36.4-46.3); Red Blood Count 2.88 M/uL (4.2-5.4); White Blood Count 4.75 K/uL (4.8-10.8)
[2021-01-12 07:31] LABS: BUN Creatinine Ratio 31.3 (10-20); Calcium 8.3 mg/dl (8.5-10.1); Creatinine Clr Calc Pharmacy 61.5 ml/min; Est GFR (African American) 89.1 ml/min; Est GFR (Non-African American) 76.9 ml/min; Magnesium 2.2 mg/dl (1.8-2.4); Potassium 4.2 mmol/L (3.5-5.1)
[2021-01-12] MEDS: FLECAINIDE ACETATE 100 MG TABLET PO SCH ×2 (08:30→20:46)
[2021-01-12] MEDS: GABAPENTIN 300 MG CAP PO SCH ×3 (08:32→20:46)
[2021-01-12] MEDS: PANTOprazole 40 MG in SYRINGE 0 ML IV SCH ×2 (08:32→21:24)
[2021-01-12] MEDS: SERTRALINE HCL 50 MG TABLET PO SCH (08:32)
[2021-01-12] MEDS: METOPROLOL SUCC 50MG EXT REL TAB PO SCH (08:32)
[2021-01-12] MEDS: SELEXIPAG PO SCH ×2 (08:33→20:47)
[2021-01-12] MEDS: FLUTICASONE/VILANTEROL 100/25MCG 14 PUFFS/INHALER INH SCH (08:43)
--- NOTE | 2021-01-12 10:42 | Gastrointestinal Consultation ---
Date of Consultation January 12, 2021 Assessment & Plan (1) UGI bleed: (2) Melena: (3) Fatigue: (4) GAVE (gastric antral vascular ectasia): Patient with a known history of GAVE recently admitted for GIB, requiring EGD with APC for hemostasis readmitted for symptomatic anemia, melena and acute blood loss anemia in the setting of chronic anticoagulation use. 1. Regular diet today and NPO after midnight. 2. EGD with APC by Dr. Powell tomorrow. 3. Continue Pantoprazole 40 mg IV BID and Carafate 1 g ACHS. 4. Given high risk of rebleeding, recommend permanent discontinuation of Eliquis. 5. Continue supportive measures by primary team. Thank you for allowing us to participate in the care of this very pleasant patient. If you have any questions or concerns, please do not hesitate to contact us. Supervising Physician Co-Signing Physician Notes I personally evaluated the patient and agree with the findings as documented by KAUSHIK Hickey Exam: abd: soft, nt, nd EGD tomorrow to further evaluate; would strongly consider discontinuation of AC for pafib if possible. History of Present Illness Reason for Consultation: UGIB Requesting Physician: Dr. Joseph Attending Physician: Forrest Garcia DO History of Present Illness Angela Parish is a very pleasant 75 y.o. female with a history of UGIB related to known GAVE admitted for the third time in the past month with symptomatic an emia (fatigue and CHRISTOPHER) and melena. Symptoms returned after reintroduction of Eliquis which has been prescribed due to history of atrial fibrillation with RVR. On arrival, she was noted to have a hemoglobin of 8.7. She denies any n/v or hematemesis. No abdominal pain today although this was reported on arrival. Patient was scheduled for EGD with APC with Dr. Powell next week. She also reports soon follow up with cardiology and was scheduled for an outpatient IV iron infusion at [facility] tomorrow. She reports desire to have the iron infusion as an inpatient. Patient has been prescribed Protonix 40 mg IV BID and Carafate 1 g ACHS. Allergies Allergy/AdvReac Type Severity Reaction Status Date / Time ciprofloxacin Allergy Mild RASH Verified 01/11/21 09:47 cephalexin Allergy Unknown UNKNOWN Verified 01/11/21 09:47 doxycycline Allergy Unknown RASH Verified 01/11/21 09:47 Egg Derived Allergy Unknown HIVES Verified 01/11/21 09:47 Influenza Virus Vaccines Allergy Unknown ALLERGIES Verified 01/11/21 09:47 TO EGGS Nitrate Analogues Allergy Unknown UNABLE TO Verified 01/11/21 09:47 HAVE R/T PULMONARY HTN Penicillins Allergy Unknown RASH Verified 01/11/21 09:47 tetanus toxoid, adsorbed Allergy Unknown TETANUS-DIPTHERIA Verified 01/11/21 09:47 TOXOID-RASH codeine AdvReac Unknown GI SYMPTOMS Verified 01/11/21 09:47 diphenhydramine AdvReac Unknown UNABLE TO Verified 01/11/21 09:47 HAVE R/T PULMONARY HTN hydrocodone AdvReac Unknown N/V Verified 01/11/21 09:47 pseudoephedrine AdvReac Unknown UNABLE TO Verified 01/11/21 09:47 HAVE COLD MEDICATIONS R/T PULMONARY HTN Home Medications Medication Instructions Recorded Confirmed Type ascorbic acid (vitamin C) 500 mg 500 m PO QAM cap 04/03/18 01/11/21 History capsule calcium carbonate 500 mg calcium 500 mg PO QAM tab 04/03/18 01/11/21 History (1,250 mg) tablet cholecalciferol (vitamin D3) 1,000 unit PO QAM 08/30/18 01/11/21 History [Vitamin D3] diphenhydramine-acetaminophen 1 tab PO HS 08/30/18 01/11/21 History [Tylenol PM Extra Strength] triamcinolone acetonide 0.1 % 1 appln TOPICAL DAILY PRN #1 gm 03/14/19 01/11/21 History topical cream Oxygen Home #1 ea 04/07/19 01/11/21 Rx mometasone-formoterol HFA 200 2 puffs INH Q12H #13 gm 08/05/19 01/11/21 Rx mcg-5 mcg/actuation aerosol inhaler metoprolol succinate 50 mg 50 mg PO DAILY #180 tab 05/13/20 01/11/21 Rx tablet,extended release 24 hr flecainide 100 mg tablet 100 mg PO Q12H #180 tab 08/25/20 01/11/21 Rx ondansetron HCl 4 mg tablet 4 mg PO Q8H PRN 09/21/20 01/11/21 History selexipag 1,200 mcg tablet 1,200 mcg PO BID #60 tab 09/21/20 01/11/21 Rx valacyclovir 500 mg tablet 1,000 mg PO BID PRN #30 tab 09/21/20 01/11/21 Rx gabapentin 300 mg capsule 300 mg PO TID #90 cap 11/01/20 01/11/21 Rx potassium chloride 10 mEq 10 meq PO QAM #90 cap 11/22/20 01/11/21 Rx capsule,extended release tadalafil 20 mg tablet 40 mg PO DAILY tab 11/25/20 01/11/21 History multivitamin 1 tab PO DAILY 12/10/20 01/11/21 History torsemide 10 mg PO 3XWK 12/10/20 01/11/21 History simvastatin 20 mg tablet 20 mg PO DAILY #90 tab 12/15/20 01/11/21 Rx pantoprazole 40 mg tablet,delayed 40 mg PO BID #60 tab 12/24/20 01/11/21 Rx release apixaban 5 mg tablet 5 mg PO BID #60 tab 12/30/20 01/11/21 Rx sertraline 50 mg tablet 50 mg PO QAM #90 tab 01/04/21 01/11/21 Rx tramadol 50 mg tablet 50 mg PO TID PRN #90 tab 01/06/21 01/11/21 Rx calcitonin (salmon) 1 spray INTRANASAL (ALT) DAILY 01/11/21 01/11/21 History Patient History Medical History Atherosclerosis of aorta Atrial fibrillation with RVR follows with Dr. Zelaya Atrial flutter, paroxysmal Bilateral occipital neuralgia Cervical osteoarthritis Chronic anticoagulation Chronic back pain Chronic maxillary sinusitis Chronic obstructive pulmonary disease Chronic rhinitis Degenerative disc disease Depression Dyslipidemia GERD (gastroesophageal reflux disease) History of lung cancer 2017--right History of lung cancer History of pulmonary embolism Iron deficiency anemia Lumbar compression fracture L2, L3, L4 Lumbar spinal stenosis Lumbar spondylosis O2 dependent CARIN (obstructive sleep apnea) 2L N/C at HS or prn Osteoporosis Paroxysmal SVT (supraventricular tachycardia) Pulmonary hypertension Restrictive lung disease Thoracic compression fracture Tubular adenoma of colon Surgical History H/O tubal ligation History of appendectomy History of bilateral cataract extraction History of cardiac cath x3 with no stents History of cholecystectomy History of colonoscopy History of esophagogastroduodenoscopy (EGD) 12/13/20. 12/28/20 Dr. Pancho Powell History of hemorrhoidectomy History of tooth extraction all upper, most of lower Previous back surgery S/P lobectomy of lung Right upper Family History Mother Heart disease Myocardial infarction Sister Valvular heart disease Sinusitis Other No family history of adverse response to anesthesia Denies family history of Ovarian cancer Prostate cancer Breast cancer Colorectal cancer Social History Smoking Status: Former smoker Tobacco Type: Cigarettes packs per day: 1; Years Smoked: 40; Number of Years Since Quit: 20; Second Hand Exposure: No; Hx Alcohol Use: No Hx Substance Use: No Preferred Language: Stateless Communication Ability: Effective Visual Impairment: Limited Hearing Ability: Normal Primary School Teacher Required: No Beliefs That Will Affect Care: None marital status: Current Living Situation: Spouse current occupational status: retired Feels Safe at Home: Yes Dental Care, Regularly: No Physical Activity Frequency: Daily Seatbelt Use: always Sunscreen Use: No Assistive Devices: Oxygen - Continuous Review of Systems Review of Systems: All systems reviewed & are unremarkable except as noted in HPI & below Physical Exam Constitutional: WD/WN, vitals as above well developed and well nourished Eyes: EOM intact bilaterally Neck: normal visual inspection Respiratory: normal respiratory effort, lungs clear to auscultation Cardiovascular: Rate/Rhythm: regular rate and regular rhythm Gastrointestinal (Abdomen): normal bowel sounds, soft, nontender, no hepatosplenomegaly Skin: + pallor Psychiatric: A+Ox3, euthymic affect Results & Data ([facility]) Vital Signs (Past 12 Hours) Vital Signs Temp Pulse Pulse Resp BP BP Pulse Ox 01/12/21 07:52 53 L 01/12/21 07:13 36.4 C L 72 19 108/56 L 96 01/12/21 03:42 36.5 C 76 18 111/67 93 01/11/21 23:08 36.6 C 73 20 108/57 L 96 Laboratory Results Abnormal lab results 01/11/21 01/11/21 01/11/21 Range/Units 16:01 16:01 16:09 WBC 4.79 L (4.8-10.8) K/uL RBC 2.77 L (4.2-5.4) M/uL Hgb 8.7 L (12.0-16.0) g/dL Hct 27.7 L (37-47) % MCHC 31.4 L (32-36) g/dL RDW Std Deviation 55.5 H (36.4-46.3) fL RDW Coeff of Tank 15.3 H (11.5-14.5) % Reticulocyte % (Auto) 3.2 H (0.5-2.0) % Lymph # (Auto) 0.97 L (1.2-3.4) K/uL Chloride (98-107) mmol/L Carbon Dioxide 33 H (21-32) mmol/L Anion Gap 1.0 L (3-11) BUN 31 H (7-18) mg/dl BUN/Creatinine Ratio 32.1 H (10-20) Calcium (8.5-10.1) mg/dl Albumin 3.1 L (3.4-5.0) gm/dl Albumin/Globulin Ratio 0.8 L (0.9-2) Urine Blood (Negative) Ur Leukocyte Esterase (Negative) Urine WBC (0-5) /hpf Ur Epithelial Cells (0-5) /lpf Urine Bacteria (Negative) Crossmatch See Detail 01/11/21 01/12/21 01/12/21 Range/Units 18:10 06:39 06:39 WBC 4.75 L (4.8-10.8) K/uL RBC 2.88 L (4.2-5.4) M/uL Hgb 9.0 L (12.0-16.0) g/dL Hct 28.6 L (37-47) % MCHC 31.5 L (32-36) g/dL RDW Std Deviation 60.6 H (36.4-46.3) fL RDW Coeff of Tank 16.8 H (11.5-14.5) % Reticulocyte % (Auto) (0.5-2.0) % Lymph # (Auto) 0.76 L (1.2-3.4) K/uL Chloride 110 H (98-107) mmol/L Carbon Dioxide (21-32) mmol/L Anion Gap (3-11) BUN 24 H (7-18) mg/dl BUN/Creatinine Ratio 31.3 H (10-20) Calcium 8.3 L (8.5-10.1) mg/dl Albumin (3.4-5.0) gm/dl Albumin/Globulin Ratio (0.9-2) Urine Blood Trace-intact H (Negative) Ur Leukocyte Esterase 2+ H (Negative) Urine WBC >30 H (0-5) /hpf Ur Epithelial Cells 5-10 H (0-5) /lpf Urine Bacteria 1+ H (Negative) Crossmatch PG Care Time/CCT Total # of Minutes Spent Total Time Spent with Patient: Total time spent is greater than 50% in coordination of care (as documented) at patient's floor/unit and/or counseling patient: Coding Level of Care Code 74893 Initial Inpt Care Lvl 3 Diagnoses UGI bleed K92.2 Melena K92.1 Fatigue R53.83 Fatigue type: other GAVE (gastric antral vascular ectasia) K31.819 (1) Fatigue Fatigue type: other Qualified Code(s): R53.83 - Other fatigue
[2021-01-12] MEDS ORDERED: IRON SUCROSE 300 MG in SODIUM CHLORIDE 0.9% 250 ML IV ONE (11:15)
[2021-01-12] MEDS: SUCRALFATE 1 GM TAB PO SCH ×3 (13:11→20:46)
--- NOTE | 2021-01-12 13:18 | Electrocardiogram Report ---
Test Reason : Blood Pressure : / mmHG Vent. Rate : 068 BPM Atrial Rate : 068 BPM P-R Int : 232 ms QRS Dur : 106 ms QT Int : 426 ms P-R-T Axes : 036 -12 025 degrees QTc Int : 452 ms Sinus rhythm with sinus arrhythmia with 1st degree A-V block Low voltage QRS Possible Inferior infarct (cited on or before 27-DEC-2020) Poor R wave progression, consider anterior KS vs. lead placement vs. LVH Abnormal ECG When compared with ECG of 27-DEC-2020 16:50, Questionable change in initial forces of Anterior leads Nonspecific T wave abnormality, improved in Anterior leads Confirmed by Todd Osorio ([id number]) on 01/12/2021 1:18:24 PM Referred By: Iliana Goddard Confirmed By:Todd Osorio
--- NOTE | 2021-01-12 13:24 | Cardiology Consultation ---
Date of Consultation January 12, 2021 Assessment & Plan (1) Pulmonary hypertension: 2. Recurrent upper GI bleed with blood loss anemia 3. Paroxysmal AF/AT 4. History of VTE 5. Chronic diastolic heart failure 6. Moderate nonobstructive CAD Patient well-perfused today with no signs of heart failure. Has remained in sinus rhythm with brief episodes of atrial tachycardia Hemoglobin stable At this point net clinical benefit for continuing anticoagulation seems low. Agree with holding Eliquis for the foreseeable future. We did discuss potential of pursuing left atrial appendage occlusion (watchman device). Patient would still need to be anticoagulated for at least 6 weeks post procedure and she wishes to avoid additional procedures at this time. Recommend continuing home PAH therapy with selexipag and tadalafil Appears euvolemic. Okay to continue to hold maintenance diuretic Brief AT on telemetry. Continue home flecainide, metoprolol. Continue statin History of Present Illness Attending Physician: Forrest Garcia, DO History of Present Illness Mrs. Parish is a very pleasant 75-year-old woman with a history of pulmonary hypertension (on PDE5 and oral prostacyclin agonist), chronic diastolic heart failure, PAF/atrial tachycardia, moderate nonobstructive CAD, prior provoked PEs. She was admitted in the setting of recurrent anemia/upper GI bleed post recent treatment for GAVE. Cardiology consulted regarding long-term anticoagulation. She has unfortunately been hospitalized September, October, November, December with anemia requiring transfusion. Had return of her melantic stools 5 days ago, with recurrent fatigue and dyspnea on exertion. Has also had worsened epigastric discomfort. Hemoglobin down to 8.7. Troponin negative. ECG sinus rhythm without dynamic ST changes. Plan is for repeat EGD tomorrow. Receiving IV iron today. Allergies Allergy/AdvReac Type Severity Reaction Status Date / Time ciprofloxacin Allergy Mild RASH Verified 01/11/21 09:47 cephalexin Allergy Unknown UNKNOWN Verified 01/11/21 09:47 doxycycline Allergy Unknown RASH Verified 01/11/21 09:47 Egg Derived Allergy Unknown HIVES Verified 01/11/21 09:47 Influenza Virus Vaccines Allergy Unknown ALLERGIES Verified 01/11/21 09:47 TO EGGS Nitrate Analogues Allergy Unknown UNABLE TO Verified 01/11/21 09:47 HAVE R/T PULMONARY HTN Penicillins Allergy Unknown RASH Verified 01/11/21 09:47 tetanus toxoid, adsorbed Allergy Unknown TETANUS-DIPTHERIA Verified 01/11/21 09:47 TOXOID-RASH codeine AdvReac Unknown GI SYMPTOMS Verified 01/11/21 09:47 diphenhydramine AdvReac Unknown UNABLE TO Verified 01/11/21 09:47 HAVE R/T PULMONARY HTN hydrocodone AdvReac Unknown N/V Verified 01/11/21 09:47 pseudoephedrine AdvReac Unknown UNABLE TO Verified 01/11/21 09:47 HAVE COLD MEDICATIONS R/T PULMONARY HTN Home Medications Medication Instructions Recorded Confirmed Type ascorbic acid (vitamin C) 500 mg 500 m PO QAM cap 04/03/18 01/11/21 History capsule calcium carbonate 500 mg calcium 500 mg PO QAM tab 04/03/18 01/11/21 History (1,250 mg) tablet cholecalciferol (vitamin D3) 1,000 unit PO QAM 08/30/18 01/11/21 History [Vitamin D3] diphenhydramine-acetaminophen 1 tab PO HS 08/30/18 01/11/21 History [Tylenol PM Extra Strength] triamcinolone acetonide 0.1 % 1 appln TOPICAL DAILY PRN #1 gm 03/14/19 01/11/21 History topical cream Oxygen Home #1 ea 04/07/19 01/11/21 Rx mometasone-formoterol HFA 200 2 puffs INH Q12H #13 gm 08/05/19 01/11/21 Rx mcg-5 mcg/actuation aerosol inhaler metoprolol succinate 50 mg 50 mg PO DAILY #180 tab 05/13/20 01/11/21 Rx tablet,extended release 24 hr flecainide 100 mg tablet 100 mg PO Q12H #180 tab 08/25/20 01/11/21 Rx ondansetron HCl 4 mg tablet 4 mg PO Q8H PRN 09/21/20 01/11/21 History selexipag 1,200 mcg tablet 1,200 mcg PO BID #60 tab 09/21/20 01/11/21 Rx valacyclovir 500 mg tablet 1,000 mg PO BID PRN #30 tab 09/21/20 01/11/21 Rx gabapentin 300 mg capsule 300 mg PO TID #90 cap 11/01/20 01/11/21 Rx potassium chloride 10 mEq 10 meq PO QAM #90 cap 11/22/20 01/11/21 Rx capsule,extended release tadalafil 20 mg tablet 40 mg PO DAILY tab 11/25/20 01/11/21 History multivitamin 1 tab PO DAILY 12/10/20 01/11/21 History torsemide 10 mg PO 3XWK 12/10/20 01/11/21 History simvastatin 20 mg tablet 20 mg PO DAILY #90 tab 12/15/20 01/11/21 Rx pantoprazole 40 mg tablet,delayed 40 mg PO BID #60 tab 12/24/20 01/11/21 Rx release apixaban 5 mg tablet 5 mg PO BID #60 tab 12/30/20 01/11/21 Rx sertraline 50 mg tablet 50 mg PO QAM #90 tab 01/04/21 01/11/21 Rx tramadol 50 mg tablet 50 mg PO TID PRN #90 tab 01/06/21 01/11/21 Rx calcitonin (salmon) 1 spray INTRANASAL (ALT) DAILY 01/11/21 01/11/21 History Patient History Medical History Atherosclerosis of aorta Atrial fibrillation with RVR follows with Dr. Zelaya Atrial flutter, paroxysmal Bilateral occipital neuralgia Cervical osteoarthritis Chronic anticoagulation Chronic back pain Chronic maxillary sinusitis Chronic obstructive pulmonary disease Chronic rhinitis Degenerative disc disease Depression Dyslipidemia GERD (gastroesophageal reflux disease) History of lung cancer 2017--right History of lung cancer History of pulmonary embolism Iron deficiency anemia Lumbar compression fracture L2, L3, L4 Lumbar spinal stenosis Lumbar spondylosis O2 dependent CARIN (obstructive sleep apnea) 2L N/C at HS or prn Osteoporosis Paroxysmal SVT (supraventricular tachycardia) Pulmonary hypertension Restrictive lung disease Thoracic compression fracture Tubular adenoma of colon Surgical History H/O tubal ligation History of appendectomy History of bilateral cataract extraction History of cardiac cath x3 with no stents History of cholecystectomy History of colonoscopy History of esophagogastroduodenoscopy (EGD) 12/13/20. 12/28/20 Dr. Pancho Powell History of hemorrhoidectomy History of tooth extraction all upper, most of lower Previous back surgery S/P lobectomy of lung Right upper Family History Mother Heart disease Myocardial infarction Sister Valvular heart disease Sinusitis Other No family history of adverse response to anesthesia Denies family history of Ovarian cancer Prostate cancer Breast cancer Colorectal cancer Social History Smoking Status: Former smoker Tobacco Type: Cigarettes packs per day: 1; Years Smoked: 40; Number of Years Since Quit: 20; Second Hand Exposure: No; Hx Alcohol Use: No Hx Substance Use: No Preferred Language: Maltese Communication Ability: Effective Visual Impairment: Limited Hearing Ability: Normal Cash Shortage Investigator Required: No Beliefs That Will Affect Care: None marital status: Current Living Situation: Spouse current occupational status: retired Feels Safe at Home: Yes Dental Care, Regularly: No Physical Activity Frequency: Daily Seatbelt Use: always Sunscreen Use: No Assistive Devices: Oxygen - Continuous Review of Systems Review of Systems: All systems reviewed & are unremarkable except as noted in HPI & below Physical Exam Physical Exam: General: Comfortable, no acute distress, NC in place HEENT: Sclerae anicteric Lungs: Clear to auscultation bilaterally Cardiac: Regular rate and rhythm, no murmurs. Normal S1, pronounced S2. No JVD Abdomen: Soft, mild epigastric tenderness. Positive bowel sounds Extremities: Warm, well perfused, no edema. 2+ radial pulses Skin: No rashes or lesions. Neuro: Nonfocal Psych: Alert orient x3, normal affect and mood Results & Data ([facility]) Vital Signs (Past 12 Hours) Vital Signs Temp Pulse Pulse Resp BP Pulse Ox 01/12/21 11:18 97.9 F 79 18 99/55 L 91 01/12/21 07:52 53 L 01/12/21 07:13 97.5 F L 72 19 108/56 L 96 01/12/21 03:42 97.7 F 76 18 111/67 93 PG Care Time/CCT Total # of Minutes Spent Total Time Spent with Patient: Total time spent is greater than 50% in coordination of care (as documented) at patient's floor/unit and/or counseling patient: Coding Level of Care Code 18805 OBS Care - Level 3 Diagnoses Pulmonary hypertension I27.20
--- NOTE | 2021-01-12 13:32 | Hospitalist Progress Note ---
Date of Service January 12, 2021 Assessment & Plan (1) ABLA (acute blood loss anemia): * S/p transfusion 1 unit packed RBCs. * Follow-up H&H this morning is stable. * Melanotic stools have since down trended * Plan is for follow-up H&H this afternoon to trend. If <9.0, would consider additional units of blood * To go to the OR for EGD with APC per GI. Appreciate comanagement recommendations. * Continue PPI. Add Carafate for persistent epigastric discomfort. * Follow-up lab data to be obtained in the a.m. to trend * Continue with holding Eliquis as discussed above. Patient seen by cardiology in consultation who is agreeable. * I have reached out to hematology and as recommended by them, iron infusion ordered- to be given tomorrow during this hospitalization (was to be done as an outpatient tomorrow). Follow-up infusion already scheduled for next week. (2) Fatigue: * Resolved (3) Melena: * improving-- secondary to #1 (4) Paroxysmal A-fib: * Currently in a normal sinus rhythm with controlled ventricular rate. Per documentation, brief period of atrial tachycardia that was nonsustained. Heart rate currently controlled at 79. BP reasonable. Continue flecainide and metoprolol as prior to hospitalization (5) CAD (coronary artery disease): * Nonobstructive. Continue beta-blockade. No antiplatelet therapy on board. (6) GAVE (gastric antral vascular ectasia): * See plan as outlined above (7) Chronic anticoagulation: * See plan as outlined above. Again, has bled score currently 4. with a Pnueet vas 2 score 5. Currently with active bleeding, benefit of anticoagulation therapy does not outweigh the risk. Seen by cardiology who agrees. (8) History of pulmonary embolism: * Suspected to be provoked. See above (9) Pulmonary hypertension: * continue selexipag as prior to hospitalization. Will withhold Cialis for now given marginal hypotension. Admission and Anticipated Discharge Date Admission Date: January 11, 2021 Subjective Patient seen on daily rounds today. She is s/p transfusion 1U PRBC's. H/H this am is not significantly changed at 9.0/28.6. Her fatigue has resolved but still with CHRISTOPHER. Today, reports mild lightheadedness initially- has since resolved. Still with epigastric pain that seems worse today. Denies CP, palpitations, N/V. Did have a BM this am that was slightly dark in color. No hematochezia. Patient scheduled for Iron Infusion (tomorrow) with Dr. Nino (weekly x3). Seen by GI. Plan is for EGD and APC for hemostasis (either 01/13 or 01/14) Seen by cardiology in consult regarding long-term need for anticoagulation therapy. Has bled score= 4. Chadvasc2 score = 5. Eliquis currently on hold given active GI bleed. Cardiology agrees that benefit currently does not outweigh risk. Discussed potential of watchman procedure. Patient to consider in future. Recommendations are for withholding anticoagulation therapy for foreseeable future. Review of Systems Constitutional: no fever, no chills and no fatigue Respiratory: no dyspnea and no dyspnea on exertion Cardiovascular: no chest pain, no dyspnea, no palpitations and no edema Gastrointestinal: + abdominal pain (epigastric), + belching, + heartburn and + melena; no bloating, no nausea and no hematemesis Genitourinary: no dysuria and no hematuria Physical Exam Constitutional: Patient A&O, NAD. Does not appear ill or toxic Respiratory: CTA without W/R/R. Breathing nonlabored Cardiovascular: Currently in a normal sinus rhythm with controlled ventricular rate. 2/6 ZAINA heard best at the right sternal border Gastrointestinal (Abdomen): Normal active X4. Abdomen soft with exquisite epigastric tenderness Results & Data Results & Data ([facility]) Vital Signs (Past 12 Hours) Vital Signs Temp Pulse Pulse Resp BP Pulse Ox 01/12/21 11:18 36.6 C 79 18 99/55 L 91 01/12/21 07:52 53 L 01/12/21 07:13 36.4 C L 72 19 108/56 L 96 01/12/21 03:42 36.5 C 76 18 111/67 93 PG Care Time/CCT Total # of Minutes Spent Total Time Spent with Patient: Total time spent is greater than 50% in coordination of care (as documented) at patient's floor/unit and/or counseling patient:60 min including time spent with patient and reviewing old records/consult notes C[place] [address] Subseq Hosp Care Lvl 2 Patient Type Established History Expanded Problem Focused Exam Expanded Problem Focused Medical Decision Making Moderate Complexity Diagnoses ABLA (acute blood loss anemia) D62 Fatigue R53.83 Fatigue type: other Melena K92.1 Paroxysmal A-fib I48.0 CAD (coronary artery disease) I25.10 Coronary Disease-Associated Artery/Lesion type: iroquois artery [place] vs. transplanted heart: iroquois heart GAVE (gastric antral vascular ectasia) K31.819 Chronic anticoagulation Z79.01 History of pulmonary embolism Z86.711 Pulmonary hypertension I27.20 (1) Fatigue Fatigue type: other Qualified Code(s): R53.83 - Other fatigue (2) CAD (coronary artery disease) Coronary Disease-Associated Artery/Lesion type: [place]ro[place]ois artery [place] vs. transplanted heart: iroquois heart
[2021-01-12 13:55] LABS: Hematocrit (blood only) 30.3 % (37-47); Hemoglobin 9.7 g/dL (12.0-16.0)
[2021-01-13 06:29] LABS: Basophils # (auto) 0.02 K/uL (0-0.2); Basophils % (auto) 0.5 %; Eosinophils # (auto) 0.21 K/uL (0-0.5); Hematocrit (blood only) 28.7 % (37-47); Hemoglobin 9.2 g/dL (12.0-16.0); Immature Granulocytes # (auto) 0.02 K/uL (0.00-0.02); Immature Granulocytes % (auto) 0.5 %; Lymphocytes % (auto) 16.5 %; Mean Corpuscular Hemoglobin 31.2 pg (25-34); Mean Corpuscular Hgb Conc 32.1 g/dL (32-36); Mean Corpuscular Volume 97.3 fL (80-100); Mean Platelet Volume 9.2 fL (7.4-10.4); Monocytes # (auto) 0.42 K/uL (0.11-0.59); Monocytes % (auto) 9.9 %; Neutrophils # (auto) 2.86 K/uL (1.4-6.5); Neutrophils % (auto) 67.6 %; Platelet Count 211 K/uL (130-400); RDW Coefficient of Variation 16.4 % (11.5-14.5); RDW Standard Deviation 57.6 fL (36.4-46.3); Red Blood Count 2.95 M/uL (4.2-5.4); White Blood Count 4.23 K/uL (4.8-10.8)
[2021-01-13 07:05] LABS: Calcium 8.5 mg/dl (8.5-10.1); Creatinine Clr Calc Pharmacy 59.8 ml/min; Est GFR (African American) 86.3 ml/min; Est GFR (Non-African American) 74.5 ml/min; Magnesium 2.2 mg/dl (1.8-2.4); Potassium 4.2 mmol/L (3.5-5.1)
[2021-01-13] MEDS: SELEXIPAG PO SCH (07:53)
[2021-01-13] MEDS: PANTOprazole 40 MG in SYRINGE 0 ML IV SCH (07:53)
[2021-01-13] MEDS: FLUTICASONE/VILANTEROL 100/25MCG 14 PUFFS/INHALER INH SCH (07:53)
[2021-01-13] MEDS: METOPROLOL SUCC 50MG EXT REL TAB PO SCH (07:53)
[2021-01-13] MEDS: FLECAINIDE ACETATE 100 MG TABLET PO SCH (07:54)
[2021-01-13] MEDS: SERTRALINE HCL 50 MG TABLET PO SCH (07:58)
[2021-01-13] MEDS: GABAPENTIN 300 MG CAP PO SCH (07:58)
[2021-01-13] MEDS: SUCRALFATE 1 GM TAB PO SCH (07:58)
[2021-01-13] MEDS ORDERED: tadalafiL PO SCH (09:00)
--- NOTE | 2021-01-13 09:27 | Hospitalist Progress Note ---
Date of Service January 13, 2021 Assessment & Plan (1) ABLA (acute blood loss anemia): * H/H stable * for EGD today later today * F/U labs tomorrow to trend H/H * continue carafate * convert IV to oral pantoprazole * plan for suspected DC later today or tomorrow * will D/W Dr. Gracia (2) Fatigue: * Resolved (3) Melena: * Resolved (4) Paroxysmal A-fib: * Has remained in a NSR with CVR. No need for continuous cardiac monitorring. Transfer to /S following EGD. * continue BB and Flecanide as prior to hospitalization (5) CAD (coronary artery disease): * Nonobstructive. Continue beta-blockade. No antiplatelet therapy on board. (6) GAVE (gastric antral vascular ectasia): * See plan as outlined above * will need GI follow up as OP (7) Chronic anticoagulation: * risk of ACT currently outweighs risk of discontinuation. HASbled score=4, Chadvasc2=5; however, recurrent and actuve UGI bleed. Eliquis on hold. Recommend withholding for a minimum of 2 weeks. Cardiology (Dr. Zelaya with whom patient established) has seen patient and agrees. May consider D/C indefinitely. He will follow and reassess risk as OP. (8) History of pulmonary embolism: * Suspected to be provoked as following surgical intervention; however, patient is h/o Lung CA s/p resection. As mentioned above, risk of continued ACT currently outweighs risk of stopping ACT. Risk assessment to be readdressed in future. (9) Pulmonary hypertension: * continue selexipag as prior to hospitalization. Cialis has been on hold d/t marginal hypotension. BP currently improved today. Continue to monitor. BP may be improved given s/p transfusion RPBCs. * If BP remains WNL, likely to resume cialis upon dc Admission and Anticipated Discharge Date Admission Date: January 11, 2021 Subjective Patient seen on daily rounds today. Overall, voices no c/c. For EGD today. H/H stable. Patient now on Carafate. Still with dyspepsia but slightly improved today. Denies dizziness/lightheadedness, CP, palpitations, N/V. Did have a BM that was formed and brown- no further melena. Review of Systems Constitutional: no fever, no chills and no fatigue Respiratory: no cough, no dyspnea and no dyspnea on exertion Cardiovascular: no chest pain, no dyspnea, no palpitations and no edema Gastrointestinal: + heartburn (but improving); no nausea, no vomiting and no melena Physical Exam Constitutional: well developed and well nourished; no acute distress and not ill appearing Eyes: PERRL, conjunctivae normal, anicteric sclerae ENMT: external ear and nose normal, oropharynx normal Neck: trachea midline, no thyromegaly Respiratory: Auscultation: lungs clear to auscultation bilaterally; no rales, no rhonchi and no wheezes Gastrointestinal (Abdomen): Inspection/Auscultation: abdomen normal to inspection and normal bowel sounds; abdomen not distended still with subtle tenderness in the epigastric region but overall improving. Musculoskeletal: no cyanosis or clubbing, extremities motor strength 5/5 Skin: no rashes and no lesions Results & Data Results & Data ([facility]) Vital Signs (Past 12 Hours) Vital Signs Temp Pulse Pulse Resp BP Pulse Ox 01/13/21 07:29 36.4 C L 71 15 123/65 97 01/13/21 07:08 70 01/13/21 04:21 36.6 C 75 16 121/70 94 01/13/21 00:14 36.6 C 84 22 93/58 L 97 Laboratory Results 01/13/21 06:14 01/13/21 06:14 Diagnostic Findings none PG Care Time/CCT Total # of Minutes Spent Total Time Spent with Patient: Total time spent is greater than 50% in coordination of care (as documented) at patient's floor/unit and/or counseling patient: 60 min Coding Level of Care Code None Diagnoses ABLA (acute blood loss anemia) D62 Fatigue R53.83 Fatigue type: other Melena K92.1 Paroxysmal A-fib I48.0 CAD (coronary artery disease) I25.10 Coronary Disease-Associated Artery/Lesion type: [place] artery [place] vs. transplanted heart: [place] heart GAVE (gastric antral vascular ectasia) K31.819 Chronic anticoagulation Z79.01 History of pulmonary embolism Z86.711 Pulmonary hypertension I27.20 Comment see d/c billing (1) Fatigue Fatigue type: other Qualified Code(s): R53.83 - Other fatigue (2) CAD (coronary artery disease) Coronary Disease-Associated Artery/Lesion type: [place] artery [place] vs. transplanted heart: [place] heart
--- NOTE | 2021-01-13 09:59 | History & Physical Bridge Note ---
Date of Service January 13, 2021 History & Physical Bridge Note I have examined the patient, reviewed the History & Physical and in the interval since the performance of the History & Physical I have noted the following changes of clinical significance: Patient reports feeling well this morning. No abdominal pain, n/v or overt GIB symptoms. Hgb 9.2 this morning. PE: A&Ox3. RRR. Lungs CTA bilaterally. Abdomen soft, nontender. Normal bowel sounds. A/P: Acute blood loss anemia with known GAVE. 1. NPO for now. 2. Proceed with EGD today. 3. Continue PPI. 4. Further recommendations pending results of testing.
--- NOTE | 2021-01-13 10:13 | Anesthesiology Consultation ---
Date of Service January 13, 2021 Assessment & Plan Chart Review Chart Review: Acceptable Risk for Surgery and Patient NOT seen in Pre Admission Testing Consults Requested none ASA ASA4 Proposed Anesthesia Anesthesia Type: MAC Risk / Benefits Reviewed With: PT / POA / Parent / Guardian, Accepts Plan and Informed Consent Obtained Additional Comments: covid test negative History Surgery Operation Date: 01/13/21 16:30 Proposed Procedures p Esophagogastroduodenoscopy Dr. Powell - Pancho Poewll MD Height/Weight Height: 5 ft 4 in Weight: 72.7 kg Allergies Allergy/AdvReac Type Severity Reaction Status Date / Time ciprofloxacin Allergy Mild RASH Verified 01/11/21 09:47 cephalexin Allergy Unknown UNKNOWN Verified 01/11/21 09:47 doxycycline Allergy Unknown RASH Verified 01/11/21 09:47 Egg Derived Allergy Unknown HIVES Verified 01/11/21 09:47 Influenza Virus Vaccines Allergy Unknown ALLERGIES Verified 01/11/21 09:47 TO EGGS Nitrate Analogues Allergy Unknown UNABLE TO Verified 01/11/21 09:47 HAVE R/T PULMONARY HTN Penicillins Allergy Unknown RASH Verified 01/11/21 09:47 tetanus toxoid, adsorbed Allergy Unknown TETANUS-DIPTHERIA Verified 01/11/21 09:47 TOXOID-RASH codeine AdvReac Unknown GI SYMPTOMS Verified 01/11/21 09:47 diphenhydramine AdvReac Unknown UNABLE TO Verified 01/11/21 09:47 HAVE R/T PULMONARY HTN hydrocodone AdvReac Unknown N/V Verified 01/11/21 09:47 pseudoephedrine AdvReac Unknown UNABLE TO Verified 01/11/21 09:47 HAVE COLD MEDICATIONS R/T PULMONARY HTN Medications Home Medications Medication Instructions Recorded Confirmed Last Taken ascorbic acid (vitamin C) 500 mg 500 m PO QAM cap 04/03/18 01/11/21 12/27/20 capsule calcium carbonate 500 mg calcium 500 mg PO QAM tab 04/03/18 01/11/21 12/27/20 (1,250 mg) tablet cholecalciferol (vitamin D3) 1,000 unit PO QAM 08/30/18 01/11/21 12/27/20 [Vitamin D3] diphenhydramine-acetaminophen 1 tab PO HS 08/30/18 01/11/21 12/26/20 [Tylenol PM Extra Strength] triamcinolone acetonide 0.1 % 1 appln TOPICAL DAILY PRN #1 gm 03/14/19 01/11/21 Unknown topical cream Oxygen Home #1 ea 04/07/19 01/11/21 09/10/19 mometasone-formoterol HFA 200 2 puffs INH Q12H #13 gm 08/05/19 01/11/21 12/27/20 08:00 mcg-5 mcg/actuation aerosol inhaler metoprolol succinate 50 mg 50 mg PO DAILY #180 tab 05/13/20 01/11/21 12/27/20 tablet,extended release 24 hr flecainide 100 mg tablet 100 mg PO Q12H #180 tab 08/25/20 01/11/21 12/27/20 08:00 ondansetron HCl 4 mg tablet 4 mg PO Q8H PRN 09/21/20 01/11/21 Unknown selexipag 1,200 mcg tablet 1,200 mcg PO BID #60 tab 09/21/20 01/11/21 12/27/20 0 8:00 valacyclovir 500 mg tablet 1,000 mg PO BID PRN #30 tab 09/21/20 01/11/21 Unknown gabapentin 300 mg capsule 300 mg PO TID #90 cap 11/01/20 01/11/21 12/27/20 08:00 potassium chloride 10 mEq 10 meq PO QAM #90 cap 11/22/20 01/11/21 12/27/20 capsule,extended release tadalafil 20 mg tablet 40 mg PO DAILY tab 11/25/20 01/11/21 12/27/20 multivitamin 1 tab PO DAILY 12/10/20 01/11/21 12/27/20 torsemide 10 mg PO 3XWK 12/10/20 01/11/21 12/27/20 simvastatin 20 mg tablet 20 mg PO DAILY #90 tab 12/15/20 01/11/21 12/27/20 pantoprazole 40 mg tablet,delayed 40 mg PO BID #60 tab 12/24/20 01/11/21 12/27/20 08:00 release apixaban 5 mg tablet 5 mg PO BID #60 tab 12/30/20 01/11/21 Unknown sertraline 50 mg tablet 50 mg PO QAM #90 tab 01/04/21 01/11/21 Unknown tramadol 50 mg tablet 50 mg PO TID PRN #90 tab 01/06/21 01/11/21 Unknown calcitonin (salmon) 1 spray INTRANASAL (ALT) DAILY 01/11/21 01/11/21 Unknown Active Medications Generic Name Dose Route Start Last Admin Trade Name Amrit PRN Reason Stop Dose Admin Acetaminophen 650 mg 01/12/21 03:52 01/12/21 17:57 Acetaminophen 325 Mg Tab PO 02/11/21 03:51 650 mg Q4H PRN Administration Pain Flecainide Acetate 100 mg 01/11/21 20:05 01/13/21 07:54 Flecainide Acetate 100 Mg Tablet PO 02/10/21 20:04 100 mg Q12 DANIS Administration Fluticasone/Vilanterol 1 puffs 01/12/21 09:00 01/13/21 07:53 Fluticasone/Vilanterol 100/25mcg 14 Puffs/Inhaler INH 02/11/21 08:59 1 puffs DAILY DANIS Administration Gabapentin 300 mg 01/11/21 21:00 01/13/21 07:58 Gabapentin 300 Mg Cap PO 02/10/21 20:59 Not Given TID DANIS Metoprolol Succinate 50 mg 01/12/21 09:00 01/13/21 07:53 Metoprolol Succ 50mg Ext Rel Tab PO 02/11/21 08:59 50 mg DAILY DANIS Administration Selexipag 1 ea 01/11/21 22:00 01/13/21 07:53 Selexipag 1200 Mcg PO 02/10/21 21:59 1 ea BID DANIS Administration Sertraline HCl 50 mg 01/12/21 09:00 01/13/21 07:58 Sertraline Hcl 50 Mg Tablet PO 02/11/21 08:59 Not Given QAM DANIS Sucralfate 1 gm 01/12/21 13:00 01/13/21 07:58 Sucralfate 1 Gm Tab PO 02/11/21 12:59 Not Given QID DANIS NPO Date Last Intake of Fluids: 01/12/21 Time Last Intake of Fluids: 23:45 Date Last Intake of Solids: 01/12/21 Time Last Intake of Solids: 23:45 Past Medical History Medical History Atherosclerosis of aorta Atrial fibrillation with RVR follows with Dr. Zelaya Atrial flutter, paroxysmal Bilateral occipital neuralgia Cervical osteoarthritis Chronic anticoagulation Chronic back pain Chronic maxillary sinusitis Chronic obstructive pulmonary disease Chronic rhinitis Degenerative disc disease Depression Dyslipidemia GERD (gastroesophageal reflux disease) History of lung cancer 2017--right History of lung cancer History of pulmonary embolism Iron deficiency anemia Lumbar compression fracture L2, L3, L4 Lumbar spinal stenosis Lumbar spondylosis O2 dependent CARIN (obstructive sleep apnea) 2L N/C at HS or prn Osteoporosis Paroxysmal SVT (supraventricular tachycardia) Pulmonary hypertension Restrictive lung disease Thoracic compression fracture Tubular adenoma of colon Exercise / Class Metabolic Activity III < 4 Walking/Shop/Light housework Past Family History Family History Mother Heart disease Myocardial infarction Sister Valvular heart disease Sinusitis Other No family history of adverse response to anesthesia Denies family history of Ovarian cancer Prostate cancer Breast cancer Colorectal cancer Past Surgical History Surgical History H/O tubal ligation History of appendectomy History of bilateral cataract extraction History of cardiac cath x3 with no stents History of cholecystectomy History of colonoscopy History of esophagogastroduodenoscopy (EGD) 12/13/20. 12/28/20 Dr. Pancho Powell History of hemorrhoidectomy History of tooth extraction all upper, most of lower Previous back surgery S/P lobectomy of lung Right upper Past Anesthesia History No Hx of Anesthesia Complications and No Family Hx of Anesthesia Complications History of PONV No Hx of PONV and No Hx of Motion Sickness Social History Smoking Status: Former smoker tobacco type: cigarettes Hx Alcohol Use: No Alcohol type: wine alcohol intake frequency: a few times a month Hx Substance Use: No substance use type: does not use Physical Exam Vital Signs Last Vital Signs Temp 36 C L 01/13/21 10:33 Pulse 72 01/13/21 10:33 Resp 18 01/13/21 10:33 BP 141/59 H 01/13/21 10:33 Pulse Ox 99 01/13/21 10:33 Constitutional average body habitus ENMT Mouth: + dentition abnormality and + edentulous Thyromental Distance: < 3.5 Finger Breadths Mallampati Class: II Neck normal visual inspection and trachea midline; neck extension not limited Respiratory normal respiratory effort Auscultation: + diminished lung sounds Cardiovascular Rate/Rhythm: regular rate and regular rhythm Heart Sounds: no murmur Vessels: no carotid bruit Musculoskeletal Spine: normal cervical ROM Extremities: extremities normal to inspection Neurologic moves all extremities Motor/Sensory: no sensory deficit Psychiatric Orientation: alert and oriented x 3 Lab Results COVID-19 Results Results COVID-19 Adm Lab Results: RBC 2.95 M/uL (4.2-5.4) L 01/13/21 WBC 4.23 K/uL (4.8-10.8) L 01/13/21 Hgb 9.2 g/dL (12.0-16.0) L 01/13/21 Hct 28.7 % (37-47) L 01/13/21 Plt Count 211 K/uL (130-400) 01/13/21 Neutrophils (%) (Auto) 67.6 % 01/13/21 Lymphocytes (%) (Auto) 16.5 % 01/13/21 Monocytes # (Auto) 0.42 K/uL (0.11-0.59) 01/13/21 Eosinophils # (Auto) 0.21 K/uL (0-0.5) 01/13/21 Immature Granulocyte % (Auto) 0.5 % 01/13/21 Neutrophils # (Auto) 2.86 K/uL (1.4-6.5) 01/13/21 Lymphocytes # (Auto) 0.70 K/uL (1.2-3.4) L 01/13/21 Monocytes # (Auto) 0.42 K/uL (0.11-0.59) 01/13/21 Eosinophils # (Auto) 0.21 K/uL (0-0.5) 01/13/21 Basophils # (Auto) 0.02 K/uL (0-0.2) 01/13/21 Immature Granulocyte # (Auto) 0.02 K/uL (0.00-0.02) 01/13/21 Na 142 mmol/L (136-145) 01/13/21 K 4.2 mmol/L (3.5-5.1) 01/13/21 Cl 109 mmol/L (98-107) H 01/13/21 CO2 33 mmol/L (21-32) H 01/13/21 Anion Gap 0 (3-11) L 01/13/21 BUN 19 mg/dl (7-18) H 01/13/21 Creatinine 0.77 mg/dl (0.6-1.2) 01/13/21 BUN/Creatinine Ratio 31.3 (10-20) H 01/12/21 Glucose Level 78 mg/dl (70-99) 01/12/21 Ca 8.5 mg/dl (8.5-10.1) 01/13/21 Phosphorus Level 3.3 mg/dl (2.5-4.9) 01/11/21 Total Bilirubin 0.2 mg/dl (0.2-1) 01/11/21 Direct Bilirubin < 0.1 mg/dl (0-0.2) 01/11/21 AST/SGOT 21 U/L (15-37) 01/11/21 ALT/SGPT 20 U/L (12-78) 01/11/21 Alkaline Phosphatase 76 U/L (45-117) 01/11/21 Total Protein 7.1 gm/dl (6.4-8.2) 01/11/21 Albumin 3.1 gm/dl (3.4-5.0) L 01/11/21 Globulin 4.0 gm/dl (2.5-4.0) 01/11/21 Albumin/Globulin Ratio 0.8 (0.9-2) L 01/11/21 Troponin I < 0.015 ng/ml (0-0.045) 01/11/21 Ferritin 225.6 ng/ml (8-388) 01/11/21 PTT 28.5 Seconds (21.0-31.0) 01/11/21 INR 1.1 (0.9-1.1) 01/11/21 COVID-19 PCR NEGATIVE (Negative) 01/11/21 Chest X-Ray 01/11/21 Testing Laboratory Results 01/13/21 06:14 01/13/21 06:14 PT 10.8 Seconds (9.0-12.0) 01/11/21 16:01 INR 1.1 (0.9-1.1) 01/11/21 16:01 APTT 28.5 Seconds (21.0-31.0) 01/11/21 16:01 Urine Color Yellow 01/11/21 18:10 Urine Appearance Clear (Clear) 01/11/21 18:10 Urine pH 6.5 (4.5-7.5) 01/11/21 18:10 Ur Specific [place] 1.020 (1.000-1.030) 01/11/21 18:10 Urine Protein Negative (Negative) 01/11/21 18:10 Urine Glucose (UA) Negative (Negative) 01/11/21 18:10 Urine Ketones Negative (Negative) 01/11/21 18:10 Urine Nitrite Negative (Negative) 01/11/21 18:10 Ur Leukocyte Esterase 2+ (Negative) H 01/11/21 18:10 Urine RBC 0-4 /hpf (0-4) 01/11/21 18:10 Urine WBC >30 /hpf (0-5) H 01/11/21 18:10 Ur Epithelial Cells 5-10 /lpf (0-5) H 01/11/21 18:10 Blood Type B Positive 01/11/21 16:09 Antibody Screen NEGATIVE 01/11/21 16:09 01/11/21 18:10 Urine Culture - Preliminary Urine,Clean Catch No growth - Less than 1,000 colonies/mL, Final report to follow. Electrocardiogram Date: 01/11/21 Findings: + NSR @ and + poor R wave progression 1st degree AVB, low voltage QRS, Chest X-Ray Date: 01/11/21 Chronic postoperative changes.
[2021-01-13] MEDS ORDERED: ATROPINE SULFATE 0.1 MG/ML 10ML SYR IV PRN (10:45)
[2021-01-13] MEDS ORDERED: ePHEDrine sulfate 50 MG/ML AMP IV PRN (10:45)
[2021-01-13] MEDS ORDERED: LIDOCAINE 2% 2 ML VIAL/AMP(20MG/ML) INFIL ONE (11:01)
[2021-01-13] MEDS ORDERED: PROPOFOL IV EMULSION 10 MG/ML 20 ML VIAL IV ONE ×2 (11:01→11:29)
[2021-01-13] MEDS ORDERED: ONDANSETRON INJ 2 MG/ML 2 ML VIAL ONE (11:01)
[2021-01-13] MEDS ORDERED: PHENYLEPHRINE 100MCG/ML 5ML SYR ONE (11:30)
--- NOTE | 2021-01-13 11:32 | GI REPORT ---
Patient Name: Angela Parish Procedure Date: 01/13/2021 11:00 AM Date of : 1945 Admit Type: Inpatient Age: 75 Gender: Female Attending MD: Pancho Powell MD Procedure: Upper GI endoscopy Providers: Pancho Powell MD Referring MD: Iliana Goddard Indications: Melena Medicines: Monitored Anesthesia Care Complications: No immediate complications. Estimated blood loss: None. Estimated Blood Loss: Estimated blood loss: none. Procedure: Pre-Anesthesia Assessment: - Prior Anticoagulants: The patient has taken Eliquis (apixaban), last dose was 2 days prior to procedure. - ASA Grade Assessment: IV - A patient with severe systemic disease that is a constant threat to life. After obtaining informed consent, the endoscope was passed under direct vision. Throughout the procedure, the patient's blood pressure, pulse, and oxygen saturations were monitored continuously. The Endoscope was introduced through the mouth, and advanced to the second part of duodenum. The upper GI endoscopy was accomplished without difficulty. The patient tolerated the procedure well. Findings: The examined esophagus was normal. Severe gastric antral vascular ectasia without bleeding but with stigamata of recent bleeding was present in the gastric antrum. Coagulation for bleeding prevention using argon plasma at 1.2 liters/minute and 35 mabry was successful. Estimated blood loss: none. The duodenal bulb and second portion of the duodenum were normal. Impression: - Normal esophagus. - Gastric antral vascular ectasia without bleeding. Treated with argon plasma coagulation (APC). - Normal duodenal bulb and second portion of the duodenum. - No specimens collected. Recommendation: - Advance diet as tolerated today. - Return patient to [facility] for ongoing care. ok to discharge home this afternoon if tolerating diet and stable. - Repeat upper endoscopy in 2 weeks for retreatment. -continue IV iron infusions -continue protonix daily Pancho Powell MD 01/13/2021 11:31:52 AM This report has been signed electronically. Note Initiated On: 01/13/2021 11:00 AM Number of Addenda: 0 I attest to the content of the Intraoperative Record and orders documented therein, exceptions below {[id number]}
--- NOTE | 2021-01-13 11:50 | Anesthesiology Progress Note ---
Date of Service January 13, 2021 Anesthesia Post Procedure Vital Signs Vital Signs: Temp Pulse Pulse Pulse Resp BP BP 01/13/21 10:33 36 C L 72 18 141/59 H 01/13/21 07:29 36.4 C L 71 15 123/65 01/13/21 07:08 70 01/13/21 04:21 36.6 C 75 16 121/70 01/13/21 00:14 36.6 C 84 22 93/58 L 01/12/21 19:50 36.5 C 78 20 124/81 01/12/21 15:30 36.6 C 76 18 114/77 01/12/21 14:49 73 Pulse Ox 01/13/21 10:33 99 01/13/21 07:29 97 01/13/21 07:08 01/13/21 04:21 94 01/13/21 00:14 97 01/12/21 19:50 96 01/12/21 15:30 95 01/12/21 14:49 Transfer of Care Handoff Completed per policy Notes Mental Status: alert / awake / arousable Patient Amnestic to Procedure: Yes Nausea / Vomiting: adequately controlled Pain: adequately controlled Airway Patency, RR, SpO2: stable & adequate BP & HR: stable & adequate Hydration State: stable & adequate Anesthetic Complications: no major complications apparent
--- NOTE | 2021-01-13 14:27 | Discharge Summary ---
Date of Service January 13, 2021 Admission HPI Per Admitting Provider Mrs. 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 Patient has been hospitalized in September, October, November, and December for anemia requiring transfusion. Initial issue with this anemia started in September- hospitalized with a Hemoglobin was 7.1 at that time requiring transfusion. Similar hospitalizations have taken place in October, November, and December. She underwent EGD by Dr. Powell in November showing GAVE treated with argon plasma anticoagulation. Last hospitalization was 12/27 through 12/29. Discharge hemoglobin was 10.2. At that time, her melanotic stools had resolved. She was discharged on pantoprazole 40 mg twice daily and told to hold Eliquis X 7 days. She was scheduled for a follow-up EGD with Dr. Powell in January; however, approximately 5 days ago her melanotic stools returned. In addition, she has been excessively fatigued and having increased dyspnea on exertion. In addition, she does admit to epigastric discomfort, excessive eructation and mild nausea. Denies dizziness/lightheadedness, CP, SOB at rest, palpitations. She was prompted to come to the emergency department where she was found to be mildly hypotensive (96/60). Was given a bolus of NSS and her subsequent blood pressure improved (111/65). Otherwise, her heart rate has been sinus and controlled. She typically uses 2 L of oxygen and is currently 98% on 3 L. Her H/H is 8.7/2 7.7 respectively. Her iron level is acceptable at 41. She admits to having a recent iron infusion last week. CXR was unremarkable. EKG showed a normal sinus rhythm with controlled rate. Left axis deviation with poor R wave progression. T wave inversion in the anteroseptal leads with a first-degree AV block. This is unchanged from her previous EKG. Given her recurrent and symptomatic anemia with melanotic stools. Patient subsequently hospitalized for further evaluation and care. Admission Exam Per Admitting Provider Constitutional: well developed and well nourished; no acute distress and not ill appearing Eyes: PERRL, conjunctivae normal, anicteric sclerae ENMT: external ear and nose normal, oropharynx normal Neck: trachea midline, no thyromegaly Respiratory: Auscultation: lungs clear to auscultation bilaterally; no rales, no rhonchi and no wheezes Cardiovascular: Currently in normal sinus rhythm with controlled ventricular rate. 2/6 to 3/6 ZAINA heard best at the right sternal border at the base Gastrointestinal (Abdomen): Inspection/Auscultation: abdomen normal to inspection and normal bowel sounds; abdomen not distended Percussion/Palpation: + abdomen tender (Epigastric region) repeat rectal deferred. Done by ED doc and positive Musculoskeletal: no cyanosis or clubbing, extremities motor strength 5/5 Skin: no rashes and no lesions Neurologic: CN 2-12 intact. No focal neuro deficits Principal Diagnosis 1. Symptomatic anemia requiring Transfusion 2. UGI Bleed (d/t GAVE) 3. Gastric Antral Vascular Ectasia (GAVE) 4. Marginal Hypotension- resolved Discharge Exam Constitutional: well developed and well nourished; no acute distress and not ill appearing Eyes: PERRL, conjunctivae normal, anicteric sclerae ENMT: external ear and nose normal, oropharynx normal Neck: trachea midline, no thyromegaly Respiratory: Auscultation: lungs clear to auscultation bilaterally; no rales, no rhonchi and no wheezes Gastrointestinal (Abdomen): Inspection/Auscultation: abdomen normal to inspection and normal bowel sounds; abdomen not distended still with subtle tenderness in the epigastric region but overall improving. Musculoskeletal: no cyanosis or clubbing, extremities motor strength 5/5 Skin: no rashes and no lesions Discharge Data Allergies Allergy/AdvReac Type Severity Reaction Status Date / Time ciprofloxacin Allergy Mild RASH Verified 01/11/21 09:47 cephalexin Allergy Unknown UNKNOWN Verified 01/11/21 09:47 doxycycline Allergy Unknown RASH Verified 01/11/21 09:47 Egg Derived Allergy Unknown HIVES Verified 01/11/21 09:47 Influenza Virus Vaccines Allergy Unknown ALLERGIES Verified 01/11/21 09:47 TO EGGS Nitrate Analogues Allergy Unknown UNABLE TO Verified 01/11/21 09:47 HAVE R/T PULMONARY HTN Penicillins Allergy Unknown RASH Verified 01/11/21 09:47 tetanus toxoid, adsorbed Allergy Unknown TETANUS-DIPTHERIA Verified 01/11/21 09:47 TOXOID-RASH codeine AdvReac Unknown GI SYMPTOMS Verified 01/11/21 09:47 diphenhydramine AdvReac Unknown UNABLE TO Verified 01/11/21 09:47 HAVE R/T PULMONARY HTN hydrocodone AdvReac Unknown N/V Verified 01/11/21 09:47 pseudoephedrine AdvReac Unknown UNABLE TO Verified 01/11/21 09:47 HAVE COLD MEDICATIONS R/T PULMONARY HTN Consultations 01/11/21 16:58 ED Decision to Admit Stat 01/11/21 20:05 Consult Cardiology: Patient well-perfused today with no signs of heart failure. Has remained in sinus rhythm with brief episodes of atrial tachycardia Hemoglobin stable At this point net clinical benefit for continuing anticoagulation seems low. Agree with holding Eliquis for the foreseeable future. We did discuss potential of pursuing left atrial appendage occlusion (watchman device). Patient would still need to be anticoagulated for at least 6 weeks post procedure and she wishes to avoid additional procedures at this time. Recommend continuing home PAH therapy with selexipag and tadalafil Appears euvolemic. Okay to continue to hold maintenance diuretic Brief AT on telemetry. Continue home flecainide, metoprolol. Continue statin Consult Gastroenterology: Patient with a known history of GAVE recently admitted for GIB, requiring EGD with APC for hemostasis readmitted for symptomatic anemia, melena and acute blood loss anemia in the setting of chronic anticoagulation use. 1. Regular diet today and NPO after midnight. 2. EGD with APC by Dr. Powell tomorrow. 3. Continue Pantoprazole 40 mg IV BID and Carafate 1 g ACHS. 4. Given high risk of rebleeding, recommend permanent discontinuation of Eliquis. 5. Continue supportive measures by primary team. Procedures Performed CXR done 01/11/2021: IMPRESSION: Chronic and postoperative changes as above with no acute cardiopulmonary abnormality. EKG done 01/11/2021: read by me: NSR. Rate 70 bpm. Left axis deviation. First degree AV block. Poor R wave progression. T wave inversion in the anteroseptal leads unchanged from previous EKG air sampling and monitoring: short run of PAT that was self limiting, otherwise, she has been in a NSR with CVR Operation Date: 01/13/21 16:30 Actual Procedures p EGD Hemostasis - Pancho Powell MD Impression: - Normal esophagus. - Gastric antral vascular ectasia without bleeding. Treated with argon plasma coagulation (APC). - Normal duodenal bulb and second portion of the duodenum. - No specimens collected. Recommendation: - Advance diet as tolerated today. - Return patient to [facility] for ongoing care. ok to discharge home this afternoon if tolerating diet and stable. - Repeat upper endoscopy in 2 weeks for retreatment. -continue IV iron infusions -continue protonix daily Hospital Course (1) ABLA (acute blood loss anemia): * H/H stable * for EGD today later today * F/U labs tomorrow to trend H/H * continue carafate * convert IV to oral pantoprazole * plan for suspected DC later today or tomorrow * will D/W Dr. Garcia (2) Fatigue: * Resolved (3) Melena: * Resolved (4) Paroxysmal A-fib: * Has remained in a NSR with CVR. No need for continuous cardiac monitorring. Transfer to / following EGD. * continue BB and Flecanide as prior to hospitalization (5) CAD (coronary artery disease): * Nonobstructive. Continue beta-blockade. No antiplatelet therapy on board. (6) GAVE (gastric antral vascular ectasia): * See plan as outlined above * will need GI follow up as OP (7) Chronic anticoagulation: * risk of ACT currently outweighs risk of discontinuation. HASbled score=4, Chadvasc2=5; however, recurrent and actuve UGI bleed. Eliquis on hold. Recommend withholding for a minimum of 2 weeks. Cardiology (Dr. Zelaya with whom patient established) has seen patient and agrees. May consider D/C indefinitely. He will follow and reassess risk as OP. (8) History of pulmonary embolism: * Suspected to be provoked as following surgical intervention; however, patient is h/o Lung CA s/p resection. As mentioned above, risk of continued ACT currently outweighs risk of stopping ACT. Risk assessment to be readdressed in future. (9) Pulmonary hypertension: * continue selexipag as prior to hospitalization. Cialis has been on hold d/t marginal hypotension. BP currently improved today. Continue to monitor. BP may be improved given s/p transfusion RPBCs. * If BP remains WNL, likely to resume cialis upon dc Total Time Total Time Spent Total Time Spent (In Minutes): 60 min Total Time Includes: Examination of the Patient, Discharge Planning and Medication Reconciliation Discharge Plan Discharge Items Patient Disposition: Home - Self-Care Reason For Visit: MELANOTIC STOOL, PRESUMED UGI BLEED Discharge Diagnosis: 1. Anemia requiring transfusion secondary to 2. Upper GI Bleed due to 3. Gastric Antral Vascular Ectasia Activity: Resume your previous activity Non-emergency contact: Primary Care Provider Call non-emergency contact if: you have any medication questions and your symptoms worsen Follow-up/Referrals: Iliana Goddard DO [Primary Care Provider] - Diet: Other - See Diet Comment Diet Comment: Antireflux: avoid chocolate, peppermint, spicy/citrus foods, Alcohol Addtl Attending Provider Instructions: * You were hospitalized for Anemia as a result of an upper GI bleed as a result of Gastric Antra Vascular Ectasia (GAVE). * You were given 1 unit of packed RBCs and transfusion and your blood count has since remained stable. * Your blood thinner (Eliquis) has been discontinued as the benefit currently does not outweigh the risk (as discussed). HOLD ELIQUIS FOR A MINIMUM OF 14 DAYS, possible indefinitely. 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 F/U with Dr. Zelaya within 2-4 weeks * note the addition of Carafate 4x a day to help with the dyspepsia that you were experiencing and to help "heal" the stomach. I would encourage taking this medication for 3 months. If unable to swallow, can make into a slurry as discussed (dissolve 1 tablet and 15 mL of liquid of your choice. * As discussed, you should avoid all NSAIDs (Motrin, Aleve, Ibuprofen, Advil, Voltaren, Mobic, etc.). Can take Tylenol for pain if needed * As discussed, follow antireflux lifestyle: Avoid chocolate, peppermint, citrus/spicy foods, alcohol. Eat frequent small meals and remain upright for up to 1 hour following meals. * You had an EGD on 01/13 resulting in argon plasma coagulation (to help control the bleeding of these vessels). You should F/U with Dr. Powell withing 2-4 weeks * keep scheduled iron infusion for next week * follow up with PCP: 7-10 days * Return to the ED for any new or worsening symptomatology Pending Studies at Discharge: No Stand-Alone Forms: [facility] Medications and DC Order Prescriptions: New sucralfate 1 gram Tablet 1 g PO QID Qty: 120 RF: 2 Continued calcium carbonate [Calcium 500] 500 mg calcium (1,250 mg) tablet 500 mg PO QAM RF: 0 ascorbic acid (vitamin C) 500 mg capsule 500 m PO QAM RF: 0 metoprolol succinate 50 mg tablet extended release 24 hr 50 mg PO DAILY Qty: 180 RF: 0 flecainide 100 mg tablet 100 mg PO Q12H Qty: 180 RF: 3 gabapentin 300 mg capsule 300 mg PO TID Qty: 90 RF: 5 potassium chloride 10 mEq capsule, extended release 10 meq PO QAM Qty: 90 RF: 1 simvastatin 20 mg tablet 20 mg PO DAILY Qty: 90 RF: 1 sertraline [Zoloft] 50 mg tablet 50 mg PO QAM Qty: 90 RF: 1 tramadol 50 mg tablet 50 mg PO TID PRN (Reason: pain) Qty: 90 RF: 0 selexipag 1,200 mcg tablet 1,200 mcg PO BID Qty: 60 RF: 0 ondansetron HCl [Zofran] 4 mg tablet 4 mg PO Q8H PRN (Reason: nausea and vomiting) RF: 0 valacyclovir [Valtrex] 500 mg tablet 1,000 mg PO BID PRN (Reason: Cold Sores) Qty: 30 RF: 1 tadalafil 20 mg tablet 40 mg PO DAILY RF: 0 pantoprazole 40 mg tablet,delayed release (DR/EC) 40 mg PO BID Qty: 60 RF: 2 Dulera 200-5 mcg/actuation HFA aerosol inhaler 2 puffs INH Q12H Qty: 13 RF: 11 triamcinolone acetonide 0.1 % cream 1 appln topical DAILY PRN (Reason: Itching) Qty: 1 RF: 0 (DME) Oxygen Home Liters Per Minute See Dose Instructions .ROUTE .MEDSUPPLY Qty: 1 RF: 0 diphenhydramine-acetaminophen [Tylenol PM Extra Strength] 25-500 mg Tablet 1 tab PO HS RF: 0 cholecalciferol (vitamin D3) [Vitamin D3] 1,000 unit Capsule 1,000 unit PO QAM RF: 0 multivitamin Tablet 1 tab PO DAILY RF: 0 torsemide 10 mg tablet 10 mg PO 3XWK RF: 0 calcitonin (salmon) 200 unit/actuation spray,non-aerosol 1 spray intranasal (ALT) DAILY RF: 0 Discontinued Eliquis 5 mg tablet 5 mg PO BID Qty: 60 RF: 2 Hold Instructions: Hold until 01/04/21 Discharge Orders: Discharge Order (Routine); Ordered 01/13/21 Ordered By: Dolores Nina Admission Data Admit Date/Time: 01/11/21 18:33 Attending Provider: Forrets Garcia Admit Provider: Emery Joseph Primary Care Provider: Iliana Goddard Other Providers: Emery Joseph ; Farhan Zelaya ; Pancho Powell Other Interventions: Discharge Summary Assessment (RN) Last Done: 01/13/21 14:07 Supervising Physician Co-Signing Physician Notes Patient seen and examined on the day of discharge. I agree with the discharge summary by Veronica GONZALEZ. I have reviewed the chart including labs, imaging and plans for discharge. patient doing well, tolerated EGD with APC today will hold Eliquis going forward, H/H is stable, eating well A/P: GI bleeding from GAVE, acute blood loss anemia, chronic anticoagulation will now hold Eliquis indefinitely, at least until GAVE is fully treated and no more bleeding, discussed plans with cardiology continue Protonix, Carafate follow up with GI H/H is stable, no further melena, eating well Coding Level of Care Code Established Pt D/C Day Management >30 mins Patient Type Established Diagnoses ABLA (acute blood loss anemia) D62 Fatigue R53.83 Fatigue type: other Melena K92.1 Paroxysmal A-fib I48.0 CAD (coronary artery disease) I25.10 Coronary Disease-Associated Artery/Lesion type: [place] artery [place] vs. transplanted heart: [place] heart GAVE (gastric antral vascular ectasia) K31.819 Chronic anticoagulation Z79.01 History of pulmonary embolism Z86.711 Pulmonary hypertension I27.20 Time Spent (min) 60
[2021-01-13] MEDS ORDERED: PANTOprazole 40 MG TAB PO SCH (21:00)
== END 2021-01-13 14:44 | disposition home or self-care (01) | DRG 378 ==
LOC: ED 14:29 → SUATTDRO 18:33 → 2S 18:33 → 3N 01-13 09:13
DX: I27.20 Pulmonary hypertension, unspecified; Z88.0 Allergy status to penicillin; Z86.711 Personal history of pulmonary embolism; I50.32 Chronic diastolic (congestive) heart failure; G47.33 Obstructive sleep apnea (adult) (pediatric); Z79.01 Long term (current) use of anticoagulants; Z99.81 Dependence on supplemental oxygen; E78.5 Hyperlipidemia, unspecified; I48.0 Paroxysmal atrial fibrillation; I44.0 Atrioventricular block, first degree; K31.811 Angiodysplasia of stomach and duodenum with bleeding; D62 Acute posthemorrhagic anemia; I25.10 Atherosclerotic heart disease of native coronary artery without angina pectoris; Z87.891 Personal history of nicotine dependence

== ENCOUNTER 2023-06-30 14:42 | Inpatient (IN) ==
[2023-06-30] MEDS ORDERED: ACETAMINOPHEN 1,000 MG/100 ML VIAL IV STA (14:58)
--- NOTE | 2023-06-30 15:00 | Emergency Department Note ---
Impression & Plan Closed right trimalleolar fracture, Fall from chair, Chronic respiratory failure ED Provider Note NAME: RASHAUN MCKAY AGE: 77 SEX: F ARRIVES VIA: Ambulance INFORMANT: Patient ED PROVIDER(S): Gaudencio Cuellar MD CHIEF COMPLAINT: Fall, Right ankle fracture/deformity. PLAN: Disposition: Admit MEDICAL DECISION MAKING: The patient is a pleasant 77 woman with a past medical history of chronic respiratory failure with hypoxia on home oxygen, history of CAD, history of COPD, history of pulmonary hypertension on tadalafil, selexipag and torsemide, paroxysmal atrial fibrillation on flecainide hyperlipidemia who presents to the emergency department via EMS and then accompanied by her for evaluation of right ankle fracture/deformity which occurred prior to arrival in the setting of slipping out of a tall chair/stool when she was preparing a cake that she was going to bring to the fire gill this evening. Patient denies any head strike or loss of consciousness. EMS arrived and provided IV fentanyl and splinted the patient's extremity and transported to emergency department. On evaluation in the critical care bay the patient is uncomfortable but no acute distress, afebrile with stable vital signs on her home 2 L nasal cannula with O2 saturation 96% on room air. Examination of the patient's right lower extremity demonstrates gross deformity of the right ankle where her foot is displaced laterally and there is tenting of the skin overlying the medial malleolus with punctate ulceration from skin stretch without evidence of puncture/open fracture per assessment with sterile swab/probe. Given tenting of the skin initial attempt at reducing the patient's fracture was made but patient was unable to sufficiently relax. We did discuss option for procedural sedation to reduce the patient's fracture however given her extensive comorbidities as listed above we did agree that it was worth attempting again with pretreatment with IV fentanyl. If unsuccessful we agreed we would reassess option for sedation. Subsequently, plain film performed of the right ankle does confirm exam findings and describes tryout malleoli are fracture/dislocation. Subsequently, the patient was pretreated with IV fentanyl. She was lay supine with right hip and knee flexed and ultimately she was able to sufficiently relax where ankle fracture/dislocation was easily reduced per procedure note below. No complications. Ankle was splinted with posterior and stirrup Ortho-Glass splints. Post reduction plain film demonstrates improved alignment with residual displacement of the fibular fracture. Given the patient's ankle fracture in the setting of her baseline amatory dysfunction and need for surgery they do agree with plan for admission for further management. I did review the patient's case with orthopedic surgery on- call, Dr. Gilmore, who agrees with plan for admission and they will assess the patient for likely operative repair tomorrow. WBC within normal limits. H/H similar to prior. Platelets within normal limits. Chemistry without metabolic acidosis. LFTs are unremarkable. Case was discussed with JUAN Loaiza PAC, with RACHAEL Montaño hospitalist who will evaluate the patient for admission. Triage Nursing notes reviewed and agree them. Prior/external medical records reviewed Vital Signs: reviewed Differential diagnosis: Fracture, subluxation, dislocation, contusion, ligamentous injury, neurovascular, compartment syndrome, rhabdomyolysis, as well as other pathologies. ER treatment provided: See below. Diagnostics interpreted by me: ECG: Sinus rhythm with first-degree AV block, 69 bpm, no ectopy, no overt ST elevation or depression, QTc 441, QRS 86 Cardiac Monitoring: An order for continuous cardiac monitoring was placed and demonstrated Sinus rhythm with first-degree AV block, 69 bpm, no ectopy Laboratory studies: See below Imaging studies: See below Consultation(s): Dr. Gilmore, Orthopedics surgery JUAN Loazia PAC, with JUAN Montaño hospitalist HPI: The patient is a pleasant 77 woman with a past medical history of chronic respiratory failure with hypoxia on home oxygen, history of CAD, history of COPD, history of pulmonary hypertension on tadalafil, selexipag and torsemide, paroxysmal atrial fibrillation on flecainide hyperlipidemia who presents to the emergency department via EMS and then accompanied by her for evaluation of right ankle fracture/deformity which occurred prior to arrival in the setting of slipping out of a tall chair/stool when she was preparing a cake that she was going to bring to the fire gill this evening. Patient denies any head strike or loss of consciousness. EMS arrived and provided IV fentanyl and splinted the patient's extremity and transported to emergency department. ROS: See above HPI for pertinent positives & negatives. A total of 10 systems reviewed and were otherwise negative. VITALS:See Below PHYSICAL EXAMINATION: GENERAL: Awake, alert, uncomfortable-appearing, in no distress HENT: Normocephalic, atraumatic. Oropharynx unremarkable. EYES: Normal conjunctiva. Sclera non-icteric. NECK: Supple. No nuchal rigidity. FROM. No JVD. RESPIRATORY: Clear to auscultation. CARDIAC: Regular rate, normal rhythm. Extremities warm and well perfused. Pulses equal. ABDOMEN: Soft, non-distended. No tenderness to palpation. No rebound or guarding. No masses. RECTAL: Deferred. MUSCULOSKELETAL: Chest examination reveals no tenderness. The back is symmetrical on inspection without obvious abnormality. There is no CVA tenderness to palpation. Gross deformity of the right ankle where her foot is displaced laterally and there is tenting of the skin overlying the medial malleolus with punctate ulceration from skin stretch without evidence of puncture/open fracture per assessment with sterile swab/probe. LOWER EXTREMITIES: Calves are equal size bilaterally and non-tender. No edema. No discoloration. NEURO: Normal sensorium. No sensory or motor deficits noted. SKIN: No rash or jaundice noted. ED COURSE: Procedures: Ankle Fracture Dislocation Reduction Indication: Right ankle fracture dislocation. Verbal consent obtained. Risks and benefits were explained with the usual customary discussion. Neurovascular examination before the procedure revealed no deficits. Pretreatment provided with 50 mcg of IV fentanyl. The right ankle fracture dislocation was reduced by placing the patient supine and applying gentle inline axial traction on the right forefoot foot and heel with slight plantar flexion while counter traction on the proximal tibia was applied and distal tibia stabilized with hip and knee in flexion. This resulted in reduction without complication. Post-reduction Xray demonstrates improved anatomic alignment. Neurovascular examination after the procedure revealed no deficits. The patient had significant pain relief and tolerated the procedure well. Splint Care: After the ortho glass splint was placed by the ED Technicians per my instruction including cleaning and protection of punctate ulceration of medial malleolus, I examined the splint and confirmed proper application/placement/position. Neurovascular status was intact both proximal and distal to the splinted area. 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 Zelaya Cervical osteoarthritis Chronic anticoagulation Chronic maxillary sinusitis SIDE EFFECT OF MEDICATION PER PT, CHRONIC DRIPPY NOSE Chronic obstructive pulmonary disease WEARS O2 CONT. Dyslipidemia History of lung cancer 2017 > Dr. Deshpande > RUL removed > no treatments History of pulmonary embolism Osteoporosis Paroxysmal SVT (supraventricular tachycardia) controlled with meds Restrictive lung disease Iron deficiency anemia IRON INFUSION NEXT THREE MONDAYS - FIRST TODAY 08/22/20 Degenerative disc disease Chronic back pain GERD (gastroesophageal reflux disease) CARIN (obstructive sleep apnea) 2L N/C at HS Depression Pulmonary hypertension Bilateral occipital neuralgia Surgical History Hx of lymph node excision 27 total History of esophagogastroduodenoscopy (EGD) Previous back surgery thoracic History of hemorrhoidectomy History of appendectomy History of colonoscopy History of tooth extraction History of bilateral cataract extraction History of cardiac cath x3 with no stents H/O tubal ligation History of cholecystectomy S/P lobectomy of lung HX Right upper Family History Mother Heart disease Myocardial infarction Sister Valvular heart disease Sinusitis Other No family history of adverse response to anesthesia Denies family history of Ovarian cancer Prostate cancer Breast cancer Colorectal cancer Social History Smoking Status: Former smoker Tobacco Type: Cigarettes packs per day: 1; Second Hand Exposure: Yes ( QUIT LONG TIME AGO); Do You Dip or Chew Tobacco: No; Hx Alcohol Use: No Hx Substance Use: No Preferred Language: Sami Communication Ability: Effective Visual Impairment: No Limitations Hearing Ability: Normal Tack Cleaner Required: No Beliefs That Will Affect Care: None marital status: Current Living Situation: Spouse current occupational status: retired Feels Safe at Home: Yes Diet: regular Diet Comment: regular caffeine: No during the past year weight has: remained stable Dental Care, Regularly: No Physical Activity Frequency: 3-4 Times per Week Seatbelt Use: always Sunscreen Use: Yes Assistive Devices: None Allergies Allergies Allergy/AdvReac Type Severity Reaction Status Date / Time cephalexin Allergy Unknown UNKNOWN Verified 06/05/23 13:19 ciprofloxacin Allergy Unknown RASH Verified 06/05/23 13:19 doxycycline Allergy Unknown RASH Verified 06/05/23 13:19 Egg Derived Allergy Unknown HX HIVES Verified 06/05/23 13:19 Influenza Virus Vaccines Allergy Unknown ALLERGIES Verified 06/05/23 13:19 TO EGGS Nitrate Analogues Allergy Unknown UNABLE TO Verified 06/05/23 13:19 HAVE R/T PULMONARY HTN Penicillins Allergy Unknown RASH Verified 06/05/23 13:19 tetanus toxoid, adsorbed Allergy Unknown TETANUS-DIPTHERIA Verified 06/05/23 13:19 TOXOID-RASH codeine AdvReac Unknown GI SYMPTOMS Verified 06/05/23 13:19 diphenhydramine AdvReac Unknown UNABLE TO Verified 06/05/23 13:19 HAVE R/T PULMONARY HTN hydrocodone AdvReac Unknown N/V Verified 06/05/23 13:19 pseudoephedrine AdvReac Unknown UNABLE TO Verified 06/05/23 13:19 HAVE COLD MEDICATIONS R/T PULMONARY HTN Home Meds Home Medications Medication Instructions Recorded Confirmed ascorbic acid (vitamin C) 500 mg 500 mg PO QAM 04/03/18 06/30/23 capsule cholecalciferol (vitamin D3) 25 1,000 unit PO QAM 08/30/18 06/30/23 mcg (1,000 unit) capsule (Vitamin D3) diphenhydramine 25 1 tab PO HS 08/30/18 06/30/23 mg-acetaminophen 500 mg tablet (Tylenol PM Extra Strength) tadalafil 20 mg tablet 40 mg PO QAM 11/25/20 06/30/23 Oxygen Home 04/04/22 06/30/23 selexipag 1,200 mcg tablet 1,200 mcg PO BID 04/04/22 06/30/23 polyethylene glycol 3350 17 8.5 g PO DAILY PRN Constipation 04/06/23 06/30/23 gram/dose oral powder (Miralax) calcium carbonate 500 mg calcium 500 mg PO QAM 06/30/23 06/30/23 (1,250 mg) tablet lubiprostone 8 mcg capsule 8 mcg PO BID 06/30/23 06/30/23 multivitamin (Multiple Vitamins 1 tab PO QAM 06/30/23 06/30/23 tablet) ondansetron HCl 4 mg tablet 4 mg PO Q8 PRN Nausea And Vomiting 06/30/23 06/30/23 Previous Rx's Medication Instructions Recorded torsemide 10 mg tablet 10 mg PO 3XWK 90 days #90 tabs 05/25/22 valacyclovir 500 mg tablet 1,000 mg (2 x 500 mg) PO BID PRN 06/28/22 (Valtrex) Cold Sores #30 tabs diclofenac sodium 50 mg 50 mg PO DAILY #30 tabs 11/03/22 tablet,delayed release potassium chloride 10 mEq 10 meq PO QAM #90 caps 12/05/22 capsule,extended release ketoconazole 2 % topical cream 1 applic topical UD PRN Skin 02/13/23 Irritation #15 grams simvastatin 20 mg tablet 20 mg PO QPM #90 tabs 03/05/23 fluticasone furoate 100 1 inh inhalation DAILY #3 Inhalers 03/21/23 mcg-vilanterol 25 mcg/dose inhalation powder (Breo Ellipta) pantoprazole 40 mg tablet,delayed 40 mg PO DAILY #90 tabs 03/22/23 release sertraline 50 mg tablet (Zoloft) 50 mg PO QAM #90 tabs 05/07/23 gabapentin 300 mg capsule 300 mg PO TID #90 caps 05/21/23 flecainide 100 mg tablet 100 mg PO BID #180 tabs 05/29/23 metoprolol succinate 50 mg 50 mg PO QAM #90 tabs 05/29/23 tablet,extended release 24 hr Lift Chair #1 ea 06/07/23 tramadol 50 mg tablet 50 mg PO TID PRN pain #90 tabs 06/19/23 Results & Data (ED) Vital Signs Vital Signs - 24 hr 06/30/23 14:53 06/30/23 14:59 06/30/23 14:59 Pulse Rate 71 Pulse Rate [Apical] Pulse Rate from SpO2 Sensor Respiratory Rate 19 Blood Pressure 108/77 Blood Pressure [Right Arm] Blood Pressure Mean 87 Blood Pressure Mean [Right Arm] Pulse Oximetry 96 100 100 Oxygen Delivery Method Room Air Nasal Cannula Nasal Cannula Oxygen Flow Rate 2 2 Sepsis Recent Fever Within 48 Hours No Sepsis New/Unexplained Change in Mental Status N/A Sepsis Action Taken by Nursing No Action Required End-Tidal CO2 06/30/23 14:59 06/30/23 15:05 06/30/23 15:10 Pulse Rate 83 75 Pulse Rate [Apical] Pulse Rate from SpO2 Sensor 82 76 Respiratory Rate 20 17 Blood Pressure Blood Pressure [Right Arm] Blood Pressure Mean Blood Pressure Mean [Right Arm] Pulse Oximetry 100 98 99 Oxygen Delivery Method Nasal Cannula Nasal Cannula Nasal Cannula Oxygen Flow Rate 2 2 Sepsis Recent Fever Within 48 Hours Sepsis New/Unexplained Change in Mental Status Sepsis Action Taken by Nursing End-Tidal CO2 47 40 06/30/23 15:14 06/30/23 15:14 06/30/23 15:20 Pulse Rate 66 73 Pulse Rate [Apical] Pulse Rate from SpO2 Sensor 66 74 Respiratory Rate 17 16 Blood Pressure 129/51 L Blood Pressure [Right Arm] Blood Pressure Mean 67 Blood Pressure Mean [Right Arm] Pulse Oximetry 100 100 Oxygen Delivery Method Nasal Cannula Nasal Cannula Oxygen Flow Rate 2 2 Sepsis Recent Fever Within 48 Hours Sepsis New/Unexplained Change in Mental Status Sepsis Action Taken by Nursing End-Tidal CO2 41 39 06/30/23 15:30 06/30/23 15:30 06/30/23 15:40 Pulse Rate 66 75 Pulse Rate [Apical] Pulse Rate from SpO2 Sensor 70 78 Respiratory Rate 19 20 Blood Pressure 130/72 Blood Pressure [Right Arm] Blood Pressure Mean 100 Blood Pressure Mean [Right Arm] Pulse Oximetry 100 98 Oxygen Delivery Method Nasal Cannula Nasal Cannula Oxygen Flow Rate 2 2 Sepsis Recent Fever Within 48 Hours Sepsis New/Unexplained Change in Mental Status Sepsis Action Taken by Nursing End-Tidal CO2 27 42 06/30/23 15:50 06/30/23 15:54 06/30/23 15:54 Pulse Rate 76 79 Pulse Rate [Apical] Pulse Rate from SpO2 Sensor 71 81 Respiratory Rate 23 17 Blood Pressure 120/65 Blood Pressure [Right Arm] Blood Pressure Mean 86 Blood Pressure Mean [Right Arm] Pulse Oximetry 99 92 Oxygen Delivery Method Nasal Cannula Nasal Cannula Oxygen Flow Rate 2 2 Sepsis Recent Fever Within 48 Hours Sepsis New/Unexplained Change in Mental Status Sepsis Action Taken by Nursing End-Tidal CO2 33 34 06/30/23 16:00 06/30/23 16:00 06/30/23 16:04 Pulse Rate 80 79 Pulse Rate [Apical] Pulse Rate from SpO2 Sensor 78 Respiratory Rate 17 16 Blood Pressure 108/65 Blood Pressure [Right Arm] Blood Pressure Mean 68 Blood Pressure Mean [Right Arm] Pulse Oximetry 96 Oxygen Delivery Method Nasal Cannula Oxygen Flow Rate 2 Sepsis Recent Fever Within 48 Hours Sepsis New/Unexplained Change in Mental Status Sepsis Action Taken by Nursing End-Tidal CO2 44 06/30/23 16:10 06/30/23 16:10 06/30/23 16:20 Pulse Rate 76 81 Pulse Rate [Apical] Pulse Rate from SpO2 Sensor 77 76 Respiratory Rate 14 17 Blood Pressure 118/78 Blood Pressure [Right Arm] Blood Pressure Mean 95 Blood Pressure Mean [Right Arm] Pulse Oximetry 97 93 Oxygen Delivery Method Oxygen Flow Rate Sepsis Recent Fever Within 48 Hours Sepsis New/Unexplained Change in Mental Status Sepsis Action Taken by Nursing End-Tidal CO2 42 29 06/30/23 16:22 06/30/23 16:22 06/30/23 16:30 Pulse Rate 75 65 Pulse Rate [Apical] Pulse Rate from SpO2 Sensor 70 64 Respiratory Rate 14 16 Blood Pressure 111/54 L Blood Pressure [Right Arm] Blood Pressure Mean 77 Blood Pressure Mean [Right Arm] Pulse Oximetry 98 97 Oxygen Delivery Method Nasal Cannula Nasal Cannula Oxygen Flow Rate 2 2 Sepsis Recent Fever Within 48 Hours Sepsis New/Unexplained Change in Mental Status Sepsis Action Taken by Nursing End-Tidal CO2 29 39 06/30/23 16:30 06/30/23 16:40 06/30/23 16:40 Pulse Rate 64 Pulse Rate [Apical] Pulse Rate from SpO2 Sensor 64 Respiratory Rate 14 Blood Pressure 111/54 L 107/52 L Blood Pressure [Right Arm] Blood Pressure Mean 85 73 Blood Pressure Mean [Right Arm] Pulse Oximetry 96 Oxygen Delivery Method Nasal Cannula Oxygen Flow Rate 2 Sepsis Recent Fever Within 48 Hours Sepsis New/Unexplained Change in Mental Status Sepsis Action Taken by Nursing End-Tidal CO2 43 06/30/23 16:50 06/30/23 16:50 06/30/23 17:00 Pulse Rate 65 Pulse Rate [Apical] Pulse Rate from SpO2 Sensor 65 Respiratory Rate Blood Pressure 107/47 L 107/50 L Blood Pressure [Right Arm] Blood Pressure Mean 77 70 Blood Pressure Mean [Right Arm] Pulse Oximetry 96 Oxygen Delivery Method Nasal Cannula Oxygen Flow Rate 2 Sepsis Recent Fever Within 48 Hours Sepsis New/Unexplained Change in Mental Status Sepsis Action Taken by Nursing End-Tidal CO2 06/30/23 17:00 06/30/23 17:10 06/30/23 17:10 Pulse Rate 74 64 Pulse Rate [Apical] Pulse Rate from SpO2 Sensor 77 65 Respiratory Rate Blood Pressure 101/46 L Blood Pressure [Right Arm] Blood Pressure Mean 70 Blood Pressure Mean [Right Arm] Pulse Oximetry 95 96 Oxygen Delivery Method Nasal Cannula Nasal Cannula Oxygen Flow Rate 2 2 Sepsis Recent Fever Within 48 Hours Sepsis New/Unexplained Change in Mental Status Sepsis Action Taken by Nursing End-Tidal CO2 06/30/23 17:20 06/30/23 17:20 06/30/23 17:30 Pulse Rate 72 74 Pulse Rate [Apical] Pulse Rate from SpO2 Sensor 70 76 Respiratory Rate Blood Pressure 116/69 Blood Pressure [Right Arm] Blood Pressure Mean 83 Blood Pressure Mean [Right Arm] Pulse Oximetry 98 95 Oxygen Delivery Method Nasal Cannula Oxygen Flow Rate 2 Sepsis Recent Fever Within 48 Hours Sepsis New/Unexplained Change in Mental Status Sepsis Action Taken by Nursing End-Tidal CO2 06/30/23 17:30 06/30/23 17:40 06/30/23 17:40 Pulse Rate Pulse Rate [Apical] Pulse Rate from SpO2 Sensor Respiratory Rate Blood Pressure 124/73 117/74 117/74 Blood Pressure [Right Arm] Blood Pressure Mean 104 89 89 Blood Pressure Mean [Right Arm] Pulse Oximetry Oxygen Delivery Method Oxygen Flow Rate Sepsis Recent Fever Within 48 Hours Sepsis New/Unexplained Change in Mental Status Sepsis Action Taken by Nursing End-Tidal CO2 06/30/23 17:40 06/30/23 18:33 Pulse Rate 79 Pulse Rate [Apical] 75 Pulse Rate from SpO2 Sensor 79 Respiratory Rate 18 Blood Pressure Blood Pressure [Right Arm] 104/66 Blood Pressure Mean Blood Pressure Mean [Right Arm] 78 Pulse Oximetry 97 94 Oxygen Delivery Method Nasal Cannula Nasal Cannula Oxygen Flow Rate 2 2 Sepsis Recent Fever Within 48 Hours Sepsis New/Unexplained Change in Mental Status Sepsis Action Taken by Nursing End-Tidal CO2 Laboratory Data 06/30/23 14:52 06/30/23 14:52 Lab Results 06/30/23 06/30/23 Range/Units 14:52 18:09 WBC 5.85 (4.8-10.8) K/ul RBC 3.01 L (4.20-5.40) M/uL Hgb 9.6 L (12.0-16.0) g/dl Hct 30.7 L (37.0-47.0) % MCV 102.0 H (80.0-100.0) fL MCH 31.9 (25.0-34.0) pg MCHC 31.3 L (32.0-36.0) g/dL RDW Std Deviation 49.6 H (36.4-46.3) fL RDW Coeff of Tank 13.2 (11.5-14.5) % Plt Count 254 (130-400) K/uL MPV 10.0 (9.4-12.4) fL Immature Gran % (Auto) 0.3 % Neut % (Auto) 73.0 % Lymph % (Auto) 15.9 % [place] % (Auto) 6.8 % Eos % (Auto) 3.1 % Baso % (Auto) 0.9 % Neut # (Auto) 4.27 (1.40-6.50) K/uL Lymph # (Auto) 0.93 L (1.20-3.40) K/uL [place] # (Auto) 0.40 (0.11-0.59) K/uL Eos # (Auto) 0.18 (0.00-0.50) K/uL Baso # (Auto) 0.05 (0.00-0.20) K/uL Immature Gran # (Auto) 0.02 (0.01-0.20) K/uL PT 11.2 (9.0-12.0) Seconds INR 1.0 (0.9-1.1) Sodium 139 (136-145) mmol/L Potassium 4.9 (3.5-5.1) mmol/L Chloride 103 (98-107) mmol/L Carbon Dioxide 31 (21-32) mmol/L Anion Gap 5 (3-11) BUN 29 H (6-23) mg/dl Creatinine 1.13 (0.6-1.2) mg/dl Est Cr Clr Drug Dosing 35.1 ml/min Est GFR ( Amer) 53.5 ml/min Est GFR (Non-Af Amer) 46.2 ml/min BUN/Creatinine Ratio 25.7 H (10-20) Glucose 95 (70-99(Fasting)) mg/dl Calcium 9.3 (8.6-10.3) mg/dl Total Bilirubin 0.3 (0.2-1.0) mg/dl AST 25 (13-39) U/L ALT 16 (7-52) U/L Alkaline Phosphatase 56 (34-104) U/L Total Protein 6.9 (6.0-8.3) gm/dl Albumin 3.9 (3.4-5.0) gm/dl Globulin 3.0 (2.5-4.0) gm/dl Albumin/Globulin Ratio 1.3 (0.9-2) Blood Type B Positive Antibody Screen NEGATIVE Administered Medications Discontinued Medications Fentanyl Citrate (Fentanyl Citrate Pf 100 Mcg/2 Ml Vial) 50 mcg IV NOW STA Stop: 06/30/23 15:34 Last Admin: 06/30/23 15:40 Dose: 50 mcg Documented By: CC Acetaminophen (Ofirmev) 1,000 mg in 100 mls @ 400 mls/hr IV NOW STA Stop: 06/30/23 15:12 Last Infusion: 06/30/23 15:25 Dose: Infused Documented By: Admin: 06/30/23 15:08 Dose: 400 mls/hr Documented By: CC Miscellaneous (Selexipag - Order Awaiting Action) 1 each N/A QS DANIS Stop: 07/30/23 18:44 Last Admin: 06/30/23 19:15 Dose: Not Given Documented By: CEK Imaging Data Radiologist's Impression: Ankle X-Ray 06/30/23 14:57 XR ankle RT 2V CLINICAL HISTORY: Right ankle pain. COMPARISON STUDY: None. FINDINGS: There is a displaced trimalleolar right ankle fracture. There is posterior lateral dislocation of the talus in relation to the distal tibia. There is diffuse soft tissue swelling. IMPRESSION: Right ankle trimalleolar fracture/dislocation. ACT 112: Negative or not required by law. Electronically signed by: Jak Anthony M.D. 06/30/2023 3:20 PM Ankle X-Ray 06/30/23 16:01 XR ankle RT 2V CLINICAL HISTORY: fx post reduction. Right ankle injury. COMPARISON STUDY: Right ankle 06/30/2023. FINDINGS: Status post reduction of the trimalleolar right ankle fracture. There is improved anatomic alignment. No dislocation at this time. There is diffuse soft tissue swelling again noted. The distal fibular fracture demonstrates up to 8 mm of posterior displacement. The medial malleolus fracture demonstrates 3 mm of distraction. IMPRESSION: Status post reduction of the trimalleolar right ankle fracture with improved anatomic alignment. No dislocation. ACT 112: Negative or not required by law. Electronically signed by: Jak Anthony M.D. 06/30/2023 4:29 PM Discharge Plan Visit Data Chief Complaint: Fall Stated Complaint: FALL, R ANKLE FX ED Provider: Gaudencio Cuellar Discharge Problem: Closed right trimalleolar fracture, Fall from chair, Chronic respiratory failure Patient Disposition: Admitted As Inpatient Discharge Instructions Interventions: ED Discharge Assessment Last Done: 06/30/23 20:23 Discharge Problem: Closed right trimalleolar fracture Qualifiers: Encounter type: initial encounter Qualified Code(s): S82.851A - Displaced trimalleolar fracture of right lower leg, initial encounter for closed fracture Fall from chair Qualifiers: Encounter type: initial encounter Qualified Code(s): W07.XXXA - Fall from chair, initial encounter Chronic respiratory failure Qualifiers: Respiratory failure complication: unspecified whether with hypoxia or hypercapnia Qualified Code(s): J96.10 - Chronic respiratory failure, unspecified whether with hypoxia or hypercapnia
[2023-06-30 15:18] LABS: Basophils # (auto) 0.05 K/uL (0.00-0.20); Basophils % (auto) 0.9 %; Eosinophils # (auto) 0.18 K/uL (0.00-0.50); Eosinophils % (auto) 3.1 %; Hematocrit (blood only) 30.7 % (37.0-47.0); Hemoglobin 9.6 g/dl (12.0-16.0); Immature Granulocytes # (auto) 0.02 K/uL (0.01-0.20); Immature Granulocytes % (auto) 0.3 %; Lymphocytes # (auto) 0.93 K/uL (1.20-3.40); Lymphocytes % (auto) 15.9 %; Mean Corpuscular Hemoglobin 31.9 pg (25.0-34.0); Mean Corpuscular Hgb Conc 31.3 g/dL (32.0-36.0); Monocytes % (auto) 6.8 %; Neutrophils # (auto) 4.27 K/uL (1.40-6.50); Platelet Count 254 K/uL (130-400); RDW Coefficient of Variation 13.2 % (11.5-14.5); RDW Standard Deviation 49.6 fL (36.4-46.3); Red Blood Count 3.01 M/uL (4.20-5.40); White Blood Count 5.85 K/ul (4.8-10.8)
--- NOTE | 2023-06-30 15:21 | XRay Report ---
XR ankle RT 2V CLINICAL HISTORY: Right ankle pain. COMPARISON STUDY: None. FINDINGS: There is a displaced trimalleolar right ankle fracture. There is posterior lateral dislocat ion of the talus in relation to the distal tibia. There is diffuse soft tissue swelling. IMPRESSION: Right ankle trimalleolar fracture/dislocation. ACT 112: Negative or not required by law. Electronically signed by: Jak Anthony M.D. 06/30/2023 3:20 PM
[2023-06-30 15:30] LABS: Albumin Globulin Ratio 1.3 (0.9-2); Albumin Level 3.9 gm/dl (3.4-5.0); BUN Creatinine Ratio 25.7 (10-20); Bilirubin,Total 0.3 mg/dl (0.2-1.0); Calcium 9.3 mg/dl (8.6-10.3); Creatinine Clr Calc Pharmacy 35.1 ml/min; Est GFR (African American) 53.5 ml/min; Est GFR (Non-African American) 46.2 ml/min; Potassium 4.9 mmol/L (3.5-5.1); Total Protein 6.9 gm/dl (6.0-8.3)
[2023-06-30] MEDS ORDERED: fentaNYL citrate PF 100 MCG/2 ML VIAL IV STA (15:33)
[2023-06-30 15:44] LABS: Prothrombin Time 11.2 Seconds (9.0-12.0)
--- NOTE | 2023-06-30 16:30 | XRay Report ---
XR ankle RT 2V CLINICAL HISTORY: fx post reduction. Right ankle injury. COMPARISON STUDY: Right ankle 06/30/2023. FINDINGS: Status post reduction of the trimalleolar right ankle fracture. There is improved anatomic alignment. No dislocation at this time. There is diffuse soft tissue swelling again noted. The distal fibular fracture demonstrates up to 8 mm of posterior displacement. The medial malleolus fracture de monstrates 3 mm of distraction. IMPRESSION: Status post reduction of the trimalleolar right ankle fracture with improved anatomic al ignment. No dislocation. ACT 112: Negative or not required by law. Electronically signed by: Jak Anthony M.D. 06/30/2023 4:29 PM
--- NOTE | 2023-06-30 17:13 | History & Physical Report ---
Date of Service June 30, 2023 Assessment & Plan (1) Closed right trimalleolar fracture: Plan: Patient slid from high tabletop chair and right ankle buckled backwards on 06/30 Ankle x-ray on arrival showed right trimalleolar fracture/dislocation Ankle was reduced in the ED Plan is for the patient to go to the OR with Dr. Major Gilmore on the morning of 07/01 Hold diclofenac sodium tablets for now Acetaminophen 650mg q4h as needed for pain Tramadol 50 mg as needed for breakthrough pain Appreciate orthopedics consult N.p.o. at midnight A.m. CBC, BMP (2) Paroxysmal atrial fibrillation: Plan: EKG on arrival showed sinus rhythm with first-degree AV block at 69 bpm; QTc 441 Continue metoprolol Continue flecainide Continuous telemetry monitoring (3) Pulmonary hypertension: Plan: Patient reports that she takes selexipag 1,200 micrograms tablets twice daily at 11 AM and 11 PM, as well as tadalafil 20 mg x 2 (40mg total) QAM Will hold tadalafil the morning of 07/01 prior to going to the OR Both of these medications are non-formulary; patient's brought them in from home; sent to pharmacy for approval (4) Chronic obstructive pulmonary disease: Plan: 2L NC continuously (5) CARIN (obstructive sleep apnea): Plan: Patient reports she does not wear CPAP at bedtime 2L NC HS (6) History of pulmonary embolism: Plan: Wedge resection performed in 2016; PE while on Coumadin; patient not on Eliquis (7) GERD (gastroesophageal reflux disease): Plan: Continue pantoprazole Plan Disposition: Admit to [facility] telemetry DNR/DNI Regular diet (n.p.o. at midnight) VTE PPx: Knee-high Nicolas LLE (hold chemical DVT PPx as patient will be going to the OR on the morning of 07/01) History of Present Illness Chief Complaint: Fall Primary Care Provider: DO Angela Roberson is a 77-year-old female with PMH of paroxysmal A-fib (no longer on blood thinners), CAD, anemia, COPD, HLD, osteoporosis, paroxysmal SVT, GERD, restrictive lung disease, depression, CARIN, and pulmonary HTN. She presented via EMS after sliding off a chair and twisting her right ankle. 100 mcg of fentanyl and 4 mg of Zofran given en route. Right ankle deformity was noted on arrival and was reduced after ankle x-ray denoting right ankle trimalleolar fracture/dislocation. Patient reports that she "slid down" from a high table chair and that her foot buckled underneath her. She fell to the ground, but denies head strike, LOC, or being on blood thinners. At time of admission, she rates her right ankle pain 6/10, describes it as achy, constant. No pain medications were taken at home. The pain radiates up towards her right knee, but does not extend further. She will uses a walker at baseline. She denies prior surgeries or trauma to the right lower extremity. She reports that she uses at home oxygen at 2L NC continuously. Vital stable at time of admission. ED course: Acetaminophen 1000 mg IV Fentanyl 50 mcg IV ROS: Patient endorses right ankle pain, and headache. Patient denies fever, chills, sweating, CP, pleuritic CP, SOB, abdominal pain, N/V/D, urinary symptoms, burning with urination, or numbness or tingling going down the legs. Allergies Allergy/AdvReac Type Severity Reaction Status Date / Time cephalexin Allergy Unknown UNKNOWN Verified 06/05/23 13:19 ciprofloxacin Allergy Unknown RASH Verified 06/05/23 13:19 doxycycline Allergy Unknown RASH Verified 06/05/23 13:19 Egg Derived Allergy Unknown HX HIVES Verified 06/05/23 13:19 Influenza Virus Vaccines Allergy Unknown ALLERGIES Verified 06/05/23 13:19 TO EGGS Nitrate Analogues Allergy Unknown UNABLE TO Verified 06/05/23 13:19 HAVE R/T PULMONARY HTN Penicillins Allergy Unknown RASH Verified 06/05/23 13:19 tetanus toxoid, adsorbed Allergy Unknown TETANUS-DIPTHERIA Verified 06/05/23 13 :19 TOXOID-RASH codeine AdvReac Unknown GI SYMPTOMS Verified 06/05/23 13:19 diphenhydramine AdvReac Unknown UNABLE TO Verified 06/05/23 13:19 HAVE R/T PULMONARY HTN hydrocodone AdvReac Unknown N/V Verified 06/05/23 13:19 pseudoephedrine AdvReac Unknown UNABLE TO Verified 06/05/23 13:19 HAVE COLD MEDICATIONS R/T PULMONARY HTN Home Medications Medication Instructions Recorded Confirmed Type ascorbic acid (vitamin C) 500 mg 500 mg PO QAM 04/03/18 06/30/23 History capsule cholecalciferol (vitamin D3) 25 1,000 unit PO QAM 08/30/18 06/30/23 History mcg (1,000 unit) capsule (Vitamin D3) diphenhydramine 25 1 tab PO HS 08/30/18 06/30/23 History mg-acetaminophen 500 mg tablet (Tylenol PM Extra Strength) tadalafil 20 mg tablet 40 mg PO QAM 11/25/20 06/30/23 History Oxygen Home 04/04/22 06/30/23 History selexipag 1,200 mcg tablet 1,200 mcg PO BID 04/04/22 06/30/23 History torsemide 10 mg tablet 10 mg PO 3XWK 90 days #90 tabs 05/25/22 06/30/23 Rx valacyclovir 500 mg tablet 1,000 mg (2 x 500 mg) PO BID PRN 06/28/22 06/30/23 Rx (Valtrex) Cold Sores #30 tabs diclofenac sodium 50 mg 50 mg PO DAILY #30 tabs 11/03/22 06/30/23 Rx tablet,delayed release potassium chloride 10 mEq 10 meq PO QAM #90 caps 12/05/22 06/30/23 Rx capsule,extended release ketoconazole 2 % topical cream 1 applic topical UD PRN Skin 02/13/23 06/30/23 Rx Irritation #15 grams simvastatin 20 mg tablet 20 mg PO QPM #90 tabs 03/05/23 06/30/23 Rx fluticasone furoate 100 1 inh inhalation DAILY #3 Inhalers 03/21/23 06/30/23 Rx mcg-vilanterol 25 mcg/dose inhalation powder (Breo Ellipta) pantoprazole 40 mg tablet,delayed 40 mg PO DAILY #90 tabs 03/22/23 06/30/23 Rx release polyethylene glycol 3350 17 8.5 g PO DAILY PRN Constipation 04/06/23 06/30/23 History gram/dose oral powder (Miralax) sertraline 50 mg tablet (Zoloft) 50 mg PO QAM #90 tabs 05/07/23 06/30/23 Rx gabapentin 300 mg capsule 300 mg PO TID #90 caps 05/21/23 06/30/23 Rx flecainide 100 mg tablet 100 mg PO BID #180 tabs 05/29/23 06/30/23 Rx metoprolol succinate 50 mg 50 mg PO QAM #90 tabs 05/29/23 06/30/23 Rx tablet,extended release 24 hr Lift Chair #1 ea 06/07/23 06/30/23 Rx tramadol 50 mg tablet 50 mg PO TID PRN pain #90 tabs 06/19/23 06/30/23 Rx calcium carbonate 500 mg calcium 500 mg PO QAM 06/30/23 06/30/23 History (1,250 mg) tablet lubiprostone 8 mcg capsule 8 mcg PO BID 06/30/23 06/30/23 History multivitamin (Multiple Vitamins 1 tab PO QAM 06/30/23 06/30/23 History tablet) ondansetron HCl 4 mg tablet 4 mg PO Q8 PRN Nausea And Vomiting 06/30/23 06/30/23 History Past Med/Surg History Medical History Glenohumeral arthritis Left shoulder pain Ambulatory dysfunction Irritable bowel syndrome with constipation 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 Zelaya Cervical osteoarthritis Chronic anticoagulation Chronic maxillary sinusitis SIDE EFFECT OF MEDICATION PER PT, CHRONIC DRIPPY NOSE Chronic obstructive pulmonary disease WEARS O2 CONT. Dyslipidemia History of lung cancer 2016 > Dr. Deshpande > RUL removed > no treatments History of pulmonary embolism Osteoporosis Paroxysmal SVT (supraventricular tachycardia) controlled with meds Restrictive lung disease Iron deficiency anemia IRON INFUSION NEXT THREE MONDAYS - FIRST TODAY 08/22/20 Degenerative disc disease Chronic back pain GERD (gastroesophageal reflux disease) CARIN (obstructive sleep apnea) 2L N/C at HS Depression Pulmonary hypertension Bilateral occipital neuralgia Surgical History Hx of lymph node excision 27 total History of esophagogastroduodenoscopy (EGD) Previous back surgery thoracic History of hemorrhoidectomy History of appendectomy History of colonoscopy History of tooth extraction History of bilateral cataract extraction History of cardiac cath x3 with no stents H/O tubal ligation History of cholecystectomy S/P lobectomy of lung HX Right upper Family History Mother Heart disease Myocardial infarction Sister Valvular heart disease Sinusitis Other No family history of adverse response to anesthesia Denies family history of Ovarian cancer Prostate cancer Breast cancer Colorectal cancer Social History Smoking Status: Former smoker Tobacco Type: Cigarettes packs per day: 1; Second Hand Exposure: Yes ( QUIT LONG TIME AGO); Do You Dip or Chew Tobacco: No; Hx Alcohol Use: No Hx Substance Use: No Preferred Language: Turkmen Communication Ability: Effective Visual Impairment: No Limitations Hearing Ability: Normal 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 Beliefs That Will Affect Care: None marital status: Current Living Situation: Spouse current occupational status: retired Feels Safe at Home: Yes Diet: regular Diet Comment: regular caffeine: No during the past year weight has: remained stable Dental Care, Regularly: No Physical Activity Frequency: 3-4 Times per Week Seatbelt Use: always Sunscreen Use: Yes Assistive Devices: None Review of Systems Review of Systems: See HPI above Physical Exam Physical Exam: General: Minimal physical distress; pleasant affect; non-toxic appearing; well- nourished; cooperative HEENT: normocephalic, atraumatic; no scleral icterus; PERRLA w/ EOMs intact; moist mucus membrane; vision and hearing grossly intact Neck: supple; no JVD; no lymphadenopathy; trachea midline Skin: warm, dry without signs of tenting; no cyanosis; no rashes, bruising, lesions, or erythema noted CV: chest wall NTP; RRR; S1/S2 normal; no murmurs/rubs/gallops; pulses intact and symmetric at radial, DP, and PT Lungs: no acute respiratory distress; symmetrical chest wall expansion; clear breath sounds across all lung howard w/o adventitious sounds; no wheezing ABD: Soft, NTP; BS present; no rebound/guarding; no ascites; no distention; negative CVA tenderness RLE: RLE is currently wrapped; patient demonstrates ability to wiggle toes, and reports sensation with light touch; she denies pain to palpation of the right knee MSK: no tics or fasciculations; no edema noted in the LEs b/l Neuro: A&Ox3; normal mood and affect; fluent speech; no focal deficits; sensation grossly intact in the LEs B/L Results & Data Results & Data Vital Signs (Past 12 Hours) Vital Signs Pulse Resp BP Pulse Ox O2 Del Method O2 Flow Rate 06/30/23 16:04 79 06/30/23 16:00 16 108/65 06/30/23 16:00 80 17 96 Nasal Cannula 2 06/30/23 15:54 120/65 06/30/23 15:54 79 17 92 Nasal Cannula 2 06/30/23 15:50 76 23 99 Nasal Cannula 2 06/30/23 15:40 75 20 98 Nasal Cannula 2 06/30/23 15:30 130/72 06/30/23 15:30 66 19 100 Nasal Cannula 2 06/30/23 15:20 73 16 100 Nasal Cannula 2 06/30/23 15:14 129/51 L 06/30/23 15:14 66 17 100 Nasal Cannula 2 06/30/23 15:10 75 17 99 Nasal Cannula 2 06/30/23 15:05 83 20 98 Nasal Cannula 2 06/30/23 14:59 100 Nasal Cannula 06/30/23 14:59 100 Nasal Cannula 2 06/30/23 14:59 100 Nasal Cannula 2 06/30/23 14:53 71 19 108/77 96 Room Air Laboratory Results Abnormal lab results 06/30/23 Range/Units 14:52 RBC 3.01 L (4.20-5.40) M/uL Hgb 9.6 L (12.0-16.0) g/dl Hct 30.7 L (37.0-47.0) % MCV 102.0 H (80.0-100.0) fL MCHC 31.3 L (32.0-36.0) g/dL RDW Std Deviation 49.6 H (36.4-46.3) fL Lymph # (Auto) 0.93 L (1.20-3.40) K/uL BUN 29 H (6-23) mg/dl BUN/Creatinine Ratio 25.7 H (10-20) Diagnostic Findings Ankle X-Ray 06/30/23 14:57 XR ankle RT 2V CLINICAL HISTORY: Right ankle pain. COMPARISON STUDY: None. FINDINGS: There is a displaced trimalleolar right ankle fracture. There is posterior lateral dislocation of the talus in relation to the distal tibia. Th ere is diffuse soft tissue swelling. IMPRESSION: Right ankle trimalleolar fracture/dislocation. ACT 112: Negative or not required by law. Electronically signed by: Jak Anthony M.D. 06/30/2023 3:20 PM Ankle X-Ray 06/30/23 16:01 XR ankle RT 2V CLINICAL HISTORY: fx post reduction. Right ankle injury. COMPARISON STUDY: Right ankle 06/30/2023. FINDINGS: Status post reduction of the trimalleolar right ankle fracture. There is improved anatomic alignment. No dislocation at this time. There is diffuse soft tissue swelling again noted. The distal fibular fracture demonstrates up to 8 mm of posterior displacement. The medial malleolus fracture demonstrates 3 mm of distraction. IMPRESSION: Status post reduction of the trimalleolar right ankle fracture with improved anatomic alignment. No dislocation. ACT 112: Negative or not required by law. Electronically signed by: Jak Anthony M.D. 06/30/2023 4:29 PM Code Status & VTE Plan Code Status DNR/DNI VTE Prophylaxis Plan VTE Prophylaxis will be ordered: Yes PG Care Time/CCT Total # of Minutes Spent Total Time Spent with Patient: Total time spent is greater than 50% in coordination of care (as documented) at patient's floor/unit and/or counseling patient: Coding [place] [address] INT INP/OBS CARE 2/55MIN Patient Type Established History Comprehensive Exam Comprehensive Medical Decision Making Moderate Complexity Diagnoses Closed right trimalleolar fracture S82.851A Paroxysmal atrial fibrillation I48.0 Pulmonary hypertension I27.20 Chronic obstructive pulmonary disease, unspecified COPD type J44.9 COPD type: unspecified COPD CARIN (obstructive sleep apnea) G47.33 History of pulmonary embolism Z86.711 GERD (gastroesophageal reflux disease) K21.9 (4) Chronic obstructive pulmonary disease COPD type: unspecified COPD Qualified Code(s): J44.9 - Chronic obstructive pulmonary disease, unspecified
--- NOTE | 2023-06-30 17:50 | Orthopedic Consultation ---
Date of Service June 30, 2023 Assessment & Plan (1) Closed right trimalleolar fracture: 77-year-old female with multiple medical comorbidities with a right ankle fracture dislocation. This is a trimalleolar ankle fracture. She is unstable This is something that they clearly demand surgical intervention. We discussed treatment options. She has been be admitted by the medicine service and medically optimized. She looks optimized clinically. Will proceed with open reduction internal fixation likely tomorrow. The risks Mente this procedure explained the patient clued but not limited to DVT PE infection neurological injury vascular bleeding palm pain limb range of motion this is fairly of her symptoms incomplete relief of symptoms wound breakdown infection arthritis etc. The patient understands and desires to proceed. Informed consent is obtained. We are going to keep her n.p.o. after midnight. I do not see that she is on any anticoagulation by her medical record but will hold on any anticoagulation for now. Keep her n.p.o. after midnight. Elevate and ice her ankle overnight History of Present Illness Reason for Consultation: . Right trimalleolar ankle fracture dislocation Requesting Physician: . . Patient is a 77-year-old female with multiple medical comorbidities including pulmonary hypertension, Gastrosoft reflux disease, coronary disease, COPD, paroxysmal atrial fibrillation who sustained a fall earlier today. She was getting out of her chair when she slid out of her chair caught her ankle and twisted her ankle. Acute onset of pain and deformity. She was brought to emergency room where x-rays revealed fracture dislocation. She underwent an urgent closed reduction. No other injuries. He has been admitted to the hospital. She is comfortable now. No pre-existing active ankle problems. She does have some degree of pre-existing gait disturbance. Allergies Allergy/AdvReac Type Severity Reaction Status Date / Time cephalexin Allergy Unknown UNKNOWN Verified 06/05/23 13:19 ciprofloxacin Allergy Unknown RASH Verified 06/05/23 13:19 doxycycline Allergy Unknown RASH Verified 06/05/23 13:19 Egg Derived Allergy Unknown HX HIVES Verified 06/05/23 13:19 Influenza Virus Vaccines Allergy Unknown ALLERGIES Verified 06/05/23 13:19 TO EGGS Nitrate Analogues Allergy Unknown UNABLE TO Verified 06/05/23 13:19 HAVE R/T PULMONARY HTN Penicillins Allergy Unknown RASH Verified 06/05/23 13:19 tetanus toxoid, adsorbed Allergy Unknown TETANUS-DIPTHERIA Verified 06/05/23 13:19 TOXOID-RASH codeine AdvReac Unknown GI SYMPTOMS Verified 06/05/23 13:19 diphenhydramine AdvReac Unknown UNABLE TO Verified 06/05/23 13:19 HAVE R/T PULMONARY HTN hydrocodone AdvReac Unknown N/V Verified 06/05/23 13:19 pseudoephedrine AdvReac Unknown UNABLE TO Verified 06/05/23 13:19 HAVE COLD MEDICATIONS R/T PULMONARY HTN Home Medications Medication Instructions Recorded Confirmed Type ascorbic acid (vitamin C) 500 mg 500 mg PO QAM 04/03/18 06/30/23 History capsule cholecalciferol (vitamin D3) 25 1,000 unit PO QAM 08/30/18 06/30/23 History mcg (1,000 unit) capsule (Vitamin D3) diphenhydramine 25 1 tab PO HS 08/30/18 06/30/23 History mg-acetaminophen 500 mg tablet (Tylenol PM Extra Strength) tadalafil 20 mg tablet 20 mg PO BID 11/25/20 06/30/23 History Oxygen Home 04/04/22 06/30/23 History selexipag 1,200 mcg tablet 1,200 mcg PO BID 04/04/22 06/30/23 History torsemide 10 mg tablet 10 mg PO 3XWK 90 days #90 tabs 05/25/22 06/30/23 Rx valacyclovir 500 mg tablet 1,000 mg (2 x 500 mg) PO BID PRN 06/28/22 06/30/23 Rx (Valtrex) Cold Sores #30 tabs diclofenac sodium 50 mg 50 mg PO DAILY #30 tabs 11/03/22 06/30/23 Rx tablet,delayed release potassium chloride 10 mEq 10 meq PO QAM #90 caps 12/05/22 06/30/23 Rx capsule,extended release ketoconazole 2 % topical cream 1 applic topical UD PRN Skin 02/13/23 06/30/23 Rx Irritation #15 grams simvastatin 20 mg tablet 20 mg PO QPM #90 tabs 03/05/23 06/30/23 Rx fluticasone furoate 100 1 inh inhalation DAILY #3 Inhalers 03/21/23 06/30/23 Rx mcg-vilanterol 25 mcg/dose inhalation powder (Breo Ellipta) pantoprazole 40 mg tablet,delayed 40 mg PO DAILY #90 tabs 03/22/23 06/30/23 Rx release polyethylene glycol 3350 17 8.5 g PO DAILY PRN Constipation 04/06/23 06/30/23 History gram/dose oral powder (Miralax) sertraline 50 mg tablet (Zoloft) 50 mg PO QAM #90 tabs 05/07/23 06/30/23 Rx gabapentin 300 mg capsule 300 mg PO TID #90 caps 05/21/23 06/30/23 Rx flecainide 100 mg tablet 100 mg PO BID #180 tabs 05/29/23 06/30/23 Rx metoprolol succinate 50 mg 50 mg PO QAM #90 tabs 05/29/23 06/30/23 Rx tablet,extended release 24 hr Lift Chair #1 ea 06/07/23 06/30/23 Rx tramadol 50 mg tablet 50 mg PO TID PRN pain #90 tabs 06/19/23 06/30/23 Rx calcium carbonate 500 mg calcium 500 mg PO QAM 06/30/23 06/30/23 History (1,250 mg) tablet lubiprostone 8 mcg capsule 8 mcg PO BID 06/30/23 06/30/23 History multivitamin (Multiple Vitamins 1 tab PO QAM 06/30/23 06/30/23 History tablet) ondansetron HCl 4 mg tablet 4 mg PO Q8 PRN Nausea And Vomiting 06/30/23 06/30/23 History Past Med/Surg History Medical History Glenohumeral arthritis Left shoulder pain Ambulatory dysfunction Irritable bowel syndrome with constipation 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 Zelaya Cervical osteoarthritis Chronic anticoagulation Chronic maxillary sinusitis SIDE EFFECT OF MEDICATION PER PT, CHRONIC DRIPPY NOSE Chronic obstructive pulmonary disease WEARS O2 CONT. Dyslipidemia History of lung cancer 2017 > Dr. Deshpande > RUL removed > no treatments History of pulmonary embolism Osteoporosis Paroxysmal SVT (supraventricular tachycardia) controlled with meds Restrictive lung disease Iron deficiency anemia IRON INFUSION NEXT THREE MONDAYS - FIRST TODAY 08/22/20 Degenerative disc disease Chronic back pain GERD (gastroesophageal reflux disease) CARIN (obstructive sleep apnea) 2L N/C at HS Depression Pulmonary hypertension Bilateral occipital neuralgia Surgical History Hx of lymph node excision 27 total History of esophagogastroduodenoscopy (EGD) Previous back surgery thoracic History of hemorrhoidectomy History of appendectomy History of colonoscopy History of tooth extraction History of bilateral cataract extraction History of cardiac cath x3 with no stents H/O tubal ligation History of cholecystectomy S/P lobectomy of lung HX Right upper Family History Mother Heart disease Myocardial infarction Sister Valvular heart disease Sinusitis Other No family history of adverse response to anesthesia Denies family history of Ovarian cancer Prostate cancer Breast cancer Colorectal cancer Social History Smoking Status: Former smoker Tobacco Type: Cigarettes packs per day: 1; Second Hand Exposure: Yes ( QUIT LONG TIME AGO); Do You Dip or Chew Tobacco: No; Hx Alcohol Use: No Hx Substance Use: No Preferred Language: Syriac Communication Ability: Effective Visual Impairment: No Limitations Hearing Ability: Normal 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 Physical Exam . Physical examination was a pleasant elderly female. As she is lying in bed looks completely comfortable. Examination of the right leg reveals the splint to be in place. Ankle looks well aligned. She can dorsiflex and plantarflex her foot appropriately. She is neurologically intact. Results & Data Results & Data Laboratory Results . Diagnostic Findings . X-rays of the right ankle reviewed. It shows a posterior lateral fracture dislocation. She does have postreduction films with the ankle relocated. She got trimalar ankle fracture PG Care Time/CCT Total # of Minutes Spent Total Time Spent with Patient: Total time spent is greater than 50% in coordination of care (as documented) at patient's floor/unit and/or counseling patient: Coding Level of Care Code 39502 IN/OBS CONSULT LVL 5,80M Diagnoses Closed right trimalleolar fracture S82.851A
[2023-06-30] MEDS ORDERED: NON-FORMULARY MEDICATION PO SCH (21:00)
[2023-06-30] MEDS ORDERED: tadalafiL PO SCH (21:00)
[2023-06-30] MEDS ORDERED: POLYETHYLENE (MIRALAX) 17 GM PACK PO PRN (21:11)
[2023-06-30] MEDS ORDERED: SELEXIPAG PO SCH (21:11)
[2023-06-30] MEDS ORDERED: ONDANSETRON 4 MG OD TAB PO PRN (21:11)
[2023-06-30] MEDS: FLECAINIDE ACETATE 100 MG TABLET PO SCH (22:44)
[2023-06-30] MEDS: GABAPENTIN 300 MG CAP PO SCH (22:45)
[2023-06-30] MEDS: LUBIPROSTONE 8 MCG CAP PO SCH (22:46)
[2023-06-30] MEDS: SIMVASTATIN 20 MG TAB PO SCH (22:46)
[2023-06-30] MEDS: SELEXIPAG PO SCH (22:47)
[2023-06-30] MEDS: ACETAMINOPHEN 325 MG TAB PO PRN (22:51)
[2023-07-01] MEDS: traMADol HCL 50 MG TABLET PO PRN (03:13)
[2023-07-01 07:17] LABS: Basophils # (auto) 0.04 K/uL (0.00-0.20); Basophils % (auto) 0.7 %; Eosinophils # (auto) 0.19 K/uL (0.00-0.50); Eosinophils % (auto) 3.1 %; Hematocrit (blood only) 29.8 % (37.0-47.0); Hemoglobin 9.5 g/dl (12.0-16.0); Immature Granulocytes # (auto) 0.02 K/uL (0.01-0.20); Immature Granulocytes % (auto) 0.3 %; Lymphocytes # (auto) 0.92 K/uL (1.20-3.40); Lymphocytes % (auto) 15.2 %; Mean Corpuscular Hemoglobin 32.2 pg (25.0-34.0); Mean Corpuscular Hgb Conc 31.9 g/dL (32.0-36.0); Mean Platelet Volume 10.2 fL (9.4-12.4); Monocytes # (auto) 0.53 K/uL (0.11-0.59); Monocytes % (auto) 8.7 %; Neutrophils # (auto) 4.37 K/uL (1.40-6.50); Platelet Count 251 K/uL (130-400); RDW Coefficient of Variation 13.2 % (11.5-14.5); RDW Standard Deviation 49.6 fL (36.4-46.3); Red Blood Count 2.95 M/uL (4.20-5.40); White Blood Count 6.07 K/ul (4.8-10.8)
[2023-07-01] MEDS ORDERED: VANCOMYCIN CONSULT ACTIVE PRN (07:19)
--- NOTE | 2023-07-01 07:46 | Electrocardiogram Report ---
Test Reason : Blood Pressure : / mmHG Vent. Rate : 069 BPM Atrial Rate : 069 BPM P-R Int : 256 ms QRS Dur : 086 ms QT Int : 412 ms P-R-T Axes : 099 -08 050 degrees QTc Int : 441 ms Sinus rhythm with 1st degree A-V block Possible Inferior infarct (cited on or before 27-DEC-2020) Poor R wave progression, consider anterior SD vs. lead placement vs. LVH Abnormal ECG When compared with ECG of 05-JUN-2023 13:16, (unconfirmed) Incomplete right bundle branch block is no longer Present ST now depressed in Lateral leads Confirmed by Valerio Saavedra ([id number] on 07/01/2023 7:45:52 AM Referred By: Confirmed By:Gil Saavedra
[2023-07-01 07:50] LABS: BUN Creatinine Ratio 26.4 (10-20); Calcium 9.2 mg/dl (8.6-10.3); Est GFR (African American) 73.4 ml/min; Est GFR (Non-African American) 63.4 ml/min; Potassium 4.2 mmol/L (3.5-5.1)
[2023-07-01] MEDS ORDERED: VANCOMYCIN HCL 1,000 MG/270 ML BAG IV SCH (08:00)
[2023-07-01] MEDS ORDERED: VANCOMYCIN HCL 1,000 MG in SODIUM CHLORIDE 0.9% 500 ML IV ONE (08:00)
[2023-07-01] MEDS: GABAPENTIN 300 MG CAP PO SCH ×3 (08:52→21:50)
[2023-07-01] MEDS: METOPROLOL SUCC 50MG EXT REL TAB PO SCH (08:52)
[2023-07-01] MEDS: SERTRALINE HCL 50 MG TABLET PO SCH (08:52)
[2023-07-01] MEDS: POTASSIUM CHLORIDE 10 MEQ TABCR PO SCH (08:52)
[2023-07-01] MEDS: LUBIPROSTONE 8 MCG CAP PO SCH ×2 (08:52→21:50)
[2023-07-01] MEDS: PANTOprazole 40 MG TAB PO SCH (08:52)
[2023-07-01] MEDS: FLECAINIDE ACETATE 100 MG TABLET PO SCH ×2 (08:52→21:51)
[2023-07-01] MEDS: FLUTICASONE/VILANTEROL 100/25MCG 14 PUFFS/INHALER INH SCH (08:54)
--- NOTE | 2023-07-01 08:56 | Anesthesiology Consultation ---
Date of Service July 01, 2023 Assessment & Plan Chart Review Chart Review: Acceptable Risk for Surgery and Patient NOT seen in Pre Admission Testing Consults Requested none ASA ASA4 Proposed Anesthesia Anesthesia Type: MAC Spinal Regional Regional Laterality: Right Site: Popliteal History Surgery Operation Date: 07/01/23 06:45 Proposed Procedures p Open Reduction Internal Fixation Ankle - Major Gilmore MD Height/Weight Height: 5 ft Weight: 67.8 kg Allergies Allergy/AdvReac Type Severity Reaction Status Date / Time cephalexin Allergy Unknown UNKNOWN Verified 06/05/23 13:19 ciprofloxacin Allergy Unknown RASH Verified 06/05/23 13:19 doxycycline Allergy Unknown RASH Verified 06/05/23 13:19 Egg Derived Allergy Unknown HX HIVES Verified 06/05/23 13:19 Influenza Virus Vaccines Allergy Unknown ALLERGIES Verified 06/05/23 13:19 TO EGGS Nitrate Analogues Allergy Unknown UNABLE TO Verified 06/05/23 13:19 HAVE R/T PULMONARY HTN Penicillins Allergy Unknown RASH Verified 06/05/23 13:19 tetanus toxoid, adsorbed Allergy Unknown TETANUS-DIPTHERIA Verified 06/05/23 13:19 TOXOID-RASH codeine AdvReac Unknown GI SYMPTOMS Verified 06/05/23 13:19 diphenhydramine AdvReac Unknown UNABLE TO Verified 06/05/23 13:19 HAVE R/T PULMONARY HTN hydrocodone AdvReac Unknown N/V Verified 06/05/23 13:19 pseudoephedrine AdvReac Unknown UNABLE TO Verified 06/05/23 13:19 HAVE COLD MEDICATIONS R/T PULMONARY HTN Medications Home Medications Medication Instructions Recorded Confirmed Last Taken ascorbic acid (vitamin C) 500 mg 500 mg PO QAM 04/03/18 06/30/23 08/29/21 capsule cholecalciferol (vitamin D3) 25 1,000 unit PO QAM 08/30/18 06/30/23 08/29/21 mcg (1,000 unit) capsule (Vitamin D3) diphenhydramine 25 1 tab PO HS 08/30/18 06/30/23 08/29/21 mg-acetaminophen 500 mg tablet (Tylenol PM Extra Strength) tadalafil 20 mg tablet 40 mg PO QAM 11/25/20 06/30/23 08/30/21 Oxygen Home 04/04/22 06/30/23 Unknown selexipag 1,200 mcg tablet 1,200 mcg PO BID 04/04/22 06/30/23 Unknown torsemide 10 mg tablet 10 mg PO 3XWK 90 days #90 tabs 05/25/22 06/30/23 Unknown valacyclovir 500 mg tablet 1,000 mg (2 x 500 mg) PO BID PRN 06/28/22 06/30/23 Unknown (Valtrex) Cold Sores #30 tabs diclofenac sodium 50 mg 50 mg PO DAILY #30 tabs 11/03/22 06/30/23 Unknown tablet,delayed release potassium chloride 10 mEq 10 meq PO QAM #90 caps 12/05/22 06/30/23 Unknown capsule,extended release ketoconazole 2 % topical cream 1 applic topical UD PRN Skin 02/13/23 06/30/23 Unknown Irritation #15 grams simvastatin 20 mg tablet 20 mg PO QPM #90 tabs 03/05/23 06/30/23 Unknown fluticasone furoate 100 1 inh inhalation DAILY #3 Inhalers 03/21/23 06/30/23 Unknown mcg-vilanterol 25 mcg/dose inhalation powder (Breo Ellipta) pantoprazole 40 mg tablet,delayed 40 mg PO DAILY #90 tabs 03/22/23 06/30/23 Unknown release polyethylene glycol 3350 17 8.5 g PO DAILY PRN Constipation 04/06/23 06/30/23 Unknown gram/dose oral powder (Miralax) sertraline 50 mg tablet (Zoloft) 50 mg PO QAM #90 tabs 05/07/23 06/30/23 Unknown gabapentin 300 mg capsule 300 mg PO TID #90 caps 05/21/23 06/30/23 Unknown flecainide 100 mg tablet 100 mg PO BID #180 tabs 05/29/23 06/30/23 Unknown metoprolol succinate 50 mg 50 mg PO QAM #90 tabs 05/29/23 06/30/23 Unknown tablet,extended release 24 hr Lift Chair #1 ea 06/07/23 06/30/23 Unknown tramadol 50 mg tablet 50 mg PO TID PRN pain #90 tabs 06/19/23 06/30/23 Unknown calcium carbonate 500 mg calcium 500 mg PO QAM 06/30/23 06/30/23 Unknown (1,250 mg) tablet lubiprostone 8 mcg capsule 8 mcg PO BID 06/30/23 06/30/23 Unknown multivitamin (Multiple Vitamins 1 tab PO QAM 06/30/23 06/30/23 Unknown tablet) ondansetron HCl 4 mg tablet 4 mg PO Q8 PRN Nausea And Vomiting 06/30/23 06/30/23 Unknown Active Medications Generic Name Dose Route Start Last Admin Trade Name Freq PRN Reason Stop Dose Admin Acetaminophen 650 mg 06/30/23 21:11 06/30/23 22:51 Acetaminophen 325 Mg Tab PO 07/30/23 21:10 650 mg Q4H PRN Administration Pain or Fever Flecainide Acetate 100 mg 06/30/23 21:11 07/01/23 08:52 Flecainide Acetate 100 Mg Tablet PO 07/30/23 21:10 100 mg BID DANIS Administration Fluticasone/Vilanterol 1 puffs 07/01/23 09:00 07/01/23 08:54 Fluticasone/Vilanterol 100/25mcg 14 Puffs/Inhaler INH 07/31/23 08:59 1 puffs DAILY DANIS Administration Gabapentin 300 mg 06/30/23 21:11 07/01/23 08:52 Gabapentin 300 Mg Cap PO 07/30/23 21:10 300 mg TID DANIS Administration Lubiprostone 8 mcg 06/30/23 21:11 07/01/23 08:52 Lubiprostone 8 Mcg Cap PO 07/30/23 21:10 8 mcg BID DANIS Administration Metoprolol Succinate 50 mg 07/01/23 09:00 07/01/23 08:52 Metoprolol Succ 50mg Ext Rel Tab PO 07/31/23 08:59 50 mg QAM DANIS Administration Pantoprazole Sodium 40 mg 07/01/23 09:00 07/01/23 08:52 Pantoprazole 40 Mg Tab PO 07/31/23 08:59 40 mg DAILY DANIS Administration Potassium Chloride 10 meq 07/01/23 09:00 07/01/23 08:52 Potassium Chloride 10 Meq Tabcr PO 07/31/23 08:59 10 meq QAM DANIS Administration Selexipag 1 each 06/30/23 23:00 06/30/23 22:47 Selexipag 1200 Mcg Tab PO 07/30/23 22:59 1 each BID@1100,2300 DANIS Administration Sertraline HCl 50 mg 07/01/23 09:00 07/01/23 08:52 Sertraline Hcl 50 Mg Tablet PO 07/31/23 08:59 50 mg QAM DANIS Administration Simvastatin 20 mg 06/30/23 21:11 06/30/23 22:46 Simvastatin 20 Mg Tab PO 07/30/23 21:10 20 mg QPM DANIS Administration Tramadol HCl 50 mg 06/30/23 21:11 07/01/23 03:13 Tramadol Hcl 50 Mg Tablet PO 07/30/23 21:10 50 mg TID PRN Administration pain Past Medical History Medical History Glenohumeral arthritis Left shoulder pain Ambulatory dysfunction Irritable bowel syndrome with constipation 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 Zelaya Cervical osteoarthritis Chronic anticoagulation Chronic maxillary sinusitis SIDE EFFECT OF MEDICATION PER PT, CHRONIC DRIPPY NOSE Chronic obstructive pulmonary disease WEARS O2 CONT. Dyslipidemia History of lung cancer 2017 > Dr. Deshpande > RUL removed > no treatments History of pulmonary embolism Osteoporosis Paroxysmal SVT (supraventricular tachycardia) controlled with meds Restrictive lung disease Iron deficiency anemia IRON INFUSION NEXT THREE MONDAYS - FIRST TODAY 08/22/20 Degenerative disc disease Chronic back pain GERD (gastroesophageal reflux disease) CARIN (obstructive sleep apnea) 2L N/C at HS Depression Pulmonary hypertension Bilateral occipital neuralgia Exercise / Class Metabolic Activity III < 4 Walking/Shop/Light housework Past Family History Family History Mother Heart disease Myocardial infarction Sister Valvular heart disease Sinusitis Other No family history of adverse response to anesthesia Denies family history of Ovarian cancer Prostate cancer Breast cancer Colorectal cancer Past Surgical History Surgical History Hx of lymph node excision 27 total History of esophagogastroduodenoscopy (EGD) Previous back surgery thoracic History of hemorrhoidectomy History of appendectomy History of colonoscopy History of tooth extraction History of bilateral cataract extraction History of cardiac cath x3 with no stents H/O tubal ligation History of cholecystectomy S/P lobectomy of lung HX Right upper Past Anesthesia History No Hx of Anesthesia Complications and No Family Hx of Anesthesia Complications History of PONV No Hx of PONV and No Hx of Motion Sickness Social History Smoking Status: Former smoker tobacco type: cigarettes Do You Dip or Chew Tobacco: No Hx Alcohol Use: No Alcohol type: wine alcohol intake frequency: a few times a month Hx Substance Use: No substance use type: does not use Physical Exam Vital Signs Last Vital Signs Temp 36.6 C 07/01/23 08:14 Pulse 80 07/01/23 08:14 Resp 16 07/01/23 08:14 BP 114/64 07/01/23 08:14 Pulse Ox 96 07/01/23 08:14 O2 Del Method Nasal Cannula 07/01/23 08:14 O2 Flow Rate 1 07/01/23 08:14 Testing Laboratory Results 07/01/23 05:59 07/01/23 05:59 PT 11.2 Seconds (9.0-12.0) 06/30/23 14:52 INR 1.0 (0.9-1.1) 06/30/23 14:52 Blood Type B Positive 06/30/23 18:09 Antibody Screen NEGATIVE 06/30/23 18:09 Electrocardiogram Date: 06/30/23 Findings: + NSR @ (@ 69;w/ 1st degree AVB;poss. infer. infarct,age ?;poor R wave progression) Chest X-Ray Date: 11/20/22 Findings: + other (C/W pulmonary HTN) C/W emphysema Scoliosis Echocardiogram Date: 11/29/22 EF: 55% LV Function: normal RWMA: + none Other Findings: + LVH Valvular Disease: + no significant valvular disease and + MR (mild) TR-mild Mild-moderate pulmonary HTN- 50 Torr Abnormal septal motion c/w increased RV pressure Cardiac Catheterization Date: 12/11/19 Findings: + RCA (30-40 prox. - mid;40-50 late -mid), + LMA (none), + LCX (LI) and + pertinent finding (LAD-proximal 50-60% @ D2 takeoff;late [id number];D2 ostial 30%) Intervention: + pertinent finding (severe pulmonary HTN) Pulmonary Function Test Date: 01/22/19 Findings: + other (moderate - severe restrictive lung disease)
[2023-07-01] MEDS ORDERED: MIDAZOLAM HCL 1 MG/ML 2ML VIAL ONE (09:24)
[2023-07-01] MEDS ORDERED: fentaNYL citrate PF 100 MCG/2 ML VIAL ONE (09:44)
[2023-07-01] MEDS ORDERED: VANCOMYCIN HCL 1 GM/270 ML BAG IV ONE (09:50)
[2023-07-01] MEDS ORDERED: KETAMINE HCL 10MG/ML SYR ONE (09:52)
[2023-07-01] MEDS ORDERED: BUPIVACAINE 0.25% PF 30 ML VIAL ONE (09:53)
[2023-07-01] MEDS ORDERED: BUPIVACAINE/EPINEPHRINE 0.25% 1:200,000 30 ML VIAL ONE ×2 (09:57→10:53)
[2023-07-01] MEDS ORDERED: ePHEDrine sulfate 50 MG/ML AMP ONE (11:20)
[2023-07-01] MEDS ORDERED: PROPOFOL IV EMULSION 10 MG/ML 100 ML VIAL IV ONE (11:20)
[2023-07-01] MEDS ORDERED: LIDOCAINE 2% 2 ML VIAL/AMP(20MG/ML) INFIL ONE (11:20)
--- NOTE | 2023-07-01 12:29 | History & Physical Bridge Note ---
Date of Service July 01, 2023 History & Physical Bridge Note I have examined the patient, reviewed the History & Physical and in the interval since the performance of the History & Physical I have noted the following changes of clinical significance: no changes noted
--- NOTE | 2023-07-01 12:31 | Fluoroscopy Report ---
FL ankle RT min 3V RTN CLINICAL HISTORY: RIGHT ANKLE ORIFacute fracture of the right ankle COMPARISON STUDY: 06/30/2023 FLUOROSCOPY TIME: 1 seconds FLUOROSCOPY IMAGES: 6 EXPOSURE DOSE: 0.23 mGy FINDINGS: Status post ORIF of the acute trimalleolar fracture with improved near anatomic alignment. Plate and screw fusion of the distal fibula with single cannulated screw fixating the acute medial ma lleolar fracture. Hardware appears intact. No unexpected opaque foreign bodies or dislocation. IMPRESSION: Fluoroscopic assistance as above. ACT 112: Negative or not required by law. Electronically signed by: Albert Steele M.D. 07/01/2023 12:29 PM
--- NOTE | 2023-07-01 12:31 | Operative Report ---
PG Post Operative Report Pre & Post Diagnosis Operation Date: 07/01/23 06:45 Pre-Op Diagnosis: Right Ankle Trimalleolar Fracture/dislocation Post-Op Diagnosis: Right Ankle Trimalleolar Fracture/dislocation I identified the patient and participated in the time-out.: Yes Procedure Operation Date: 07/01/23 06:45 Actual Procedures p Open Reduction Internal Fixation Right trimalleolar ankle fracture/dislocation (Right) - Major Gilmore MD Surgeon Major Gilmore MD Driver Edu Castro PA-C Estimated Blood Loss 20 Findings Consistent with Post-Op Diagnosis Specimens None Anesthesia Type Spinal MAC Complications none Disposition Accompanied Patient To Recovery: No Indications Patient is a 77-year-old elderly female with multiple medical comorbidities who injured her ankle yesterday. She slipped sliding off a chair when she twisted her ankle. Cute onset of pain and deformity. She was brought to emergency room where x-rays were fracture dislocation. She underwent closed reduction. Patient is now indicated for surgical treatment. Description of Procedure Medial sided orthopedic implants consist of: 1. Synthes 4.0 partially-threaded cannulated screw x 1 with a washer. Lateral sided orthopedic implants consist of: 1. Synthes 10 hole one third semitubular locking plate. 2. 4.0 partially-threaded cancellous screw x 1. 3. 3.5 fully threaded cortical screws x 1. 4. 4.0 fully threaded cancellous screws x 6. The patient was taken to the operating, identified, placed on the operating table in supine position but all contractors were properly padded. IV antibiotics tried by anesthesia team. Spinal anesthetic and popliteal block had been provided in the holding area. A right thigh tent was then placed. The right lower extremity splint was then removed. We scrubbed the right lower extremity with Hibiclens, prepped with ChloraPrep and draped in usual sterile fashion. Attention was first drawn to the medial side. A curvilinear incision was made over the medial malleolus. Sharp dissection carried through the subcutaneous tissue directly down the fracture. Fracture site was opened up. There was a fairly small medial malleolus piece. I debrided of all clot. We irrigated the wound. I then reduced this and held it with 2 oh wires. I then placed a single 4.0 partially-threaded cannulated screw over the most central wire with a washer . This provided fairly good fixation and compression of the small piece. Attention drawn laterally. A direct lateral approach of the fibula was then performed through a longitudinal incision. Sharp passes Through subcutaneous tissue directly down to fracture. The fracture was cleaned of all clot. I reduced the fracture and held it with 2 reduction clamps. I placed a single 4.0 partially-threaded lag screw across the fracture site. I then contoured a 10 hole one third semitubular plate to the lateral aspect the fibula. It was fixed proximally with 1 fully threaded cortical screw and then 3 cancellous screws. I placed additional cancellous screws distally. This provided excellent fixation. The bone was fairly osteoporotic. X-ray was brought in. All hardware was appropriately positioned. I stressed the ankle was and there was no gapping of the clear space or widening the syndesmosis. We then proceeded with closing. The wound was irrigated with copious amounts of normal saline. I injected locally with 30 cc of quarter percent Marcaine with epinephrine. The periosteum over the plate laterally was closed with 2-0 Vicryl suture in a [id number] fashion. The tourniquet was then let down for tourniquet time 52 minutes. Hemostasis assured use electrocautery. Both wounds were then irrigated. The subcutaneous tissue was then closed with 2-0 Vicryl suture in a buried interrupted fashion skin was closed with 3-0 nylon suture in a simple fashion. Leg was then cleaned and dried and sterile dressing with Xeroform, 4 fours, sterile cast padding, and a well-padded posterior and stirrup splint were applied. Patient then transferred to the recovery room in stable condition. Patient tolerated the procedure well and there were no complications. Edu Csatro, my physician refinery operator assistant, was present for the entire procedure. His assistance was required for proper patient positioning, prepping and draping, surgical exposure, retraction, performing the technical details of the operation, placement of hardware, closure of the incision site and placement of the postoperative sterile bandage and splint. I attest to the content of the Intraoperative Record and any orders documented therein. Any exceptions are noted below.
[2023-07-01] MEDS ORDERED: fentaNYL citrate PF 100 MCG/2 ML VIAL IV PRN (12:45)
[2023-07-01] MEDS ORDERED: FLUMAZENIL 0.1 MG/1 ML 10 ML VIAL IV PRN (12:45)
[2023-07-01] MEDS ORDERED: NALOXONE HCL 0.4 MG/1 ML VIAL/CARP IV PRN (12:45)
[2023-07-01] MEDS ORDERED: PROMETHAZINE HCL 12.5 MG in SODIUM CHLORIDE 0.9% 50 ML IV PRN (12:45)
[2023-07-01] MEDS ORDERED: ATROPINE SULFATE 0.1 MG/ML 10ML SYR IV PRN (12:45)
--- NOTE | 2023-07-01 12:55 | Anesthesiology Progress Note ---
Date of Service July 01, 2023 Anesthesia Post Procedure Vital Signs Vital Signs: Temp Pulse Pulse Pulse Resp BP BP 07/01/23 08:14 36.6 C 80 16 114/64 07/01/23 07:00 73 07/01/23 04:05 36.6 C 70 18 114/69 07/01/23 00:00 36.6 C 80 18 113/71 06/30/23 22:00 79 06/30/23 21:35 64 06/30/23 20:30 06/30/23 20:30 36.4 C L 69 18 124/67 06/30/23 20:23 06/30/23 20:00 72 20 104/69 06/30/23 18:33 75 18 104/66 06/30/23 17:40 79 06/30/23 17:40 117/74 06/30/23 17:40 117/74 06/30/23 17:30 124/73 06/30/23 17:30 74 06/30/23 17:20 116/69 06/30/23 17:20 72 06/30/23 17:10 64 06/30/23 17:10 101/46 L 06/30/23 17:00 74 06/30/23 17:00 107/50 L 06/30/23 16:50 65 06/30/23 16:50 107/47 L 06/30/23 16:40 107/52 L 06/30/23 16:40 64 14 06/30/23 16:30 111/54 L 06/30/23 16:30 65 16 06/30/23 16:22 75 14 06/30/23 16:22 111/54 L 06/30/23 16:20 81 17 06/30/23 16:10 76 14 06/30/23 16:10 118/78 06/30/23 16:04 79 06/30/23 16:00 16 108/65 06/30/23 16:00 80 17 06/30/23 15:54 120/65 06/30/23 15:54 79 17 06/30/23 15:50 76 23 06/30/23 15:40 75 20 06/30/23 15:30 130/72 06/30/23 15:30 66 19 06/30/23 15:20 73 16 06/30/23 15:14 129/51 L 06/30/23 15:14 66 17 06/30/23 15:10 75 17 06/30/23 15:05 83 20 06/30/23 14:59 06/30/23 14:59 06/30/23 14:59 06/30/23 14:53 71 19 108/77 Pulse Ox O2 Del Method O2 Flow Rate 07/01/23 08:14 96 Nasal Cannula 1 07/01/23 07:00 07/01/23 04:05 95 Nasal Cannula 1 07/01/23 00:00 97 Room Air 06/30/23 22:00 06/30/23 21:35 06/30/23 20:30 Nasal Cannula 2 06/30/23 20:30 96 Nasal Cannula 2 06/30/23 20:23 Nasal Cannula 2 06/30/23 20:00 97 Nasal Cannula 2 06/30/23 18:33 94 Nasal Cannula 2 06/30/23 17:40 97 Nasal Cannula 2 06/30/23 17:40 06/30/23 17:40 06/30/23 17:30 06/30/23 17:30 95 Nasal Cannula 2 06/30/23 17:20 06/30/23 17:20 98 06/30/23 17:10 96 Nasal Cannula 2 06/30/23 17:10 06/30/23 17:00 95 Nasal Cannula 2 06/30/23 17:00 06/30/23 16:50 96 Nasal Cannula 2 06/30/23 16:50 06/30/23 16:40 06/30/23 16:40 96 Nasal Cannula 2 06/30/23 16:30 06/30/23 16:30 97 Nasal Cannula 2 06/30/23 16:22 98 Nasal Cannula 2 06/30/23 16:22 06/30/23 16:20 93 06/30/23 16:10 97 06/30/23 16:10 06/30/23 16:04 06/30/23 16:00 06/30/23 16:00 96 Nasal Cannula 2 06/30/23 15:54 06/30/23 15:54 92 Nasal Cannula 2 06/30/23 15:50 99 Nasal Cannula 2 06/30/23 15:40 98 Nasal Cannula 2 06/30/23 15:30 06/30/23 15:30 100 Nasal Cannula 2 06/30/23 15:20 100 Nasal Cannula 2 06/30/23 15:14 06/30/23 15:14 100 Nasal Cannula 2 06/30/23 15:10 99 Nasal Cannula 2 06/30/23 15:05 98 Nasal Cannula 2 06/30/23 14:59 100 Nasal Cannula 06/30/23 14:59 100 Nasal Cannula 2 06/30/23 14:59 100 Nasal Cannula 2 06/30/23 14:53 96 Room Air Transfer of Care Handoff Completed per policy Notes Mental Status: alert / awake / arousable Patient Amnestic to Procedure: Yes Nausea / Vomiting: adequately controlled Pain: adequately controlled Airway Patency, RR, SpO2: stable & adequate BP & HR: stable & adequate Hydration State: stable & adequate Neuraxial Anesthesia: was administered and sensory block is resolving Anesthetic Complications: no major complications apparent
[2023-07-01] MEDS: SELEXIPAG PO SCH ×2 (13:50→21:51)
--- NOTE | 2023-07-01 16:50 | Hospitalist Progress Note ---
Date of Service July 01, 2023 Assessment & Plan (1) Closed right trimalleolar fracture: Plan: Patient slid from high tabletop chair and right ankle buckled backwards on 06/30 Ankle x-ray on arrival showed right trimalleolar fracture/dislocation Ankle was reduced in the ED Status post open reduction internal fixation on 07/01, patient tolerated procedure well, currently pain is tolerable, patient mental status back to normal, CBC tomorrow, PT OT Hold diclofenac sodium tablets for now Acetaminophen 650mg q4h as needed for pain Tramadol 50 mg as needed for breakthrough pain Appreciate orthopedics consult A.m. CBC (2) Paroxysmal atrial fibrillation: Plan: EKG on arrival showed sinus rhythm with first-degree AV block at 69 bpm; QTc 441 Continue metoprolol Continue flecainide Continuous telemetry monitoring (3) Pulmonary hypertension: Plan: Patient reports that she takes selexipag 1,200 micrograms tablets twice daily at 11 AM and 11 PM, as well as tadalafil 20 mg x 2 (40mg total) QAM Will hold tadalafil the morning of 07/01 prior to going to the OR Both of these medications are non-formulary; patient's brought them in from home; sent to pharmacy for approval (4) Chronic obstructive pulmonary disease: Plan: 2L NC continuously (5) CARIN (obstructive sleep apnea): Plan: Patient reports she does not wear CPAP at bedtime 2L NC HS (6) History of pulmonary embolism: Plan: Wedge resection performed in 2016; PE while on Coumadin; patient not on Eliquis (7) GERD (gastroesophageal reflux disease): Plan: Continue pantoprazole Plan Disposition: Admit to [facility] telemetry DNR/DNI Regular diet (n.p.o. at midnight) VTE PPx: Knee-high Nicolas LLE (hold chemical DVT PPx as patient will be going to the OR on the morning of 07/01) Admission and Anticipated Discharge Date Admission Date: June 30, 2023 Review of Systems Review of Systems: See HPI above Physical Exam Physical Exam: General: Minimal physical distress; pleasant affect; non-toxic appearing; well- nourished; cooperative HEENT: normocephalic, atraumatic; no scleral icterus; PERRLA w/ EOMs intact; moist mucus membrane; vision and hearing grossly intact Neck: supple; no JVD; no lymphadenopathy; trachea midline Skin: warm, dry without signs of tenting; no cyanosis; no rashes, bruising, lesions, or erythema noted CV: chest wall NTP; RRR; S1/S2 normal; no murmurs/rubs/gallops; pulses intact and symmetric at radial, DP, and PT Lungs: no acute respiratory distress; symmetrical chest wall expansion; clear breath sounds across all lung howard w/o adventitious sounds; no wheezing ABD: Soft, NTP; BS present; no rebound/guarding; no ascites; no distention; negative CVA tenderness RLE: RLE is currently wrapped; patient demonstrates ability to wiggle toes, and reports sensation with light touch; she denies pain to palpation of the right knee MSK: no tics or fasciculations; no edema noted in the LEs b/l Neuro: A&Ox3; normal mood and affect; fluent speech; no focal deficits; sensation grossly intact in the LEs B/L Constitutional: + obese; no acute distress ENMT: Mouth: + dentition abnormality, + dentures and + poor dentition Mallampati Class: II Neck: normal visual inspection, trachea midline and + shortened thyromental distance; neck extension not limited Respiratory: normal respiratory effort; no respiratory distress Auscultation: + diminished lung sounds Cardiovascular: Rate/Rhythm: regular rate and regular rhythm Heart Sounds: no murmur Vessels: no carotid bruit Musculoskeletal: Spine: lumbar spine normal to inspection; normal cervical ROM and no pain with cervical ROM Extremities: extremities normal to inspection and + limited ROM of extremities Neurologic: moves all extremities Motor/Sensory: no sensory deficit Psychiatric: Orientation: alert and oriented x 3 Results & Data Results & Data Vital Signs (Past 12 Hours) Vital Signs Temp Pulse Pulse Pulse Resp BP Pulse Ox 07/01/23 15:35 36.5 C 83 16 114/68 99 07/01/23 14:48 83 07/01/23 13:40 85 19 124/60 100 07/01/23 13:25 83 18 124/54 L 98 07/01/23 13:10 83 19 122/62 97 07/01/23 13:00 36.5 C 82 19 123/60 99 07/01/23 12:50 83 17 123/57 L 100 07/01/23 12:40 85 15 127/62 100 07/01/23 12:30 86 18 117/75 98 07/01/23 12:22 37 C 85 19 119/64 100 07/01/23 08:14 36.6 C 80 16 114/64 96 07/01/23 07:00 73 O2 Del Method O2 Flow Rate 07/01/23 15:35 Nasal Cannula 2 07/01/23 14:48 07/01/23 13:40 Nasal Cannula 2 07/01/23 13:25 Nasal Cannula 2 07/01/23 13:10 Nasal Cannula 2 07/01/23 13:00 Nasal Cannula 2 07/01/23 12:50 Nasal Cannula 2 07/01/23 12:40 Nasal Cannula 2 07/01/23 12:30 Nasal Cannula 2 07/01/23 12:22 Oxymask 6 07/01/23 08:14 Nasal Cannula 1 07/01/23 07:00 PG Care Time/CCT Total # of Minutes Spent Total Time Spent with Patient: Total time spent is greater than 50% in coordination of care (as documented) at patient's floor/unit and/or counseling patient: Coding Level of Care Code 79407 SUB INP/OBS CARE MIN Diagnoses Closed right trimalleolar fracture S82.851A Encounter type: initial encounter Paroxysmal atrial fibrillation I48.0 Pulmonary hypertension I27.20 Chronic obstructive pulmonary disease, unspecified COPD type J44.9 COPD type: unspecified COPD CARIN (obstructive sleep apnea) G47.33 History of pulmonary embolism Z86.711 GERD (gastroesophageal reflux disease) K21.9 (1) Closed right trimalleolar fracture Encounter type: initial encounter Qualified Code(s): S82.851A - Displaced trimalleolar fracture of right lower leg, initial encounter for closed fracture (4) Chronic obstructive pulmonary disease COPD type: unspecified COPD Qualified Code(s): J44.9 - Chronic obstructive pulmonary disease, unspecified
[2023-07-01] MEDS: SIMVASTATIN 20 MG TAB PO SCH (21:51)
[2023-07-02 06:39] LABS: Basophils # (auto) 0.02 K/uL (0.00-0.20); Basophils % (auto) 0.2 %; Eosinophils # (auto) 0.01 K/uL (0.00-0.50); Eosinophils % (auto) 0.1 %; Hematocrit (blood only) 27.7 % (37.0-47.0); Immature Granulocytes # (auto) 0.03 K/uL (0.01-0.20); Immature Granulocytes % (auto) 0.3 %; Lymphocytes # (auto) 0.68 K/uL (1.20-3.40); Lymphocytes % (auto) 7.9 %; Mean Corpuscular Hemoglobin 32.6 pg (25.0-34.0); Mean Corpuscular Hgb Conc 32.5 g/dL (32.0-36.0); Mean Corpuscular Volume 100.4 fL (80.0-100.0); Mean Platelet Volume 10.3 fL (9.4-12.4); Monocytes # (auto) 0.66 K/uL (0.11-0.59); Monocytes % (auto) 7.6 %; Neutrophils # (auto) 7.24 K/uL (1.40-6.50); Neutrophils % (auto) 83.9 %; Platelet Count 222 K/uL (130-400); RDW Coefficient of Variation 13.2 % (11.5-14.5); RDW Standard Deviation 48.7 fL (36.4-46.3); Red Blood Count 2.76 M/uL (4.20-5.40); White Blood Count 8.64 K/ul (4.8-10.8)
[2023-07-02 06:48] LABS: BUN Creatinine Ratio 18.5 (10-20); Calcium 8.8 mg/dl (8.6-10.3); Creatinine Clr Calc Pharmacy 48.5 ml/min; Est GFR (African American) 80.1 ml/min; Est GFR (Non-African American) 69.1 ml/min; Potassium 3.8 mmol/L (3.5-5.1)
--- NOTE | 2023-07-02 07:18 | Surgery Progress Note ---
Date of Service July 02, 2023 Assessment & Plan (1) Closed right trimalleolar fracture: Plan: 77-year-old female postop day 1 from ORIF of a trimalar ankle fracture dislocation. Orthopedically she is doing well. She is neurologically intact. No new complaints. Plan: 1. DVT prophylaxis including thigh-high teds, SCDs, baby aspirin twice a day for 6 weeks. 2. PT OT. She is nonweightbearing this right leg for the next 2 weeks. 3. Wound care. Will get a leave the splint on for the next 2 to 3 weeks till I see her back in clinic. Strict elevation of the right leg. Knee deep follow heel precautions. Keep all pressure off the heel particularly while in bed. 4. Medical management as per the medicine service. 5. She is orthopedically okay for discharge anytime medically stable. I need to see her back 2 to 3 weeks out from surgery date. Any orthopedic questions can direct me [phone] Admission and Anticipated Discharge Date Admission Date: June 30, 2023 Subjective 77-year-old female with multiple medical comorbidities postop day 1 from ORIF of a trimalleolar ankle fracture. She is doing pretty well this morning. No new complaints. A little bit confused. No chest pain or shortness of breath. Some mild ankle pain Physical Exam Physical Exam: Examination of the right ankle reveals the splint to be clean dry and intact. Ankle is well aligned. She can flex extend her toes appropriately. Minimal swelling. She is neurologically intact Results & Data Vital Signs (Past 12 Hours) Vital Signs Temp Pulse Resp BP BP Pulse Ox O2 Del Method 07/02/23 04:00 36.8 C 104 H 18 122/68 93 Room Air 07/01/23 22:22 36.6 C 91 H 18 115/66 95 Room Air 07/01/23 20:00 Nasal Cannula O2 Flow Rate 07/02/23 04:00 07/01/23 22:22 07/01/23 20:00 2 Laboratory Results Hemoglobin 9.0. Hematocrit 27.7. PG Care Time/CCT Total # of Minutes Spent Total Time Spent with Patient: Total time spent is greater than 50% in coordination of care (as documented) at patient's floor/unit and/or counseling patient: Coding Level of Care Code 25827 Post Operative Follow-Up Diagnoses Closed right trimalleolar fracture S82.851A Encounter type: initial encounter (1) Closed right trimalleolar fracture Encounter type: initial encounter Qualified Code(s): S82.851A - Displaced trimalleolar fracture of right lower leg, initial encounter for closed fracture
[2023-07-02] MEDS: LUBIPROSTONE 8 MCG CAP PO SCH ×2 (08:37→19:57)
[2023-07-02] MEDS: POTASSIUM CHLORIDE 10 MEQ TABCR PO SCH (08:37)
[2023-07-02] MEDS: FLECAINIDE ACETATE 100 MG TABLET PO SCH ×2 (08:37→19:56)
[2023-07-02] MEDS: METOPROLOL SUCC 50MG EXT REL TAB PO SCH (08:37)
[2023-07-02] MEDS: GABAPENTIN 300 MG CAP PO SCH ×3 (08:37→19:57)
[2023-07-02] MEDS: tadalafiL PO SCH (08:38)
[2023-07-02] MEDS: TORSEMIDE 10 MG TAB PO SCH (08:38)
[2023-07-02] MEDS: PANTOprazole 40 MG TAB PO SCH (08:38)
[2023-07-02] MEDS: SERTRALINE HCL 50 MG TABLET PO SCH (08:38)
[2023-07-02] MEDS: traMADol HCL 50 MG TABLET PO PRN (09:22)
[2023-07-02] MEDS: FLUTICASONE/VILANTEROL 100/25MCG 14 PUFFS/INHALER INH SCH (09:54)
[2023-07-02] MEDS: SELEXIPAG PO SCH ×2 (11:57→19:58)
[2023-07-02] MEDS ORDERED: oxyCODONE/ACETAMINOPHEN 10-325 TAB PO PRN (13:52)
[2023-07-02] MEDS ORDERED: oxyCODONE/ACETAMINOPHEN 5mg/325mg TAB PO PRN (13:53)
[2023-07-02] MEDS: ACETAMINOPHEN 1,000 MG/100 ML VIAL IV PRN (14:11)
[2023-07-02] MEDS ORDERED: SODIUM CHLORIDE 0.9% 1,000 ML IV ONE (16:02)
--- NOTE | 2023-07-02 17:44 | Hospitalist Progress Note ---
Date of Service July 02, 2023 Assessment & Plan (1) Closed right trimalleolar fracture: Plan: Patient slid from high tabletop chair and right ankle buckled backwards on 06/30 Ankle x-ray on arrival showed right trimalleolar fracture/dislocation Ankle was reduced in the ED Status post open reduction internal fixation on 07/01 - today patient is excruciating., Started on IV Tylenol, and as needed Percocet on exam. Toes are warm and not tender, she is mildly confused Hold diclofenac sodium tablets for now (2) Encephalopathy: Plan: most likely secondary to anesthesia versus pain medication versus others check for UA, if patient continues to be confused benefit from MRI to rule out stroke (3) Paroxysmal atrial fibrillation: Plan: EKG on arrival showed sinus rhythm with first-degree AV block at 69 bpm; QTc 441 Continue metoprolol Continue flecainide Continuous telemetry monitoring - patient followed by Dr. Valerio Zelaya and he is not on anticoagulation according to the last note of Dr. Zelaya on 06/05/2023 apparently due to history of GI bleed and anemia (4) Pulmonary hypertension: Plan: Patient reports that she takes selexipag 1,200 micrograms tablets twice daily at 11 AM and 11 PM, as well as tadalafil 20 mg x 2 (40mg total) QAM Will hold tadalafil the morning of 07/01 prior to going to the OR Both of these medications are non-formulary; patient's brought them in from home; sent to pharmacy for approval (5) Chronic obstructive pulmonary disease: Plan: 2L NC continuously patient with history of lung cancer status post right upper lobectomy (6) CARIN (obstructive sleep apnea): Plan: Patient reports she does not wear CPAP at bedtime 2L NC HS (7) History of pulmonary embolism: Plan: Wedge resection performed in 2016; PE while on Coumadin; patient not on Eliquis (8) GERD (gastroesophageal reflux disease): Plan: Continue pantoprazole Plan Disposition: Admit to [facility] telemetry DNR/DNI Regular diet (n.p.o. at midnight) VTE PPx: Knee-high Nicolas LLE (hold chemical DVT PPx as patient will be going to the OR on the morning of 07/01) Admission and Anticipated Discharge Date Admission Date: June 30, 2023 Subjective 77-year-old female with multiple medical comorbidities postop day 1 from ORIF of a trimalleolar ankle fracture. today patient is mildly confused, and complaining of excruciating pain, the confusion could be secondary to anesthesia versus pain medication versus others Physical Exam Physical Exam: General: Minimal physical distress; pleasant affect; non-toxic appearing; well- nourished; cooperative HEENT: normocephalic, atraumatic; no scleral icterus; PERRLA w/ EOMs intact; moist mucus membrane; vision and hearing grossly intact Neck: supple; no JVD; no lymphadenopathy; trachea midline Skin: warm, dry without signs of tenting; no cyanosis; no rashes, bruising, lesions, or erythema noted CV: chest wall NTP; RRR; S1/S2 normal; no murmurs/rubs/gallops; pulses intact and symmetric at radial, DP, and PT Lungs: no acute respiratory distress; symmetrical chest wall expansion; clear breath sounds across all lung howard w/o adventitious sounds; no wheezing ABD: Soft, NTP; BS present; no rebound/guarding; no ascites; no distention; negative CVA tenderness RLE: RLE is currently wrapped; patient demonstrates ability to wiggle toes, and reports sensation with light touch; she denies pain to palpation of the right knee MSK: no tics or fasciculations; no edema noted in the LEs b/l Neuro: A&Ox3; normal mood and affect; fluent speech; no focal deficits; sensa tion grossly intact in the LEs B/L Constitutional: + obese; no acute distress ENMT: Mouth: + dentition abnormality, + dentures and + poor dentition Mallampati Class: II Neck: normal visual inspection, trachea midline and + shortened thyromental distance; neck extension not limited Respiratory: normal respiratory effort; no respiratory distress Auscultation: + diminished lung sounds Cardiovascular: Rate/Rhythm: regular rate and regular rhythm Heart Sounds: no murmur Vessels: no carotid bruit Musculoskeletal: Spine: lumbar spine normal to inspection; normal cervical ROM and no pain with cervical ROM Extremities: extremities normal to inspection and + limited ROM of extremities Neurologic: moves all extremities Motor/Sensory: no sensory deficit Psychiatric: Orientation: alert and oriented x 3 Results & Data Results & Data Vital Signs (Past 12 Hours) Vital Signs Temp Pulse Pulse Resp BP Pulse Ox O2 Del Method 07/02/23 17:24 124/57 L 07/02/23 16:21 91 H 07/02/23 15:59 37.0 C 86 16 78/46 L 92 Nasal Cannula 07/02/23 11:32 36.7 C 82 16 109/45 L 96 Nasal Cannula 07/02/23 08:30 Nasal Cannula 07/02/23 07:48 86 O2 Flow Rate 07/02/23 17:24 07/02/23 16:21 07/02/23 15:59 2 07/02/23 11:32 2 07/02/23 08:30 2 07/02/23 07:48 PG Care Time/CCT Total # of Minutes Spent Total Time Spent with Patient: Total time spent is greater than 50% in coordination of care (as documented) at patient's floor/unit and/or counseling patient: Coding Level of Care Code 51463 SUB INP/OBS CARE 3/50MIN Diagnoses Closed right trimalleolar fracture S82.851A Encounter type: initial encounter Encephalopathy G93.40 Paroxysmal atrial fibrillation I48.0 Pulmonary hypertension I27.20 Chronic obstructive pulmonary disease, unspecified COPD type J44.9 COPD type: unspecified COPD CARIN (obstructive sleep apnea) G47.33 History of pulmonary embolism Z86.711 GERD (gastroesophageal reflux disease) K21.9 (1) Closed right trimalleolar fracture Encounter type: initial encounter Qualified Code(s): S82.851A - Displaced trimalleolar fracture of right lower leg, initial encounter for closed fracture (5) Chronic obstructive pulmonary disease COPD type: unspecified COPD Qualified Code(s): J44.9 - Chronic obstructive pulmonary disease, unspecified
[2023-07-02 18:33] LABS: Appearance Urine Clear (Clear); Bacteria Urine Automated Negative (Negative); Bilirubin Urine Negative (Negative); Blood Urine Trace (Negative); Color Urine Yellow; Glucose Urine UA Negative (Negative); Ketones Urine Trace (Negative); Leukocyte Esterase Urine Negative (Negative); Nitrite Urine Negative (Negative); Protein Urine Negative (Negative); RBC Urine Automated 0-4 /hpf (0-4); Specific Gravity Urine 1.014 (1.000-1.030); Urobilinogen Urine Negative (Negative)
[2023-07-02] MEDS ORDERED: LACTATED RINGER'S 1,000 ML IV ONE (19:47)
[2023-07-02] MEDS: SIMVASTATIN 20 MG TAB PO SCH (19:58)
[2023-07-03 06:25] LABS: Basophils # (auto) 0.03 K/uL (0.00-0.20); Basophils % (auto) 0.5 %; Eosinophils # (auto) 0.07 K/uL (0.00-0.50); Eosinophils % (auto) 1.1 %; Hematocrit (blood only) 26.8 % (37.0-47.0); Hemoglobin 8.5 g/dl (12.0-16.0); Immature Granulocytes # (auto) 0.03 K/uL (0.01-0.20); Immature Granulocytes % (auto) 0.5 %; Lymphocytes # (auto) 0.87 K/uL (1.20-3.40); Lymphocytes % (auto) 13.4 %; Mean Corpuscular Hemoglobin 31.6 pg (25.0-34.0); Mean Corpuscular Hgb Conc 31.7 g/dL (32.0-36.0); Mean Corpuscular Volume 99.6 fL (80.0-100.0); Mean Platelet Volume 10.3 fL (9.4-12.4); Monocytes # (auto) 0.68 K/uL (0.11-0.59); Monocytes % (auto) 10.5 %; Neutrophils # (auto) 4.82 K/uL (1.40-6.50); Platelet Count 213 K/uL (130-400); RDW Coefficient of Variation 13.5 % (11.5-14.5); RDW Standard Deviation 48.7 fL (36.4-46.3); Red Blood Count 2.69 M/uL (4.20-5.40)
[2023-07-03 06:32] LABS: BUN Creatinine Ratio 18.9 (10-20); Calcium 8.5 mg/dl (8.6-10.3); Est GFR (African American) 89.3 ml/min; Est GFR (Non-African American) 77.1 ml/min; Potassium 3.9 mmol/L (3.5-5.1)
[2023-07-03] MEDS: GABAPENTIN 300 MG CAP PO SCH ×3 (08:58→19:57)
[2023-07-03] MEDS: METOPROLOL SUCC 50MG EXT REL TAB PO SCH (08:58)
[2023-07-03] MEDS: SERTRALINE HCL 50 MG TABLET PO SCH (08:58)
[2023-07-03] MEDS: LUBIPROSTONE 8 MCG CAP PO SCH ×2 (08:58→19:58)
[2023-07-03] MEDS: PANTOprazole 40 MG TAB PO SCH (08:58)
[2023-07-03] MEDS: FLECAINIDE ACETATE 100 MG TABLET PO SCH ×2 (08:58→19:57)
[2023-07-03] MEDS: POTASSIUM CHLORIDE 10 MEQ TABCR PO SCH (08:58)
[2023-07-03] MEDS: FLUTICASONE/VILANTEROL 100/25MCG 14 PUFFS/INHALER INH SCH (08:59)
[2023-07-03] MEDS: tadalafiL PO SCH (08:59)
[2023-07-03] MEDS: ACETAMINOPHEN 1,000 MG/100 ML VIAL IV PRN (09:06)
[2023-07-03] MEDS: SELEXIPAG PO SCH ×2 (10:40→19:59)
--- NOTE | 2023-07-03 11:30 | Surgery Progress Note ---
Date of Service July 03, 2023 Assessment & Plan (1) Closed right trimalleolar fracture: Plan: 77-year-old female postop day 2 from ORIF of [place] ankle fracture dislocation on the right side is doing reasonably well. She has been a bit confused but seems a bit better this morning. Pain is controlled. She is neurologically intact. Plan: 1. DVT prophylaxis including thigh-high teds, SCDs, and a baby aspirin twice a day for 6 weeks. 2. PT OT. As she is strictly nonweightbearing this right leg. 3. Pain control doing okay with current pain regimen. I really try and limit any narcotics and just use Tylenol to limit confusion. 4. Medical management as per the medicine service. 5. Disposition she is orthopedically okay for discharge anytime medically stable and arrangements can be made for adequate postoperative care. I need to see her back 2 to 3 weeks from her surgery date. Any orthopedic questions can be directly [phone] Admission and Anticipated Discharge Date Admission Date: June 30, 2023 Subjective 77-year-old female postop day 2 from a ORIF of the right ankle fracture dislocation. She is doing pretty well this morning. No new complaints. She says the pain is getting better. No chest pain or shortness of breath. Physical Exam Physical Exam: Physical exam shows a pleasant elderly female. She is lying in bed. Still seems to have a slight bit confused. Examination of the right ankle reveals the splint to be clean dry and intact. Ankle is well aligned. No drainage. She can dorsiflex and plantarflex her toes appropriately. She is neurologically intact. Results & Data Vital Signs (Past 12 Hours) Vital Signs Temp Pulse Pulse Resp BP BP Pulse Ox 07/03/23 07:45 36.7 C 94 H 18 136/72 98 07/03/23 07:26 81 07/03/23 04:01 36.7 C 80 18 120/60 100 07/02/23 23:34 36.8 C 99 H 18 91/52 L 95 O2 Del Method O2 Flow Rate 07/03/23 07:45 Nasal Cannula 2 07/03/23 07:26 07/03/23 04:01 Nasal Cannula 2 07/02/23 23:34 Room Air Laboratory Results Hemoglobin is 8.5. Hematocrit 26.7. Electrolytes are stable. PG Care Time/CCT Total # of Minutes Spent Total Time Spent with Patient: Total time spent is greater than 50% in coordination of care (as documented) at patient's floor/unit and/or counseling patient: Coding Level of Care Code 41839 Post Operative Follow-Up Diagnoses Closed right trimalleolar fracture S82.851A Encounter type: initial encounter (1) Closed right trimalleolar fracture Encounter type: initial encounter Qualified Code(s): S82.851A - Displaced trimalleolar fracture of right lower leg, initial encounter for closed fracture
[2023-07-03] MEDS ORDERED: POLYETHYLENE (MIRALAX) 17 GM PACK PO PRN (15:29)
--- NOTE | 2023-07-03 17:34 | Hospitalist Progress Note ---
Date of Service July 03, 2023 Assessment & Plan (1) Closed right trimalleolar fracture: Plan: Patient slid from high tabletop chair and right ankle buckled backwards on 06/30 Ankle x-ray on arrival showed right trimalleolar fracture/dislocation Ankle was reduced in the ED Status post open reduction internal fixation on 07/01 being treated with Percocets for pain Patient will need to follow-up with orthopedics outpatient Orthopedics recommended starting aspirin 81 mg p.o. twice daily for 6 weeks for DVT prophylaxis (2) Encephalopathy: Plan: resolved. Most likely metabolic in etiology. Related to anesthesia, pain medications, underlying advanced age Urinalysis negative (3) Paroxysmal atrial fibrillation: Plan: EKG on arrival showed sinus rhythm with first-degree AV block at 69 bpm; QTc 441 Continue metoprolol Continue flecainide Continuous telemetry monitoring - patient followed by Dr. Valerio Zelaya and he is not on anticoagulation according to the last note of Dr. Zelaya on 06/05/2023 apparently due to history of GI bleed and anemia (4) Pulmonary hypertension: Plan: Patient reports that she takes selexipag 1,200 micrograms tablets twice daily at 11 AM and 11 PM, as well as tadalafil 20 mg x 2 (40mg total) QAM (5) Chronic obstructive pulmonary disease: Plan: 2L NC continuously patient with history of lung cancer status post right upper lobectomy (6) CARIN (obstructive sleep apnea): Plan: Patient reports she does not wear CPAP at bedtime 2L NC HS (7) History of pulmonary embolism: Plan: Wedge resection performed in 2016; PE while on Coumadin; patient not on Eliquis DVT prophylaxis with baby aspirin twice daily initiated per orthopedics recommendation (8) GERD (gastroesophageal reflux disease): Plan: Continue pantoprazole Plan DNR/DNI Regular diet (n.p.o. at midnight) VTE PPx: Knee-high Nicolas LLE. Baby aspirin twice daily Admission and Anticipated Discharge Date Admission Date: June 30, 2023 Subjective patient feels well. Says that her mind was foggy yesterday. Clearing up now Review of Systems Review of Systems: All systems reviewed & are unremarkable except as noted in Subjective Physical Exam Physical Exam: general: Awake, conversant Heart: S1, S2/regular rate and rhythm, no murmur rubs or gallops Lungs: Clear to auscultation bilaterally. Normal effort Abdomen: Soft/nontender/nondistended. No hepatosplenomegaly Extremities: No clubbing/cyanosis. No edema Behavior: Appropriate, cooperative Results & Data Results & Data Vital Signs (Past 12 Hours) Vital Signs Temp Pulse Pulse Resp BP Pulse Ox O2 Del Method 07/03/23 16:38 82 07/03/23 15:48 36.9 C 82 18 116/64 97 Nasal Cannula 07/03/23 11:38 36.9 C 78 16 92/54 L 97 Nasal Cannula 07/03/23 09:00 Nasal Cannula 07/03/23 07:45 36.7 C 94 H 18 136/72 98 Nasal Cannula 07/03/23 07:26 81 O2 Flow Rate 07/03/23 16:38 07/03/23 15:48 2 07/03/23 11:38 2 07/03/23 09:00 2 07/03/23 07:45 2 07/03/23 07:26 Laboratory Results Abnormal lab results 07/02/23 07/03/23 Range/Units 18:10 05:42 RBC 2.69 L (4.20-5.40) M/uL Hgb 8.5 L (12.0-16.0) g/dl Hct 26.8 L (37.0-47.0) % MCHC 31.7 L (32.0-36.0) g/dL RDW Std Deviation 48.7 H (36.4-46.3) fL Lymph # (Auto) 0.87 L (1.20-3.40) K/uL Esmeralda # (Auto) 0.68 H (0.11-0.59) K/uL Calcium 8.5 L (8.6-10.3) mg/dl Urine Ketones Trace H (Negative) Urine Blood Trace H (Negative) U Epithel Cells (Auto) 5-10 H (0-5) /lpf PG Care Time/CCT Total # of Minutes Spent Total Time Spent with Patient: Total time spent is greater than 50% in coordination of care (as documented) at patient's floor/unit and/or counseling patient: Coding Level of Care Code 21938 SUB INP/OBS CARE 2/35MIN Diagnoses Closed right trimalleolar fracture S82.851A Encounter type: initial encounter Encephalopathy G93.40 Paroxysmal atrial fibrillation I48.0 Pulmonary hypertension I27.20 Chronic obstructive pulmonary disease, unspecified COPD type J44.9 COPD type: unspecified COPD CARIN (obstructive sleep apnea) G47.33 History of pulmonary embolism Z86.711 GERD (gastroesophageal reflux disease) K21.9 (1) Closed right trimalleolar fracture Encounter type: initial encounter Qualified Code(s): S82.851A - Displaced trimalleolar fracture of right lower leg, initial encounter for closed fracture (5) Chronic obstructive pulmonary disease COPD type: unspecified COPD Qualified Code(s): J44.9 - Chronic obstructive pulmonary disease, unspecified
[2023-07-03] MEDS: ACETAMINOPHEN 325 MG TAB PO PRN (19:55)
[2023-07-03] MEDS: SIMVASTATIN 20 MG TAB PO SCH (19:59)
[2023-07-03] MEDS: ASPIRIN 81 MG CHEW PO SCH (20:01)
[2023-07-04] MEDS: FLECAINIDE ACETATE 100 MG TABLET PO SCH ×2 (08:49→20:43)
[2023-07-04] MEDS: ASPIRIN 81 MG CHEW PO SCH ×2 (08:49→20:46)
[2023-07-04] MEDS: GABAPENTIN 300 MG CAP PO SCH ×3 (08:50→20:43)
[2023-07-04] MEDS: FLUTICASONE/VILANTEROL 100/25MCG 14 PUFFS/INHALER INH SCH (08:50)
[2023-07-04] MEDS: PANTOprazole 40 MG TAB PO SCH (08:51)
[2023-07-04] MEDS: METOPROLOL SUCC 50MG EXT REL TAB PO SCH (08:51)
[2023-07-04] MEDS: LUBIPROSTONE 8 MCG CAP PO SCH ×2 (08:51→20:44)
[2023-07-04] MEDS: POTASSIUM CHLORIDE 10 MEQ TABCR PO SCH (08:52)
[2023-07-04] MEDS: tadalafiL PO SCH (08:53)
[2023-07-04] MEDS: SERTRALINE HCL 50 MG TABLET PO SCH (08:53)
[2023-07-04] MEDS: TORSEMIDE 10 MG TAB PO SCH (08:54)
[2023-07-04] MEDS: ACETAMINOPHEN 1,000 MG/100 ML VIAL IV PRN (09:03)
[2023-07-04] MEDS: SELEXIPAG PO SCH ×2 (11:42→22:18)
--- NOTE | 2023-07-04 13:49 | Surgery Progress Note ---
Date of Service July 04, 2023 Assessment & Plan (1) Closed right trimalleolar fracture: Plan: 77-year-old female postop day 3 from ORIF of trimalar ankle fracture dislocation. Orthopedically she is doing fine. Plan: Orthopedically she just needs to keep her weight off this for the next 2 weeks.Strict elevation is much as possible. Keep all pressure off the heel. She can return to visit in 2 to 3 weeks from the surgery date for suture removal and hopefully conversion to a short leg walking cast. We recommend DVT prophylaxis including teds and SCDs in the hospital and then aspirin twice a day for the first 4 to 6 weeks postoperatively. Any orthopedic questions can direct [place] [phone]. Admission and Anticipated Discharge Date Admission Date: June 30, 2023 Subjective 77-year-old female postop day 3 from area ankle ORIF. She is doing okay. Pain says seems to be improving. There are no new complaints today. Splint is fitting okay. He is a little bit frustrated with the weight of the splint. Physical Exam Physical Exam: Physical exam shows a pleasant elderly female. She is lying in bed looks comfortable.Seems more well alert and appropriate today. Examination of the right leg reveals the splint to be in place. Ankle is well aligned. She can dorsiflex and plantarflex her toes appropriately. She is neurologically intact. Results & Data Vital Signs (Past 12 Hours) Vital Signs Temp Pulse Resp BP Pulse Ox O2 Del Method O2 Flow Rate 07/04/23 08:40 Nasal Cannula 2 07/04/23 08:17 36.5 C 112 H 16 128/67 98 Room Air PG Care Time/CCT Total # of Minutes Spent Total Time Spent with Patient: Total time spent is greater than 50% in coordination of care (as documented) at patient's floor/unit and/or counseling patient: Coding Level of Care Code 32340 Post Operative Follow-Up Diagnoses Closed right trimalleolar fracture S82.851A Encounter type: initial encounter (1) Closed right trimalleolar fracture Encounter type: initial encounter Qualified Code(s): S82.851A - Displaced trimalleolar fracture of right lower leg, initial encounter for closed fracture
--- NOTE | 2023-07-04 15:41 | Hospitalist Progress Note ---
Date of Service July 04, 2023 Assessment & Plan (1) Closed right trimalleolar fracture: Plan: Patient slid from high tabletop chair and right ankle buckled backwards on 06/30 Ankle x-ray on arrival showed right trimalleolar fracture/dislocation Ankle was reduced in the ED Status post open reduction internal fixation on 07/01 being treated with Percocets for pain Patient will need to follow-up with orthopedics outpatient Orthopedics recommended starting aspirin 81 mg p.o. twice daily for 6 weeks for DVT prophylaxis (2) Encephalopathy: Plan: resolved. Most likely metabolic in etiology. Related to anesthesia, pain medications, underlying advanced age Urinalysis negative (3) Paroxysmal atrial fibrillation: Plan: EKG on arrival showed sinus rhythm with first-degree AV block at 69 bpm; QTc 441 Continue metoprolol Continue flecainide Continuous telemetry monitoring - patient followed by Dr. Valerio Zelaya and he is not on anticoagulation according to the last note of Dr. Zelaya on 06/05/2023 apparently due to history of GI bleed and anemia (4) Pulmonary hypertension: Plan: Patient reports that she takes selexipag 1,200 micrograms tablets twice daily at 11 AM and 11 PM, as well as tadalafil 20 mg x 2 (40mg total) QAM (5) Chronic obstructive pulmonary disease: Plan: 2L NC continuously patient with history of lung cancer status post right upper lobectomy (6) CARIN (obstructive sleep apnea): Plan: Patient reports she does not wear CPAP at bedtime 2L NC HS (7) History of pulmonary embolism: Plan: Wedge resection performed in 2016; PE while on Coumadin; patient not on Eliquis DVT prophylaxis with baby aspirin twice daily initiated per orthopedics recommendation (8) GERD (gastroesophageal reflux disease): Plan: Continue pantoprazole Plan DNR/DNI Regular diet (n.p.o. at midnight) VTE PPx: Knee-high Nicolas LLE. Baby aspirin twice daily Awaiting placement. Case management on board Admission and Anticipated Discharge Date Admission Date: June 30, 2023 Subjective Patient feels well. Denies chest pain or shortness of breath. Review of Systems Review of Systems: All systems reviewed & are unremarkable except as noted in Subjective Physical Exam Physical Exam: general: Awake, conversant Heart: S1, S2/regular rate and rhythm, no murmur rubs or gallops Lungs: Clear to auscultation bilaterally. Normal effort Abdomen: Soft/nontender/nondistended. No hepatosplenomegaly Extremities: No clubbing/cyanosis. No edema Behavior: Appropriate, cooperative Results & Data Results & Data Vital Signs (Past 12 Hours) Vital Signs Temp Pulse Resp BP Pulse Ox O2 Del Method O2 Flow Rate 07/04/23 15:38 36.7 C 100 H 16 113/70 97 Room Air 07/04/23 15:00 2 07/04/23 08:40 Nasal Cannula 2 07/04/23 08:17 36.5 C 112 H 16 128/67 98 Room Air PG Care Time/CCT Total # of Minutes Spent Total Time Spent with Patient: Total time spent is greater than 50% in coordination of care (as documented) at patient's floor/unit and/or counseling patient: Coding Level of Care Code 26882 SUB INP/OBS CARE 2/35MIN Diagnoses Closed right trimalleolar fracture S82.851A Encounter type: initial encounter Encephalopathy G93.40 Paroxysmal atrial fibrillation I48.0 Pulmonary hypertension I27.20 Chronic obstructive pulmonary disease, unspecified COPD type J44.9 COPD type: unspecified COPD CARIN (obstructive sleep apnea) G47.33 History of pulmonary embolism Z86.711 GERD (gastroesophageal reflux disease) K21.9 (1) Closed right trimalleolar fracture Encounter type: initial encounter Qualified Code(s): S82.851A - Displaced trimalleolar fracture of right lower leg, initial encounter for closed fracture (5) Chronic obstructive pulmonary disease COPD type: unspecified COPD Qualified Code(s): J44.9 - Chronic obstructive pulmonary disease, unspecified
[2023-07-04] MEDS: SIMVASTATIN 20 MG TAB PO SCH (20:44)
[2023-07-05] MEDS: ACETAMINOPHEN 1,000 MG/100 ML VIAL IV PRN (08:51)
[2023-07-05] MEDS: ASPIRIN 81 MG CHEW PO SCH ×2 (08:56→21:11)
[2023-07-05] MEDS: FLUTICASONE/VILANTEROL 100/25MCG 14 PUFFS/INHALER INH SCH (08:56)
[2023-07-05] MEDS: FLECAINIDE ACETATE 100 MG TABLET PO SCH ×2 (08:57→21:12)
[2023-07-05] MEDS: PANTOprazole 40 MG TAB PO SCH (08:58)
[2023-07-05] MEDS: GABAPENTIN 300 MG CAP PO SCH ×3 (08:58→21:12)
[2023-07-05] MEDS: LUBIPROSTONE 8 MCG CAP PO SCH ×2 (08:58→21:12)
[2023-07-05] MEDS: POTASSIUM CHLORIDE 10 MEQ TABCR PO SCH (08:58)
[2023-07-05] MEDS: METOPROLOL SUCC 50MG EXT REL TAB PO SCH (08:58)
[2023-07-05] MEDS: SERTRALINE HCL 50 MG TABLET PO SCH (08:58)
[2023-07-05] MEDS: tadalafiL PO SCH (08:59)
[2023-07-05] MEDS: SELEXIPAG PO SCH ×2 (12:10→22:55)
[2023-07-05] MEDS: traMADol HCL 50 MG TABLET PO PRN ×2 (13:08→21:11)
--- NOTE | 2023-07-05 14:29 | Hospitalist Progress Note ---
Date of Service July 05, 2023 Assessment & Plan (1) Closed right trimalleolar fracture: Plan: Patient slid from high tabletop chair and right ankle buckled backwards on 06/30 Ankle x-ray on arrival showed right trimalleolar fracture/dislocation Ankle was reduced in the ED Status post open reduction internal fixation on 07/01 being treated with Percocets for pain Patient will need to follow-up with orthopedics outpatient Orthopedics recommended starting aspirin 81 mg p.o. twice daily for 6 weeks for DVT prophylaxis (2) Encephalopathy: Plan: resolved. Most likely metabolic in etiology. Related to anesthesia, pain medications, underlying advanced age Urinalysis negative (3) Paroxysmal atrial fibrillation: Plan: EKG on arrival showed sinus rhythm with first-degree AV block at 69 bpm; QTc 441 Continue metoprolol Continue flecainide Continuous telemetry monitoring - patient followed by Dr. Valerio Zelaya and he is not on anticoagulation according to the last note of Dr. Zelaya on 06/05/2023 apparently due to history of GI bleed and anemia (4) Pulmonary hypertension: Plan: Patient reports that she takes selexipag 1,200 micrograms tablets twice daily at 11 AM and 11 PM, as well as tadalafil 20 mg x 2 (40mg total) QAM (5) Chronic obstructive pulmonary disease: Plan: 2L NC continuously patient with history of lung cancer status post right upper lobectomy (6) CARIN (obstructive sleep apnea): Plan: Patient reports she does not wear CPAP at bedtime 2L NC HS (7) History of pulmonary embolism: Plan: Wedge resection performed in 2016; PE while on Coumadin; patient not on Eliquis DVT prophylaxis with baby aspirin twice daily initiated per orthopedics recommendation (8) GERD (gastroesophageal reflux disease): Plan: Continue pantoprazole (9) Chronic respiratory failure: Plan: With hypoxia Requiring 2 L of oxygen continuously at home Secondary to COPD, pulmonary hypertension Plan DNR/DNI Regular diet (n.p.o. at midnight) VTE PPx: Knee-high Nicolas LLE. Baby aspirin twice daily Awaiting placement. Case management on board Admission and Anticipated Discharge Date Admission Date: June 30, 2023 Subjective Patient does not have any major complaints. Awaiting placement. Review of Systems Review of Systems: All systems reviewed & are unremarkable except as noted in Subjective Physical Exam Physical Exam: general: Awake, conversant Heart: S1, S2/regular rate and rhythm, no murmur rubs or gallops Lungs: Clear to auscultation bilaterally. Normal effort Abdomen: Soft/nontender/nondistended. No hepatosplenomegaly Extremities: No clubbing/cyanosis. No edema Behavior: Appropriate, cooperative Results & Data Results & Data Vital Signs (Past 12 Hours) Vital Signs Temp Pulse Resp BP Pulse Ox O2 Del Method O2 Flow Rate 07/05/23 09:00 Nasal Cannula 2 07/05/23 08:06 36.7 C 84 16 131/60 99 Nasal Cannula 2 PG Care Time/CCT Total # of Minutes Spent Total Time Spent with Patient: Total time spent is greater than 50% in coordination of care (as documented) at patient's floor/unit and/or counseling patient: Coding Level of Care Code 25744 SUB INP/OBS CARE 2/35MIN Diagnoses Closed right trimalleolar fracture S82.851A Encounter type: initial encounter Encephalopathy G93.40 Paroxysmal atrial fibrillation I48.0 Pulmonary hypertension I27.20 Chronic obstructive pulmonary disease, unspecified COPD type J44.9 COPD type: unspecified COPD CARIN (obstructive sleep apnea) G47.33 History of pulmonary embolism Z86.711 GERD (gastroesophageal reflux disease) K21.9 Chronic respiratory failure J96.10 Respiratory failure complication: unspecified whether with hypoxia or hypercapnia (1) Closed right trimalleolar fracture Encounter type: initial encounter Qualified Code(s): S82.851A - Displaced trimalleolar fracture of right lower leg, initial encounter for closed fracture (5) Chronic obstructive pulmonary disease COPD type: unspecified COPD Qualified Code(s): J44.9 - Chronic obstructive pulmonary disease, unspecified (9) Chronic respiratory failure Respiratory failure complication: unspecified whether with hypoxia or hypercapnia Qualified Code(s): J96.10 - Chronic respiratory failure, unspecified whether with hypoxia or hypercapnia
[2023-07-05] MEDS: SIMVASTATIN 20 MG TAB PO SCH (21:12)
[2023-07-06] MEDS: LUBIPROSTONE 8 MCG CAP PO SCH ×2 (09:23→20:03)
[2023-07-06] MEDS: GABAPENTIN 300 MG CAP PO SCH ×3 (09:23→20:03)
[2023-07-06] MEDS: PANTOprazole 40 MG TAB PO SCH (09:23)
[2023-07-06] MEDS: FLECAINIDE ACETATE 100 MG TABLET PO SCH ×2 (09:23→20:03)
[2023-07-06] MEDS: SERTRALINE HCL 50 MG TABLET PO SCH (09:24)
[2023-07-06] MEDS: METOPROLOL SUCC 50MG EXT REL TAB PO SCH (09:24)
[2023-07-06] MEDS: TORSEMIDE 10 MG TAB PO SCH (09:24)
[2023-07-06] MEDS: FLUTICASONE/VILANTEROL 100/25MCG 14 PUFFS/INHALER INH SCH (09:25)
[2023-07-06] MEDS: tadalafiL PO SCH (09:25)
[2023-07-06] MEDS: ASPIRIN 81 MG CHEW PO SCH ×2 (09:31→20:03)
[2023-07-06] MEDS: POTASSIUM CHLORIDE 10 MEQ TABCR PO SCH (09:32)
[2023-07-06] MEDS: SELEXIPAG PO SCH ×2 (11:24→22:03)
[2023-07-06] MEDS: traMADol HCL 50 MG TABLET PO PRN (13:47)
--- NOTE | 2023-07-06 15:05 | Hospitalist Progress Note ---
Date of Service July 06, 2023 Assessment & Plan (1) Closed right trimalleolar fracture: Plan: Patient slid from high tabletop chair and right ankle buckled backwards on 06/30 Ankle x-ray on arrival showed right trimalleolar fracture/dislocation Ankle was reduced in the ED Status post open reduction internal fixation on 07/01 being treated with Percocets for pain Patient will need to follow-up with orthopedics outpatient Orthopedics recommended starting aspirin 81 mg p.o. twice daily for 6 weeks for DVT prophylaxis (2) Encephalopathy: Plan: resolved. Most likely metabolic in etiology. Related to anesthesia, pain medications, underlying advanced age Urinalysis negative (3) Paroxysmal atrial fibrillation: Plan: EKG on arrival showed sinus rhythm with first-degree AV block at 69 bpm; QTc 441 Continue metoprolol Continue flecainide Continuous telemetry monitoring - patient followed by Dr. Valerio Zelaya and he is not on anticoagulation according to the last note of Dr. Zelaya on 06/05/2023 apparently due to history of GI bleed and anemia (4) Pulmonary hypertension: Plan: Patient reports that she takes selexipag 1,200 micrograms tablets twice daily at 11 AM and 11 PM, as well as tadalafil 20 mg x 2 (40mg total) QAM (5) Chronic obstructive pulmonary disease: Plan: 2L NC continuously patient with history of lung cancer status post right upper lobectomy (6) CARIN (obstructive sleep apnea): Plan: Patient reports she does not wear CPAP at bedtime 2L NC HS (7) History of pulmonary embolism: Plan: Wedge resection performed in 2016; PE while on Coumadin; patient not on Eliquis DVT prophylaxis with baby aspirin twice daily initiated per orthopedics recommendation (8) GERD (gastroesophageal reflux disease): Plan: Continue pantoprazole (9) Chronic respiratory failure: Plan: With hypoxia Requiring 2 L of oxygen continuously at home Secondary to COPD, pulmonary hypertension Plan DNR/DNI Regular diet (n.p.o. at midnight) VTE PPx: Knee-high Nicolas LLE. Baby aspirin twice daily Awaiting placement. Case management on board Admission and Anticipated Discharge Date Admission Date: June 30, 2023 Subjective Patient feels well. Denies chest pain or shortness of breath Review of Systems Review of Systems: All systems reviewed & are unremarkable except as noted in Subjective Physical Exam Physical Exam: general: Awake, conversant Heart: S1, S2/regular rate and rhythm, no murmur rubs or gallops Lungs: Clear to auscultation bilaterally. Normal effort Abdomen: Soft/nontender/nondistended. No hepatosplenomegaly Extremities: No clubbing/cyanosis. No edema Behavior: Appropriate, cooperative Results & Data Results & Data Vital Signs (Past 12 Hours) Vital Signs Temp Pulse Resp BP Pulse Ox O2 Del Method O2 Flow Rate 07/06/23 09:20 83 120/66 07/06/23 08:45 Nasal Cannula 2 07/06/23 08:06 37.0 C 92 H 18 134/74 97 Room Air PG Care Time/CCT Total # of Minutes Spent Total Time Spent with Patient: Total time spent is greater than 50% in coordination of care (as documented) at patient's floor/unit and/or counseling patient: Coding Level of Care Code 95637 SUB INP/OBS CARE 2/35MIN Diagnoses Closed right trimalleolar fracture S82.851A Encounter type: initial encounter Encephalopathy G93.40 Paroxysmal atrial fibrillation I48.0 Pulmonary hypertension I27.20 Chronic obstructive pulmonary disease, unspecified COPD type J44.9 COPD type: unspecified COPD CARIN (obstructive sleep apnea) G47.33 History of pulmonary embolism Z86.711 GERD (gastroesophageal reflux disease) K21.9 Chronic respiratory failure J96.10 Respiratory failure complication: unspecified whether with hypoxia or hypercapnia (1) Closed right trimalleolar fracture Encounter type: initial encounter Qualified Code(s): S82.851A - Displaced trimalleolar fracture of right lower leg, initial encounter for closed fracture (5) Chronic obstructive pulmonary disease COPD type: unspecified COPD Qualified Code(s): J44.9 - Chronic obstructive pu lmonary disease, unspecified (9) Chronic respiratory failure Respiratory failure complication: unspecified whether with hypoxia or hypercapnia Qualified Code(s): J96.10 - Chronic respiratory failure, unspecified whether with hypoxia or hypercapnia
[2023-07-06] MEDS: ACETAMINOPHEN 325 MG TAB PO PRN (15:17)
[2023-07-06] MEDS: SIMVASTATIN 20 MG TAB PO SCH (20:04)
[2023-07-06] MEDS: traMADol HCL 50 MG TABLET PO SCH (22:02)
[2023-07-07] MEDS: traMADol HCL 50 MG TABLET PO SCH ×2 (08:01→11:21)
[2023-07-07] MEDS: FLUTICASONE/VILANTEROL 100/25MCG 14 PUFFS/INHALER INH SCH (08:18)
[2023-07-07] MEDS: GABAPENTIN 300 MG CAP PO SCH (08:19)
[2023-07-07] MEDS: FLECAINIDE ACETATE 100 MG TABLET PO SCH (08:19)
[2023-07-07] MEDS: LUBIPROSTONE 8 MCG CAP PO SCH (08:20)
[2023-07-07] MEDS: PANTOprazole 40 MG TAB PO SCH (08:21)
[2023-07-07] MEDS: SERTRALINE HCL 50 MG TABLET PO SCH (08:21)
[2023-07-07] MEDS: METOPROLOL SUCC 50MG EXT REL TAB PO SCH (08:21)
[2023-07-07] MEDS: tadalafiL PO SCH (08:22)
--- NOTE | 2023-07-07 08:35 | Surgery Progress Note ---
Date of Service July 07, 2023 Assessment & Plan (1) Closed right trimalleolar fracture: Plan: 77-year-old female with multiple medical comorbidities now with 6 days out from ORIF of right trimalleolar fracture dislocation. Orthopedically she is doing well. Splint is fitting okay. Pains controlled. Plan: 1. DVT prophylaxis including a teds SCDs and baby aspirin twice a day for 6 weeks. 2. PT-OT. She is nonweightbearing right leg for the next 2 weeks. 3. Pain control. Doing well with current pain regimen. Denies any pain today. 4. Medical management as per the medicine service. 5. Disposition. She is orthopedically okay for discharge anytime. As she is nonweightbearing for the first 2 weeks after surgery. I need to see her back 2 to 3 weeks out from surgery date. She needs to keep all pressure off her heel. Any orthopedic questions can direct me at [phone]. Admission and Anticipated Discharge Date Admission Date: June 30, 2023 Subjective 77-year-old female now 6 days out from ORIF of a right femoral ankle fracture dislocation. She is just waiting for placement. She denies any significant pa in. Splint seems to be fitting well. No new complaints. Physical Exam Physical Exam: Physical examination was a pleasant elderly female. She is lying bed looks comfortable. Examination of the right leg reveals the splint to be clean dry and intact. No signs of any drainage. She can flex extend her toes appropriately. PG Care Time/CCT Total # of Minutes Spent Total Time Spent with Patient: Total time spent is greater than 50% in coordination of care (as documented) at patient's floor/unit and/or counseling patient: Coding Level of Care Code 78990 Post Operative Follow-Up Diagnoses Closed right trimalleolar fracture S82.851A Encounter type: initial encounter (1) Closed right trimalleolar fracture Encounter type: initial encounter Qualified Code(s): S82.851A - Displaced trimalleolar fracture of right lower leg, initial encounter for closed fracture
[2023-07-07] MEDS: ASPIRIN 81 MG CHEW PO SCH (09:40)
[2023-07-07] MEDS: POTASSIUM CHLORIDE 10 MEQ TABCR PO SCH (09:40)
--- NOTE | 2023-07-07 11:17 | Discharge Summary ---
Date of Service July 07, 2023 Admission HPI Per Admitting Provider Angela is a 77-year-old female with PMH of paroxysmal A-fib (no longer on blood thinners), CAD, anemia, COPD, HLD, osteoporosis, paroxysmal SVT, GERD, restrictive lung disease, depression, CARIN, and pulmonary HTN. She presented via EMS after sliding off a chair and twisting her right ankle. 100 mcg of fentanyl and 4 mg of Zofran given en route. Right ankle deformity was noted on arrival and was reduced after ankle x-ray denoting right ankle trimalleolar fracture/dislocation. Patient reports that she "slid down" from a high table chair and that her foot buckled underneath her. She fell to the ground, but denies head strike, LOC, or being on blood thinners. At time of admission, she rates her right ankle pain 6/10, describes it as achy, constant. No pain medications were taken at home. The pain radiates up towards her right knee, but does not extend further. She will uses a walker at baseline. She denies prior surgeries or trauma to the right lower extremity. She reports that she uses at home oxygen at 2L NC continuously. Vital stable at time of admission. ED course: Acetaminophen 1000 mg IV Fentanyl 50 mcg IV ROS: Patient endorses right ankle pain, and headache. Patient denies fever, chills, sweating, CP, pleuritic CP, SOB, abdominal pain, N/V/D, urinary symptoms, burning with urination, or numbness or tingling going down the legs. Admission Exam Per Admitting Provider General: Minimal physical distress; pleasant affect; non-toxic appearing; well- nourished; cooperative HEENT: normocephalic, atraumatic; no scleral icterus; PERRLA w/ EOMs intact; moist mucus membrane; vision and hearing grossly intact Neck: supple; no JVD; no lymphadenopathy; trachea midline Skin: warm, dry without signs of tenting; no cyanosis; no rashes, bruising, lesions, or erythema noted CV: chest wall NTP; RRR; S1/S2 normal; no murmurs/rubs/gallops; pulses intact and symmetric at radial, DP, and PT Lungs: no acute respiratory distress; symmetrical chest wall expansion; clear breath sounds across all lung howard w/o adventitious sounds; no wheezing ABD: Soft, NTP; BS present; no rebound/guarding; no ascites; no distention; negative CVA tenderness RLE: RLE is currently wrapped; patient demonstrates ability to wiggle toes, and reports sensation with light touch; she denies pain to palpation of the right knee MSK: no tics or fasciculations; no edema noted in the LEs b/l Neuro: A&Ox3; normal mood and affect; fluent speech; no focal deficits; sensation grossly intact in the LEs B/L Principal Diagnosis Right Ankle Fracture/Dislocation Discharge Exam general: Awake, conversant Heart: S1, S2/regular rate and rhythm, no murmur rubs or gallops Lungs: Clear to auscultation bilaterally. Normal effort Abdomen: Soft/nontender/nondistended. No hepatosplenomegaly Extremities: No clubbing/cyanosis. No edema Behavior: Appropriate, cooperative Discharge Data Allergies Allergy/AdvReac Type Severity Reaction Status Date / Time cephalexin Allergy Unknown UNKNOWN Verified 06/05/23 13:19 ciprofloxacin Allergy Unknown RASH Verified 06/05/23 13:19 doxycycline Allergy Unknown RASH Verified 06/05/23 13:19 Egg Derived Allergy Unknown HX HIVES Verified 06/05/23 13:19 Influenza Virus Vaccines Allergy Unknown ALLERGIES Verified 06/05/23 13:19 TO EGGS Nitrate Analogues Allergy Unknown UNABLE TO Verified 06/05/23 13:19 HAVE R/T PULMONARY HTN Penicillins Allergy Unknown RASH Verified 06/05/23 13:19 tetanus toxoid, adsorbed Allergy Unknown TETANUS-DIPTHERIA Verified 06/05/23 13:19 TOXOID-RASH codeine AdvReac Unknown GI SYMPTOMS Verified 06/05/23 13:19 diphenhydramine AdvReac Unknown UNABLE TO Verified 06/05/23 13:19 HAVE R/T PULMONARY HTN hydrocodone AdvReac Unknown N/V Verified 06/05/23 13:19 pseudoephedrine AdvReac Unknown UNABLE TO Verified 06/05/23 13:19 HAVE COLD MEDICATIONS R/T PULMONARY HTN Consultations 06/30/23 16:21 ED Decision to Admit Stat 06/30/23 21:11 Consult Orthopedic Surgery Routine Procedures Performed Operation Date: 07/01/23 06:45 Actual Procedures p Open Reduction Internal Fixation Right Ankle(Right) - Major Gilmore MD Ordered Studies 07/01/23 FL ankle RT min 3V RTN Routine 07/01/23 10:18 US - OR guided needle placemen Stat Hospital Course (1) Closed right trimalleolar fracture: Patient slid from high tabletop chair and right ankle buckled backwards on 06/30 Ankle x-ray on arrival showed right trimalleolar fracture/dislocation Ankle was reduced in the ED Status post open reduction internal fixation on 07/01 Patient will need to follow-up with orthopedics outpatient Orthopedics recommended starting aspirin 81 mg p.o. twice daily for 6 weeks for DVT prophylaxis (2) Encephalopathy: resolved. Most likely metabolic in etiology. Related to anesthesia, pain medications, underlying advanced age Urinalysis negative (3) Paroxysmal atrial fibrillation: EKG on arrival showed sinus rhythm with first-degree AV block at 69 bpm; QTc 441 Continue metoprolol Continue flecainide Continuous telemetry monitoring - patient followed by Dr. Valerio Zelaya and he is not on anticoagulation according to the last note of Dr. Zelaya on 06/05/2023 apparently due to history of GI bleed and anemia (4) Pulmonary hypertension: Patient reports that she takes selexipag 1,200 micrograms tablets twice daily at 11 AM and 11 PM, as well as tadalafil 20 mg x 2 (40mg total) QAM (5) Chronic obstructive pulmonary disease: 2L NC continuously patient with history of lung cancer status post right upper lobectomy (6) CARIN (obstructive sleep apnea): Patient reports she does not wear CPAP at bedtime 2L NC HS (7) History of pulmonary embolism: Wedge resection performed in 2016; PE while on Coumadin; patient not on Eliquis DVT prophylaxis with baby aspirin twice daily initiated per orthopedics recommendation (8) GERD (gastroesophageal reflux disease): Continue pantoprazole (9) Chronic respiratory failure: With hypoxia Requiring 2 L of oxygen continuously at home Secondary to COPD, pulmonary hypertension Plan Discharge to SNF today Total Time Total Time Spent Total Time Spent (In Minutes): 35 Discharge Plan Discharge Items Patient Disposition: Transfer Intermediate Fac Reason For Visit: R ANKLE TRIMALLEOLAR FRACTURE Discharge Diagnosis: Right Ankle Fracture/Dislocation Activity: Per Instructions section Activity Comment: Non weightbearing on right leg. Keep all pressure off heel while in bed. Weightbearing: Right non-weightbearing Non-emergency contact: Primary Care Provider Call non-emergency contact if: you have any medication questions and your symptoms worsen Follow-up/Referrals: Iliana Goddard DO [Primary Care Provider] - Major Gilmore MD [Physician] - (Orthopedic follow-up 2-3 weeks from surgery date.) Diet: Heart Healthy Addtl Attending Provider Instructions: Non-wieghtbearing on right leg Keep splint and bandage clean, dry, and in place until return to clinic visit in 2-3 weeks Elevate foot as much as possible. Keep all pressure off heel at all times. DVT prophylaxis: Baby aspirin twice daily for 6 weeks Pending Studies at Discharge: No Stand-Alone Forms: My [facility] Skilled Items Patient informed of condition?: Yes DNR: Yes Discharge Level of Care: Skilled Communicable Disease: No Discharge Prognosis: Stable Lines: None Urinary Catheter: No Medications and DC Order Prescriptions: New aspirin [Children's Aspirin] 81 mg Tablet,Chewable 81 mg PO BID 42 Days Qty: 84 0RF Continued ascorbic acid (vitamin C) 500 mg capsule 500 mg PO QAM torsemide 10 mg tablet 10 mg PO 3XWK 90 Days Qty: 90 3RF Patient Comments: MORNING HOURS, MON, WED AND FRI Rx Instructions: TAKES MON, WED & FRI. valacyclovir [Valtrex] 500 mg tablet 1,000 mg PO BID PRN (Reason: Cold Sores) Qty: 30 1RF diclofenac sodium 50 mg tablet,delayed release (DR/EC) 50 mg PO DAILY Qty: 30 0RF potassium chloride 10 mEq capsule, extended release 10 meq PO QAM Qty: 90 2RF ketoconazole 2 % cream 1 applic topical UD PRN (Reason: Skin Irritation) Qty: 15 0RF Rx Instructions: Apply to corners of mouth (VERIFIED PAT CALL 08/22/20) simvastatin 20 mg tablet 20 mg PO QPM Qty: 90 1RF fluticasone furoate-vilanterol [Breo Ellipta] 100-25 mcg/dose blister with device 1 inh inhalation DAILY Qty: 3 3RF pantoprazole 40 mg tablet,delayed release (DR/EC) 40 mg PO DAILY Qty: 90 1RF sertraline [Zoloft] 50 mg tablet 50 mg PO QAM Qty: 90 1RF gabapentin 300 mg capsule 300 mg PO TID Qty: 90 5RF flecainide 100 mg tablet 100 mg PO BID Qty: 180 3RF metoprolol succinate 50 mg tablet extended release 24 hr 50 mg PO QAM Qty: 90 3RF (DME) Lift Chair Misc See Rx Instructions .Route Qty: 1 0RF Rx Instructions: As directed. tramadol 50 mg tablet 50 mg PO TID PRN (Reason: pain) Qty: 90 0RF (DME) Oxygen Home Liters Per Minute See Dose Instructions .ROUTE .MEDSUPPLY Dose Instruction: As directed Rx Instructions: Portable oxygen concentrator-3 liters with exertion-AHP polyethylene glycol 3350 [Miralax] 17 gram/dose powder 8.5 g PO DAILY PRN (Reason: Constipation) tadalafil 20 mg tablet 40 mg PO QAM Rx Instructions: 20mg p.o. x 2 tabs (total 40mg) QAM diphenhydramine-acetaminophen [Tylenol PM Extra Strength] 25-500 mg Tablet 1 tab PO HS cholecalciferol (vitamin D3) [Vitamin D3] 1,000 unit Capsule 1,000 unit PO QAM selexipag 1,200 mcg tablet 1,200 mcg PO BID Rx Instructions: swallow whole; do not crush, chew, open, break/cut or dissolve lubiprostone 8 mcg capsule 8 mcg PO BID Rx Instructions: TAKE ONE CAPSULE BY MOUTH TWICE DAILY FOR IBS-C calcium carbonate 500 mg calcium (1,250 mg) Tablet 500 mg PO QAM multivitamin [Multiple Vitamins] Tablet 1 tab PO QAM ondansetron HCl 4 mg tablet 4 mg PO Q8 PRN (Reason: Nausea And Vomiting) Discharge Orders: Discharge Order (Routine); Ordered 07/07/23 Ordered By: Luis Lee Admission Data Admit Date/Time: 06/30/23 18:46 Attending Provider: Luis Lee Admit Provider: Wilmer Chiu Primary Care Provider: Iliana Goddard Other Providers: Wilmer Chiu; Major Gilmore; [facility]; [facility] Other Interventions: Discharge Summary Assessment (RN) Last Done: 07/07/23 11:34 Coding Level of Care Code 54245 INP/OBS DISCH >30 MIN Diagnoses Closed right trimalleolar fracture S82.851A Encounter type: initial encounter Encephalopathy G93.40 Paroxysmal atrial fibrillation I48.0 Pulmonary hypertension I27.20 Chronic obstructive pulmonary disease, unspecified COPD type J44.9 COPD type: unspecified COPD CARIN (obstructive sleep apnea) G47.33 History of pulmonary embolism Z86.711 GERD (gastroesophageal reflux disease) K21.9 Chronic respiratory failure J96.10 Respiratory failure complication: unspecified whether with hypoxia or hypercapnia
[2023-07-07] MEDS: SELEXIPAG PO SCH (11:21)
== END 2023-07-07 12:48 | DRG 492 ==
LOC: ED 14:42 → 2N 18:46 → SUATTDRO 18:46 → 2N 20:23 → 3W 07-03 23:33